=== PATIENT | male | born 1945 | race Caucasian/White ===

== ENCOUNTER → 2017-02-20 | Outpatient (CLI) | payer MEDICARE, OTHER | LOC: M SMT 09:51 | PROVIDERS: ATTEND Nurse Practitioner Women's Health | DX: Z12.5 Encounter for screening for malignant neoplasm of prostate (principal) | CPT/HCPCS: 36415; G0103; G0463 ==

== ENCOUNTER 2018-02-23 18:07 | Emergency (ER) | payer MEDICARE, OTHER ==
[2018-02-23] MEDS: ASPIRIN 81 MG CHEW TABLET PO (18:37)
[2018-02-23] MEDS: NS 1,000 ML IV (18:40)
[2018-02-23] MEDS: GI COCKTAIL 50ML BTL(HYOSCYAMINE/MAALOX/LIDOCAINE VISCOUS)(1:3:1) PO (18:40)
[2018-02-23 18:44] LABS: BASO # 0.1 10^3/uL (0.0-0.2); BASO % 0.5 % (0.0-1.0); EOS % 0.3 % (0.0-3.0); HEMATOCRIT 41.6 % (42.0-52.0); HEMOGLOBIN 14.1 g/dl (13.5-17.5); IMMATURE GRANULOCYTE % 0.3 % (0-3.0); LYMPH # 0.7 10^3/uL (1.5-4.5); LYMPH % 7.4 % (24.0-44.0); MEAN CORPUSCULAR HEMOGLOBIN 30.5 pg (27.0-33.0); MEAN CORPUSCULAR HGB CONC 33.9 g/dl (32.0-36.5); MEAN CORPUSCULAR VOLUME 89.8 fl (80.0-96.0); MONO # 1.1 10^3/uL (0.0-0.8); MONO % 11.4 % (0.0-5.0); NEUTROPHILS # 7.4 10^3/uL (1.8-7.7); NEUTROPHILS % 80.1 % (36.0-66.0); PLATELET COUNT, AUTOMATED 249 10^3/uL (150-450); RED BLOOD COUNT 4.63 10^6/uL (4.30-6.10); RED CELL DISTRIBUTION WIDTH 12.1 % (11.5-14.5); WHITE BLOOD COUNT 9.2 10^3/uL (4.0-10.0)
[2018-02-23 18:53] LABS: INR 0.97
[2018-02-23 19:08] LABS: ALT/SGPT 15 U/L (12-78); ANION GAP 9 MEQ/L (8-16); AST/SGOT 15 U/L (7-37); BLOOD UREA NITROGEN 19 MG/DL (7-18); CALCIUM LEVEL 8.2 MG/DL (8.8-10.2); CARBON DIOXIDE LEVEL 28 MEQ/L (21-32); CHLORIDE LEVEL 103 MEQ/L (98-107); CPK CREATINE PHOSPHOKINASE 43 U/L (39-308); CREATININE FOR GFR 0.87 MG/DL (0.70-1.30); GLOMERULAR FILTRATION RATE > 60.0 (>42); GLUCOSE, FASTING 98 MG/DL (70-100); SODIUM LEVEL 140 MEQ/L (136-145)
[2018-02-23 19:09] LABS: ALBUMIN 3.4 GM/DL (3.2-5.2); ALBUMIN/GLOBULIN RATIO 1.03 (1.00-1.93); ALKALINE PHOSPHATASE 66 U/L (45-117); BILIRUBIN,DIRECT 0.1 MG/DL (0.0-0.2); LIPASE 166 U/L (73-393); TOTAL PROTEIN 6.7 GM/DL (6.4-8.2); TROPONIN I < 0.02 NG/ML (< 0.10)
[2018-02-23 19:10] LABS: BILIRUBIN,TOTAL 0.5 MG/DL (0.2-1.0); CK-MB VALUE MASS < 1.0 NG/ML (<3.6); MB/CK RELATIVE INDEX 2.32 (< OR =4)
== END 2018-02-23 21:37 | disposition home or self-care (01) ==
LOC: M ED 18:07
DX: K21.0 Gastro-esophageal reflux disease with esophagitis (principal); I10 Essential (primary) hypertension; G20 Parkinson's disease; Z98.890 Other specified postprocedural states; Z82.49 Family history of ischemic heart disease and other diseases of the circulatory system; Z79.82 Long term (current) use of aspirin; Z79.899 Other long term (current) drug therapy
CPT/HCPCS: 71045

== ENCOUNTER → 2018-03-06 | Outpatient (CLI) | payer MEDICARE, OTHER ==
[2018-03-06 13:27] LABS: PSA SCREENING 2.92 NG/ML (< 4.0)
== END ==
LOC: M SMT 08:59
DX: Z12.5 Encounter for screening for malignant neoplasm of prostate (principal)
CPT/HCPCS: G0103

== ENCOUNTER → 2018-03-13 | Outpatient (REF) | payer MEDICARE, OTHER | LOC: M SFHCLERA 14:39 | DX: D22.5 Melanocytic nevi of trunk (principal) | CPT/HCPCS: 88305 ==

== ENCOUNTER → 2019-03-11 | Outpatient (REF) | payer MEDICARE, OTHER ==
[~2019-03-11] MED LIST: ADV250INH INH; AMLO10TA5 PO; ASPI81TA85 PO; CAND16TA7 PO; CARB25TA9 PO; CHLO125TA PO; FLOM0.4C39 PO; PROT1TAB2 PO; SIME180C PO
== END ==
LOC: M SFHCPLAZ 18:28
PROVIDERS: ATTEND Dermatology
DX: D22.71 Melanocytic nevi of right lower limb, including hip (principal); L57.0 Actinic keratosis; D22.5 Melanocytic nevi of trunk

== ENCOUNTER 2020-08-05 17:13 | Inpatient (IN) | payer MEDICARE, OTHER ==
[~2020-08-05] VITALS: Ht 177.8 cm; Wt 60.6 kg
[~2020-08-05 17:13] MED LIST changes: -AMLO10TA5 PO; +AMLO1TAB25 PO; -ASPI81TA85 PO; +ASPI81TA86 PO
--- NOTE | 2020-08-05 17:49 | REPVR ---
PROCEDURE INFORMATION: Exam: CT Head Without Contrast Exam date and time: 08/05/2020 5:35 PM Age: 75 years old Clinical indication: Altered mental status/memory loss; Confusion or disorientation TECHNIQUE: Imaging protocol: Computed tomography of the head without contrast. Radiation optimization: All CT scans at this facility use at least one of these dose optimization techniques: automated exposure control; mA and/or kV adjustment per patient size (includes targeted exams where dose is matched to clinical indication); or iterative reconstruction. COMPARISON: No relevant prior studies available. FINDINGS: Brain: The crowell-white differentiation is maintained. No hemorrhage. No edema. There are mild periventricular and subcortical lucencies consistent with chronic microvascular ischemic changes. Cerebral ventricles: No ventriculomegaly. Bones/joints: Unremarkable. No acute fracture. Paranasal sinuses: Visualized sinuses are unremarkable. No fluid levels. Mastoid air cells: Visualized mastoid air cells are well aerated. Orbital cavity: Bilateral cataract surgery. Soft tissues: Unremarkable. IMPRESSION: No acute intracranial abnormality. Chronic microvascular ischemic changes. Electronically signed by: Shashi Mittal On 08/05/2020 17:49:22 PM
--- NOTE | 2020-08-05 17:51 | REP ---
INDICATION: Altered Mental Status. COMPARISON: February 23, 2018.. TECHNIQUE: Sitting AP portable chest x-ray. FINDINGS: The lungs are quite hyperinflated as before consistent with COPD. Heart is not enlarged. The aorta is somewhat tortuous. No infiltrate is seen. Pleural angles are sharp. Pulmonary vasculature is not increased. IMPRESSION: Hyperinflation consistent with COPD. No acute disease. <Electronically signed by Italo Sheehan > 08/05/20 [id number]
[2020-08-05 18:06] LABS: BASO # 0.1 10^3/uL (0.0-0.2); BASO % 0.9 % (0.0-1.0); EOS % 0.6 % (0.0-3.0); HEMATOCRIT 42.7 % (42.0-52.0); HEMOGLOBIN 13.5 g/dl (13.5-17.5); LYMPH % 14.5 % (24.0-44.0); MEAN CORPUSCULAR HEMOGLOBIN 29.9 pg (27.0-33.0); MEAN CORPUSCULAR HGB CONC 31.6 g/dl (32.0-36.5); MEAN CORPUSCULAR VOLUME 94.5 fl (80.0-96.0); MONO # 0.7 10^3/uL (0.0-0.8); MONO % 11.2 % (0.0-5.0); NEUTROPHILS # 4.8 10^3/uL (1.5-8.5); NEUTROPHILS % 72.6 % (36.0-66.0); PLATELET COUNT, AUTOMATED 209 10^3/uL (150-450); RED BLOOD COUNT 4.52 10^6/uL (4.30-6.10); WHITE BLOOD COUNT 6.5 10^3/uL (4.0-10.0)
[2020-08-05 18:39] LABS: ALBUMIN 3.6 GM/DL (3.2-5.2); ALT/SGPT 6 U/L (12-78); BILIRUBIN,DIRECT 0.2 MG/DL (0.0-0.2); BILIRUBIN,TOTAL 0.6 MG/DL (0.2-1.0); BLOOD UREA NITROGEN 18 MG/DL (7-18); CALCIUM LEVEL 8.4 MG/DL (8.8-10.2); CARBON DIOXIDE LEVEL 31 MEQ/L (21-32); CHLORIDE LEVEL 105 MEQ/L (98-107); CK-MB VALUE MASS 1.5 NG/ML (<3.6); CPK CREATINE PHOSPHOKINASE 72 U/L (39-308); CREATININE FOR GFR 0.95 MG/DL (0.70-1.30); GLOMERULAR FILTRATION RATE > 60.0 (>42); GLUCOSE, FASTING 115 MG/DL (70-100); MB/CK RELATIVE INDEX 2.08 (< OR =4); SODIUM LEVEL 141 MEQ/L (136-145); THYROID STIMULATING HORMONE 0.611 uIU/ML (0.358-3.740); TOTAL PROTEIN 6.6 GM/DL (6.4-8.2); TROPONIN I < 0.02 NG/ML (< 0.10)
[2020-08-05] MEDS ORDERED: LATA0.0015 OU (19:22)
[2020-08-05] MEDS ORDERED: FLUT1INH2 INH (19:31)
[2020-08-05] MEDS ORDERED: CLON1TAB17 PO (19:31)
[2020-08-05] MEDS ORDERED: COLA100C5 PO (19:31)
[2020-08-05] MEDS ORDERED: ALLO100T PO (19:31)
--- NOTE | 2020-08-05 19:55 | REPVR ---
PROCEDURE INFORMATION: Exam: CT Cervical Spine Without Contrast Exam date and time: 08/05/2020 7:30 PM Age: 75 years old Clinical indication: Injury or trauma; Fall; Blunt trauma TECHNIQUE: Imaging protocol: Computed tomography images of the cervical spine without contrast. Radiation optimization: All CT scans at this facility use at least one of these dose optimization techniques: automated exposure control; mA and/or kV adjustment per patient size (includes targeted exams where dose is matched to clinical indication); or iterative reconstruction. COMPARISON: No relevant prior studies available. FINDINGS: Bones/joints: Grade 1 anterolisthesis of C4 over C5. No acute fracture. Discs/Spinal canal/Neural foramina: There is multilevel uncovertebral and facet hypertrophy with neural foramina narrowing. Multilevel degenerative disc disease. Soft tissues: Unremarkable. Lungs: Lung apices are normal. IMPRESSION: No acute abnormality. Electronically signed by: Shashi Mittal On 08/05/2020 19:55:56 PM
--- NOTE | 2020-08-05 20:06 | REPVR ---
PROCEDURE INFORMATION: Exam: CT Maxillofacial Without Contrast Exam date and time: 08/05/2020 7:30 PM Age: 75 years old Clinical indication: Injury or trauma; Fall; Blunt trauma (contusions or hematomas); Orbit/periorbital; Left TECHNIQUE: Imaging protocol: Computed tomography images of the face without contrast. Radiation optimization: All CT scans at this facility use at least one of these dose optimization techniques: automated exposure control; mA and/or kV adjustment per patient size (includes targeted exams where dose is matched to clinical indication); or iterative reconstruction. COMPARISON: No relevant prior studies available. FINDINGS: Orbital cavity: Orbits are normal. Globes are unremarkable. Bones/joints: No acute fracture. Paranasal sinuses: Mucous retention cyst/polyp of the left maxillary sinus. Soft tissues: Unremarkable. IMPRESSION: No acute abnormality. Electronically signed by: Shashi Mittal On 08/05/2020 20:06:26 PM
[2020-08-05] MEDS ORDERED: PANT-23 PO (21:22)
[2020-08-05] MEDS ORDERED: POTA10TA16 PO (21:22)
[2020-08-05] MEDS ORDERED: ENSULIQ9 PO (21:22)
[2020-08-05] MEDS ORDERED: ASPI81TA26 PO (21:22)
[2020-08-05] MEDS ORDERED: AMLO1TAB24 PO (21:22)
[2020-08-05] MEDS ORDERED: ADV250INH INH (21:22)
[2020-08-05] MEDS ORDERED: SENN1TAB94 PO (21:22)
[2020-08-05] MEDS ORDERED: NITR0.4S14 SL (21:24)
[2020-08-05] MEDS ORDERED: med rec comment (21:26)
--- NOTE | 2020-08-06 00:13 | HPEPDOC ---
[facility] Medical History & Physical Date of Admission Aug 05, 2020 Date of Service: Aug 05, 2020 Attending Physician: AFSHAN ENAMORADO MD History and Physical CHIEF COMPLAINT: Fall HISTORY OF PRESENT ILLNESS: Sunny Tolentino is a very pleasant 75 YO M with history of Parkinsons disease who presents 3 days after an unwitnessed fall. The patient reports he was walking outside fast when he suddenly found himself on the ground bleeding profusely from his head. He has no memory of what happened exactly--he is unsure whether he was feeling lightheaded or dizzy or if he simply tripped. He does state that he was walking very quickly (for exercise) and he was going on a downhill slope at the time. The patient also denies any recent falls or gait instability. Shortly after he fell he was discovered by a passerby who activated EMS. He was then taken to [facility] where his left eyebrow laceration was stitched and he was sent home after being worked up. He is brought back to the ED today by a friend who is volunteer EMS who was concerned about intermittent confusion. She stated that the patient will tend to go in and out of confusion, often forgetting where he is. He lives alone at his home in [place], [place].At this time the patient denies any headaches, vision changes, nausea, vomiting or diarrhea. 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 Asthma. Hypertension. History of ID. High cholesterol. Arthritis. Degenerative disc disease, bulging disc. Insomnia. Cataracts. Macular degeneration. Parkinsons disease. PAST SURGICAL HISTORY: Deviated nasal sputum 2005 MM excised 2004 Bilateral knee surgery to remove torn cartilage [id number] & 01/2013 growth removed from back 03/15 SOCIAL HISTORY: Lives alone in [facility]. Has one brother nearby, Channing Tolentino and 2 nieces Never smoker, denies EtOH or other drugs FAMILY HISTORY: Father: , Alzheimer Mother: , Stroke Siblings: Brother with multiple medical problems, Sister of stroke Denies family history of MM, No known family history of any urologically related diseases/cancers. ALLERGIES: Please see below. REVIEW OF SYSTEMS: Constitutional: No Weight Change, No Fever, No Chills, No Night Sweats, No Fatigue, No Malaise ENT/Mouth: No Hearing Changes, No Ear Pain, No Nasal Congestion, No Sinus Pain, No Hoarseness, No sore throat, No Rhinorrhea, No Swallowing Difficulty Eyes: No Eye Pain, No Swelling, No Redness, No Foreign Body, No Discharge, No Vision Changes Cardiovascular: Reports some chest discomfort in center of his chest Respiratory: No Cough, No Wheezing, No Smoke Exposure, No Dyspnea Gastrointestinal: No Nausea, No Vomiting, No Diarrhea, No Constipation, No Pain, No Heartburn, No Anorexia, No Dysphagia, No Hematochezia Musculoskeletal: No Arthralgias, No Myalgias, No Joint Swelling, No Joint Stiffness, No Back Pain, No Neck Pain, No Injury History Skin: No Skin Lesions, No Pruritis, No Hair Changes, No Breast/Skin Changes, No Nipple Discharge Neuro: Reports ongoing tremor at rest, No Weakness, No Numbness, No Paresthesias, No Loss of Consciousness, No Syncope, No Dizziness, No Headache, No Coordination Changes, No Recent Falls Psych: No Anxiety/Panic, No Depression, No Insomnia, No Personality Changes, No Delusions Heme/Lymph: No Bruising, No Bleeding, No Transfusions History, No Lymphadenopathy Endocrine: No Polyuria, No Polydipsia, No Temperature Intolerance HOME MEDICATIONS: Please see below. PHYSICAL EXAMINATION: VITAL SIGNS: see below GENERAL: alert and oriented, in no apparent distress, pleasant and conversant in full sentences. HEENT: PERRL, EOMI, Oral mucous membranes are moist without lesions. Left eyeball globe injected, bloody. Surrounding erythema and bruising around the l eft eye. FACE: There is a repaired laceration at the left eyebrow, clean/dry/intact NECK: The patient has no noted JVD. No adenopathy is appreciated. No thyromegaly CHEST/LUNGS: Lungs are clear bilaterally without rhonchi, rales, or wheezes. There is no subcutaneous air appreciated. There is no tenderness to the chest wall. HEART: Regular rate and rhythm. No murmurs, rubs, or gallops are appreciated. Distal pulses are 2+. No carotid bruits appreciated. ABDOMEN: Soft, nontender, and nondistended. Bowel sounds are positive. No organomegaly is appreciated. No masses are appreciated. There are no peritoneal signs. There is no [place] sign. EXTREMITIES: No peripheral edema. There is no focal long bone tenderness or deformity. SKIN: The patients skin is warm and dry, without rashes or lesions. PSYCHIATRIC: AAO x 3, normal mood/affect NEUROLOGIC: The patient has 5/5 strength to the upper and lower extremities bilaterally. Threre is a resting tremor. Sensation is intact throughout. There are no deficits to the cranial nerves. I did not evaluate the patient's gait LABORATORY DATA: See below. IMAGING: HEAD CT: FINDINGS: Brain: The crowell-white differentiation is maintained. No hemorrhage. No edema. There are mild periventricular and subcortical lucencies consistent with chronic microvascular ischemic changes. Cerebral ventricles: No ventriculomegaly. Bones/joints: Unremarkable. No acute fracture. Paranasal sinuses: Visualized sinuses are unremarkable. No fluid levels. Mastoid air cells: Visualized mastoid air cells are well aerated. Orbital cavity: Bilateral cataract surgery. Soft tissues: Unremarkable. IMPRESSION: No acute intracranial abnormality. Chronic microvascular ischemic changes. CXR: FINDINGS: The lungs are quite hyperinflated as before consistent with COPD. Heart is not enlarged. The aorta is somewhat tortuous. No infiltrate is seen. Pleural angl es are sharp. Pulmonary vasculature is not increased. IMPRESSION: Hyperinflation consistent with COPD. No acute disease. MAXILLOFACIAL CT: FINDINGS: Orbital cavity: Orbits are normal. Globes are unremarkable. Bones/joints: No acute fracture. Paranasal sinuses: Mucous retention cyst/polyp of the left maxillary sinus. Soft tissues: Unremarkable. IMPRESSION: No acute abnormality. CERVICAL SPINE CT: FINDINGS: Bones/joints: Grade 1 anterolisthesis of C4 over C5. No acute fracture. Discs/Spinal canal/Neural foramina: There is multilevel uncovertebral and facet hypertrophy with neural foramina narrowing. Multilevel degenerative disc disease. Soft tissues: Unremarkable. Lungs: Lung apices are normal. IMPRESSION: No acute abnormality. MICROBIOLOGY: Please see below. ASSESSMENT: This is a 75-year-old male with history of Parkinson's disease who presents after a unwitnessed fall found to have intermittent confusion concerning for concussive syndrome versus metabolic encephalopathy versus worsening dementia. PLAN: 1. Recent Fall: May be due to gait instability 2/2 Parkinson's vs syncope -Vitals currently stable in ED -Imaging without any concerning findings as demonstrated above -Echocardiogram ordered to rule out structural heart disease -Will put patient on continuous telemetry to rule out arrhythmia -MRI pending -PT/OT consult to evaluate gait 2. Facial trauma, s/p fall: -Maxillofacial CT not concerning for bony pathology. -Patient does have bloody appearing globe. Vision is intact 3. History of Parkinson's disease: Patient tells me he sees Dr. Noriega -Continue Carbidopa/Levodopa -Will need Neurology follow up outpatient -Orthostatic hypotension may be cause of fall. -PT/OT consult to evaluate for shuffling or unsteady gait 2/2 Parkinsons 4. HTN: -Continue home meds: Amlodipine, Candesartan, Chlorthalidone 5. Cognitive decline? Patient has speech/memory problems. 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 BPH: -Continue Flomax DVT ppx: TEDs/SCDs Vital Signs Vital Signs Date Time Temp Pulse Resp B/P (MAP) Pulse Ox O2 Delivery O2 Flow Rate FiO2 08/05/20 18:01 08/05/20 18:01 Room Air 08/05/20 17:14 98.5 72 20 98 Laboratory Data Labs 24H Laboratory Tests 2 08/05/20 17:54: Immature Granulocyte % (Auto) 0.2, Neutrophils (%) (Auto) 72.6H, Lymphocytes (%) (Auto) 14.5L, Monocytes (%) (Auto) 11.2H, Eosinophils (%) (Auto) 0.6, Basophils (%) (Auto) 0.9, Neutrophils # (Auto) 4.8, Lymphocytes # (Auto) 1.0L, Monocytes # (Auto) 0.7, Eosinophils # (Auto) 0.0, Basophils # (Auto) 0.1, Nucleated Red Blood Cells % (auto) 0.0, Anion Gap 5L, Glomerular Filtration Rate > 60.0, Lactic Acid Level 1.2, Calcium Level 8.4L, Total Bilirubin 0.6, Direct Bilirubin 0.2, Aspartate Amino Transf (AST/SGOT) 14, Alanine Aminotransferase (ALT/SGPT) 6L, Alkaline Phosphatase 85, Ammonia 11, Total Creatine Kinase 72, Creatine Kinase MB 1.5, Creatine Kinase MB Relative Index 2.08, Troponin I < 0.02, Total Protein 6.6, Albumin 3.6, Albumin/Globulin Ratio 1.2, Thyroid Stimulating Hormone (TSH) 0.611 08/05/20 17:59: Bedside Glucose (Misc Panel) 117H 08/05/20 19:28: Urine Color YELLOW, Urine Appearance CLEAR, Urine pH 6.0, Urine Specific [place] 1.018, Urine Protein NEGATIVE, Urine Glucose (UA) NEGATIVE, Urine Ketones TRACEH, Urine Blood NEGATIVE, Urine Nitrite NEGATIVE, Urine Bilirubin NEGATIVE, Urine Urobilinogen 0.2, Urine Leukocyte Esterase NEGATIVE, Urine WBC (Auto) 0, Urine RBC (Auto) 2, Urine Hyaline Casts (Auto) 0, Urine Bacteria (Auto) NEGATIVE, Urine Squamous Epithelial Cells 0, Urine Mucus (Auto) SMALL, Urine Sperm (Auto) CBC/BMP Laboratory Tests 08/05/20 17:54 Home Medications Scheduled Allopurinol (Allopurinol) 100 Mg Tablet, 100 MG PO QAM Amlodipine Besylate (Amlodipine Besylate) 5 Mg Tablet, 5 MG PO DAILY Aspirin (Aspirin EC) 81 Mg Tablet.dr, 81 MG PO Q4D Candesartan Cilexetil (Candesartan Cilexetil) 16 Mg Tab, 16 MG PO BID Carbidopa/Levodopa (Carbidopa-Levodopa 25-100 Tab) 1 Tab Tab, 2 TABS PO QID Chlorthalidone (Chlorthalidone) 12.5 Mg Halftab, 12.5 MG PO QAM Clonazepam (Clonazepam) 1 Mg Tab.rapdis, 1 MG PO QHS Finasteride (Finasteride) 5 Mg Tablet, 5 MG PO QHS Lactose-Reduced Food (Ensure Plus) 237 Ml Liquid, 237 ML PO BID Latanoprost/Pf (Latanoprost 0.005% Eye Drop) 7.5 Ml Drops, 1 DROP OU QHS Nitroglycerin (Nitroglycerin) 0.4 Mg Tab.subl, 0.4 MG SL ASDIRECTED for chest pain 1st sign of attack; may repeat every 5 mins; if pain persists after 3 in 15 min, medical attention is recommended Pantoprazole Sodium (Pantoprazole Sodium) 40 Mg Tablet.dr, 40 MG PO DAILY Potassium Chloride (Potassium Chloride) 10 Meq Tab.er.prt, 20 MEQ PO BID Salmeterol/Fluticasone (Advair 250-50 Diskus) 1 Each Blst.w.dev, 1 PUFF INH BID Scheduled PRN Sennosides/Docusate Sodium (Senna Plus 8.6-50 mg Tablet) 1 Each Tablet, 2 TABS PO DAILY PRN for CONSTIPATION Miscellaneous Medications [med rec comment] USED EXTERNAL HISTORY AND MED LIST FROM [facility] ([facility]) Allergies Coded Allergies: No Known Drug Allergies (Verified Allergy, Unknown, 08/05/20) A-FIB/CHADSVASC A-FIB History Current/History of A-Fib/PAF?: No Current PO Anticoag Therapy: No GME ATTESTATION GME ATTESTATION My faculty preceptor for this patient encounter was physically present during the encounter and was fully available. All aspects of the patient interview, examination, medical decision making process, and medical care plan development were reviewed and approved by the faculty preceptor. The faculty preceptor is aware and concurs with the plan as stated in the body of this note and will attest to such by his/her cosignature. ATTENDING NOTE I, Afshan Enamorado, have independently examined this patient and performed my own physical exam, as well as reviewed the documentation and edited where necessary. I have discussed in detail with the resident / student the findings and plan of treatment as documented by the resident / student and edited their note. I agree with their findings and treatment plan and have edited their documentation. I will continue to follow the patient during this hospital stay. STEPHANIE GONGORA MD Aug 05, 2020 21:21 AFSHAN ENAMORADO MD Aug 10, 2020 12:39
--- NOTE | 2020-08-06 03:50 | REPVR ---
PROCEDURE INFORMATION: Exam: MR Head Without Contrast Exam date and time: 08/06/2020 3:07 AM Age: 75 years old Clinical indication: Injury or trauma; Fall; Blunt trauma (contusions or hematomas) and laceration; Consciousness not specified; Without residual foreign body; Eye; Left; Injury date: 08/05/20; Additional info: S/P fall TECHNIQUE: Imaging protocol: MR of the head without contrast. COMPARISON: CT Head without contrast 08/05/2020 5:31 PM FINDINGS: Brain: There is mild cerebral atrophy. Changes of chronic white matter microvascular disease are present. No signs of a recent infarction or hemorrhage. Cerebral ventricles: Normal. No ventriculomegaly. Bones/joints: Unremarkable. Paranasal sinuses: Normal as visualized. No acute sinusitis. Mastoid air cells: Normal as visualized. No mastoid effusion. Orbits: Unremarkable. Soft tissues: Unremarkable. IMPRESSION: Atrophy and chronic white matter changes. No acute intracranial abnormality. Electronically signed by: Sg Avilez On 08/06/2020 03:50:34 AM
[2020-08-06 04:00] VITALS: BP 172/92
[2020-08-06] MEDS: CANDESARTAN 16 MG TABLET PO SCH ×2 (04:29→21:24)
[2020-08-06 05:59] LABS: HEMATOCRIT 43.2 % (42.0-52.0); HEMOGLOBIN 13.8 g/dl (13.5-17.5); MEAN CORPUSCULAR HEMOGLOBIN 29.6 pg (27.0-33.0); MEAN CORPUSCULAR HGB CONC 31.9 g/dl (32.0-36.5); MEAN CORPUSCULAR VOLUME 92.7 fl (80.0-96.0); PLATELET COUNT, AUTOMATED 215 10^3/uL (150-450); RED BLOOD COUNT 4.66 10^6/uL (4.30-6.10); WHITE BLOOD COUNT 7.3 10^3/uL (4.0-10.0)
[2020-08-06 06:20] LABS: BLOOD UREA NITROGEN 16 MG/DL (7-18); CALCIUM LEVEL 8.5 MG/DL (8.8-10.2); CARBON DIOXIDE LEVEL 32 MEQ/L (21-32); CHLORIDE LEVEL 105 MEQ/L (98-107); CREATININE FOR GFR 0.84 MG/DL (0.70-1.30); GLOMERULAR FILTRATION RATE > 60.0 (>42); GLUCOSE, FASTING 90 MG/DL (70-100); MAGNESIUM LEVEL 2.2 MG/DL (1.8-2.4); POTASSIUM SERUM 3.6 MEQ/L (3.5-5.1); SODIUM LEVEL 139 MEQ/L (136-145)
[2020-08-06] MEDS: ADVAIR HFA 115/21MCG INHALER INH SCH ×2 (07:06→19:33)
[2020-08-06 08:00] VITALS: BP 164/88
[2020-08-06] MEDS ORDERED: CANDESARTAN 16 MG TABLET PO SCH (09:00)
--- NOTE | 2020-08-06 09:02 | IPNPDOC ---
Text Note Date of Service The patient was seen on 08/06/20. NOTE SUBJECTIVE: Patient does not have any complaints this morning. He remembers a bout his fall [facility] but does not have any recollection of 08/04/ or 08/05 and his coming to our ED. He does not remember his friend who is an EMS and was checking up on him visiting and then calling the ambulance. He denied having any memory issues before. But his friend who called EMS said that he is forgetful. PHYSICAL EXAM: VITAL SIGNS: see below GENERAL: alert and oriented, in no apparent distress, pleasant and conversant in full sentences. HEENT: PERRL, EOMI, Oral mucous membranes are moist without lesions. Left eyeball globe injected, bloody. Surrounding erythema and bruising around the left eye. FACE: There is a repaired laceration at the left eyebrow, clean/dry/intact NECK: The patient has no noted JVD. No adenopathy is appreciated. No thyromegaly CHEST/LUNGS: Lungs are clear bilaterally without rhonchi, rales, or wheezes. There is no subcutaneous air appreciated. There is no tenderness to the chest wall. HEART: Regular rate and rhythm. No murmurs, rubs, or gallops are appreciated. Distal pulses are 2+. No carotid bruits appreciated. ABDOMEN: Soft, nontender, and nondistended. Bowel sounds are positive. No organomegaly is appreciated. No masses are appreciated. There are no peritoneal signs. There is no [place] sign. EXTREMITIES: No peripheral edema. There is no focal long bone tenderness or deformity. SKIN: The patients skin is warm and dry, without rashes or lesions. PSYCHIATRIC: AAO x 3, normal mood/affect NEUROLOGIC: The patient has 5/5 strength to the upper and lower extremities bilaterally. There is a resting tremor. Sensation is intact throughout. There are no deficits to the cranial nerves. LABORATORY DATA and IMAGING : Reviewed. ASSESSMENT and PLAN: This is a 75-year-old male with history of Parkinson's disease, HTN, gait instability, speech and memory issues at baseline who presents after a unwitnessed fall found to have intermittent confusion concerning for concussive syndrome versus metabolic encephalopathy versus worsening dementia. Recent Fall on 08/03/20 May be due to gait instability 2/2 Parkinson's vs syncope Syncope may be due to orthostatic hypotension. MRI brain shows just atrophy, other imaging reviewed no acute abnormality. Echocardiogram ordered to rule out structural heart disease continuous telemetry to rule out arrhythmia PT/OT consult to evaluate gait Cognitive Impairment Patient has speech/memory problems. 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 OT Cognitive eval in place Facial trauma, s/p fall: Maxillofacial CT not concerning for bony pathology. Patient does have bloody appearing globe. Vision is intact History of Parkinson's disease: Patient tells me he sees Dr. Noriega Continue Carbidopa/Levodopa Neurology follow up outpatient Orthostatic hypotension may be cause of fall. PT/OT consult to evaluate for shuffling or unsteady gait 2/2 Parkinsons HTN: Continue home meds: Amlodipine, Candesartan, Chlorthalidone BPH: Continue Flomax DVT ppx: TEDs/SCDs VS,Fishbone, I+O VS, Fishbone, I+O Laboratory Tests 08/05/20 17:54 08/06/20 05:45 Vital Signs Date Time Temp Pulse Resp B/P (MAP) Pulse Ox O2 Delivery O2 Flow Rate FiO2 08/06/20 04:00 97.9 66 18 172/92 (118) 96 Room Air I&O- Last 24 Hours up to 6 AM 08/06/20 07:00 Intake Total 0 ml Output Total 0 ml Balance 0 ml MEENA MARION MD Aug 06, 2020 07:49
[2020-08-06] MEDS: allopurinoL 100 MG TAB PO SCH (09:07)
[2020-08-06] MEDS: PANTOPRAZOLE 40MG TAB (PROTONIX) PO SCH (09:07)
[2020-08-06] MEDS: TAMSULOSIN 0.4 MG CAP PO SCH (09:07)
[2020-08-06] MEDS: CHLORTHALIDONE 12.5MG PER 1/2 TABLET PO SCH (09:07)
[2020-08-06] MEDS: SINEMET 25-100 MG TAB PO SCH ×4 (09:08→21:24)
[2020-08-06] MEDS: amLODIPine 5 MG TAB PO SCH (09:09)
--- NOTE | 2020-08-06 10:23 | ECGEPIP ---
[facility] - ED Test Date: 2020-08-05 Pat Name: MIGUEL CLARK Department: Room: - Gender: Male Director Selection And Administration: ESTELA : 1945 Requested By: Clare Acevedo Order Number: [id number] Reading MD: Jah Garcia Measurements Intervals [place] Rate: 74 P: 75 SC: 151 QRS: -16 QRSD: 89 T: 60 QT: 382 QTc: 426 Interpretive Statements SINUS RHYTHM LOW QRS VOLTAGE LIMB LEADS NONSPECIFIC ST T WAVE CHANGES DELAYED R WAVE PROGRESSION CW 02/23/[address] T WAVE CHANGES Electronically Signed on 08-06-2020 10:22:59 EST by Jah Garcia
[2020-08-06 10:40] VITALS: BP 172/95
[2020-08-06 14:00] VITALS: BP 109/63
[2020-08-06 22:00] VITALS: BP 156/87
[2020-08-07] MEDS: ACETAMINOPHEN TAB 650MG DOSE (2X325MG) PO PRN ×2 (02:19→20:18)
[2020-08-07 06:00] VITALS: BP 157/87
[2020-08-07 07:51] LABS: HEMOGLOBIN 14.5 g/dl (13.5-17.5); MEAN CORPUSCULAR HEMOGLOBIN 30.3 pg (27.0-33.0); MEAN CORPUSCULAR VOLUME 92.1 fl (80.0-96.0); PLATELET COUNT, AUTOMATED 230 10^3/uL (150-450); RED BLOOD COUNT 4.78 10^6/uL (4.30-6.10); WHITE BLOOD COUNT 8.3 10^3/uL (4.0-10.0)
[2020-08-07] MEDS: ADVAIR HFA 115/21MCG INHALER INH SCH ×2 (07:54→20:26)
[2020-08-07] MEDS: allopurinoL 100 MG TAB PO SCH (08:47)
[2020-08-07] MEDS: PANTOPRAZOLE 40MG TAB (PROTONIX) PO SCH (08:48)
[2020-08-07] MEDS: TAMSULOSIN 0.4 MG CAP PO SCH (08:48)
[2020-08-07] MEDS: CHLORTHALIDONE 12.5MG PER 1/2 TABLET PO SCH (08:48)
[2020-08-07] MEDS: SINEMET 25-100 MG TAB PO SCH ×4 (08:48→20:16)
[2020-08-07] MEDS: CANDESARTAN 16 MG TABLET PO SCH ×2 (08:48→20:15)
[2020-08-07] MEDS: amLODIPine 5 MG TAB PO SCH (08:51)
[2020-08-07 09:31] LABS: BLOOD UREA NITROGEN 17 MG/DL (7-18); CALCIUM LEVEL 8.8 MG/DL (8.8-10.2); CARBON DIOXIDE LEVEL 29 MEQ/L (21-32); CHLORIDE LEVEL 102 MEQ/L (98-107); GLOMERULAR FILTRATION RATE > 60.0 (>42); GLUCOSE, FASTING 82 MG/DL (70-100); POTASSIUM SERUM 3.7 MEQ/L (3.5-5.1); SODIUM LEVEL 138 MEQ/L (136-145)
--- NOTE | 2020-08-07 12:59 | IPNPDOC ---
Text Note Date of Service The patient was seen on 08/07/20. NOTE SUBJECTIVE: He continues to have intermittent confusion. He recall of the days after his fall in foggy and vague. At present he is alert, [facility] could not tell me the name said it was in [place]. He knows it is August 07 and who is going to be the next president. He however could not tell me his home address. He could tell me however the grocery store is from his house and that he walks to the store. He does not remember how he goes for his doctor's appointments. 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 PT and nurses tell me that he has been having direction finding difficulty. Could not find the attached bathroom. His memory seems to be waxing and waning with periods where he is very lucid then he cannot remember basic things. Overnight has been agitated and trying to get out of bed. PHYSICAL EXAM: VITAL SIGNS: see below GENERAL: alert and oriented, in no apparent distress, pleasant and conversant in full sentences. HEENT: PERRL, EOMI, Oral mucous membranes are moist without lesions. Left eyeball globe injected, bloody. Surrounding erythema and bruising around the left eye. FACE: There is a repaired laceration at the left eyebrow, clean/dry/intact NECK: The patient has no noted JVD. No adenopathy is appreciated. No thyromegaly CHEST/LUNGS: Lungs are clear bilaterally without rhonchi, rales, or wheezes. There is no subcutaneous air appreciated. There is no tenderness to the chest wall. HEART: Regular rate and rhythm. No murmurs, rubs, or gallops are appreciated. Distal pulses are 2+. No carotid bruits appreciated. ABDOMEN: Soft, nontender, and nondistended. Bowel sounds are positive. No organomegaly is appreciated. No masses are appreciated. There are no peritoneal signs. There is no [place] sign. EXTREMITIES: No peripheral edema. There is no focal long bone tenderness or deformity. SKIN: The patients skin is warm and dry, without rashes or lesions. PSYCHIATRIC: AAO x 3, normal mood/affect NEUROLOGIC: The patient has 5/5 strength to the upper and lower extremities bilaterally. There is a resting tremor. Sensation is intact throughout. There are no deficits to the cranial nerves. LABORATORY DATA and IMAGING : Reviewed. ASSESSMENT and PLAN: This is a 75-year-old male with history of Parkinson's disease, HTN, gait instability, speech and memory issues at baseline who presents after a unwitnessed fall found to have intermittent confusion concerning for concussive syndrome versus metabolic encephalopathy versus worsening dementia. Recent Fall on 08/03/20 May be due to gait instability 2/2 Parkinson's vs syncope Syncope may be due to orthostatic hypotension. MRI brain shows just atrophy, other imaging reviewed no acute abnormality. Echocardiogram ordered to rule out structural heart disease continuous telemetry to rule out arrhythmia PT/OT consult to evaluate gait Cognitive Impairment Patient has speech/memory problems. 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 OT Cognitive eval in place Facial trauma, s/p fall: Maxillofacial CT not concerning for bony pathology. Patient does have bloody appearing globe. Vision is intact History of Parkinson's disease: Patient tells me he sees Dr. Noriega Continue Carbidopa/Levodopa Neurology follow up outpatient Orthostatic hypotension may be cause of fall. PT/OT consult to evaluate for shuffling or unsteady gait 2/2 Parkinsons HTN: Continue home meds: Amlodipine, Candesartan, Chlorthalidone BPH: Continue Flomax DVT ppx: TEDs/SCDs VS,Fishbone, I+O VS, Fishbone, I+O Vital Signs Date Time Temp Pulse Resp B/P (MAP) Pulse Ox O2 Delivery O2 Flow Rate FiO2 08/07/20 06:00 100.1 79 18 157/87 (110) 96 Room Air I&O- Last 24 Hours up to 6 AM 08/07/20 07:00 Intake Total 690 ml Output Total 1045 ml Balance -355 ml MEENA MARION MD Aug 07, 2020 07:00
[2020-08-07 14:00] VITALS: BP 121/62
[2020-08-07] MEDS: LATANOPROST 0.005% OPHTH SOLN 2.5 ML OU SCH (20:16)
[2020-08-07 22:00] VITALS: BP 144/73
[2020-08-08 05:56] LABS: HEMOGLOBIN 13.7 g/dl (13.5-17.5); MEAN CORPUSCULAR HEMOGLOBIN 29.6 pg (27.0-33.0); MEAN CORPUSCULAR HGB CONC 31.9 g/dl (32.0-36.5); MEAN CORPUSCULAR VOLUME 92.9 fl (80.0-96.0); PLATELET COUNT, AUTOMATED 227 10^3/uL (150-450); RED BLOOD COUNT 4.63 10^6/uL (4.30-6.10); WHITE BLOOD COUNT 10.6 10^3/uL (4.0-10.0)
[2020-08-08 06:00] VITALS: BP 143/73
[2020-08-08 06:24] LABS: BLOOD UREA NITROGEN 21 MG/DL (7-18); CALCIUM LEVEL 8.1 MG/DL (8.8-10.2); CARBON DIOXIDE LEVEL 29 MEQ/L (21-32); CHLORIDE LEVEL 105 MEQ/L (98-107); CREATININE FOR GFR 0.92 MG/DL (0.70-1.30); GLOMERULAR FILTRATION RATE > 60.0 (>42); GLUCOSE, FASTING 102 MG/DL (70-100); POTASSIUM SERUM 3.6 MEQ/L (3.5-5.1); SODIUM LEVEL 141 MEQ/L (136-145)
[2020-08-08] MEDS: TAMSULOSIN 0.4 MG CAP PO SCH (09:35)
[2020-08-08] MEDS: CHLORTHALIDONE 12.5MG PER 1/2 TABLET PO SCH (09:35)
[2020-08-08] MEDS: SINEMET 25-100 MG TAB PO SCH ×4 (09:35→20:45)
[2020-08-08] MEDS: amLODIPine 5 MG TAB PO SCH (09:35)
[2020-08-08] MEDS: PANTOPRAZOLE 40MG TAB (PROTONIX) PO SCH (09:36)
[2020-08-08] MEDS: CANDESARTAN 16 MG TABLET PO SCH ×2 (09:36→20:45)
[2020-08-08] MEDS: allopurinoL 100 MG TAB PO SCH (09:36)
[2020-08-08] MEDS: ADVAIR HFA 115/21MCG INHALER INH SCH ×2 (10:04→19:34)
[2020-08-08 14:00] VITALS: BP 123/61
--- NOTE | 2020-08-08 15:24 | IPNPDOC ---
Text Note Date of Service The patient was seen on 08/08/20. NOTE SUBJECTIVE: Still very confused. No family to take care of him, lives alone, has not been taking his meds for several months. Spoke with Brother who is older than patient who wont be able to come daily and check on him but will be able to call him daily and talk to him over the phone. PHYSICAL EXAM: VITAL SIGNS: see below GENERAL: alert and oriented, in no apparent distress, pleasant and conversant in full sentences. HEENT: PERRL, EOMI, Oral mucous membranes are moist without lesions. Left eyeball globe injected, bloody. Surrounding erythema and bruising around the lef t eye. FACE: There is a repaired laceration at the left eyebrow, clean/dry/intact NECK: The patient has no noted JVD. No adenopathy is appreciated. No thyromegaly CHEST/LUNGS: Lungs are clear bilaterally without rhonchi, rales, or wheezes. There is no subcutaneous air appreciated. There is no tenderness to the chest wall. HEART: Regular rate and rhythm. No murmurs, rubs, or gallops are appreciated. Distal pulses are 2+. No carotid bruits appreciated. ABDOMEN: Soft, nontender, and nondistended. Bowel sounds are positive. No organomegaly is appreciated. No masses are appreciated. There are no peritoneal signs. There is no [place] sign. EXTREMITIES: No peripheral edema. There is no focal long bone tenderness or deformity. SKIN: The patients skin is warm and dry, without rashes or lesions. PSYCHIATRIC: AAO x2 normal mood/affect NEUROLOGIC: The patient has 5/5 strength to the upper and lower extremities bilaterally. There is a resting tremor. Sensation is intact throughout. There are no deficits to the cranial nerves. LABORATORY DATA and IMAGING : Reviewed. ASSESSMENT and PLAN: This is a 75-year-old male with history of Parkinson's disease, HTN, gait instability, speech and memory issues at baseline who presents after a unwitnessed fall found to have intermittent confusion conc erning for concussive syndrome versus metabolic encephalopathy versus worsening dementia. Recent Fall on 08/03/20 May be due to gait instability 2/2 Parkinson's vs syncope Syncope may be due to orthostatic hypotension. MRI brain shows just atrophy, other imaging reviewed no acute abnormality. Echocardiogram ordered to rule out structural heart disease continuous telemetry to rule out arrhythmia PT/OT consult to evaluate gait Cognitive Impairment Patient has speech/memory problems. 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 OT Cognitive eval in place Facial trauma, s/p fall/ left subconjunctival hemorrhage. Maxillofacial CT not concerning for bony pathology. Patient does have bloody appearing globe. Vision is intact needs follow up with [facility] History of Parkinson's disease: Patient tells me he sees Dr. Noriega Continue Carbidopa/Levodopa Neurology follow up outpatient Orthostatic hypotension may be cause of fall. PT/OT consult to evaluate for shuffling or unsteady gait 2/2 Parkinsons HTN: Continue home meds: Amlodipine, Candesartan, Chlorthalidone BPH: Continue Flomax DVT ppx: TEDs/SCDs VS,Fishbone, I+O VS, Fishbone, I+O Laboratory Tests 08/08/20 05:41 Vital Signs Date Time Temp Pulse Resp B/P (MAP) Pulse Ox O2 Delivery O2 Flow Rate FiO2 08/08/20 14:00 97.7 77 16 123/61 (81) 96 Room Air I&O- Last 24 Hours up to 6 AM 08/08/20 07:00 Intake Total 1350 ml Output Total 850 ml Balance 500 ml MEENA MARION MD Aug 08, 2020 15:24
[2020-08-08] MEDS: LATANOPROST 0.005% OPHTH SOLN 2.5 ML OU SCH (20:45)
[2020-08-08 22:00] VITALS: BP 121/62
[2020-08-08] MEDS: ACETAMINOPHEN TAB 650MG DOSE (2X325MG) PO PRN (22:21)
[2020-08-09 06:00] VITALS: BP 122/65
[2020-08-09] MEDS: ADVAIR HFA 115/21MCG INHALER INH SCH ×2 (07:19→19:31)
[2020-08-09] MEDS: TAMSULOSIN 0.4 MG CAP PO SCH (09:01)
[2020-08-09] MEDS: SINEMET 25-100 MG TAB PO SCH ×4 (09:01→20:11)
[2020-08-09] MEDS: ASPIRIN 81 MG ENTERIC TAB PO SCH (09:01)
[2020-08-09] MEDS: PANTOPRAZOLE 40MG TAB (PROTONIX) PO SCH (09:01)
[2020-08-09] MEDS: allopurinoL 100 MG TAB PO SCH (09:01)
[2020-08-09] MEDS: amLODIPine 5 MG TAB PO SCH (09:02)
[2020-08-09] MEDS: CHLORTHALIDONE 12.5MG PER 1/2 TABLET PO SCH (09:05)
[2020-08-09] MEDS: CANDESARTAN 16 MG TABLET PO SCH ×2 (09:05→20:12)
--- NOTE | 2020-08-09 11:55 | IPNPDOC ---
Date Seen The patient was seen on 08/09/20. Progress Note SUBJECTIVE: c/o left eye pain and decreased vision, hard to watch tv and read the newspaper, sees Dr. Mejía for glaucoma. cooperative. does not want placement, but lives alone. PHYSICAL EXAM: VITAL SIGNS: see below GENERAL: no distress HEENT: left eye injected. stitches on left upper eyelid no thyromegaly no jvd. LUNGS: Lungs are clear bilaterally HEART: S1S2 RRR no carotid bruit no murmurs. ABDOMEN: Soft, nontender bs x4 quadrants EXTREMITIES: No peripheral edema. There is no focal long bone tenderness or deformity. NEURO: resting parkinsonian tremor AAOx2 person and place. motor 4/4/ strength. no sensory changes. gait not tested. LABORATORY DATA and IMAGING : Reviewed. ASSESSMENT and PLAN: This is a 75-year-old male with history of Parkinson's disease, HTN, gait instability, speech and memory issues at baseline who presents after a unwitnessed fall found to have intermittent confusion concerni ng for concussive syndrome versus metabolic encephalopathy versus worsening dementia. Recent Fall on 08/03/20 Gait Imbalance/Debility Cognitive Impairment Parkinson's disease Left conjunctival Hemorrhage h/o glaucoma Left Upper eyelid laceration Orthostatic hypotension autonomic dysfunction HTN BPH: PLAN: due to fall and orthostasis, dc flomax. try proscar. optho consult for decreased vision and pain w h/o glaucoma and recent fall. PT/OT for HSE. PFS for dc plans. VS, I&O, 24H, Fishbone Vital Signs/I&O Vital Signs Date Time Temp Pulse Resp B/P (MAP) Pulse Ox O2 Delivery O2 Flow Rate FiO2 08/09/20 09:02 84 126/70 08/09/20 06:00 97.6 18 96 08/08/20 14:00 Room Air I&O- Last 24 Hours up to 6 AM 08/09/20 06:00 Intake Total 1110 ml Output Total 0 ml Balance 1110 ml SHANAE BAINS MD Aug 09, 2020 11:55
[2020-08-09 14:00] VITALS: BP 128/62
[2020-08-09] MEDS: FINASTERIDE 5 MG TAB PO SCH (20:12)
[2020-08-09] MEDS: LATANOPROST 0.005% OPHTH SOLN 2.5 ML OU SCH (20:12)
[2020-08-09] MEDS: ACETAMINOPHEN TAB 650MG DOSE (2X325MG) PO PRN (20:12)
[2020-08-09 22:00] VITALS: BP 117/59
[2020-08-10] MEDS ORDERED: FINA5TAB2 PO (05:39)
[2020-08-10 06:00] VITALS: BP 130/68
[2020-08-10] MEDS: ADVAIR HFA 115/21MCG INHALER INH SCH ×2 (07:47→19:13)
[2020-08-10] MEDS: CHLORTHALIDONE 12.5MG PER 1/2 TABLET PO SCH (08:07)
[2020-08-10] MEDS: allopurinoL 100 MG TAB PO SCH (08:07)
[2020-08-10] MEDS: CANDESARTAN 16 MG TABLET PO SCH ×2 (08:07→21:04)
[2020-08-10] MEDS: SINEMET 25-100 MG TAB PO SCH ×4 (08:07→21:04)
[2020-08-10] MEDS: amLODIPine 5 MG TAB PO SCH (08:08)
[2020-08-10] MEDS: PANTOPRAZOLE 40MG TAB (PROTONIX) PO SCH (08:08)
--- NOTE | 2020-08-10 08:43 | ECHO ---
DATE OF PROCEDURE: 08/08/2020 Age: 75 Gender: Male Height: 178 cm Weight: 62 kg REFERRING PHYSICIAN: Ilana Parker MD INDICATION: Syncope. MEASUREMENTS: 2D Measurements: Intraventricular septum 0.85 cm Posterior wall 0.98 cm Left ventricle diastole 4.7 cm Aortic root 3.3 cm Left atrium 2.8 cm Inferior vena cava 0.9 cm with near transient respiratory collapse suggestive of central venous pressure 0-5 mmHg Doppler Measurements: No aortic regurgitation No aortic stenosis No mitral regurgitation No mitral stenosis No tricuspid regurgitation No tricuspid stenosis Aortic valve velocity 150 cm/s LVOT velocity 62.0 cm/s Mitral E velocity 66.8 cm/s Mitral A velocity 57.8 cm/s Mitral deceleration time 127 msec Pulmonary acceleration time 151 msec MITRAL ANNULAR TISSUE DOPPLER E prime septal 10.9 cm/s, E prime lateral 11.3 cm/s DESCRIPTION: Rhythm was sinus. This was moderately technically difficult echocardiogram. No pericardial effusion. This was a 2D, M-mode, color flow Doppler, and pulsed wave Doppler examination including mitral annular tissue Doppler. No pericardial effusion. CONCLUSIONS: 1. Normal left ventricle internal dimensions and wall thickness. Normal regional left ventricular (LV) wall motion and wall thickening. Normal left ventricular (LV) systolic function. Left ventricular ejection fraction (LVEF) 65% by visual estimate. Normal left ventricular (LV) diastolic function. 2. Mild aortic valve sclerosis of a 3-cuspid aortic valve. No aortic regurgitation. 3. Suggestive of low central venous pressure (0-5 mmHg) suggestive of dehydration. 4. Otherwise normal appearing echocardiogram Doppler findings. [facility]
--- NOTE | 2020-08-10 12:49 | IPNPDOC ---
Date Seen The patient was seen on 08/10/20. Progress Note SUBJECTIVE: . The left eye is improved. Patient's vision remains. Per Dr. Jensen, patient has history of macular degeneration and glaucoma And may follow-up as outpatient at hospital discharge. He complains of dizziness today as he walked from the bedside chair to his bed , No chest pain, pressure, tightness, lightheadedness, fever, chills, cough or shortness of breath PHYSICAL EXAM: VITAL SIGNS: see below GENERAL: no distress HEENT: left eye injected. stitches on left upper eyelid no thyromegaly no jvd. LUNGS: Lungs are clear bilaterally HEART: S1S2 RRR ABDOMEN: Soft, nontender bs x4 quadrants EXTREMITIES: No peripheral edema. There is no focal long bone tenderness or deformity. NEURO: resting parkinsonian tremor AAOx2 person and place. motor 4/4/ strength. no sensory changes. gait not tested. LABORATORY DATA and IMAGING : Reviewed. ASSESSMENT and PLAN: This is a 75-year-old male with history of Parkinson's disease, HTN, gait instability, speech and memory issues at baseline who presents after a unwitnessed fall found to have intermittent confusion concerning for concussive syndrome versus metabolic encephalopathy versus worsening dementia. Recent Fall on 08/03/20 Gait Imbalance/Debility Cognitive Impairment Parkinson's disease Left conjunctival Hemorrhage h/o glaucoma Left Upper eyelid laceration Orthostatic hypotension autonomic dysfunction HTN BPH: PLAN: Patient is unsafe for discharge home. He has no other acute medical issues and will be changed to health. He is status patient family services has been consulted. At hospital discharge. Patient is to follow-up with Dr. Jensen color paste mixer regarding his macular degeneration and glaucoma. Assisted ambulation, fall precautions VS, I&O, 24H, Fishbone Vital Signs/I&O Vital Signs Date Time Temp Pulse Resp B/P (MAP) Pulse Ox O2 Delivery O2 Flow Rate FiO2 08/10/20 08:08 76 120/59 08/10/20 06:00 97.6 20 98 08/09/20 14:00 Room Air I&O- Last 24 Hours up to 6 AM 08/10/20 06:00 Intake Total 700 ml Output Total 100 ml Balance 600 ml SHANAE BAINS MD Aug 10, 2020 12:49
[2020-08-10 14:00] VITALS: BP 120/60
[2020-08-10] MEDS: FINASTERIDE 5 MG TAB PO SCH (21:04)
[2020-08-10] MEDS: LATANOPROST 0.005% OPHTH SOLN 2.5 ML OU SCH (21:05)
[2020-08-10 22:00] VITALS: BP 121/76
[2020-08-11 06:00] VITALS: BP 129/80
[2020-08-11] MEDS: ADVAIR HFA 115/21MCG INHALER INH SCH ×2 (08:10→19:57)
[2020-08-11] MEDS: PANTOPRAZOLE 40MG TAB (PROTONIX) PO SCH (08:24)
[2020-08-11] MEDS: allopurinoL 100 MG TAB PO SCH (08:25)
[2020-08-11] MEDS: SINEMET 25-100 MG TAB PO SCH ×4 (08:25→21:28)
[2020-08-11] MEDS: CHLORTHALIDONE 12.5MG PER 1/2 TABLET PO SCH (08:29)
[2020-08-11] MEDS: CANDESARTAN 16 MG TABLET PO SCH ×2 (08:29→21:28)
[2020-08-11] MEDS: amLODIPine 5 MG TAB PO SCH (08:29)
[2020-08-11] MEDS: ALPRAZolam 0.5 MG TAB PO PRN (12:03)
[2020-08-11 12:57] LABS: HEMATOCRIT 40.9 % (42.0-52.0); MEAN CORPUSCULAR HEMOGLOBIN 29.7 pg (27.0-33.0); MEAN CORPUSCULAR HGB CONC 31.8 g/dl (32.0-36.5); MEAN CORPUSCULAR VOLUME 93.6 fl (80.0-96.0); PLATELET COUNT, AUTOMATED 248 10^3/uL (150-450); RED BLOOD COUNT 4.37 10^6/uL (4.30-6.10); WHITE BLOOD COUNT 8.3 10^3/uL (4.0-10.0)
[2020-08-11] MEDS: FINASTERIDE 5 MG TAB PO SCH (21:27)
[2020-08-11] MEDS: LATANOPROST 0.005% OPHTH SOLN 2.5 ML OU SCH (21:29)
[2020-08-12 06:00] VITALS: BP_SYST 108; BP_SYST 145; BP_DIAS 67; BP_DIAS 71
[2020-08-12] MEDS: ADVAIR HFA 115/21MCG INHALER INH SCH ×2 (08:15→18:01)
[2020-08-12] MEDS: allopurinoL 100 MG TAB PO SCH (09:05)
[2020-08-12] MEDS: PANTOPRAZOLE 40MG TAB (PROTONIX) PO SCH (09:06)
[2020-08-12] MEDS: amLODIPine 5 MG TAB PO SCH (09:06)
[2020-08-12] MEDS: CHLORTHALIDONE 12.5MG PER 1/2 TABLET PO SCH (09:06)
[2020-08-12] MEDS: CANDESARTAN 16 MG TABLET PO SCH ×2 (09:06→20:07)
[2020-08-12] MEDS: SINEMET 25-100 MG TAB PO SCH ×4 (09:06→20:07)
[2020-08-12] MEDS ORDERED: NITROGLYCERIN 0.4 MG SUBL TABLET SL STA (09:07)
[2020-08-12] MEDS: ACETAMINOPHEN TAB 650MG DOSE (2X325MG) PO PRN (09:07)
[2020-08-12] MEDS ORDERED: GI COCKTAIL 50ML BTL(HYOSCYAMINE/MAALOX/LIDOCAINE VISCOUS)(1:3:1) PO ONE (10:00)
[2020-08-12 10:14] LABS: CK-MB VALUE MASS 1.2 NG/ML (<3.6); CPK CREATINE PHOSPHOKINASE 137 U/L (39-308); MB/CK RELATIVE INDEX 0.88 (< OR =4); TROPONIN I < 0.02 NG/ML (< 0.10)
[2020-08-12] MEDS: FINASTERIDE 5 MG TAB PO SCH (20:07)
[2020-08-12] MEDS: ALPRAZolam 0.5 MG TAB PO PRN (20:07)
[2020-08-12] MEDS: LATANOPROST 0.005% OPHTH SOLN 2.5 ML OU SCH (20:08)
[2020-08-13] MEDS: ADVAIR HFA 115/21MCG INHALER INH SCH ×2 (05:55→18:50)
[2020-08-13 06:00] VITALS: BP 125/65
[2020-08-13] MEDS: ASPIRIN 81 MG ENTERIC TAB PO SCH (09:15)
[2020-08-13] MEDS: SINEMET 25-100 MG TAB PO SCH ×4 (09:16→21:53)
[2020-08-13] MEDS: allopurinoL 100 MG TAB PO SCH (09:16)
[2020-08-13] MEDS: CHLORTHALIDONE 12.5MG PER 1/2 TABLET PO SCH (09:16)
[2020-08-13] MEDS: CANDESARTAN 16 MG TABLET PO SCH ×2 (09:16→21:53)
[2020-08-13] MEDS: PANTOPRAZOLE 40MG TAB (PROTONIX) PO SCH (09:16)
[2020-08-13] MEDS: amLODIPine 5 MG TAB PO SCH (09:16)
--- NOTE | 2020-08-13 15:38 | ECGEPIP ---
[facility] Test Date: 2020-08-12 Pat Name: MIGUEL CLARK Department: Room: [place] [address] Gender: Male Online Editor: LYNNE : 1945 Requested By: SHANAE [place] Order Number: [id number] Reading MD: Ever Szymanski Measurements Intervals Arnold Rate: 70 P: 71 DC: 139 QRS: 15 QRSD: 85 T: 72 QT: 385 QTc: 416 Interpretive Statements SINUS RHYTHM Low precordial voltages, nonspecific ST-T abnormalities. No significant change compared with 08/05/2020. Electronically Signed on 08-13-2020 15:37:59 EST by Ever Szymanski
[2020-08-13] MEDS: FINASTERIDE 5 MG TAB PO SCH (21:53)
[2020-08-13] MEDS: LATANOPROST 0.005% OPHTH SOLN 2.5 ML OU SCH (22:20)
[2020-08-14 06:00] VITALS: BP 143/72
[2020-08-14] MEDS: ADVAIR HFA 115/21MCG INHALER INH SCH ×2 (07:24→17:58)
[2020-08-14] MEDS: PANTOPRAZOLE 40MG TAB (PROTONIX) PO SCH (09:01)
[2020-08-14] MEDS: CANDESARTAN 16 MG TABLET PO SCH ×2 (09:02→20:30)
[2020-08-14] MEDS: allopurinoL 100 MG TAB PO SCH (09:02)
[2020-08-14] MEDS: CHLORTHALIDONE 12.5MG PER 1/2 TABLET PO SCH (09:02)
[2020-08-14] MEDS: SINEMET 25-100 MG TAB PO SCH ×4 (09:03→20:30)
[2020-08-14] MEDS: amLODIPine 5 MG TAB PO SCH (09:03)
[2020-08-14] MEDS ORDERED: ALPR0.5T3 PO (20:04)
[2020-08-14] MEDS: FINASTERIDE 5 MG TAB PO SCH (20:30)
[2020-08-14] MEDS: LATANOPROST 0.005% OPHTH SOLN 2.5 ML OU SCH (20:32)
[2020-08-14] MEDS: ALPRAZolam 0.5 MG TAB PO PRN (20:36)
[2020-08-14] MEDS: ACETAMINOPHEN TAB 650MG DOSE (2X325MG) PO PRN (20:36)
[2020-08-15 06:00] VITALS: BP 131/68
[2020-08-15] MEDS ORDERED: ALPRAZolam 0.5 MG TAB PO ONE (06:00)
[2020-08-15] MEDS: ADVAIR HFA 115/21MCG INHALER INH SCH (07:34)
[2020-08-15] MEDS: CHLORTHALIDONE 12.5MG PER 1/2 TABLET PO SCH (10:12)
[2020-08-15] MEDS: SINEMET 25-100 MG TAB PO SCH (10:12)
[2020-08-15 10:13] VITALS: BP 131/68
[2020-08-15] MEDS: CANDESARTAN 16 MG TABLET PO SCH (10:13)
[2020-08-15] MEDS: amLODIPine 5 MG TAB PO SCH (10:13)
[2020-08-15] MEDS: PANTOPRAZOLE 40MG TAB (PROTONIX) PO SCH (10:13)
[2020-08-15] MEDS: allopurinoL 100 MG TAB PO SCH (10:13)
--- NOTE | 2020-08-15 12:41 | DS.PDOC ---
Discharge Summary General Date of Admission Aug 05, 2020 at 22:59 Date of Discharge 08/15/20 discharged to snf. Discharge Summary DISCHARGE DIAGNOSIS: Recent Fall on 08/03/20 Gait Imbalance/Debility Cognitive Impairment Parkinson's disease Left conjunctival Hemorrhage h/o glaucoma Left Upper eyelid laceration Orthostatic hypotension autonomic dysfunction HTN BPH DISCHARGE MEDICATIONS: SEE BELOW DISCHARGE INSTRUCTIONS: PCP appointment within 5 days of discharge. Ophthalmology appointment within 7 days of discharge to evaluate dramatic injur y to the left eye removal of sutures of left upper eyelid and further evaluation of his macular degeneration and glaucoma. Fall precautions assisted ambulation and use a walker with ambulation if needed. Neurology for Parkinson's disease management within 7 days of discharge. HOSPITAL COURSE: This is a 75-year-old male with history of Parkinson's disease, HTN, gait instability, speech and memory issues at baseline who presents after a unwitnessed fall found to have intermittent confusion concerning for concussive syndrome versus metabolic encephalopathy versus worsening dementia. Patient underwent full evaluation status post fall, including maxillofacial CT cervical spine CT, CT head, chest x-ray, all of which had no acute abnormality. Patient did receive some stitches to the left upper eyelid laceration. He was found to be orthostatic and his Flomax was discontinued. He was challenged with IV fluids with significant improvement patient's orthostasis may also be due to autonomic dysfunction due to were consistent worsening Parkinson's disease. His administrator health care facility Dr. Jensen was consulted by telephone regarding his traumatic injury to the left eye. Review of the maxillofacial CT showed no globe rupture. Patient's vision was thought to be secondary to ongoing macular degeneration degeneration and glaucoma as well as possible concussion. Therefore Dr. Jensen recommended outpatient follow-up within 7 days of hospital discharge and no acute inpatient need for evaluation. Patient became agitated and developed acute delirium during the hospital stay. Further evaluated with MRI of the brain which was negative for acute CVA. Patient became belligerent and combative with staff and was a danger to himself and others and did not respond to reorientation. He was therefore started on Xanax as needed for anxiety and agitation. He is discharged in stable condition to detention placement due to inability to care for himself at home from worsening dementia, gait imbalance from progressive Parkinson's disease. He was asked to follow with his neurologist as outpatient to adjust his medications if needed. DISCHARGE PHYSICAL EXAM: VITAL SIGNS: see below GENERAL: no distress HEENT: left eye injected. stitches on left upper eyelid no thyromegaly no jvd. LUNGS: Lungs are clear bilaterally HEART: S1S2 RRR ABDOMEN: Soft, nontender bs x4 quadrants EXTREMITIES: No peripheral edema. There is no focal long bone tenderness or deformity. NEURO: resting parkinsonian tremor AAOx2 person and place. motor 4/4/ strength. no sensory changes. gait not tested. LABORATORY DATA and IMAGING : Reviewed. Exam: CT Head Without Contrast Exam date and time: 08/05/2020 5:35 PM Age: 75 years old Clinical indication: Altered mental status/memory loss; Confusion or disorientation TECHNIQUE: Imaging protocol: Computed tomography of the head without contrast. Radiation optimization: All CT scans at this facility use at least one of these dose optimization techniques: automated exposure control; mA and/or kV adjustment per patient size (includes targeted exams where dose is matched to clinical indication); or iterative reconstruction. COMPARISON: No relevant prior studies available. FINDINGS: Brain: The crowell-white differentiation is maintained. No hemorrhage. No edema. There are mild periventricular and subcortical lucencies consistent with chronic microvascular ischemic changes. Cerebral ventricles: No ventriculomegaly. Bones/joints: Unremarkable. No acute fracture. Paranasal sinuses: Visualized sinuses are unremarkable. No fluid levels. Mastoid air cells: Visualized mastoid air cells are well aerated. Orbital cavity: Bilateral cataract surgery. Soft tissues: Unremarkable. IMPRESSION: No acute intracranial abnormality. Chronic microvascular ischemic changes. Electronically signed by: Shashi Mittal On 08/05/2020 17:49:22 PM INDICATION: Altered Mental Status. COMPARISON: February 23, 2018.. TECHNIQUE: Sitting AP portable chest x-ray. FINDINGS: The lungs are quite hyperinflated as before consistent with COPD. Heart is not enlarged. The aorta is somewhat tortuous. No infiltrate is seen. Pleural angles are sharp. Pulmonary vasculature is not increased. IMPRESSION: Hyperinflation consistent with COPD. No acute disease. <Electronically signed by Italo Sheehan > 08/05/20 1747 PROCEDURE INFORMATION: Exam: CT Maxillofacial Without Contrast Exam date and time: 08/05/2020 7:30 PM Age: 75 years old Clinical indication: Injury or trauma; Fall; Blunt trauma (contusions or hematomas); Orbit/periorbital; Left TECHNIQUE: Imaging protocol: Computed tomography images of the face without contrast. Radiation optimization: All CT scans at this facility use at least one of these dose optimization techniques: automated exposure control; mA and/or kV adjustment per patient size (includes targeted exams where dose is matched to clinical indication); or iterative reconstruction. COMPARISON: No relevant prior studies available. FINDINGS: Orbital cavity: Orbits are normal. Globes are unremarkable. Bones/joints: No acute fracture. Paranasal sinuses: Mucous retention cyst/polyp of the left maxillary sinus. Soft tissues: Unremarkable. IMPRESSION: No acute abnormality. Electronically signed by: Shashi Mittal On 08/05/2020 20:06:26 PM DD: SHASHI Puri RAI, DO 08/05/201929 DT: OTONIEL 08/05/202005 PROCEDURE INFORMATION: Exam: CT Cervical Spine Without Contrast Exam date and time: 08/05/2020 7:30 PM Age: 75 years old Clinical indication: Injury or trauma; Fall; Blunt trauma TECHNIQUE: Imaging protocol: Computed tomography images of the cervical spine without contrast. Radiation optimization: All CT scans at this facility use at least one of these dose optimization techniques: automated exposure control; mA and/or kV adjustment per patient size (includes targeted exams where dose is matched to clinical indication); or iterative reconstruction. COMPARISON: No relevant prior studies available. FINDINGS: Bones/joints: Grade 1 anterolisthesis of C4 over C5. No acute fracture. Discs/Spinal canal/Neural foramina: There is multilevel uncovertebral and facet hypertrophy with neural foramina narrowing. Multilevel degenerative disc disease. Soft tissues: Unremarkable. Lungs: Lung apices are normal. IMPRESSION: No acute abnormality. Electronically signed by: Shashi Mittal On 08/05/2020 19:55:56 PM Exam: MR Head Without Contrast Exam date and time: 08/06/2020 3:07 AM Age: 75 years old Clinical indication: Injury or trauma; Fall; Blunt trauma (contusions or hematomas) and laceration; Consciousness not specified; Without residual foreign body; Eye; Left; Injury date: 08/05/20; Additional info: S/P fall TECHNIQUE: Imaging protocol: MR of the head without contrast. COMPARISON: CT Head without contrast 08/05/2020 5:31 PM FINDINGS: Brain: There is mild cerebral atrophy. Changes of chronic white matter microvascular disease are present. No signs of a recent infarction or hemorrhage. Cerebral ventricles: Normal. No ventriculomegaly. Bones/joints: Unremarkable. Paranasal sinuses: Normal as visualized. No acute sinusitis. Mastoid air cells: Normal as visualized. No mastoid effusion. Orbits: Unremarkable. Soft tissues: Unremarkable. IMPRESSION: Atrophy and chronic white matter changes. No acute intracranial abnormality. Electronically signed by: Sg Avilez On 08/06/2020 03:50:34 AM Time spent on discharge 30 minutes Vital Signs/I&Os Vital Signs Date Time Temp Pulse Resp B/P (MAP) Pulse Ox O2 Delivery O2 Flow Rate FiO2 08/15/20 10:13 71 131/68 08/15/20 06:00 98.5 18 99 Room Air I&O- Last 24 Hours up to 6 AM 08/15/20 06:00 Intake Total 1080 ml Output Total 0 ml Balance 1080 ml Laboratory Data Labs 24H Laboratory Tests 2 08/15/20 07:23: Coronavirus (COVID-19)(PCR) NEGATIVE Discharge Medications Scheduled Allopurinol (Allopurinol) 100 Mg Tablet, 100 MG PO QAM, (Reported) Amlodipine Besylate (Amlodipine Besylate) 5 Mg Tablet, 5 MG PO DAILY, (Reported) Aspirin (Aspirin EC) 81 Mg Tablet.dr, 81 MG PO Q4D, (Reported) Candesartan Cilexetil (Candesartan Cilexetil) 16 Mg Tab, 16 MG PO BID, (Reported) Carbidopa/Levodopa (Carbidopa-Levodopa 25-100 Tab) 1 Tab Tab, 2 TABS PO QID, (Reported) Chlorthalidone (Chlorthalidone) 12.5 Mg Halftab, 12.5 MG PO QAM, (Reported) Clonazepam (Clonazepam) 1 Mg Tab.rapdis, 1 MG PO QHS, (Reported) Finasteride (Finasteride) 5 Mg Tablet, 5 MG PO QHS Lactose-Reduced Food (Ensure Plus) 237 Ml Liquid, 237 ML PO BID, (Reported) Latanoprost/Pf (Latanoprost 0.005% Eye Drop) 7.5 Ml Drops, 1 DROP OU QHS, (Reported) Nitroglycerin (Nitroglycerin) 0.4 Mg Tab.subl, 0.4 MG SL ASDIRECTED for chest pain, (Reported) 1st sign of attack; may repeat every 5 mins; if pain persists after 3 in 15 min, medical attention is recommended Pantoprazole Sodium (Pantoprazole Sodium) 40 Mg Tablet.dr, 40 MG PO DAILY, (Reported) Potassium Chloride (Potassium Chloride) 10 Meq Tab.er.prt, 20 MEQ PO BID, (Re ported) Salmeterol/Fluticasone (Advair 250-50 Diskus) 1 Each Blst.w.dev, 1 PUFF INH BID, (Reported) Scheduled PRN Alprazolam (Alprazolam) 0.5 Mg Tablet, 0.5 MG PO BIDP PRN for ANXIETY Sennosides/Docusate Sodium (Senna Plus 8.6-50 mg Tablet) 1 Each Tablet, 2 TABS PO DAILY PRN for CONSTIPATION, (Reported) Miscellaneous Medications [med rec comment] , (Reported) USED EXTERNAL HISTORY AND MED LIST FROM HOME ([place]) Allergies Coded Allergies: No Known Drug Allergies (Verified Allergy, Unknown, 08/05/20) SHANAE BAINS MD Aug 15, 2020 12:35
== END 2020-08-15 11:15 | disposition home or self-care (01) | DRG 884 ==
LOC: M ED 17:13 → M ED INP 22:59 → ENRESERV 08-06 00:10 → M PCU 08-06 03:40 → M MSPAV 08-06 10:38
PROVIDERS: ADMIT Internal Medicine; ATTEND General Practice
DX: R41.81 Age-related cognitive decline (principal); G20 Parkinson's disease; N40.0 Benign prostatic hyperplasia without lower urinary tract symptoms; I10 Essential (primary) hypertension; I95.1 Orthostatic hypotension; F02.80 Dementia in other diseases classified elsewhere, unspecified severity, without behavioral disturbance, psychotic disturbance, mood disturbance, and anxiety; Z79.82 Long term (current) use of aspirin; Z79.899 Other long term (current) drug therapy; J45.909 Unspecified asthma, uncomplicated; I25.2 Old myocardial infarction; M19.90 Unspecified osteoarthritis, unspecified site; E78.00 Pure hypercholesterolemia, unspecified; G47.00 Insomnia, unspecified; H35.30 Unspecified macular degeneration

== ENCOUNTER → 2021-02-14 | Outpatient (REF) | payer MEDICARE, OTHER ==
[~2021-02-14] MED LIST changes: +ALLO100T PO; +ALPR0.5T3 PO; +AMLO1TAB24 PO; +ASPI81TA26 PO; +CLON1TAB17 PO; +COLA100C5 PO; +ENSULIQ9 PO; +FINA5TAB2 PO; +FLUT1INH2 INH; +LATA0.0015 OU; +NITR0.4S14 SL; +PANT-23 PO; +POTA10TA16 PO; +SENN1TAB94 PO; -SIME180C PO; +SIME180C25 PO; +med rec comment
[2021-02-14 11:17] LABS: HEMATOCRIT 41.8 % (42.0-52.0); HEMOGLOBIN 13.7 g/dl (13.5-17.5); MEAN CORPUSCULAR HEMOGLOBIN 31.3 pg (27.0-33.0); MEAN CORPUSCULAR HGB CONC 32.8 g/dl (32.0-36.5); MEAN CORPUSCULAR VOLUME 95.4 fl (80.0-96.0); PLATELET COUNT, AUTOMATED 248 10^3/uL (150-450); RED BLOOD COUNT 4.38 10^6/uL (4.30-6.10); WHITE BLOOD COUNT 7.6 10^3/uL (4.0-10.0)
[2021-02-14 11:27] LABS: BLOOD UREA NITROGEN 15 MG/DL (7-18); CALCIUM LEVEL 8.7 MG/DL (8.8-10.2); CARBON DIOXIDE LEVEL 30 MEQ/L (21-32); CHLORIDE LEVEL 102 MEQ/L (98-107); CREATININE FOR GFR 0.77 MG/DL (0.70-1.30); GLOMERULAR FILTRATION RATE > 60.0 (>42); GLUCOSE, FASTING 100 MG/DL (70-100); POTASSIUM SERUM 3.9 MEQ/L (3.5-5.1); SODIUM LEVEL 139 MEQ/L (136-145)
== END ==
PROVIDERS: ATTEND Internal Medicine
DX: I10 Essential (primary) hypertension (principal)

== ENCOUNTER → 2021-02-22 | Outpatient (REF) | payer MEDICARE, OTHER ==
[2021-02-22 11:21] LABS: HEMATOCRIT 46.8 % (42.0-52.0); MEAN CORPUSCULAR HEMOGLOBIN 30.8 pg (27.0-33.0); MEAN CORPUSCULAR HGB CONC 32.1 g/dl (32.0-36.5); MEAN CORPUSCULAR VOLUME 96.1 fl (80.0-96.0); PLATELET COUNT, AUTOMATED 259 10^3/uL (150-450); RED BLOOD COUNT 4.87 10^6/uL (4.30-6.10); WHITE BLOOD COUNT 7.4 10^3/uL (4.0-10.0)
[2021-02-22 11:40] LABS: BLOOD UREA NITROGEN 14 MG/DL (7-18); CALCIUM LEVEL 9.1 MG/DL (8.8-10.2); CARBON DIOXIDE LEVEL 32 MEQ/L (21-32); CHLORIDE LEVEL 104 MEQ/L (98-107); CREATININE FOR GFR 0.68 MG/DL (0.70-1.30); GLOMERULAR FILTRATION RATE > 60.0 (>42); GLUCOSE, FASTING 68 MG/DL (70-100); POTASSIUM SERUM 3.8 MEQ/L (3.5-5.1); SODIUM LEVEL 142 MEQ/L (136-145)
== END ==
PROVIDERS: ATTEND Physician Assistant
DX: I10 Essential (primary) hypertension (principal)

== ENCOUNTER → 2021-03-16 | Outpatient (REF) | payer MEDICARE, OTHER ==
[2021-03-16 11:13] LABS: HEMATOCRIT 40.4 % (42.0-52.0); HEMOGLOBIN 13.1 g/dl (13.5-17.5); MEAN CORPUSCULAR HEMOGLOBIN 30.7 pg (27.0-33.0); MEAN CORPUSCULAR HGB CONC 32.4 g/dl (32.0-36.5); MEAN CORPUSCULAR VOLUME 94.6 fl (80.0-96.0); PLATELET COUNT, AUTOMATED 244 10^3/uL (150-450); RED BLOOD COUNT 4.27 10^6/uL (4.30-6.10); WHITE BLOOD COUNT 7.9 10^3/uL (4.0-10.0)
[2021-03-16 11:30] LABS: BLOOD UREA NITROGEN 17 MG/DL (7-18); CALCIUM LEVEL 8.8 MG/DL (8.8-10.2); CARBON DIOXIDE LEVEL 28 MEQ/L (21-32); CHLORIDE LEVEL 106 MEQ/L (98-107); CREATININE FOR GFR 0.84 MG/DL (0.70-1.30); GLOMERULAR FILTRATION RATE > 60.0 (>42); GLUCOSE, FASTING 106 MG/DL (70-100); POTASSIUM SERUM 3.9 MEQ/L (3.5-5.1); SODIUM LEVEL 143 MEQ/L (136-145)
== END ==
PROVIDERS: ATTEND Internal Medicine
DX: F22 Delusional disorders (principal)

== ENCOUNTER → 2021-03-31 | Outpatient (REF) | payer MEDICARE, OTHER ==
[2021-03-31 11:40] LABS: HEMATOCRIT 41.9 % (42.0-52.0); HEMOGLOBIN 13.5 g/dl (13.5-17.5); MEAN CORPUSCULAR HEMOGLOBIN 30.8 pg (27.0-33.0); MEAN CORPUSCULAR HGB CONC 32.2 g/dl (32.0-36.5); MEAN CORPUSCULAR VOLUME 95.4 fl (80.0-96.0); PLATELET COUNT, AUTOMATED 376 10^3/uL (150-450); RED BLOOD COUNT 4.39 10^6/uL (4.30-6.10); WHITE BLOOD COUNT 9.5 10^3/uL (4.0-10.0)
[2021-03-31 12:08] LABS: ALBUMIN 3.4 GM/DL (3.2-5.2); ALT/SGPT 15 U/L (12-78); BILIRUBIN,TOTAL 0.4 MG/DL (0.2-1.0); BLOOD UREA NITROGEN 19 MG/DL (7-18); CALCIUM LEVEL 8.7 MG/DL (8.8-10.2); CARBON DIOXIDE LEVEL 30 MEQ/L (21-32); CHLORIDE LEVEL 106 MEQ/L (98-107); CREATININE FOR GFR 0.74 MG/DL (0.70-1.30); GLOMERULAR FILTRATION RATE > 60.0 (>42); GLUCOSE, FASTING 71 MG/DL (70-100); SODIUM LEVEL 143 MEQ/L (136-145); THYROID STIMULATING HORMONE 0.823 uIU/ML (0.358-3.740); THYROXINE (T4) 8.8 UG/DL (4.5-12.0); TOTAL PROTEIN 6.8 GM/DL (6.4-8.2)
== END ==
PROVIDERS: ATTEND Internal Medicine
DX: G20 Parkinson's disease (principal); Z79.899 Other long term (current) drug therapy

== ENCOUNTER → 2021-04-18 | Outpatient (REF) | payer MEDICARE, OTHER | PROVIDERS: ATTEND Internal Medicine | DX: I10 Essential (primary) hypertension (principal); Z53.8 Procedure and treatment not carried out for other reasons ==

== ENCOUNTER → 2021-05-01 | Outpatient (CLI) | payer MEDICARE, OTHER ==
--- NOTE | 2021-05-01 14:30 | REP ---
INDICATION: LOW BACK PAIN. COMPARISON: None. TECHNIQUE: AP view of the pelvis and AP and frogleg views of each hip are provided. Six views. FINDINGS: Bony pelvic ring is intact. Vascular calcification is observed. No sacral lesion is seen. No fracture or bony destructive pelvic lesion is seen. There are degenerative disc changes in the lower lumbar spine at L4-5. AP and frogleg views of the hips demonstrate mild bilateral superior and inferior acetabular spurring. There is some osteophyte formation at the head neck junction of the left proximal femur as well. There is tendon insertion site spurring on the greater trochanter on the right. No erosive changes seen. No fracture is noted. IMPRESSION: Mild bilateral hip osteoarthritis. Tendon insertion site spurring greater trochanter on the right. Vascular calcification. No acute bony abnormality. <Electronically signed by Italo Sheehan > 05/01/21 1399
--- NOTE | 2021-05-01 14:34 | REP ---
INDICATION: LOW BACK PAIN. COMPARISON: None. TECHNIQUE: Five views of the lumbar spine are provided. FINDINGS: There is straightening of the normal lumbar lordosis. Lumbar vertebral body heights are preserved. Alignment is otherwise normal. There is degenerative disc disease to some degree at each of the the lumbar spine and visualized lower thoracic levels. In the lumbar spine, degenerative disc narrowing is most pronounced at L4-5 and there is a vacuum phenomena at this level. Discogenic spurring is in noted anteriorly at each lumbar level. There is no evidence of spondylolysis or spondylolisthesis. There is osteoarthritic facet hypertrophy and sclerosis bilaterally at L5-S1. AP view demonstrates a moderate levoconvex broad-based scoliotic curve. No bony destructive lesion is seen. Pedicles and posterior elements are intact. Sacrum and SI joints are unremarkable. Visualized bowel gas pattern is normal. IMPRESSION: Levoconvex scoliotic curvature. Diffuse degenerative disc disease most pronounced at L4-5. No acute bony abnormality. <Electronically signed by Italo Sheehan > 05/01/21 1883
== END ==
LOC: M RAD 13:34
PROVIDERS: ATTEND Internal Medicine
DX: M54.5 Low back pain (principal); M16.0 Bilateral primary osteoarthritis of hip; M51.36 Other intervertebral disc degeneration, lumbar region; M53.86 Other specified dorsopathies, lumbar region

== ENCOUNTER → 2021-06-05 | Outpatient (CLI) | payer MEDICARE, OTHER ==
--- NOTE | 2021-06-05 13:28 | REP ---
INDICATION: HERNIA PAIN COMPARISON: None. TECHNIQUE: Directed Realtime B-mode ultrasound examination using linear high-frequency transducer. FINDINGS: Ultrasound examination of the right groin demonstrates reducible hernia containing mesenteric fat and loop of bowel. IMPRESSION: Right inguinal hernia contains mesenteric fat and bowel. <Electronically signed by Guille Moe > 06/05/21 0622
== END ==
LOC: M RAD 12:30
PROVIDERS: ATTEND Physician Assistant
DX: K40.90 Unilateral inguinal hernia, without obstruction or gangrene, not specified as recurrent (principal)

== ENCOUNTER → 2021-06-19 | Outpatient (REF) | payer MEDICARE, OTHER | PROVIDERS: ATTEND Internal Medicine | DX: I95.9 Hypotension, unspecified (principal); Z53.8 Procedure and treatment not carried out for other reasons ==

== ENCOUNTER → 2021-06-19 | Outpatient (REF) | payer MEDICARE, OTHER ==
[2021-06-19 10:38] LABS: HEMATOCRIT 40.9 % (42.0-52.0); HEMOGLOBIN 13.2 g/dl (13.5-17.5); MEAN CORPUSCULAR HEMOGLOBIN 30.7 pg (27.0-33.0); MEAN CORPUSCULAR HGB CONC 32.3 g/dl (32.0-36.5); MEAN CORPUSCULAR VOLUME 95.1 fl (80.0-96.0); PLATELET COUNT, AUTOMATED 263 10^3/uL (150-450)
[2021-06-19 11:05] LABS: BLOOD UREA NITROGEN 29 MG/DL (7-18); CALCIUM LEVEL 8.4 MG/DL (8.8-10.2); CARBON DIOXIDE LEVEL 31 MEQ/L (21-32); CHLORIDE LEVEL 110 MEQ/L (98-107); CREATININE FOR GFR 0.88 MG/DL (0.70-1.30); GLOMERULAR FILTRATION RATE > 60.0 (>42); GLUCOSE, FASTING 114 MG/DL (70-100); POTASSIUM SERUM 4.4 MEQ/L (3.5-5.1); SODIUM LEVEL 145 MEQ/L (136-145)
== END ==
PROVIDERS: ATTEND Internal Medicine
DX: I10 Essential (primary) hypertension (principal)

== ENCOUNTER 2021-06-26 04:32 | Inpatient (IN) | payer MEDICARE, OTHER ==
[~2021-06-26] VITALS: Ht 177.8 cm; Wt 57.3 kg
--- OUTSIDE RECORDS SUMMARY | 2021-06-26 04:35 | CCD | Continuity of Care Document ---
Author Author Sunny ALVAREZ Organization Unknown Address [address] [place] [address] Phone [phone] Care Team Providers Care Consumer Science Teacher Name Role Phone [facility] [phone] Problems Active Problems Provider Date Parkinson's disease Papi Noriega M.D. 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 Onset: 1 10/12/2014 Cerebrovascular disease Papi Noriega M.D. Onset: 5 Acquired spondylolisthesis Papi Noriega M.D. Onset: 2015 Diffuse Lewy body disease Papi Noriega M.D. Onset: 021 Weight decreased Papi Noriega M.D. Onset: 07/29/2019 Disorders of initiating and maintaining sleep Melissa Bullock Onset: 07/29/2019 Social History Type Date Description Comments Sex Unknown ETOH Use Denies alcohol use Tobacco Use Start: Unknown Patient has never smoked Recreational Drug Use Never Used Drugs Allergies, Adverse Reactions, Alerts Description No Known Drug Allergies Medications Active Medications SIG Qnty Indications Ordering Provide r Date Carbidopa-Levodopa 25-100mg Tablet s 2 tablets four times a day at 8:00a.m., 12:00noon, 4:00p.m., and 8:00p.m. (maximum daily dose 8 tablets) 720tabs Papi Noriega M.D. 7 Immunizations Description No Information Available Vital Signs Date Vital Result Comment 08/11/2015 8:53am BP Systolic 130 mmHg BP Diastolic 80 mmHg Heart Rate 76 /min Respiratory Rate 16 /min Height 70 inches 5'10" Weight 165.00 lb BMI (Body Mass Index) 23.7 kg/m2 [place] Body Weight 166 lb Results Description No Information Available Procedures Date Code Description Status 04/14/2021 76755 MRI Brain W/O Contrast Completed 04/14/2021 92731 MRI Brain W/O Contrast Completed 04/04/2021 85349 Office/Outpatient Established [facility] 40-54 Min Completed Medical Devices Description No Information Available Encounters Type Date Location Provider Dx Diagnosis Office Visit 04/04/2021 11:00a [facility] Melissa Bullock G31.83 Dementia with Lewy bodies G20 Parkinson's disease I67.89 Other cerebrovascular diseas e G46.7 Other lacunar syndromes M43.02 Spondylolysis, cervical tyrell on F51.01 Primary insomnia Assessments Date Code Description Provider 04/14/2021 G31.83 Dementia with Lewy bodies Shannan Erickson M.D. 04/14/2021 G31.83 Dementia with Lewy bodies MRI 04/14/2021 G20 Parkinson's disease Shannan Erickson M.D. 04/14/2021 G20 Parkinson's disease MRI 04/14/2021 I67.89 Other cerebrovascular disease Ab jeffrey Erickson M.D. 04/14/2021 I67.89 Other cerebrovascular disease MR I 04/04/2021 G31.83 Dementia with Lewy bodies Papi Noriega M.D. 04/04/2021 G20 Parkinson's disease Papi Noriega M.D. 04/04/2021 I67.89 Other cerebrovascular disease Bradley Noriega M.D. 04/04/2021 G46.7 Other lacunar syndromes Papi menchaca M.D. 04/04/2021 M43.02 Spondylolysis, cervical region M george Noriega M.D. 04/04/2021 F51.01 Primary insomnia Keila Bullock Plan of Treatment Future Appointment(s):* 06/14/2021 11:00 am - Papi Noriega M.D. at [facility] Functional Status Description No Information Available Mental Status Description No Information Available Referrals Description No Information Available
--- OUTSIDE RECORDS SUMMARY | 2021-06-26 04:35 | CCD | Continuity of Care Document ---
Author Author Sunny SZYMANSKI MD Organization Unknown Address [address], [place] [address] Phone [phone] Care Team Providers Care Head Batcher Name Role Phone Aftab Rubalcava MD [facility] [phone] Fabiola Landry AUT[facility] [phone] Jomar Elliott MD [facility] [phone] Ever Szymanski MD AUT[facility] [phone] Roque May MD AUTM [phone] Walt Rao MD [facility] [phone] Ever Jensen MD [facility] [phone] Obi Hermosillo MD AUTM [phone] Papi Noriega MD AUTM [phone] Sánchez Marcus MD AUTM [phone] Problems Active Problems Provider Date Coronary arteriosclerosis Jennifer E Urielw, PA-C Onset: 2010 Old myocardial infarction Jennifer E Symenow, PA-C Onset: 2010 Benign essential hypertension Jennifer E Symenow, PA-C Onset: Pure hypercholesterolemia Jennifer E Symenow, PA-C Onset: 2010 Precordial pain Jennifer E Symenow, PA-C Onset: 07/31/2011 Preoperative cardiovascular examination Ever Szymanski MD Onset: 12/23/2012 Mixed hyperlipidemia Ever Szymanski MD Onset: 07/12/2014 Essential hypertension Ever Szymanski MD Onset: 5 Electrocardiogram abnormal Ever Szymanski MD Onset: 02/07 Dietary management surveillance Ever Szymanski MD Onset: 06/20/2017 Social History Type Date Description Comments Sex Unknown Tobacco Use Start: Unknown Never Smoked Cigarettes ETOH Use Does not consume alcohol Tobacco Use Start: Unknown Patient has never smoked Smoking Status Reviewed: 05/31/20 Patient has never smoked Exercise Type/Frequency Walks sporadically Exercise Type/Frequency Does housework twice a w [place] Exercise Type/Frequency Does yardwork sporadical ly and some snow removal Exercise Limitations Joint Pain bilateral k nees Exercise Limitations Other Parkinson's Disease Allergies, Adverse Reactions, Alerts Active Allergies Criticality Reaction | Severity Comments Date Avapro Unable to assess criticality Elevated BP 09/16/2006 Isosorbide Mononitrate Unable to assess criticality Headaches he adaches 06/20/2017 Atenolol Unable to assess criticality Exacerbation of ast hma exacerbation of asthma 06/20/2017 Medications Active Medications SIG Qnty Indications Ordering Provide r Date Amlodipine Besylate 2.5mg Tablets 1 by mouth every day 90tabs I10 Ever Szymanski MD 05/31/2020 Klor-Con 10 10Meq Tablets ER take 2 tablets by mouth bid Unknown 05/30/2020 Paroxetine HCL 10mg Tablets 1 tablet daily at bedtime Unknown 05/30/2020 Carbidopa-Levodopa 25-100mg Tablet s 2 by mouth four times a day Unknown 0 Chlorthalidone 25mg Tablets 1/2 by mouth every day 45tabs I10 Ever Szymanski MD 07/23/2018 Pantoprazole Sodium 40mg Tablets D R 1 by mouth every day 90tabs Ever Szymanski MD 03/23/2018 Candesartan Cilexetil 16mg Tablets 1 by mouth twice a day 180tabs I25.10 Ever Szymanski MD 7 I10 I25.2 Docusate Sodium & Senna Stimulant Laxati ve/Stool Softener 8.6-50mg Tablets 2 by mouth once a day Unknown 12/25/2016 Artificial Tears 0.1-0.3% Solution 1 drop each eye as directed daily Unknown 02/09 Aspirin Ec Low Dose 81mg Tablets D R 1 by mouth twice a week (Mondays, ) I25.10 Ever Szymanski MD 07/12/2014 Albuterol Sulfate (2 .5mg/3ML) 0.083% Nebulizer every 4 hours as needed Unknown 01/2014 Advair Diskus 250-50mcg/Dose Aeros ol 1 puff bid prn Jomar Elliott MD 07/18/2012 Nitrostat 0.4mg Tablets Sub 1 sl every 5min x3 as needed for chest pain 25tabs I25.10 Ever [place] MD 01/27/2010 Clonazepam 1mg Tablets 1 Tablet PO daily prn Fabiola Landry RPA-C 8 Immunizations Description No Information Available Vital Signs Date Vital Result Comment 05/31/2020 8:22am Weight 134.00 lb Height 70 inches 5'10" BMI (Body Mass Index) 19.2 kg/m2 Heart Rate 72 /min BP Systolic Sitting 139 mmHg CBP, adult cuff/Ra BP Diastolic Sitting 94 mmHg CBP, adult cuff/Ra 09/30/2019 9:28am Weight 139.00 lb Height 70 inches 5'10" BMI (Body Mass Index) 19.9 kg/m2 Heart Rate 59 /min BP Systolic Sitting 134 mmHg CBP adult cuff, Ra BP Diastolic Sitting 75 mmHg CBP adult cuff, Ra Results Description No Information Available Procedures Date Code Description Status 04/25/2021 44975 Chronic Care MGMT 20 Mins Clinical Staff Time Per Calendar Month Completed Medical Devices Description No Information Available Encounters Type Date Location Provider Dx Diagnosis Office Visit 04/25/2021 9:09a Main Office Ever Szymanski MD I10 Essential (primary) hypertension E78.2 Mixed hyperlipidemia Assessments Date Code Description Provider 04/25/2021 I10 Essential (primary) hypertension Ever Szymanski MD 04/25/2021 E78.2 Mixed hyperlipidemia Ever melvin MD Plan of Treatment Future Appointment(s):* 09/13/2021 12:30 pm - Ever Szymanski MD at Main Office 05/31/2020 - Ever Szymanski MD* I25.10 Atherosclerotic heart disease of [place] coronary artery with* Recommendations:* Continue candesartan, aspirin, Nitrostat at the current dosages. FYI: Patient refuses to be on statins. * I25.2 Old myocardial infarction * R94.31 Abnormal electrocardiogram [ECG] [EKG] * I10 Essential (primary) hypertension* New Medication:* Amlodipine Besylate 2.5 mg - 1 by mouth every day * Recommendations:* Amlodipine 2.5 mg daily was added. Continue candesartan, chlorthalidone, potassium chloride ER at the current dosages. * E78.2 Mixed hyperlipidemia* Recommendations:* PCRM power plate: Consume food from the following 4 food groups: Fruits, vegetables, intact whole grains, beans & legumes. Avoid animal products. Avoid processed foods. * All * Follow up:* Follow-up in [address] Szymanski. Functional Status Functional Condition Comment Date Status Independent with all ADL's Activ e Mental Status Description No Information Available Referrals Description No Information Available
--- OUTSIDE RECORDS SUMMARY | 2021-06-26 04:35 | CCD | Continuity of Care Document ---
Author Author Sunny SZYMANSKI MD Organization Unknown Address [address], [place] [address] Phone [phone] Care Team Providers Care Transport Conductor Name Role Phone Aftab Rubalcava MD [facility] [phone] Fabiola Landry [facility] [phone] Jomar Elliott MD AUTM [phone] Ever Szymanski MD AUTM [phone] Roque May MD AUTM [phone] Walt Rao MD AUTM [phone] Ever Jensen MD [facility] [phone] Obi Hermosillo MD AUTM [phone] Papi Noriega MD AUTM [phone] Sánchez Marcus MD AUTM [phone] Problems Active Problems Provider Date Coronary arteriosclerosis [...] Exercise Type/Frequency Does housework twice a w [place] Exercise Type/Frequency Does yardwork sporadical ly and [...] Available Procedures Date Code Description Status 04/25/2021 25533 Chronic Care MGMT 20 Mins Clinical Staff [...] Szymanski MD* I25.10 Atherosclerotic heart disease of [place] coronary artery with* Recommendations:* Continue candesartan, aspirin, [...]
--- OUTSIDE RECORDS SUMMARY | 2021-06-26 04:36 | CCD | Continuity of Care Document ---
Author Sunny Mcarthur M.D. Organization Unknown Address [address] [place] [address] Phone [phone] Care Team Providers Care Assembled Wood Products Repairer Name Role Phone [facility] [phone] Problems Active Problems Provider Date Parkinson's disease [...] lb BMI (Body Mass Index) 23.7 kg/m2 [place] Body Weight 166 lb Results Description No Information Available Procedures Date Code Description Status 04/04/2021 87369 Office/Outpatient Established [facility] 40-54 Min Completed Medical Devices Description No Information Available Encounters Type Date Location Provider Dx Diagnosis Office Visit 04/04/2021 11:00a Main office - [place] Melissa Bullock G31.83 Dementia with Lewy bodies G20 Parkinson's disease I67.89 Other cerebrovascular diseas e G46.7 Other lacunar syndromes M43.02 Spondylolysis, cervical tyrell on F51.01 Primary insomnia Assessments Date Code Description Provider 04/04/2021 G31.83 Dementia with Lewy bodies Papi Noriega M.D. 04/04/2021 G20 Parkinson's disease Papi Noriega M.D. 04/04/2021 I67.89 Other cerebrovascular disease Bradley Noriega M.D. 04/04/2021 G46.7 Other lacunar syndromes Papi menchaca M.D. 04/04/2021 M43.02 Spondylolysis, cervical region Jose Noriega M.D. 04/04/2021 F51.01 Primary insomnia Keila Bullock Plan of Treatment No Information Available Functional Status Description No Information Available Mental Status Description No Information Available Referrals Description No Information Available
--- OUTSIDE RECORDS SUMMARY | 2021-06-26 04:36 | CCD ---
Author Author [facility] Organization [facility] Address Unknown Phone Unavailable Care Team Providers Care Clinical Dermatologist Name Role Phone Papi Noriega MD Unavailable Unavailable Papi Noriega MD Unavailable Unavailable Papi Noriega MD Unavailable Unavailable Papi Noriega MD Unavailable Unavailable Papi Noriega MD Unavailable Unavailable Papi Noriega MD Unavailable Unavailable Papi Noriega MD Unavailable Unavailable Papi Noriega MD Unavailable Unavailable Papi Noriega MD Unavailable Unavailable Papi Noriega MD Unavailable Unavailable Papi Noriega MD Unavailable Unavailable Papi Noriega MD Unavailable Unavailable Papi Noriega MD Unavailable Unavailable Papi Noriega MD Unavailable Unavailable Papi Noriega MD Unavailable Unavailable Papi Noriega MD Unavailable Unavailable Papi Noriega MD Unavailable Unavailable Papi Noriega MD Unavailable Unavailable Papi Noriega MD Unavailable Unavailable Papi Noriega MD Unavailable Unavailable Papi Noriega MD Unavailable Unavailable Papi Noriega MD Unavailable Unavailable Papi Noriega MD Unavailable Unavailable Papi Noriega MD Unavailable Unavailable Papi Noriega MD Unavailable Unavailable Papi Noriega MD Unavailable Unavailable Papi Noriega MD Unavailable Unavailable Papi Noriega MD Unavailable Unavailable Papi Noriega MD Unavailable Unavailable Papi Noriega MD Unavailable Unavailable Papi Noriega MD Unavailable Unavailable Papi Noriega MD Unavailable Unavailable Papi Noriega MD Unavailable Unavailable Papi Noriega MD Unavailable Unavailable Papi Noriega MD Unavailable Unavailable Papi Noriega MD Unavailable Unavailable Papi Noriega MD Unavailable Unavailable Papi oNriega MD Unavailable Unavailable Papi Noriega MD Unavailable Unavailable Papi Noriega MD Unavailable Unavailable Papi Noriega MD Unavailable Unavailable Papi Noriega MD Unavailable Unavailable Papi Noriega MD Unavailable Unavailable Papi Noriega MD Unavailable Unavailable Papi Noriega MD Unavailable Unavailable Papi Noriega MD Unavailable Unavailable Papi Noriega MD Unavailable Unavailable Papi Noriega MD Unavailable Unavailable Papi Noriega MD Unavailable Unavailable Papi Noriega MD Unavailable Unavailable DAVIDSONHECTOR PENG MD Unavailable Unavailable HECTOR DAVIDSON MD Unavailable Unavailable HECTOR DAVIDSON MD Unavailable Unavailable HECTOR DAVIDSON MD Unavailable Unavailable HECTOR DAVIDSON MD Unavailable Unavailable HECTOR DAVIDSON MD Unavailable Unavailable DAVIDSONHECTOR PENG MD Unavailable Unavailable DAVIDSONHECTOR PENG MD Unavailable Unavailable DAVIDSONHECTOR PENG MD Unavailable Unavailable DAVIDSONHECTOR PENG MD Unavailable Unavailable COTTER LATONYA ANDERSON Unavailable Unavailable ANTECOL, Gonzales KENT MD Unavailable Unavailable ANTECOL, Gonzales KENT MD Unavailable Unavailable ANTECOL, Gonzales KENT MD Unavailable Unavailable ANTECOL, Gonzales KENT MD Unavailable Unavailable ANTECOL, Gonzales KENT MD Unavailable Unavailable ANTECOL, Gonzales KENT MD Unavailable Unavailable ANTECOL, Gonzales KENT MD Unavailable Unavailable ANTECOL, Gonzales KENT MD Unavailable Unavailable ANTECOL, Gonzales KENT MD Unavailable Unavailable ANTECOL, Gonzales KENT MD Unavailable Unavailable ANTECOL, Gonzales KENT MD Unavailable Unavailable ANTECOL, Gonzales KENT MD Unavailable Unavailable ANTECOL, Gonzales KENT MD Unavailable Unavailable ANTECOL, Gonzales KENT MD Unavailable Unavailable ANTECOL, Gonzales KENT MD Unavailable Unavailable ANTECOL, Gonzales KENT MD Unavailable Unavailable ANTECOL, Gonzales KENT MD Unavailable Unavailable ANTECOL, Gonzales KENT MD Unavailable Unavailable ANTECOL, Gonzales KENT MD Unavailable Unavailable ANTECOL, Gonzales KENT MD Unavailable Unavailable ANTECOL, Gonzales KENT MD Unavailable Unavailable ANTECOL, Gonzales KENT MD Unavailable Unavailable ANTECOL, Gonzales KENT MD Unavailable Unavailable ANTECOL, Gonzales KENT MD Unavailable Unavailable ANTECOL, Gonzales KENT MD Unavailable Unavailable ANTECOL, Gonzales KENT MD Unavailable Unavailable ANTECOL, Gonzales KENT MD Unavailable Unavailable ANTECOL, Gonzales KENT MD Unavailable Unavailable ANTECOL, Gonzales KENT MD Unavailable Unavailable ANTECOL, Gonzales KENT MD Unavailable Unavailable ANTECOL, Gonzales KENT MD Unavailable Unavailable ANTECOL, Gonzales KENT MD Unavailable Unavailable ANTECOL, Gonzales KENT MD Unavailable Unavailable ANTECOL, Gonzales KENT MD Unavailable Unavailable ANTECOL, Gonzales KENT MD Unavailable Unavailable ANTECOL, Gonzales KENT MD Unavailable Unavailable ANTECOL, Gonzales KENT MD Unavailable Unavailable ANTECOL, Gonzales KENT MD Unavailable Unavailable ANTECOL, Gonzales KENT MD Unavailable Unavailable ANTECOL, Gonzales KENT MD Unavailable Unavailable ANTECOL, Gonzalse KENT MD Unavailable Unavailable ANTECOL, Gonzales KENT MD Unavailable Unavailable ANTECOL, Gonzales KENT MD Unavailable Unavailable ANTECOL, Gonzales KENT MD Unavailable Unavailable ANTECOL, Gonzales KENT MD Unavailable Unavailable ANTECOL, Gonzales KENT MD Unavailable Unavailable ANTECOL, Gonzales KENT MD Unavailable Unavailable ANTECOL, Gonzales KENT MD Unavailable Unavailable ANTECOL, Gonzales KENT MD Unavailable Unavailable ANTECOL, Gonzales KENT MD Unavailable Unavailable ANTECOL, Gonzales KENT MD Unavailable Unavailable ANTECOL, Gonzales KENT MD Unavailable Unavailable ANTECOL, Gonzales KENT MD Unavailable Unavailable ANTECOL, Gonzales KENT MD Unavailable Unavailable HAMMOND SR, SIMÓN KENT MD Unavailable Unavailable HAMMOND SR, SIMÓN KENT MD Unavailable Unavailable HAMMOND SR, SIMÓN KENT MD Unavailable Unavailable HAMMOND SR, SIMÓN KENT MD Unavailable Unavailable HAMMOND SR, SIMÓN KENT MD Unavailable Unavailable HAMMOND SR, SIMÓN KENT MD Unavailable Unavailable HAMMOND SR, SIMÓN KENT MD Unavailable Unavailable HAMMOND SR, SIMÓN KENT MD Unavailable Unavailable HAMMOND SR, SIMÓN KENT MD Unavailable Unavailable HAMMOND SR, SIMÓN KENT MD Unavailable Unavailable HAMMOND SR, SIMÓN KENT MD Unavailable Unavailable HAMMOND SR, SIMÓN KENT MD Unavailable Unavailable HAMMOND SR, SIMÓN KENT MD Unavailable Unavailable HAMMOND SR, SIMÓN KENT MD Unavailable Unavailable HAMMOND SR, SIMÓN KENT MD Unavailable Unavailable HAMMOND SR, SMIÓN KENT MD Unavailable Unavailable HAMMOND SR, SIMÓN KENT MD Unavailable Unavailable HAMMOND SR, SIMÓN KENT MD Unavailable Unavailable HAMMOND SR, SIMÓN KENT MD Unavailable Unavailable HAMMOND SR, SIMÓN KENT MD Unavailable Unavailable HAMMOND SR, SIMÓN KENT MD Unavailable Unavailable HAMMOND SR, SIMÓN KENT MD Unavailable Unavailable HAMMOND SR, SIMÓN KENT MD Unavailable Unavailable HAMMOND SR, SIMÓN KENT MD Unavailable Unavailable HAMMOND SR, SIMÓN KENT MD Unavailable Unavailable HAMMOND SR, SIMÓN KENT MD Unavailable Unavailable HAMMOND SR, SIMÓN KENT MD Unavailable Unavailable HAMMOND SR, SIMÓN KENT MD Unavailable Unavailable HAMMOND SR, SIMÓN KENT MD Unavailable Unavailable HAMMOND SR, SIMÓN KENT MD Unavailable Unavailable HAMMOND SR, SIMÓN KENT MD Unavailable Unavailable HAMMOND SR, SIMÓN KENT MD Unavailable Unavailable HAMMOND SR, SIMÓN KENT MD Unavailable Unavailable HAMMOND SR, SIMÓN KENT MD Unavailable Unavailable HAMMOND SR, SIMÓN KENT MD Unavailable Unavailable HAMMOND SR, SIMÓN KENT MD Unavailable Unavailable HAMMOND SR, SIMÓN KENT MD Unavailable Unavailable HAMMOND SR, SIMÓN KENT MD Unavailable Unavailable HAMMOND SR, SIMÓN KENT MD Unavailable Unavailable HAMMOND SR, SIMÓN KENT MD Unavailable Unavailable HAMMOND SR, SIMÓN KENT MD Unavailable Unavailable HAMMOND SR, SIMÓN KENT MD Unavailable Unavailable HAMMOND SR, SIMÓN KENT MD Unavailable Unavailable HAMMOND SR, SIMÓN KENT MD Unavailable Unavailable HAMMOND SR, SIMÓN KENT MD Unavailable Unavailable HAMMOND SR, SIMÓN KENT MD Unavailable Unavailable HAMMOND SR, SIMÓN KENT MD Unavailable Unavailable HAMMOND SR, SIMÓN KENT MD Unavailable Unavailable HAMMOND SR, SIMÓN KENT MD Unavailable Unavailable HAMMOND SR, SIMÓN KENT MD Unavailable Unavailable HAMMOND SR, SIMÓN KENT MD Unavailable Unavailable HAMMOND SR, SIMÓN KENT MD Unavailable Unavailable HAMMOND SR, SIMÓN KENT MD Unavailable Unavailable HAMMOND SR, SIMÓN KENT MD Unavailable Unavailable HAMMOND SR, SIMÓN KENT MD Unavailable Unavailable HAMMOND SR, SIMÓN KENT MD Unavailable Unavailable Pacheco Goss, Surinder Kent MD, FACS Unavailable Unavailable Pacheco Goss, Surinder Kent MD, FACS Unavailable Unavailable Pacheco Goss, Surinder Kent MD, FACS Unavailable Unavailable Pacheco Goss, Surinder Kent MD, FACS Unavailable Unavailable Pacheco Goss, Surinder Kent MD, FACS Unavailable Unavailable Pacheco Goss, Surinder Kent MD, FACS Unavailable Unavailable Pacheco Goss, Surinder Kent MD, FACS Unavailable Unavailable Pacheco Goss, Surinder Kent MD, FACS Unavailable Unavailable Pacheco Goss, Surinder Kent MD, FACS Unavailable Unavailable Pacheco Goss, Surinder Kent MD, FACS Unavailable Unavailable Pacheco Goss, Surinder Kent MD, FACS Unavailable Unavailable Pacheco Goss, Surinder Kent MD, FACS Unavailable Unavailable Pacheco Goss, Surinder Kent MD, FACS Unavailable Unavailable Pacheco Goss, Surinder Kent MD, FACS Unavailable Unavailable Pacheco Goss, Surinder Kent MD, FACS Unavailable Unavailable Pahceco Goss, Surinder Kent MD, FACS Unavailable Unavailable Pacheco Goss, Surinder Kent MD, FACS Unavailable Unavailable Pacheco Goss, Surinder Kent MD, FACS Unavailable Unavailable Pacheco Goss, Surinder Kent MD, FACS Unavailable Unavailable Pacheco Goss, Surinder Kent MD, FACS Unavailable Unavailable Pacheco Goss, Surinder Kent MD, FACS Unavailable Unavailable Pacheco Goss, Surinder Kent MD, FACS Unavailable Unavailable Pacheco Goss, Surinder Kent MD, FACS Unavailable Unavailable Pahceco Goss, Surinder Kent MD, FACS Unavailable Unavailable Pacheco Goss, Surinder Kent MD, FACS Unavailable Unavailable Pacheco Goss, Surinder Kent MD, FACS Unavailable Unavailable Pacheco Goss, Surinder Kent MD, FACS Unavailable Unavailable Pacheco Goss, Surinder Kent MD, FACS Unavailable Unavailable Pacheco Goss, Surinder Kent MD, FACS Unavailable Unavailable Pacheco Goss, Surinder Kent MD, FACS Unavailable Unavailable Pacheco Goss, Surinder Kent MD, FACS Unavailable Unavailable Pacheco Goss, Surinder Kent MD, FACS Unavailable Unavailable Pacheco Goss, Surinder Kent MD, FACS Unavailable Unavailable Pacheco Goss, Surinder Kent MD, FACS Unavailable Unavailable Pacheco Goss, Surinder Kent MD, FACS Unavailable Unavailable Pacheco Goss, Surinder Kent MD, FACS Unavailable Unavailable Pacheco Goss, Surinder Kent MD, FACS Unavailable Unavailable Pacheco Goss, Surinder Kent MD, FACS Unavailable Unavailable Tara Goss, Surinder Kent MD, FACS Unavailable Unavailable PEGGY, L LINDEN PA Unavailable Unavailable PEGGY, L LINDEN PA Unavailable Unavailable PEGGY, L LINDEN PA Unavailable Unavailable PEGGY, L LINDEN PA Unavailable Unavailable PEGGY, L LINDEN PA Unavailable Unavailable PEGGY, L LINDEN PA Unavailable Unavailable PEGGY, L LINDEN PA Unavailable Unavailable PEGGY, L LINDEN PA Unavailable Unavailable PEGGY, L LINDEN PA Unavailable Unavailable PEGGY, L LINDEN PA Unavailable Unavailable PEGGY, L LINDEN PA Unavailable Unavailable PEGGY, L LINDEN PA Unavailable Unavailable PEGGY, L LINDEN PA Unavailable Unavailable PEGGY, L LINDEN PA Unavailable Unavailable PEGGY, L LINDEN PA Unavailable Unavailable PEGGY, L LINDEN PA Unavailable Unavailable PEGGY, L LINDEN PA Unavailable Unavailable PEGGY, L LINDEN PA Unavailable Unavailable PEGGY, L LINDEN PA Unavailable Unavailable PEGGY, L LINDEN PA Unavailable Unavailable PEGGY, L LINDEN PA Unavailable Unavailable PEGGY, L LINDEN PA Unavailable Unavailable Cotter DO, DO Latonya DO Unavailable Cotter DO, DO Latonya DO Unavailable Cotter DO, DO Latonya DO Unavailable Cotter DO, DO Latonya DO Unavailable Cotter DO, DO Latonya DO Unavailable Cotter DO, DO Latonya DO Unavailable Cotter DO, DO Latonya DO Unavailable Cotter DO, DO Latonya DO Unavailable Cotter DO, DO Latonya DO Unavailable Cotter DO, DO Latonya DO Unavailable Cotter DO, DO Latonya DO Unavailable Cotter DO, DO Latonya DO Unavailable Cotter DO, DO Latonya DO Unavailable Cotter DO, DO Latonya DO Unavailable Cotter DO, DO Latonya DO Unavailable Cotter DO, DO Latonya DO Unavailable Re-disclosure Warning The records that you are about to access may contain information from federally-assisted alcohol or drug abuse programs. If such information is present, then the following federally mandated warning applies: This information has been disclosed to you from records protected by federal confidentiality rules (42 CFR part 2). The federal rules prohibit you from making any further disclosure of this information unless further disclosure is expressly permitted by the written consent of the person to whom it pertains or as otherwise permitted by 42 CFR part 2. A general authorization for the release of medical or other information is NOT sufficient for this purpose. The Federal rules restrict any use of the information to criminally investigate or prosecute any alcohol or drug abuse patient.The records that you are about to access may contain highly sensitive health information, the redisclosure of which is protected by Article 27-F of the [facility] Public Health law. If you continue you may have access to information: Regarding HIV / AIDS; Provided by facilities licensed or operated by the [facility] Office of Mental Health; or Provided by the [facility] Office for People With Developmental Disabilities. If such information is present, then the following [facility] mandated warning applies: This information has been disclosed to you from confidential records which are protected by state law. State law prohibits you from making any further disclosure of this information without the specific written consent of the person to whom it pertains, or as otherwise permitted by law. Any unauthorized further disclosure in violation of state law may result in a fine or usp sentence or both. A general authorization for the release of medical or other information is NOT sufficient authorization for further disc losure. Allergies and Adverse Reactions Type Description Substance Reaction Status Data Source(s ) Allergy to substance No Known Allergies No known allergies (situation ) [place] (Donte Goss MD [facility]) Propensity to adverse reactions NO ALLERGIES ON FILE NO ALLERGIES ON FILE [facility] Family History Family Member Name Family Member Gender Family Member Status Date o f Status Description Data Source(s) Unknown Unknown Problem [facility] ([facility]) Unknown Male Problem [facility] ([facility] () Unknown Female Problem [facility] ([facility]) Unknown Female Problem [facility] ([facility]) Encounters Encounter Providers Location Date Indications Data Source(s ) Office Visit Attender: DONTE CALVO MD Main Office 04/25/2021 09: 09:00 AM EDT [facility] ([facility]) Outpatient Attender: Papi Noriega MD Main office - [place] 04/04/2021 11:00:00 AM EDT [facility], ) <td ID="encounterTypeDescriptionID0">11 Month Follow-Up</td><td>Donte Goss MD, FACS</td><td>Donte Jensen MD [facility]</td><td>03/30/2021</td><td>11:52AM</td><td>1:29PM</td><td><content ID="encounterDiagnosisID0-0">Glaucoma Open-angle Primary</content>, <content ID="encounterDiagnosisID0-1">Essential Hypertension</content>, <content ID="encounterDiagnosisID0-2">Dry Eye Syndrome</content>, <content ID="encounterDiagnosisID0-3">Posterior Capsule Opacification Eccentric Capsule Both Eyes</content>, <content ID="encounterDiagnosisID0-4">Macular Degeneration Nonexudative Bilateral Early Dry Stage</content></td>Outpatient Attender: Donte Goss MD, FACS Donte Jensen MD [facility] 03/30/2021 11:52:00 AM EDT - 03/30/2021 01:29:00 PM EDT Posterior Capsule Opacification Eccentri c Capsule Both EyesDry Eye SyndromeGlaucoma Open-angle PrimaryMacular Degeneration Nonexudative Bilateral Early Dry StageEssential Hypertension [place] (Donte Goss MD [facility]) Posterior Capsule Opacification Eccentri c Capsule Both Eyes Dry Eye Syndrome Glaucoma Open-angle Primary Macular Degeneration Nonexudative Bilate ral Early Dry Stage Essential Hypertension Outpatient Attender: LATONYA Nowakerrer: DO Latonya Cotter DO [id number] 01/16/2021 01:00:00 AM EDT - 01/16/2021 11:59:00 PM EDT [facility] Patient discharged. Outpatient Referrer: DO Latonya Cotter DO [facility] 01:00:00 AM EDT - 01/13/2021 11:59:00 PM EDT [facility] Patient discharged. Emergency Attender: LINDEN LOMBARDI 10/2019 03:37:00 PM EST - 08/03/2020 06:30:00 PM [facility] Patient discharged. Office Visit Attender: DONTE CALVO MD Main Office 07/22/2020 03: 16:00 PM EST [facility] ([facility]) Outpatient Attender: DONTE CALVO MD Main Office 05/31/2020 08:15:00 AM EDT [facility] ([facility]) Office Visit Attender: DONTE CALVO MD Main Office 05/23/2020 11: 35:00 AM EDT [facility] ([facility]) Inpatient Attender: LINDEN TAYLOR dmitter: HECTOR DAVIDSON MDReferrer: DONTE HAMMOND EMERGENCY ROOM-2N 12/11/2016 03:25:00 PM EDT - 12/12/2016 10:10:00 AM [facility] Immunizations Vaccine Date Status Description Data Source(s) COVID-19 VACCINE Pfizer 09/19/2020 12:00:00 AM EST completed [facility] Vaccine Series Complete: YESThis Data wa s Submitted to [facility] Via [employer]. COVID-19 VACCINE Pfizer 08/29/2020 12:00:00 AM EST completed [facility] Vaccine Series Complete: NOThis Data was Submitted to [facility] Via [employer]. Medications Medication Brand Name Start Date Product Form Dose Route Admi nistrative Instructions Pharmacy Instructions Status Indications Reaction Description Data Source(s) Erythromycin 0.005 MG/MG Ophthalmic Oint ment Erythromycin 5 MG/GM Ophthalmic Ointment Erythromycin 5 MG/GM Ophthalmic Ointment 03/30/2021 12:00:00 AM EDT active erythromycin 0.005 MG/MG Ophthalmic Ointment XAVIER (Donte Goss MD [facility]) Dexamethasone 0.001 MG/MG / Tobramycin 0 .003 MG/MG Ophthalmic Ointment [Tobradex] TobraDex 0.3-0.1% Ophthalmic Ointment TobraDex 0.3-0.1% Ophthalmic Ointment 03/30/2021 12:00:00 AM EDT active dexamethasone 0.001 MG/MG / tobramycin 0.003 MG/MG Ophthalmic Ointment [Tobradex] XAVIER (Donte Goss MD [facility]) Polyethylene Glycol 400 4 MG/ML / Propyl jt glycol 3 MG/ML Ophthalmic Solution [Systane] Systane Ultra 0.4-0.3% Ophthalmic Solution Systane Ultra 0.4-0.3% Ophthalmic Solution 03/30/2021 12:00:00 AM EDT active polyethylene glycol 400 4 MG/ML / propylene glycol 3 MG/ML Ophthalmic Solution [Systane] XAVIER (Donte Goss MD [facility]) latanoprost 0.05 MG/ML Ophthalmic Soluti on Latanoprost 0.005% Ophthalmic Solution Latanoprost 0.005% Ophthalmic Solution 03/30/2021 12:00:00 AM EDT 1 active latanoprost 0.05 MG/ ML Ophthalmic Solution XAVIER (Donte Goss MD [facility]) latanoprost 0.05 MG/ML Ophthalmic Soluti on Latanoprost 0.005% Ophthalmic Solution Latanoprost 0.005% Ophthalmic Solution 08/01/2020 12:00:00 AM EST 1 active latanoprost 0.05 MG/ ML Ophthalmic Solution XAVIER (Donte Goss MD [facility]) Amlodipine 2.5 MG Oral Tablet Amlodipine Besylate 05/31/2020 12:00: 00 AM EDT ORAL active [facility] ([facility]) Paroxetine HCL Paroxetine HCL 05/30/2020 12:00:00 AM EDT active [facility] ([facility]) Potassium Chloride 10 MEQ Extended Release Oral Tablet [Klor -Con] Klor-Con 10 05/30/2020 12:00:00 AM EDT ORAL active [facility] ([facility]) latanoprost 0.05 MG/ML Ophthalmic Soluti on Latanoprost 0.005% Ophthalmic Solution Latanoprost 0.005% Ophthalmic Solution 03/21/2020 12:00:00 AM EDT 1 aborted latanoprost 0.05 MG/ ML Ophthalmic Solution XAVIER (Donte Goss MD [facility]) Erythromycin 0.005 MG/MG Ophthalmic Oint ment Erythromycin 5MG/GM Ophthalmic Ointment Erythromycin 5MG/GM Ophthalmic Ointment 11/14/2018 12:00:00 AM EDT aborted erythromycin 0.005 M G/MG Ophthalmic Ointment XAVIER (Donte Goss MD [facility]) Insurance Providers Payer name Policy type / Coverage type Policy ID Covered democrat ID Covered democrat's relationship to [place] Policy [place] Plan Information [facility] [id number] Ghi/Emblem HLTH (pr) Medigap Part B [id number] Self Ghi Medigap Part B [id number] Self Ghi Medigap Part B [id number] Self [id number] MEDICARE Med [id number] Self [id number] MEDICARE [id number] Makenna [id number] [place] Primary [id number] Self [id number] Medicare (Part B) Medicare Primary [id number] Self [id number] Medicare (Part B) Medicare Primary [id number] Self [id number] Medicare (Part B) Medicare Primary [id number] Self [id number] Medicare (Part B) Medicare Primary [id number] Self [id number] [place] Medicare Primary [id number] Self [id number] Medicare - NGS Medicare Primary [id number] Self [id number] Medicare (Part B) Medicare Primary [id number] Self [id number] Medicare (Part B) Medicare Primary [id number] Self [id number] Medicare (Part B) Medicare Primary [id number] [place] Primary [id number] Self Medicare Medicare Primary [id number] Self [employer] - [place] Ppo Medigap Part B [id number] Self [id number] [employer] - [place] Ppo Medigap Part B [id number] Self [employer]/[place] Medigap Part B [id number] Self MEDICARE [id number] SP [id number] Ghi Medigap Part B [id number] Self [id number] Ghi Medigap Part B [id number] Self Ghi Medigap Part B [id number] Self [id number] Medicare Part B [facility] Other 0 [id number] Self 0 [employer] [id number] SP [id number] [facility] [id number] SP [id number] ANSI-Medicare Part B [id number] ANSI-Commercial [id number] MEDICARE [id number] SP [id number] A [facility] [id number] SP [id number] [facility] [id number] SP [id number] [employer] S [id number] S [id number] Ghi Emblem Medigap Part B [id number] Self [id number] [facility] [id number] S [id number] MEDICARE C [id number] S [id number] A MEDICARE C [id number] S [id number] [facility] [id number] S [id number] MEDICARE - [place] [id number] S [id number] [facility] [id number] S [id number] [facility] [id number] S [id number] [facility] [id number] S [id number] MEDICARE [place] [id number] S [id number] [facility] MEDICARE DIVISION [id number] S [id number] MEDICARE [place] [id number] S [id number] Medicare Part B [facility] Other 0 [id number] Self 0 Medicare Part B [facility] Other 0 [id number] Self 0 [facility] [id number] Makenna [id number] [facility]-Medicare Part B [id number] [employer] [id number] Problems, Conditions, and Diagnoses Code Display Name Description Problem Type Effective Dates Data Source(s) Y93.01 Activity, walking, marching and hiking A CTIVITY, WALKING, MARCHING AND HIKING Diagnosis 08/03/2020 03:37:[address] [facility] Y92.[address] and highw ay as the place of occurrence of the external cause [address] Diagnosis 020 03:37:00 PM [facility] W01.198A Fall on same level from slip ping, tripping and stumbling with subsequent striking against other object, initial encounter FALL SAME LEV FROM SLIP/TRIP W STRIKE AGNST OTH OB Diagnosis 08/03/2020 03:37:00 PM [facility] Z79.899 Other assisted (current) drug therapy O THER HALFWAY (CURRENT) DRUG THERAPY Diagnosis 08/03/2020 03:37:00 PM [facility] Z79.51 penitentiary (current) use of inhaled stero ids HALFWAY (CURRENT) USE OF INHALED STEROIDS Diagnosis 08/03/2020 03:37:00 PM [facility] Z95.5 Presence of coronary angioplasty implant and graft PRESENCE OF CORONARY ANGIOPLASTY IMPLANT AND GRAFT Diagnosis 08/03/2020 03:37:00 PM [facility] G20 Parkinson's disease PARKINSON'S DISEASE Diagnosis 1 10/04/2019 03:37:00 PM [facility] J45.909 Unspecified asthma, uncomplicated UNSPECIFIED THMA, UNCOMPLICATED Diagnosis 08/03/2020 03:37:00 PM [facility] I25.10 Atherosclerotic heart diseas e of [place] coronary artery without angina pectoris ATHSCL HEART DISEASE OF [place] CORONARY ARTERY W/O Diagnosis 08/03/2020 03:37:00 PM [facility] E78.00 PURE HYPERCHOLESTEROLEMIA, UNSPECIFIED P URE HYPERCHOLESTEROLEMIA, UNSPECIFIED Diagnosis 08/03/2020 03:37:00 PM [facility] H11.32 Conjunctival hemorrhage, left eye CONJUNCTIVAL H EMORRHAGE, LEFT EYE Diagnosis 08/03/2020 03:37:00 PM [facility] S80.211A Abrasion, right knee, initial encounter ABRASION, RIGHT KNEE, INITIAL ENCOUNTER Diagnosis 08/03/2020 03:37:00 PM [facility] l S01.112A Laceration without foreign b gil of left eyelid and periocular area, initial encounter LACERATION W/O FB OF LEFT EYELID AND PERIOCULAR AR Diagnosis 08/03/2020 03:37:00 PM [facility] S09.93XA Unspecified injury of face, initial enco unter UNSPECIFIED INJURY OF FACE, INITIAL ENCOUNTER Diagnosis 08/03/2020 03:37:[address] [facility] G31.83 Diffuse Lewy body disease Diffuse Lewy body disease Pr oblem 04/04/2021 12:00:00 AM EDT [facility] ([facility], ) Surgeries/Procedures Procedure Description Date Indications Data Source(s) Chronic Care MGMT 20 Mins Clinical Staff Time Per Calendar M cox monett 04/25/2021 12:00:00 AM EDT [facility] ([facility]) MRI BRAIN BRAIN STEM W/O CONTRAST MATERIAL 04/14/2021 12:00:00 AM EDT [facility] ([facility], ) MRI BRAIN BRAIN STEM W/O CONTRAST MATERIAL 04/14/2021 12:00:00 AM EDT [facility] ([facility], ) OFFICE OUTPATIENT VISIT 40 MINUTES 04/04/2021 12:00:00 AM EDT [facility] ([facility], ) ECG ROUTINE ECG W/LEAST 12 LDS W/I&R 05/31/2020 12:00: 00 AM EDT [facility] ([facility]) Arterial Pressure Waveform Analysis For Assessment Of Centra l Art 05/31/2020 12:00:00 AM EDT [facility] ([facility] of [facility]) Results ID Date Data Source [id number] 01/16/2021 01:15:00 PM EDT [facility] Name Value Range Interpretation Code Description Data Patricia rce(s) Supporting Document(s) AST 12 IU/L 15-37 Below low normal [facility] Sulfasalazine and sulfapyridine have the potential to falsely depressAspartate Aminotransferase results. Baseline values before medication administration are recommended. ALT <6 IU/L 16-61 Below low normal [facility] Sulfasalazine and sulfapyridine have the potential to falsely depressAlanine Aminotransferase results. Baseline values before medication administration are recommended. Alkaline Phosphatase 64 mIU/ml 50-136 Normal (applies to non-num ana results) [facility] Total Bilirubin 0.60 mg/dl 0.20-1.00 Normal (applies to non-numeric results) [facility] Blood Urea Nitrogen 18 mg/dl 7-18 Normal (applies to non-nume tati results) [facility] Creatinine 0.69 mg/dl 0.67-1.17 Normal (applies to non-numeric resul ts) [facility] N-Acetylcysteine (NAC) and Metamizole yip ve the potential to falselydepress Creatinine results. Baseline values before medication adminstration are recommended. Patients undergoing treatment with phenindione will have falselydepressed results. Patients on phenindione therapy should be tested with an alternativeCREA method.Toxic levels of acetaminophen may lead to falsely depressed results forpatient samples. Glomerular Filtration Rate >90.00 mL/min/1.73m2 [facility] GFR Reference Ranges:Normal Function or Mild Renal Disease,if clinically at risk:>or= 60Moderately decreased:30 - 59Severely decreased:15 - 29Renal Failure:<15 Please note that the MDRD equation requires an additional adjustment forAfrican-Americans (multiply the GFR result by 1.210).Glomarular Filtration Rate (GFR) is estimated based on the MDRDequation, which assumes a steady state for creatinine (Lizzie Int Med 139/2 137-149, 2002), as recommended by the NationalKidney Disease Education Program in conjunction with the National Institutes of Health and the National KidneyFoundation. The [place] method used in calculating this result is traceable to [place] standards. Glucose 72 mg/dl 70-110 Normal (applies to non-numeric resul ts) [facility] Sulfasalazine has the potential to false ly depress Glucose results. Sulfapyridine has the potential to falsely elevate Glucose results. Baseline values before medication administration are recommended. Calcium 8.7 mg/dl 8.5-10.1 Normal (applies to non-numeric resul ts) [facility] Total Protein 6.1 g/dl 6.4-8.2 Below low normal [facility] Albumin 3.6 g/dl 3.4-5.0 Normal (applies to non-numeric resul ts) [facility] Sodium 139 mEq/L 136-145 Normal (applies to non-numeric resul ts) [facility] Potassium 4.0 mEq/L 3.5-5.1 Normal (applies to non-numeric resul ts) [facility] Chloride 104.0 mEq/L 98.0-107.0 Normal (applies to non-numeric resu lts) [facility] Carbon Dioxide 28.9 mMol/L 21.0-32.0 Normal (applies to non-numeric results) [facility] Anion Gap 10.1 7.0-15.0 Normal (applies to non-numeric resul ts) [facility] The above 16 analytes were performed by [facility] [id number][facility] [address] ID Date Data Source [id number] 01/16/2021 01:15:00 PM EDT [facility] Name Value Range Interpretation Code Description Data Patricia rce(s) Supporting Document(s) TSH 0.62 uIU/ml 0.36-3.74 Normal (applies to non-numeric resu lts) [facility] Concentrations of Biotin above 100 ng/mL can potentially result ininterference.The above 1 analytes were performed by [facility] [id number] [place] [address], ,[place] [address] ID Date Data Source [id number] 01/16/2021 12:44:00 PM EDT [facility] Name Value Range Interpretation Code Description Data Patricia rce(s) Supporting Document(s) WBC 6.09 x1000/ul 4.80-10.00 Normal (applies to non-numeric re sults) [facility] RBC 4.37 x1Mil/ul 4.70-6.10 Below low normal [facility] Hemoglobin 13.5 g/dl 14.0-18.0 Below low normal [facility] Hematocrit 42.0 % 42.0-52.0 Normal (applies to non-numeric resul ts) [facility] MCV 96.1 fL 80.0-94.0 Above high normal [facility] MCH 30.9 pg 27.0-31.0 Normal (applies to non-numeric resul ts) [facility] MCHC 32.1 g/dl 32.2-37.0 Below low normal [facility] RDW 12.1 % 11.5-14.5 Normal (applies to non-numeric resul ts) [facility] Platelet Count 227 x1000/ul 130-400 Normal (applies to non-numeric results) [facility] MPV 10.5 fL 9.4-12.4 Normal (applies to non-numeric resul ts) [facility] Neutrophils 70.1 % 40.0-74.0 Normal (applies to non-numeric resu lts) [facility] Lymphocytes 15.1 % 19.0-48.0 Below low normal [facility] ey [facility] Monocytes 12.6 % 3.4-9.0 Above high [facility] Eosinophils 1.0 % 0.0-7.0 Normal (applies to non-numeric resu lts) [facility] Basophils 1.0 % 0.0-2.0 Normal (applies to non-numeric resul ts) [facility] Immature Granulocytes 0.2 % 0.0-0.5 Normal (applies to non-nu meric results) [facility] Nucleated RBCs 0.00 % 0.00-0.20 Normal (applies to non-numeric r esults) [facility] Abs. Neutrophils 4.27 x1000/ul 1.92-8.31 Normal (applies to non-numeric results) [facility] Abs. Lymphocyte 0.92 x1000/ul 1.20-3.70 Below low normal [facility] Abs. Monocytes 0.77 x1000/ul 0.14-0.97 Normal (applies to non-nu meric results) [facility] Abs. Eosinophils 0.06 x1000/ul 0.00-0.76 Normal (applie s to non-numeric results) [facility] Abs. Basophils 0.06 x1000/ul 0.00-0.22 Normal (applies to non-n umeric results) [facility] Abs. Immature Gran. 0.01 x1000/ul 0.00-0.02 Normal (appl ies to non-numeric results) [facility] Abs. Nucleated RBCs 0.00 x1000/ul 0.00-0.02 Normal (appl ies to non-numeric results) [facility] The above 24 analytes were performed by [facility] [id number] [place] [address],[facility] [id number],[place] [address] ID Date Data Source [id number] 01/13/2021 12:00:00 AM EDT [facility] Name Value Range Interpretation Code Description Data Patricia rce(s) Supporting Document(s) SARS coronavirus 2 Ag Negative [facility] This lab was ordered by Yumiko thomas reported by [facility] Miles. ID Date Data Source [id number] 01/06/2021 12:00:00 AM EDT [facility] Name Value Range Interpretation Code Description Data Patricia rce(s) Supporting Document(s) SARS-CoV-2 (COVID-19) RNA [Presence] in Respiratory specimen by HANH with probe detection Not Detected [facility] This lab was ordered by [facility] and reported by [employer] ID Date Data Source [id number] 12/21/2020 02:11:00 PM EDT [facility] Name Value Range Interpretation Code Description Data Patricia rce(s) Supporting Document(s) SARS-CoV-2 (COVID-19) RNA [Presence] in Respiratory specimen by HANH with probe detection Not Detected [facility] This lab was ordered by [facility] and reported by [employer] ID Date Data Source [id number] 11/28/2020 12:00:00 AM EDT [facility] Name Value Range Interpretation Code Description Data Patricia rce(s) Supporting Document(s) SARS-CoV-2 (COVID-19) RNA [Presence] in Respiratory specimen by HANH with probe detection Not Detected [facility] This lab was ordered by [facility] and reported by [employer] ID Date Data Source [id number] 11/22/2020 12:00:00 AM EDT [facility] Name Value Range Interpretation Code Description Data Patricia rce(s) Supporting Document(s) SARS-CoV-2 (COVID-19) RNA [Presence] in Respiratory specimen by HANH with probe detection Not Detected [facility] This lab was ordered by [facility] and reported by [employer] ID Date Data Source [id number] 11/15/2020 12:00:00 AM EDT [facility] Name Value Range Interpretation Code Description Data Patricia rce(s) Supporting Document(s) SARS coronavirus 2 Ag Negative [facility] This lab was ordered by Yumiko thomas reported by [employer]. ID Date Data Source [id number] 11/02/2020 12:00:00 AM EST [facility] Name Value Range Interpretation Code Description Data Patricia rce(s) Supporting Document(s) SARS coronavirus 2 Ag NEGATIVE [facility] This lab was ordered by Yumiko thomas reported by [employer] [facility]. ID Date Data Source [id number] 10/20/2020 11:20:00 PM EST [facility] Name Value Range Interpretation Code Description Data Patricia rce(s) Supporting Document(s) SARS coronavirus 2 Ag Negative [facility] This lab was ordered by Yumiko thomas reported by [facility] Miles. ID Date Data Source [id number] 10/12/2020 12:00:00 AM EST [facility] Name Value Range Interpretation Code Description Data Patricia rce(s) Supporting Document(s) SARS-CoV-2 (COVID-19) RNA [Presence] in Respiratory specimen by HANH with probe detection Not Detected [facility] This lab was ordered by [facility] and reported by [employer] ID Date Data Source [id number] 10/05/2020 12:00:00 AM EST [facility] Name Value Range Interpretation Code Description Data Patricia rce(s) Supporting Document(s) SARS coronavirus 2 Ag Negative [facility] This lab was ordered by Yumiko thomas reported by [facility] Miles. ID Date Data Source [id number] 08/23/2020 12:00:00 AM EST [facility] Name Value Range Interpretation Code Description Data Patricia rce(s) Supporting Document(s) SARS-CoV-2 (COVID-19) RNA [Presence] in Respiratory specimen by HANH with probe detection [facility] This lab was ordered by [facility] and reported by [employer] ID Date Data Source [id number] 08/15/2020 07:23:00 AM EST [facility] Name Value Range Interpretation Code Description Data Patricia rce(s) Supporting Document(s) SARS coronavirus 2 RNA [Presence] in Res piratory specimen by HANH with probe detection [facility] This lab was ordered by [facility] renner nd reported by [facility]. ID Date Data Source [id number] 08/12/2020 01:30:00 PM EST [facility] Name Value Range Interpretation Code Description Data Patricia rce(s) Supporting Document(s) SARS coronavirus 2 RNA [Presence] in Res piratory specimen by HANH with probe detection [facility] This lab was ordered by [facility] a nd reported by [facility]. ID Date Data Source [id number] 08/05/2020 09:25:00 PM EST [facility] Name Value Range Interpretation Code Description Data Patricia rce(s) Supporting Document(s) SARS coronavirus 2 RNA [Presence] in Res piratory specimen by HANH with probe detection [facility] This lab was ordered by [facility] a nd reported by [facility]. ID Date Data Source [id number] 08/03/2020 07:04:00 PM EST [facility] Patient: MIGUEL CLARK Report - Physicians/Mid Levels . [facility].VisitID: [id number] [place] [address] [phone], MRegistration Date/Time: 08/03/2020 15:08 Weight:60.3 kg (S). Height/Length:69 inches (S). BMI:19.6 PAST HISTORYProblems:Degenerative Joint Disease. (Disk)Gastroesophageal Reflux Disease.Coronary Artery Disease.Arthritis.Asthma.Chest Pain.Gout.Myocardial Infarction.Parkinson's Disease.Prostate Disease.Hypercholesterolemia.Hyperglyceridemia.Macular Degeneration.Hypertension [RuleOut]. Additional Surgeries:Back Surgery.Blepharoplasty.Cardiac Catheterization [02/12/2013].Deviated Septum.Knee Surgery. Medications:Advair Diskus Inhalation (Aerosol Powder Breath Activated 250-50 mcg/dose), 2x a day.Albuterol Sulfate Inhalation (Nebulization Solution (2.5 MG/3ML) 0.083%) 1 unit dose, q4h as needed.AmLODIPine Besylate Oral (Tablet 10 mg) 1 tablet, daily, last dose today.Carbidopa-Levodopa Oral (Tablet 25-100 mg) 2 tablets, 4x a day, last dose noon today.Chlorthalidone Oral (Tablet 25 mg) 1/2 tablet, every other day.Metoclopramide HCl Oral 5 mg, 3x a day, last dose today.Nitrostat Sublingual, as needed.Pramipexole Dihydrochloride ER Oral 1MG , 2x a day, last dose TODAY.Pramipexole Dihydrochloride Oral (Tablet 1 mg) 1/2 tablet, 2x a day, last dose today.Tamsulosin HCl Oral (Capsule 0.4 mg) 1 capsule, daily, last dose today. Allergies:No Known Drug Allergy. FAMILY HISTORYNegative. No significant family medical history. (Electronically signed by Virgen Macario 08/03/2020 18:44) Name Value Range Interpretation Code Description Data Patricia rce(s) Supporting Document(s) ID Date Data Source [id number] 08/03/2020 06:12:00 PM EST [facility] DATE OF EXAMINATION: 08/03/2020 17:30 EST FACIAL WITHOUT IV CONTRAST HISTORY: Trauma, pain TECHNIQUE: This CT exam was performed using the following dose reduction techniques:automated exposure control, adjustment of mA and/or kV according to the patientsize, and use of iterative reconstruction technique. High-resolution axial images were taken without contrast administration and withcoronal reformatting. FINDINGS: Facial bones are intact without any signs of fractures.The orbital rims, Pterygoid plates, lamina papyracea, zygomatic arches, andmandible are intact. There is left periorbital soft tissue swelling. There ismucoperiosteal thickening inferior aspects of both maxillary sinuses. IMPRESSION: No fracture. Electronically signed in [id number] by: Zack Ojeda M.D. 08/03/2020 18:07 EST Name Value Range Interpretation Code Description Data Patricia rce(s) Supporting Document(s) Procedure Social History Code Duration Value Status Description Data Source(s ) Smoking 03/30/2021 02:40:32 PM EDT Never smoked tobacco (findi ng) completed Never smoked tobacco (finding) [facility] (Donte Goss MD [facility]) Smoking 05/31/2020 12:00:00 AM EDT Patient has never smoked co mpleted Patient has never smoked [facility] ([facility]) Vital Signs ID Date Data Source UNK Name Value Range Interpretation Code Description Data Source(s) Body weight 134.00 [lb_av] 134.00 [lb_av] [facility] ([facility]) Body height 70 [in_i] 70 [in_i] [facility]) 5'10" Body mass index (BMI) [Ratio] 19.2 kg/m2 19.2 k g/m2 [facility] ([facility]) Heart rate 72 /min 72 /min [facility] ([facility]) Systolic blood pressure--sitting 139 mm[Hg] 139 mm[Hg] [facility] ([facility]) CBP, adult cuff/Ra Diastolic blood pressure--sitting 94 mm[Hg] 94 mm[Hg] [facility] ([facility]) CBP, adult cuff/Ra Patient Treatment Plan of Care Planned Activity Planned Date Details Description Data Source (s) Erythromycin 0.005 MG/MG Ophthalmic Ointment 03/30/2021 12:00:00 AM EDT [facility] (Donte Goss MD [facility]) Dexamethasone 0.001 MG/MG / Tobramycin 0 .003 MG/MG Ophthalmic Ointment [Tobradex] 03/30/2021 12:00:[address] (Donte Goss MD [facility]) latanoprost 0.05 MG/ML Ophthalmic Solution 03/30/2021 12:00:00 AM E DT [facility] (Donte Goss MD [facility]) Polyethylene Glycol 400 4 MG/ML / Propyl jt glycol 3 MG/ML Ophthalmic Solution [Systane] 03/30/2021 12:00:[address] (Donte Goss MD [facility]) latanoprost 0.05 MG/ML Ophthalmic Solution 08/01/2020 12:00:[address] [facility] (Donte Goss MD [facility]) latanoprost 0.05 MG/ML Ophthalmic Solution 03/21/2020 12:00:00 AM E DT [facility] (Donte Goss MD [facility]) Erythromycin 0.005 MG/MG Ophthalmic Ointment 11/14/2018 12:00:00 AM EDT [facility] (Donte Goss MD [facility])
--- OUTSIDE RECORDS SUMMARY | 2021-06-26 04:36 | CCD | Continuity of Care Document ---
Author Sunny Mcarthur M.D. 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 at [facility] Functional Status Description No Information Available Mental Status Description No Information Available Referrals Description No Information Available
--- OUTSIDE RECORDS SUMMARY | 2021-06-26 04:36 | CCD ---
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 Role Phone Camila GAMA, Ever KNOTT Unavailable [phone] Reason for Referral No Reason for Referral Recorded Problems Includes: Active, inactive, and resolved Problems All Visits Onset Date - Time Resolved Date - Time Provider Co ndition Status Posterior Capsule Opacification Eccentric Capsule Both Eyes 04/08/2020 - 12:00AM Ever Jensen MD, FACS Active Dry Eye Syndrome 2019 - 12:00AM Ever leal MD, FACS Active Pseudophakia 09/25/2018 - 12:00AM Jacques Vega DO Active Glaucoma Open-angle Primary 09/11/2018 - 12:00AM Ade Vega DO Active Macular Degeneration Nonexudative Bilateral Early Dry Stage 07/01/2017 - 12:00AM Ever Jensen MD, FACS Active Cataract Senile Cortical Bilateral 07/01/2017 - 12:00AM Unknown - Unknown Ever Jensen MD, FACS Resolved Essential Hypertension 07/01/2017 - 12:00AM Ever Kaur MD, FACS Active Conjunctivitis Acute Atopic 02/10/2016 - 12:00AM Ade Vega DO Inactive Conjunctivitis Acute Both Eyes 04/28/2015 - 12:00AM Tiffanie Vega DO Inactive Note: Unchanged Conjunctivitis Chronic Allergic 04/28/2015 - 12:00AM Ever Jensen MD, FACS Active Note: Unchanged Dermatochalasis Right Upper Eyelid 01/13/2015 - 12:00AM Unknown - Unknown Ever Jensen MD, FACS Resolved Note: Unchanged Ectropion Right Eyelid 01/13/2015 - 12:00AM Unknown - Unknown Terrence Goss MD, FACS Resolved Note: Unchanged Conjunctivitis Acute Both Eyes 07/12/2014 - 12:00AM Unknown - Un known Jacques Vega DO Resolved Note: Unchanged Dermatochalasis Both Eyelids 07/12/2014 - :00AM Ever Jensen MD, FACS Inactive Note: Unchanged Ectropion Both Eyelids 07/12/2014 - :00AM Ever Kaur MD, FACS Inactive Note: Unchanged Ectropion Cicatricial 07/12/2014 - :00AM Unknown - Unknown Harmeet Jensen MD, FACS Resolved Note: Unchanged - of the low er right eyelid Lid Lag Both Eyes 07/12/2014 - :00AM Unknown - Unknown Ever Jensen MD, FACS Resolved Note: Unchanged Cataract Senile Cortical 04/05/2014 - 12:00AM Ever Jensen MD, FACS Inactive Note: Unchanged - of both ey es Borderline Glaucoma Ocular Hypertension Both Eyes 10/13/2013 - 1 2:00AM Ever Jensen MD, FACS Inactive Note: Unchanged Refractive Error - Myopia 10/13/2013 - 12:00AM Ever Jensen MD, FACS Active Note: Unchanged Macular Degeneration Nonexudative Dry 03/26/2013 - 12:00AM Ever Jensen MD, FACS Inactive Note: Unchanged - of both ey es Retinopathy Hypertensive Both Eyes 03/26/2013 - 12:00AM Ever Jensen MD, FACS Active Note: Unchanged Pinguecula 03/26/2013 - :00AM Ever Jensen MD, FACS Active Note: Unchanged Cataract Senile Posterior Subcapsular Polar 03/26/2013 - : 00AM Unknown - Unknown Ever Jensen MD, FACS Resolved Note: Stable - of both eyes Cataract Senile Nuclear 03/26/2013 - 12:00AM Unknown - Unknown Ari Goss MD, FACS Resolved Note: Stable - of both eyes Dry Eye Syndrome Both Eyes 03/26/2013 - 12:00AM Ever Jensen MD, FACS Inactive Note: Worsening Vitreous Floaters Both Eyes 03/26/2013 - 12:00AM Ever Jensen MD, FACS Active Note: Unchanged Plan of Treatment Future Appointments Date Time Location Provider 2 Month Follow up 05/24/2021 1:00PM Ever Jensen MD, FACS Assessments Includes: Assessments for all patient encounters Findings Encounter Date Dry eye syndrome 11 Month Follow-Up with Ever leal MD, FACS 03/30/2021 Early dry stage nonexudative macular degeneration of b oth eyes 11 Month Follow- Up with Ever Jensen MD, FACS 03/30/2021 Essential hypertension 11 Month Follow-Up with Ever Gray MD, FACS 03/30/2021 Posterior capsule opacification of eccentric capsule i n both eyes 11 Month Follow-Up with Ever Jensen MD, FACS 03/30/2021 Primary open-angle glaucoma 11 Month Follow-Up with Terrence Jensen MD, FACS 03/30/2021 Dry eye syndrome 9 Month Follow-Up with Testjefferson foster with Ever Jensen MD, FACS 04/08/2020 Early dry stage nonexudative macular degeneration of b oth eyes 9 Month Follow-Up with Testing with Ever Jensen MD, FACS 04/08/2020 Essential hypertension 9 Month Follow-Up with Testjefferson foster with Ever Jensen MD, FACS 04/08/2020 Posterior capsule opacification of eccentric capsule i n both eyes 9 Month Follow-Up with Testing with Ever Jensen MD, FACS 04/08/2020 Primary open-angle glaucoma 9 Month Follow-Up with Camron harper with Ever Goss MD, FACS 04/08/2020 Dry eye syndrome 7 Month Follow-Up with Ever glaser MD, FACS 2019 Early dry stage nonexudative macular degeneration of b oth eyes 7 Month Follow-Up with Ever Jensen MD, FACS 2019 Essential hypertension 7 Month Follow-Up with Ever Pendleton MD, FACS 2019 Primary open-angle glaucoma 7 Month Follow-Up with Ever Jensen MD, FACS 2019 Dry eye syndrome of both eyes TRIAGE NON URGENT with Ari Jensen MD, FACS 04/03/2019 Dry eye syndrome of both eyes 6 Month Follow-Up with Ari Jensen MD, FACS 12/12/2018 Early dry stage nonexudative macular degeneration of b oth eyes 6 Month Follow-Up with Ever Jensen MD, FACS 12/12/2018 Essential hypertension 6 Month Follow-Up with Ever Pendleton MD, FACS 12/12/2018 Primary open-angle glaucoma 6 Month Follow-Up with Ever Jensen MD, FACS 12/12/2018 Primary open-angle glaucoma VISUAL FIELD 24-2 with [facility] 12/12/2018 Acute atopic conjunctivitis Insertion of Punctal Plug IN OFFICE-NEED AUTH with Jacques Silvia DO 11/14/2018 Dry eye syndrome of both eyes Insertion of Punctal Plu g IN OFFICE-NEED AUTH with Jacques Silvia DO 11/14/2018 Primary open-angle glaucoma Insertion of Punctal Plug IN OFFICE-NEED AUTH with Jacques Silvia DO 11/14/2018 Bilateral myopia 3 - 4 WK Post CAT SX with Jacques Joel ellison DO 10/31/2018 Pseudophakia 1 Week Post OP with Jacques Silvia DO 10/07/2018 Pseudophakia 1 Day Post OP with Jacques Silvia DO 09/30/2018 Nuclear senile cataract POST OP VISIT WITH PRE-OP with Matth bridgett Silvia DO 09/23/2018 Pseudophakia POST OP VISIT WITH PRE-OP [facility] 09/23/2018 Nuclear senile cataract 1 WK PREOP FOR SURGERY with Jacques Wrenstein DO 09/16/2018 Bilateral cortical senile cataract Cataract Evaluation with Jacques Silvia DO 09/08/2018 Dry eye syndrome of both eyes Cataract Evaluation with Matth bridgett WrenSilvia DO 09/08/2018 Early dry stage nonexudative macular degeneration of b oth eyes Cataract Evaluation with Jacques Silvia DO 09/08/2018 Essential hypertension Cataract Evaluation with Jacques Wein mcgowan DO 09/08/2018 Primary open-angle glaucoma Cataract Evaluation with Jacques Silvia DO 09/08/2018 Bilateral cortical senile cataract TRIAGE NON URGENT w augusta Jensen MD, FACS 08/14/2018 Nuclear senile cataract TRIAGE NON URGENT with Ever Gray MD, FACS 08/14/2018 Posterior subcapsular polar senile cataract TRIAGE NON URGENT with Ever Jensen MD, FACS 08/14/2018 Bilateral cortical senile cataract 5 Month Follow-Up a nd Testing with Ever Jensen MD, FACS 06/17/2018 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 5 Month Follow-Up and Testing with Ever Jensen MD, FACS 06/17/2018 Early dry stage nonexudative macular degeneration of b oth eyes 5 Month Follow-Up and Testing with Ever Jensen MD, FACS 06/17/2018 Essential hypertension 5 Month Follow-Up and Testin g with Ever Jensen MD, FACS 06/17/2018 Nuclear senile cataract 5 Month Follow-Up and Testin g with Ever Jensen MD, FACS 06/17/2018 Posterior subcapsular polar senile cataract 5 Month Fo llow-Up and Testing with Ever Jensen MD, FACS 06/17/2018 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 V ISUAL FIELD 24-2 with Ever Jensen MD, FACS 03/06/2018 Bilateral cortical senile cataract 7 Month Follow-Up w ith Ever Jensen MD, FACS 01/02/2018 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 7 Month Follow-Up with Ever Jensen MD, FACS 01/02/2018 Early dry stage nonexudative macular degeneration of b oth eyes 7 Month Follow-Up with Ever Jensen MD, FACS 01/02/2018 Essential hypertension 7 Month Follow-Up with Ever Pendleton MD, FACS 01/02/2018 Nuclear senile cataract 7 Month Follow-Up with Ever Gray MD, FACS 01/02/2018 Posterior subcapsular polar senile cataract 7 Month Fo llow-Up with Ever Jensen MD, FACS 01/02/2018 Bilateral cortical senile cataract 8 Month Follow-Up a nd Testing with Ever Jensen MD, FACS 07/01/2017 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 8 Month Follow-Up and Testing with Ever Jensen MD, FACS 07/01/2017 Early dry stage nonexudative macular degeneration of b oth eyes 8 Month Follow-Up and Testing with Ever Jensen MD, FACS 07/01/2017 Essential hypertension 8 Month Follow-Up and Testin g with Ever Jensen MD, FACS 07/01/2017 Nuclear senile cataract 8 Month Follow-Up and Testin g with Ever Jensen MD, FACS 07/01/2017 Posterior subcapsular polar senile cataract 8 Month Fo llow-Up and Testing with Ever Jensen MD, FACS 07/01/2017 Bilateral cortical senile cataract 9 Month Follow-Up w ith Ever Jensen MD, FACS 10/08/2016 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 9 Month Follow-Up with Ever Jensen MD, FACS 10/08/2016 Early dry stage nonexudative macular degeneration of b oth eyes 9 Month Follow-Up with Ever Jensen MD, FACS 10/08/2016 Essential hypertension 9 Month Follow-Up with Ever Pendleton MD, FACS 10/08/2016 Nuclear senile cataract 9 Month Follow-Up with Ever Gray MD, FACS 10/08/2016 Posterior subcapsular polar senile cataract 9 Month Fo llow-Up with Ever Jensen MD, FACS 10/08/2016 Acute atopic conjunctivitis 9 Month Follow-Up with Ever Jensen MD, FACS 01/25/2016 Bilateral cortical senile cataract 9 Month Follow-Up w ith Ever Jensen MD, FACS 01/25/2016 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 9 Month Follow-Up with Ever Jensen MD, FACS 01/25/2016 Dry nonexudative macular degeneration 9 Month Follow-U p with Ever Jensen MD, FACS 01/25/2016 Essential hypertension 9 Month Follow-Up with Ever Pendleton MD, FACS 01/25/2016 Nuclear senile cataract 9 Month Follow-Up with Ever Gray MD, FACS 01/25/2016 Posterior subcapsular polar senile cataract 9 Month Fo llow-Up with Ever Jensen MD, FACS 01/25/2016 Acute conjunctivitis of both eyes IOP CHECK with Ever Jefferson MD, FACS 04/28/2015 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 I OP CHECK with Ever Jensen MD, FACS 04/28/2015 Chronic allergic conjunctivitis of both eyes IOP CHEC K with Ever Jensen MD, FACS 04/28/2015 Dry eye syndrome of both eyes IOP CHECK with Ever Goss MD, FACS 04/28/2015 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 1 Wee k Post OP with Ever Jensen MD, FACS 01/13/2015 Dermatochalasis of the right upper eyelid 1 Week Post OP with Ever Goss MD, FACS 01/13/2015 Cicatricial ectropion both lower lids 1 WK PREOP FOR SURGERY with Ever Jensen MD, FACS 12/28/2014 Dermatochalasis of both eyes upper and lower lids 1 W K PREOP FOR SURGERY with Ever Jensen MD, FACS 12/28/2014 Ectropion of both eyes 1 WK PREOP FOR SURGERY with Ever Jensen MD, FACS 12/28/2014 Cicatricial ectropion both lower eyelids EXTERNAL JUANI TO with Ever Goss MD, FACS 12/07/2014 Acute conjunctivitis of both eyes IOP CHECK with Ever Jefferson MD, FACS 07/12/2014 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 I OP CHECK with Ever Jensen MD, FACS 07/12/2014 Cicatricial ectropion IOP CHECK with Ever Jensen MD, FACS 07/12/2014 Dermatochalasis of both eyes IOP CHECK with Ever leal MD, FACS 07/12/2014 Ectropion of both eyes IOP CHECK with Ever Jensen MD , FACS 07/12/2014 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 6 Month Follow-Up with Ever Jensen MD, FACS 04/05/2014 Cortical senile cataract both eyes 6 Month Follow-Up with Ever Jensen MD, FACS 04/05/2014 Dry eye syndrome of both eyes 6 Month Follow-Up with Ari Jensen MD, FACS 04/05/2014 Dry nonexudative macular degeneration both eyes 6 Mon th Follow-Up with Ever Jensen MD, FACS 04/05/2014 Hypertensive retinopathy of both eyes 6 Month Follow-U p with Ever Jesnen MD, FACS 04/05/2014 Nuclear senile cataract both eyes 6 Month Follow-Up w ith Ever Jensen MD, FACS 04/05/2014 Pinguecula both eyes 6 Month Follow-Up with Ever Goss MD, FACS 04/05/2014 Posterior subcapsular polar senile cataract both eyes 6 Month Follow-Up with Ever Jensen MD, FACS 04/05/2014 Vitreous floaters in both eyes 6 Month Follow-Up with Ever Jensen MD, FACS 04/05/2014 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 6 Month Follow-Up with Ever Jensen MD, FACS 10/13/2013 Dry eye syndrome of both eyes 6 Month Follow-Up with Air Jensen MD, FACS 10/13/2013 Dry nonexudative macular degeneration of both eyes 6 Month Follow-Up with Ever Jensen MD, FACS 10/13/2013 Hypertensive retinopathy of both eyes 6 Month Follow-U p with Ever Jensen MD, FACS 10/13/2013 Myopia 6 Month Follow-Up with Ever glaser MD, FACS 10/13/2013 Nuclear senile cataract of both eyes 6 Month Follow-U p with Ever Jensen MD, FACS 10/13/2013 Pinguecula of both eyes 6 Month Follow-Up with Ever Muñoz MD, FACS 10/13/2013 Posterior subcapsular polar senile cataract of both e yes 6 Month Follow-Up with Ever Jensen MD, FACS 10/13/2013 Vitreous floaters in both eyes 6 Month Follow-Up with Ever Jensen MD, FACS 10/13/2013 Dry eye syndrome of both eyes 4 Month Follow-Up with Ari Jensen MD, FACS 03/26/2013 Dry nonexudative macular degeneration of both eyes 4 Month Follow-Up with Ever Jensen MD, FACS 03/26/2013 Hypertensive retinopathy of both eyes 4 Month Follow-U p with Ever Jensen MD, FACS 03/26/2013 Nuclear senile cataract of both eyes 4 Month Follow-U p with Ever Jensen MD, FACS 03/26/2013 Pinguecula 4 Month Follow-Up with Ever glaser MD, FACS 03/26/2013 Posterior subcapsular polar senile cataract of both e yes 4 Month Follow-Up with Ever Jensen MD, FACS 03/26/2013 Vitreous floaters in both eyes 4 Month Follow-Up with Ever Jensen MD, FACS 03/26/2013 Instructions Instructions not supported for this document typeNo Instructions Recorded Medical Equipment - Implanted Devices Includes: Current and historical DevicesNo Medical Equipment Recorded Medications Includes: Current and historical Medications Current Medications (continue as prescribed) Systane Ultra 0.4-0.3% Ophthalmic Solution 03/30/2021 Provider: Ever Jensen MD, FACS Diagnosis: Dry eye syndrome of bilateral lacrimal glands One drop four times a day in both eyes Latanoprost 0.005% Ophthalmic Solution 03/30/2021 P rorodolfo: Ever Jensen MD, FACS Diagnosis: Primary open-angle g laucoma, bilateral, moderate stage One drop in each eye at night time. TobraDex 0.3-0.1% Ophthalmic Ointment 03/30/2021 Pr ovider: Ever Jensen MD FACS Diagnosis: apply thin bead to the left eye two times a day Erythromycin 5 MG/GM Ophthalmic Ointment 03/30/2021 Provider: Ever Jensen MD, FACS Diagnosis: apply thin bead to both eyes twice a day Latanoprost 0.005% Ophthalmic Solution 08/01/2020 P rovikarina: Ever Jensen MD, FACS Diagnosis: Primary open-angle g laucoma, bilateral, moderate stage One drop in each eye at night time. Candesartan Cilexetil 16 MG OR TABS 04/05/2014 Prov ider: Diagnosis: Tamsulosin HCl 0.4 MG OR CAPS 10/13/2013 Provider: Diagnosis: Crestor 10 MG OR TABS 10/13/2013 Provider: Diagnosis: Atacand 16 MG OR TABS 03/26/2013 Provider: Diagnosis: EQL [place] 3 Fish Oil 1200 MG OR CAPS 03/26/2013 Pro vider: Diagnosis: Probenecid 500 MG OR TABS 03/26/2013 Provider: Diagnosis: clonazePAM 1 MG OR TABS 03/26/2013 Provider: Diagnosis: Advair Diskus 250-50 MCG/DOSE IN AEPB 03/26/2013 Pr ovider: Diagnosis: Chlorthalidone 25 MG OR TABS 03/26/2013 Provider: Diagnosis: Omeprazole 20 MG OR CPDR 03/26/2013 Provider: Diagnosis: amLODIPine Besylate 10 MG OR TABS 03/26/2013 Provid er: Diagnosis: Systane Ultra 0.4-0.3% OP SOLN 03/26/2013 Provider: Diagnosis: Vision Essentials OR TABS 03/26/2013 Provider: Diagnosis: Past Medications on file Latanoprost 0.005% Ophthalmic Solution 03/21/2020 - 08/01/20 20 Provider: Ever Jensen MD, FACS Diagnosis: Primary open-angle g laucoma, bilateral, moderate stage One drop in each eye at night time. Latanoprost 0.005% Ophthalmic Solution 11/17/2019 - 04/08/20 20 Provider: Ever Jensen MD, FACS Diagnosis: Primary open-angle g laucoma, bilateral, moderate stage One drop in each eye at night time. Latanoprost 0.005% Ophthalmic Solution 2019 - 11/17/19 20 Provider: Ever Jensen MD, FACS Diagnosis: Primary open-angle g laucoma, bilateral, moderate stage One drop in each eye at night time. Erythromycin 5MG/GM Ophthalmic Ointment 11/14/2018 - 021 Provider: Jacques Vega DO Diagnosis: Acute atopic conjunc tivitis, bilateral apply thin bead to both lower eyelids at night before bed Latanoprost 0.005% Ophthalmic Solution 11/14/2018 - 07/16/20 19 Provider: Jacques Vega DO Diagnosis: Primary open-angle g laucoma, bilateral, moderate stage One drop in each eye at night time. Latanoprost 0.005% Ophthalmic Solution 11/14/2018 - 11/15/19 19 Provider: Jacques Vega DO Diagnosis: Primary open-angle g laucoma, bilateral, moderate stage One drop in each eye at night time. Lumigan 0.01% Ophthalmic Solution 10/31/2018 - 11/14/2018 Pr ovider: Jacques Vega DO Diagnosis: Primary open-angle g laucoma, bilateral, moderate stage One drop in each eye at night time. Pred Forte 1% Ophthalmic Suspension 09/30/2018 - 11/17/2019 Provider: Jacques Vega DO Diagnosis: Age-related nuclear cataract, right eye Day of surgery remove patch start one drop four times a day in the right eye BromSite 0.075% Ophthalmic Solution 09/30/2018 - 11/17/2019 Provider: Jacques Vega DO Diagnosis: Age-related nuclear cataract, left eye One drop twice a day in both eyes Besivance 0.6% Ophthalmic Suspension 09/30/2018 - 11/17/2019 Provider: Jacques Vega DO Diagnosis: Age-related nuclear cataract, right eye one drop three times a day in the right eye Pred Forte 1% Ophthalmic Suspension 09/16/2018 - 09/30/2018 Provider: Jacques Vega DO Diagnosis: Age-related nuclear cataract, left eye Day of surgery remove patch start one drop four times a day in the left eye BromSite 0.075% Ophthalmic Solution 09/16/2018 - 09/30/2018 Provider: Jacques Vega DO Diagnosis: Age-related nuclear cataract, left eye Three days prior to surgery start one dr op two times a day in the left eyePT HAS SAVINGS CARD, LOOK IN PHARM NOTES Besivance 0.6% Ophthalmic Suspension 09/16/2018 - 09/30/2018 Provider: Jacques Vega DO Diagnosis: Age-related nuclear cataract, left eye Three days prior to surgery start one drop three times a day in the left eye Lumigan 0.01% Ophthalmic Solution 09/08/2018 - 10/31/2018 Pr ovider: Jacques Vega DO Diagnosis: Primary open-angle g laucoma, bilateral, moderate stage One drop in each eye at night time. Alrex 0.2 % Suspension 04/28/2015 - 09/23/2018 Provider: Ever Jensen MD, FACS Diagnosis: Chr Allrg Conjunctiv NEC one drop once a day in both eyes Bepreve 1.5 % Solution 04/28/2015 - 09/23/2018 Provider: Ever Jensen MD, FACS Diagnosis: Chr Allrg Conjunctiv NEC One drop in each eye in the morning Pred Forte 1 % Suspension 12/29/2014 - 02/15/2015 Provider: Ever Jensen MD, FACS Diagnosis: Cicatricial Ectropio n one drop four times a day in the left eye Besivance 0.6 % Suspension 12/29/2014 - 02/15/2015 Provider: Ever Jensen MD, FACS Diagnosis: Cicatricial Ectropio n one drop three times a day in the left eye Ciloxan 0.3 % Ointment 12/28/2014 - 04/28/2015 Provider: Ever Jensen MD, FACS Diagnosis: Cicatricial Ectropio n Apply to incision of upper left eyelid & lower left eyelid 3 times a day Vigamox 0.5% OP SOLN 10/23/2013 - 12/28/2014 Provider: Ever Jensen MD, FACS Diagnosis: Medications Administered Includes: Administered Medications in patient's chartNo Administered Medications Recorded Vital Signs Includes: Vital Signs from 03/30/2020 through 03/30/2021No Vital Signs Recorded For Specified Dates Results Includes: Results from 03/30/2020 through 03/30/2021No Results Recorded For Specified Dates History of Present Illness History of Present Illness not supported for this document typeNo History of Present Illness Recorded Social History Description Last Updated Tobacco non-user 03/30/2021 No consumption of alcohol 03/30/2021 No tobacco use 03/30/2021 Not using drugs 03/30/2021 Smoking status : Never smoker 03/30/2021 Never smoked 2019 Previous smoking history not known 05/03/2015 Not using alcohol 02/15/2015 Procedures and Surgical History Includes: Procedures from 03/30/2020 through 03/30/2021 Procedures Code Diagnosis Performing Provider Service Location Service Date Comprehensive eye exam established patient (Signi/Sep Eval. & Man.) 84250 Nexdtve age-related mclr degn, bilateral, early dry stage, Essential (primary) hypertension, Primary open-angle glaucoma, bilateral, moderate stage, Other secondary cataract, bilateral Ever Jensen MD, FACS Ever Jensen MD [facility] 04/08/2020 Scodi, optic nerve with interpretation a nd report (WAIVER OF LIABILITY ON FILE (ABN)) 18212 Primary open-angle glaucoma, bilateral, moderate stage Ever Jensen MD, FACS Ever Jensen MD [facility] 04/08/2020 Surgical History Last Updated Surgical / procedural history : Bilatera l Knee Surgery, Removal of melanoma off back 2019 History of cataract surgery of left eye 09/22/[address] Vega 2019 History of cataract surgery of right eye 09/29/[address] Vega 2019 Medical History Includes: Medical History in patient's chart Description Last Updated Repair of ectropion - Pentagonal Wedge Excision or Lateral Tarsal Strip with a full thickness skin graft from left upper eyelid to left lower eyelid 2019 Reported medical history : Previous Hear t Attack, GERD, Heart Disease, Disc Disease, Stroke, Parkinson's Disease 2019 No recent change in medical history 03/11/2015 Upper lid blepharoplasty with excessive skin was perfo rmed both eyes 01/27/2015 History of coronary artery disease 10/13/2013 History of hyperlipidemia 10/13/2013 History of asthma 03/26/2013 Currently wearing eyeglasses 03/26/2013 History of hypertension 03/26/2013 Family History Includes: Family History in patient's chart Description Last Updated Fraternal history of diabetes mellitus 03/30/2021 Fraternal history of hypertension 03/30/2021 Maternal history of hypertension 03/30/2021 Maternal history of stroke/cerebrovascular accident Son's history of cataract 03/30/2021 Son's history of heart disease 03/30/2021 Son's history of hypertension 03/30/2021 Son's history of macular degeneration 03/30/2021 Sororal history of heart disease 03/30/2021 Sororal history of hypertension 03/30/2021 Family history of arthritis 09/24/2014 Family history of cataract 09/24/2014 Family history of heart disease 09/24/2014 Family history of hypertension 09/24/2014 Family history of stroke/cerebrovascular accident 09/03 Review of Systems Review of Systems not supported for this document typeNo Review of Systems Recorded Mental Status Mental Status not supported for this document type Description Oriented to time, place, and person Functional Status Functional Status not supported for this document typeNo Functional Status Recorded Physical Exam Physical Exam not supported for this document typeNo Physical Exam Recorded Immunizations Includes: Immunizations in patient's chartNo Immunizations Recorded Allergies Includes: Active, inactive, and resolved AllergiesNo Known Allergies Encounters Includes: Encounters from 03/30/2020 through 03/30/2021 Encounter Provider Location Date Check-In Time Check-Out Time D iagnosis 11 Month Follow-Up Ever Jensen MD, FACS Ever Jensen MD [facility] 03/30/2021 11:52AM 1:29PM Glaucoma Open-angle Primary, Essential Hypertension, Dry Eye Syndrome, Posterior Capsule Opacification Eccentric Capsule Both Eyes, Macular Degeneration Nonexudative Bilateral Early Dry Stage Rx Refills/Changes Ever Jensen MD, FACS 08/01/2020 04/08/2020 3:35PM 04/08/2020 11:59PM 9 Month Follow-Up with Testing Ever Jensen MD, FACS Ever Jensen MD [facility] 04/08/2020 1:32PM 2:55PM Glaucoma Open-an gle Primary, Macular Degeneration Nonexudative Bilateral Early Dry Stage, Essential Hypertension, Dry Eye Syndrome, Posterior Capsule Opacification Eccentric Capsule Both Eyes Insurance Includes: Active Insurance Policies Plan Name Member ID Group # Subscriber Relationship Effective Da camron 1 - Medicare Part B [facility] ([facility]) [id number] Sunny Friedmanly Self 2 - EMBLE / GHI ([employer], [employer] [facility] [id number] Sunny Cervantes Advance Directives Includes: Current Advance Directives Directive Pat Aware Third Green Party Effective Date Reviewed Status Living Will Yes 08/04/2013 Supported By Healthcare Will Health Concerns Includes: Active Health ConcernsNo Active Health Concerns Recorded Goals Includes: Active GoalsNo Active Goals Recorded Interventions Includes: Interventions for active GoalsNo Interventions Recorded Evaluations & Outcomes Includes: Evaluations & Outcomes for active GoalsNo Outcomes Recorded
--- OUTSIDE RECORDS SUMMARY | 2021-06-26 04:36 | CCD | Continuity of Care Document ---
Author Author Sunny ALVAREZ Organization Unknown Address [address] [place] [address] Phone [phone] Care Team Providers Care Guide Rail Cleaner Name Role Phone [facility] [phone] Problems Active Problems Provider Date Parkinson's disease [...] lb BMI (Body Mass Index) 23.7 kg/m2 [place] Body Weight 166 lb Results Description No Information Available Procedures Date Code Description Status 04/04/2021 53575 Office/Outpatient Established [facility] MDM 40-54 Min Completed Medical Devices Description No Information Available Encounters Type Date Location Provider Dx Diagnosis Office Visit 04/04/2021 11:00a [facility] Melissa Bullock G31.83 Dementia with Lewy bodies G20 Parkinson's disease I67.89 Other cerebrovascular diseas e G46.7 Other lacunar syndromes M43.02 Spondylolysis, cervical tyrell on F51.01 Primary insomnia Assessments Date Code Description Provider 04/04/2021 G31.83 Dementia with Lewy bodies Papi Noriega M.D. 04/04/2021 G20 Parkinson's disease Papi Noriega M.D. 04/04/2021 I67.89 Other cerebrovascular disease Mo kuldip Noriega M.D. 04/04/2021 G46.7 Other lacunar syndromes Papi menchaca M.D. 04/04/2021 M43.02 Spondylolysis, cervical region M george Noriega M.D. 04/04/2021 F51.01 Primary insomnia Keila Bullock Plan of Treatment Future Appointment(s):* 06/14/2021 11:00 am - Papi Noriega M.D. at [facility] Functional Status Description No Information Available Mental Status Description No Information Available Referrals Description No Information Available
[2021-06-26 05:31] LABS: BASO # 0.1 10^3/uL (0.0-0.2); BASO % 0.7 % (0.0-1.0); EOS # 0.1 10^3/uL (0.0-0.5); EOS % 0.8 % (0.0-3.0); HEMATOCRIT 36.7 % (42.0-52.0); HEMOGLOBIN 11.7 g/dl (13.5-17.5); LYMPH # 0.8 10^3/uL (1.5-5.0); LYMPH % 11.4 % (24.0-44.0); MEAN CORPUSCULAR HEMOGLOBIN 30.6 pg (27.0-33.0); MEAN CORPUSCULAR HGB CONC 31.9 g/dl (32.0-36.5); MEAN CORPUSCULAR VOLUME 96.1 fl (80.0-96.0); MONO # 0.8 10^3/uL (0.0-0.8); MONO % 10.6 % (2.0-8.0); NEUTROPHILS # 5.5 10^3/uL (1.5-8.5); NEUTROPHILS % 76.2 % (36.0-66.0); PLATELET COUNT, AUTOMATED 236 10^3/uL (150-450); RED BLOOD COUNT 3.82 10^6/uL (4.30-6.10); WHITE BLOOD COUNT 7.2 10^3/uL (4.0-10.0)
[2021-06-26 05:45] LABS: INR 1.05; PROTHROMBIN TIME 14.1 SECONDS (12.7-14.5)
[2021-06-26 05:53] LABS: ALBUMIN 2.7 GM/DL (3.2-5.2); ALT/SGPT 15 U/L (12-78); BILIRUBIN,DIRECT 0.1 MG/DL (0.0-0.2); BILIRUBIN,TOTAL 0.5 MG/DL (0.2-1.0); LIPASE 82 U/L (73-393)
--- OUTSIDE RECORDS SUMMARY | 2021-06-26 06:00 | CCD ---
Author Author [facility] Organization [facility] Address Unknown Phone Unavailable Care Team Providers Care Vehicle Trimmer Name Role Phone Papi Noriega MD Unavailable Unavailable Papi Noriega MD Unavailable Unavailable Papi Noriega MD Unavailable Unavailable Papi Noriega MD Unavailable Unavailable Papi Noriega MD Unavailable Unavailable Papi Noriega MD Unavailable Unavailable Papi Noriega MD Unavailable Unavailable Papi Noriega MD Unavailable Unavailable Paip Noriega MD Unavailable Unavailable Papi Noriega MD [...] ANTECOL, Gonzales KENT MD Unavailable Unavailable ANTECOL, Gonzaels KENT MD Unavailable Unavailable ANTECOL, Gonzales KENT [...] HAMMOND SR, SIMÓN KENT MD Unavailable Unavailable HAMOMND SR, SIMÓN KENT MD Unavailable Unavailable HAMMOND [...] KENT MD Unavailable Unavailable HAMMOND SR, SIMÓN EKNT MD Unavailable Unavailable HAMMOND SR, SIMÓN KENT [...] MD, FACS Unavailable Unavailable Pacheco Goss, Surinder eKnt MD, FACS Unavailable Unavailable Pacheco Goss, Surinder [...] is protected by Article 27-F of the [facility] Public Health law. If you continue you may have access to information: Regarding HIV / AIDS; Provided by facilities licensed or operated by the [facility] Office of Mental Health; or Provided by the [facility] Office for People With Developmental Disabilities. If such information is present, then the following [facility] mandated warning applies: This information has [...] law may result in a fine or halfway sentence or both. A general authorization for the release of medical or other information is NOT sufficient authorization for further disc losure. Allergies and Adverse Reactions Type Description Substance Reaction Status Data Source(s ) Allergy to substance No Known Allergies No known allergies (situation ) [place] (Donte Goss MD [facility]) Propensity to adverse reactions NO ALLERGIES ON FILE NO ALLERGIES ON FILE [facility] Family History Family Member Name Family Member Gender Family Member Status Date o f Status Description Data Source(s) Unknown Unknown Problem [facility] ([facility]) Unknown Male Problem [facility] ([facility] () Unknown Female Problem [facility] ([facility]) Unknown Female Problem [facility] ([facility]) Encounters Encounter Providers Location Date Indications Data Source(s ) Office Visit Attender: DONTE CALVO MD Main Office 04/25/2021 09: 09:00 AM EDT [facility] ([facility]) Outpatient Attender: Papi Noriega MD Main office - [place] 04/04/2021 11:00:00 AM EDT [facility] ([facility]ie, ) Outpatient<td ID="encounterTypeDescripti onID0">11 Month Follow-Up</td><td>Donte Jensen MD, FACS</td><td>Donte Jensen MD [facility]</td><td>03/30/2021</td><td>11:52AM</td><td>1:29PM</td><td><content ID="encounterDiagnosisID0-0">Glaucoma Open-angle Primary</content>, <content ID="encounterDiagnosisID0-1">Essential Hypertension</content>, <content ID="encounterDiagnosisID0-2">Dry Eye Syndrome</content>, <content ID="encounterDiagnosisID0-3">Posterior Capsule Opacification Eccentric Capsule Both Eyes</content>, <content ID="encounterDiagnosisID0-4">Macular Degeneration Nonexudative Bilateral Early Dry Stage</content></td> Attender: Donte Goss MD, FACS Donte Jensen MD [facility] 03/30/2021 11:52:00 AM EDT - 03/30/2021 01:29:00 PM EDT Posterior Capsule Opacification Eccentri c Capsule Both EyesDry Eye SyndromeGlaucoma Open-angle PrimaryMacular Degeneration Nonexudative Bilateral Early Dry StageEssential Hypertension [place] (Donte Goss MD [facility]) Posterior Capsule Opacification Eccentri c Capsule Both Eyes Dry Eye Syndrome Glaucoma Open-angle Primary Macular Degeneration Nonexudative Bilate ral Early Dry Stage Essential Hypertension Outpatient Attender: LATONYA Nowakerrer: DO Latonya Cotter DO 2E-HL 01/16/2021 01:00:00 AM EDT - 01/16/2021 11:59:00 PM EDT [facility] Patient discharged. Outpatient Referrer: DO Latonya Cotter DO 2E-HL 01:00:00 AM EDT - 01/13/2021 11:59:00 PM EDT [facility] Patient discharged. Emergency Attender: LINDEN LOMBARDI 10/2019 03:37:00 PM EST - 08/03/2020 06:30:00 PM [facility] Patient discharged. Office Visit Attender: DONTE CALVO MD Main Office 07/22/2020 03: 16:00 PM EST [facility] ([facility]) Outpatient Attender: DONTE CALVO MD Main Office 05/31/2020 08:15:00 AM EDT [facility] ([facility]) Office Visit Attender: DONTE CALVO MD Main Office 05/23/2020 11: 35:00 AM EDT [facility] ([facility]) Inpatient Attender: LINDEN TAYLOR dmitter: HECTOR DAVIDSON MDReferrer: DONTE HAMMOND EMERGENCY ROOM-2N 12/11/2016 03:25:00 PM EDT - 12/12/2016 10:10:00 AM [facility] Immunizations Vaccine Date Status Description Data Source(s) COVID-19 VACCINE Pfizer 09/19/2020 12:00:00 AM EST completed [facility] Vaccine Series Complete: YESThis Data wa s Submitted to [facility] Via Member Desk. COVID-19 VACCINE Pfizer 08/29/2020 12:00:00 AM EST completed [facility] Vaccine Series Complete: NOThis Data was Submitted to [facility] Via Member Desk. Medications Medication Brand Name Start Date Product Form Dose Route Admi nistrative Instructions Pharmacy Instructions Status Indications Reaction Description Data Source(s) Erythromycin 0.005 MG/MG Ophthalmic Oint ment Erythromycin 5 MG/GM Ophthalmic Ointment Erythromycin 5 MG/GM Ophthalmic Ointment 03/30/2021 12:00:00 AM EDT active erythromycin 0.005 MG/MG Ophthalmic Ointment XAVIER (Donte Goss MD [facility]) Dexamethasone 0.001 MG/MG / Tobramycin 0 .003 MG/MG Ophthalmic Ointment [Tobradex] TobraDex 0.3-0.1% Ophthalmic Ointment TobraDex 0.3-0.1% Ophthalmic Ointment 03/30/2021 12:00:00 AM EDT active dexamethasone 0.001 MG/MG / tobramycin 0.003 MG/MG Ophthalmic Ointment [Tobradex] XAVIER (Donte Goss MD [facility]) Polyethylene Glycol 400 4 MG/ML / Propyl jt glycol 3 MG/ML Ophthalmic Solution [Systane] Systane Ultra 0.4-0.3% Ophthalmic Solution Systane Ultra 0.4-0.3% Ophthalmic Solution 03/30/2021 12:00:00 AM EDT active polyethylene glycol 400 4 MG/ML / propylene glycol 3 MG/ML Ophthalmic Solution [Systane] XAVIER (Donte Goss MD [facility]) latanoprost 0.05 MG/ML Ophthalmic Soluti on Latanoprost 0.005% Ophthalmic Solution Latanoprost 0.005% Ophthalmic Solution 03/30/2021 12:00:00 AM EDT 1 active latanoprost 0.05 MG/ ML Ophthalmic Solution XAVIER (Donte Goss MD [facility]) latanoprost 0.05 MG/ML Ophthalmic Soluti on Latanoprost 0.005% Ophthalmic Solution Latanoprost 0.005% Ophthalmic Solution 08/01/2020 12:00:00 AM EST 1 active latanoprost 0.05 MG/ ML Ophthalmic Solution XAVIER (Donte Goss MD [facility]) Amlodipine 2.5 MG Oral Tablet Amlodipine Besylate 05/31/2020 12:00: 00 AM EDT ORAL active [facility] ([facility]) Paroxetine HCL Paroxetine HCL 05/30/2020 12:00:00 AM EDT active [facility] ([facility]) Potassium Chloride 10 MEQ Extended Release Oral Tablet [Klor -Con] Klor-Con 10 05/30/2020 12:00:00 AM EDT ORAL active [facility] ([facility]) latanoprost 0.05 MG/ML Ophthalmic Soluti on Latanoprost 0.005% Ophthalmic Solution Latanoprost 0.005% Ophthalmic Solution 03/21/2020 12:00:00 AM EDT 1 aborted latanoprost 0.05 MG/ ML Ophthalmic Solution XAVIER (Donte Goss MD [facility]) Erythromycin 0.005 MG/MG Ophthalmic Oint ment Erythromycin 5MG/GM Ophthalmic Ointment Erythromycin 5MG/GM Ophthalmic Ointment 11/14/2018 12:00:00 AM EDT aborted erythromycin 0.005 M G/MG Ophthalmic Ointment XAVIER (Donte Goss MD [facility]) Insurance Providers Payer name Policy type / Coverage type Policy ID Covered alliance party ID Covered alliance party's relationship to [place] Policy [place] Plan Information [facility] [id number] Ghi/Emblem HLTH (pr) Medigap Part B [id number] Self Ghi Medigap Part B [id number] Self Ghi Medigap Part B [id number] Self [id number] MEDICARE Med [id number] Self [id number] MEDICARE [id number] [facility] [id number] A [place] Medicare Primary [id number] Self [id number] Medicare (Part B) Medicare Primary [id number] Self [id number] Medicare (Part B) Medicare Primary [id number] Self [id number] Medicare (Part B) Medicare Primary [id number] Self [id number] Medicare (Part B) Medicare Primary [id number] Self [id number] Medicare [place] Medicare Primary [id number] Self [id number] Medicare - [place]GS Medicare Primary [id number] Self [id number] Medicare (Part B) Medicare Primary [id number] Self [id number] Medicare (Part B) Medicare Primary [id number] Self [id number] Medicare (Part B) Medicare Primary [id number] Self Medicare [place] Primary [id number] Self Medicare Medicare Primary [id number] Self [employer] - Ghi Ppo Medigap Part B [id number] Self [id number] [employer] - Ghi Ppo Medigap Part B [id number] Self Em[employer]/Ghi Medigap Part B [id number] Self MEDICARE [id number] SP [id number] Ghi Medigap Part B [id number] Self [id number] Ghi Medigap Part B [id number] Self Ghi Medigap Part B [id number] Self [id number] Medicare Part B [facility] Other 0 [id number] Self 0 [employer] [id number] SP [id number] [facility] [id number] SP [id number] ANSI-Medicare Part B [id number] ANSI-Commercial [id number] MEDICARE [id number] SP [id number] A [employer] [id number] SP [id number] [employer] [id number] SP [id number] [employer] S [id number] S [id number] Ghi Emblem Medigap Part B [id number] Self [id number] [facility]/GHI [facility] O [id number] S [id number] MEDICARE C [id number] S [id number] A MEDICARE C [id number] S [id number] [id number] [employer] [id number] S [id number] [place]IC[place] [id number] S [id number] [facility] [id number] S [id number] [facility] [id number] S [id number] [employer] [id number] S [id number] [place]ICARE [place] [id number] S [id number] [facility] MEDICARE DIVISION [id number] S [id number] [place]ICARE [place] [id number] S [id number] Medicare Part B [facility] Other 0 [id number] Self 0 Medicare Part B [facility] Other 0 [id number] Self 0 [facility] [id number] [facility] [id number] [facility]-Medicare Part B [id number] ANSI-Commercial [id number] Problems, Conditions, and Diagnoses Code Display Name Description Problem Type Effective Dates Data Source(s) Y93.01 Activity, walking, marching and hiking A CTIVITY, WALKING, MARCHING AND HIKING Diagnosis 08/03/2020 03:37:00 PM [facility] Y92.[address] and highw ay as the place of occurrence of the external cause [address] Diagnosis 020 03:37:00 PM [facility] W01.198A Fall on same level from slip ping, tripping and stumbling with subsequent striking against other object, initial encounter FALL SAME LEV FROM SLIP/TRIP W STRIKE AGNST OTH OB Diagnosis 08/03/2020 03:37:00 PM [facility] Z79.899 Other mcc (current) drug therapy O THER PRISON (CURRENT) DRUG THERAPY Diagnosis 08/03/2020 03:37:00 PM [facility] Z79.51 longterm (current) use of inhaled stero ids PRISON (CURRENT) USE OF INHALED STEROIDS Diagnosis 08/03/2020 03:37:00 PM [facility] Z95.5 Presence of coronary angioplasty implant and graft PRESENCE OF CORONARY ANGIOPLASTY IMPLANT AND GRAFT Diagnosis 08/03/2020 03:37:00 PM [facility] G20 Parkinson's disease PARKINSON'S DISEASE Diagnosis 1 10/04/2019 03:37:00 PM [facility] J45.909 Unspecified asthma, uncomplicated UNSPECIFIED THMA, UNCOMPLICATED Diagnosis 08/03/2020 03:37:00 PM [facility] I25.10 Atherosclerotic heart diseas e of [place] coronary artery without angina pectoris ATHSCL HEART DISEASE OF [place] CORONARY ARTERY W/O Diagnosis 08/03/2020 03:37:00 PM [facility] E78.00 PURE HYPERCHOLESTEROLEMIA, UNSPECIFIED P URE HYPERCHOLESTEROLEMIA, UNSPECIFIED Diagnosis 08/03/2020 03:37:00 PM [facility] H11.32 Conjunctival hemorrhage, left eye CONJUNCTIVAL H EMORRHAGE, LEFT EYE Diagnosis 08/03/2020 03:37:00 PM [facility] S80.211A Abrasion, right knee, initial encounter ABRASION, RIGHT KNEE, INITIAL ENCOUNTER Diagnosis 08/03/2020 03:37:00 PM [facility] S01.112A Laceration without foreign b gil of left eyelid and periocular area, initial encounter LACERATION W/O FB OF LEFT EYELID AND PERIOCULAR AR Diagnosis 08/03/2020 03:37:00 PM [facility] S09.93XA Unspecified injury of face, initial enco unter UNSPECIFIED INJURY OF FACE, INITIAL ENCOUNTER Diagnosis 08/03/2020 03:37:00 PM [facility] G31.83 Diffuse Lewy body disease Diffuse Lewy body disease Pr oblem 04/04/2021 12:00:00 AM EDT [facility] ([facility] ) Surgeries/Procedures Procedure Description Date Indications Data Source(s) Chronic Care MGMT 20 Mins Clinical Staff Time Per Calendar M [facility] 04/25/2021 12:00:00 AM EDT [facility] ([facility] MRI BRAIN BRAIN STEM W/O CONTRAST MATERIAL 04/14/2021 12:00:00 AM EDT [facility] ([facility] ) MRI BRAIN BRAIN STEM W/O CONTRAST MATERIAL 04/14/2021 12:00:00 AM EDT [facility] ([facility] ) OFFICE OUTPATIENT VISIT 40 MINUTES 04/04/2021 12:00:00 AM EDT [facility] ([facility] ) ECG ROUTINE ECG W/LEAST 12 LDS W/I&R 05/31/2020 12:00: 00 AM EDT [facility] ([facility]) Arterial Pressure Waveform Analysis For Assessment Of Centra l Art 05/31/2020 12:00:00 AM EDT [facility] ([facility]) Results ID Date Data Source [id number] 01/16/2021 01:15:00 PM EDT [facility] Name Value Range Interpretation Code Description Data Patricia rce(s) Supporting Document(s) AST 12 IU/L 15-37 Below low normal [facility] Sulfasalazine and sulfapyridine have the potential to falsely depressAspartate Aminotransferase results. Baseline values before medication administration are recommended. ALT <6 IU/L 16-61 Below low normal [facility] Sulfasalazine and sulfapyridine have the potential to falsely depressAlanine Aminotransferase results. Baseline values before medication administration are recommended. Alkaline Phosphatase 64 mIU/ml 50-136 Normal (applies to non-num ana results) [facility] Total Bilirubin 0.60 mg/dl 0.20-1.00 Normal (applies to non-numeric results) [facility] Blood Urea Nitrogen 18 mg/dl 7-18 Normal (applies to non-nume tati results) [facility] Creatinine 0.69 mg/dl 0.67-1.17 Normal (applies to non-numeric resul ts) [facility] N-Acetylcysteine (NAC) and Metamizole yip ve the potential to falselydepress Creatinine results. Baseline values before medication adminstration are recommended. Patients undergoing treatment with phenindione will have falselydepressed results. Patients on phenindione therapy should be tested with an alternativeCREA method.Toxic levels of acetaminophen may lead to falsely depressed results forpatient samples. Glomerular Filtration Rate >90.00 mL/min/1.73m2 [facility] GFR Reference Ranges:Normal Function or Mild Renal Disease,if clinically at risk:>or= 60Moderately decreased:30 - 59Severely decreased:15 - 29Renal Failure:<15 Please note that the MDRD equation requires an additional adjustment forAfrican-Americans (multiply the GFR result by 1.210).Glomarular Filtration Rate (GFR) is estimated based on the MDRDequation, which assumes a steady state for creatinine (Lizzie Int Med 139/2 137-149, 2002), as recommended by the Nationaldney Disease Education Program in conjunction with the National Institutes of Health and the National KidneyFoundation. The Redmon method used in calculating this result is traceable to IDMS standards. Glucose 72 mg/dl 70-110 Normal (applies to non-numeric resul ts) [facility] Sulfasalazine has the potential to false ly depress Glucose results. Sulfapyridine has the potential to falsely elevate Glucose results. Baseline values before medication administration are recommended. Calcium 8.7 mg/dl 8.5-10.1 Normal (applies to non-numeric resul ts) [facility] Total Protein 6.1 g/dl 6.4-8.2 Below low normal [facility] Albumin 3.6 g/dl 3.4-5.0 Normal (applies to non-numeric resul ts) [facility] Sodium 139 mEq/L 136-145 Normal (applies to non-numeric resul ts) [facility] Potassium 4.0 mEq/L 3.5-5.1 Normal (applies to non-numeric resul ts) [facility] Chloride 104.0 mEq/L 98.0-107.0 Normal (applies to non-numeric resu lts) [facility] Carbon Dioxide 28.9 mMol/L 21.0-32.0 Normal (applies to non-numeric results) [facility] Anion Gap 10.1 7.0-15.0 Normal (applies to non-numeric resul ts) [facility] The above 16 analytes were performed by [facility] [address], ,[place] [address] ID Date Data Source [id number] 01/16/2021 01:15:00 PM EDT [facility] Name Value Range Interpretation Code Description Data Patricia rce(s) Supporting Document(s) TSH 0.62 uIU/ml 0.36-3.74 Normal (applies to non-numeric resu lts) [facility] Concentrations of Biotin above 100 ng/mL can potentially result ininterference.The above 1 analytes were performed by [facility] [id number] [place] [address], ,[place] [address] ID Date Data Source [id number] 01/16/2021 12:44:00 PM EDT [facility] Name Value Range Interpretation Code Description Data Patricia rce(s) Supporting Document(s) WBC 6.09 x1000/ul 4.80-10.00 Normal (applies to non-numeric re sults) [facility] RBC 4.37 x1Mil/ul 4.70-6.10 Below low normal [facility] Hemoglobin 13.5 g/dl 14.0-18.0 Below low normal [facility] Hematocrit 42.0 % 42.0-52.0 Normal (applies to non-numeric resul ts) [facility] MCV 96.1 fL 80.0-94.0 Above high normal [facility] MCH 30.9 pg 27.0-31.0 Normal (applies to non-numeric resul ts) [facility] MCHC 32.1 g/dl 32.2-37.0 Below low normal [facility] RDW 12.1 % 11.5-14.5 Normal (applies to non-numeric resul ts) [facility] Platelet Count 227 x1000/ul 130-400 Normal (applies to non-numeric results) [facility] MPV 10.5 fL 9.4-12.4 Normal (applies to non-numeric resul ts) [facility] Neutrophils 70.1 % 40.0-74.0 Normal (applies to non-numeric resu lts) [facility] Lymphocytes 15.1 % 19.0-48.0 Below low normal [facility] ey [facility] Monocytes 12.6 % 3.4-9.0 [facility] Eosinophils 1.0 % 0.0-7.0 Normal (applies to non-numeric resu lts) [facility] Basophils 1.0 % 0.0-2.0 Normal (applies to non-numeric resul ts) [facility] Immature Granulocytes 0.2 % 0.0-0.5 Normal (applies to non-nu meric results) [facility] Nucleated RBCs 0.00 % 0.00-0.20 Normal (applies to non-numeric r esults) [facility] Abs. Neutrophils 4.27 x1000/ul 1.92-8.31 Normal (applies to non-numeric results) [facility] Abs. Lymphocyte 0.92 x1000/ul 1.20-3.70 Below low normal [facility] Abs. Monocytes 0.77 x1000/ul 0.14-0.97 Normal (applies to non-nu meric results) [facility] Abs. Eosinophils 0.06 x1000/ul 0.00-0.76 Normal (applie s to non-numeric results) [facility] Abs. Basophils 0.06 x1000/ul 0.00-0.22 Normal (applies to non-n umeric results) [facility] Abs. Immature Gran. 0.01 x1000/ul 0.00-0.02 Normal (appl ies to non-numeric results) [facility] Abs. Nucleated RBCs 0.00 x1000/ul 0.00-0.02 Normal (appl ies to non-numeric results) [facility] The above 24 analytes were performed by [facility] [id number] [place] [address],[id number],[place] [id number] ID Date Data Source [id number] 01/13/2021 12:00:00 AM EDT [facility] Name Value Range Interpretation Code Description Data Patricia rce(s) Supporting Document(s) SARS coronavirus 2 Ag Negative [facility] This lab was ordered by Yumiko thomas reported by [place]. ID Date Data Source [id number] 01/06/2021 12:00:00 AM EDT [facility] Name Value Range Interpretation Code Description Data Patricia rce(s) Supporting Document(s) SARS-CoV-2 (COVID-19) RNA [Presence] in Respiratory specimen by HANH with probe detection Not Detected [facility] This lab was ordered by [facility] and reported by [employer] ID Date Data Source [id number] 12/21/2020 02:11:00 PM EDT [facility] Name Value Range Interpretation Code Description Data Patricia rce(s) Supporting Document(s) SARS-CoV-2 (COVID-19) RNA [Presence] in Respiratory specimen by HANH with probe detection Not Detected [facility] This lab was ordered by [facility] and reported by [employer] ID Date Data Source [id number] 11/28/2020 12:00:00 AM EDT [facility] Name Value Range Interpretation Code Description Data Patricia rce(s) Supporting Document(s) SARS-CoV-2 (COVID-19) RNA [Presence] in Respiratory specimen by HANH with probe detection Not Detected [facility] This lab was ordered by [facility] and reported by [employer] ID Date Data Source [id number] 11/22/2020 12:00:00 AM EDT [facility] Name Value Range Interpretation Code Description Data Patricia rce(s) Supporting Document(s) SARS-CoV-2 (COVID-19) RNA [Presence] in Respiratory specimen by HANH with probe detection Not Detected [facility] This lab was ordered by [facility] and reported by [employer] ID Date Data Source [id number] 11/15/2020 12:00:00 AM EDT [facility] Name Value Range Interpretation Code Description Data Patricia rce(s) Supporting Document(s) SARS coronavirus 2 Ag Negative [facility] This lab was ordered by Yumiko thomas reported by [employer]. ID Date Data Source [id number] 11/02/2020 12:00:00 AM EST [facility] Name Value [...] by Yumiko Miles. ID Date Data Source [id number] 10/12/2020 12:00:00 AM EST [facility] Name Value Range Interpretation Code Description Data Patricia rce(s) Supporting Document(s) SARS-CoV-2 (COVID-19) RNA [Presence] in Respiratory specimen by HANH with probe detection Not Detected [facility] This lab was ordered by [facility] and reported by [employer] ID Date Data Source [id number] 10/05/2020 12:00:00 AM EST [facility] Name Value Range Interpretation Code Description Data Patricia rce(s) Supporting Document(s) SARS coronavirus 2 Ag Negative [facility] This lab was ordered by Yumiko thomas reported by Yumiko Miles. ID Date Data Source [id number] 08/23/2020 12:00:00 AM EST [facility] Name Value Range Interpretation Code Description Data Patricia rce(s) Supporting Document(s) SARS-CoV-2 (COVID-19) RNA [Presence] in Respiratory specimen by HANH with probe detection [facility] This lab was ordered by [facility] and reported by [employer] ID Date Data Source [id number] 08/15/2020 07:23:00 AM EST [facility] Name Value Range Interpretation Code Description Data Patricia rce(s) Supporting Document(s) SARS coronavirus 2 RNA [Presence] in Res piratory specimen by HANH with probe detection [facility] This lab was ordered by [facility] nd reported by [facility]. ID Date Data Source [id number] 08/12/2020 01:30:00 PM EST [facility] Name Value Range Interpretation Code Description Data Patricia rce(s) Supporting Document(s) SARS coronavirus 2 RNA [Presence] in Res piratory specimen by HANH with probe detection [facility] This lab was ordered by [facility] a nd reported by [facility]. ID Date Data Source [id number] 08/05/2020 09:25:00 PM EST [facility] Name Value Range Interpretation Code Description Data Patricia rce(s) Supporting Document(s) SARS coronavirus 2 RNA [Presence] in Res piratory specimen by HANH with probe detection [facility] This lab was ordered by [facility] a nd reported by [facility]. ID Date Data Source [id number] 08/03/2020 07:04:00 PM EST [facility] Patient: MIGUEL CLARKo bianca Report - Physicians/Mid Levels [facility].VisitID: [id number] [place] [address] [phone], MRegistration Date/Time: 08/03/2020 15:08 Weight:60.3 kg (S). [...] rce(s) Supporting Document(s) ID Date Data Source [id number] 08/03/2020 06:12:00 PM EST [facility] [...] smoked tobacco (finding) [facility] (Donte Goss [facility]) Smoking 05/31/2020 12:00:00 AM EDT Patient has never smoked co mpleted Patient has never smoked [facility] ([facility]) Vital Signs ID Date Data Source UNK Name Value Range Interpretation Code Description Data Source(s) Body weight 134.00 [lb_av] 134.00 [lb_av] MEDEN T ([facility]) Body height 70 [in_i] 70 [in_i] [facility] 5'10" Body mass index (BMI) [Ratio] 19.2 kg/m2 19.2 k g/m2 [facility] ([facility]) Heart rate 72 /min 72 /min [facility] ([facility]) Systolic blood pressure--sitting 139 mm[Hg] 139 mm[Hg] [facility] ([facility]) CBP, adult cuff/Ra Diastolic blood pressure--sitting 94 mm[Hg] 94 mm[Hg] [facility] ([facility]) CBP, adult cuff/Ra Patient Treatment Plan of Care Planned Activity Planned Date Details Description Data Source (s) Erythromycin 0.005 MG/MG Ophthalmic Ointment 03/30/2021 12:00:00 AM EDT [facility] ([facility]te [facility]) Dexamethasone 0.001 MG/MG / Tobramycin 0 .003 MG/MG Ophthalmic Ointment [Tobradex] 03/30/2021 12:00:[address] (Donte Goss [facility]) latanoprost 0.05 MG/ML Ophthalmic Solution 03/30/2021 12:00:00 AM E DT [facility] (Donte Goss MD [facility]) Polyethylene Glycol 400 4 MG/ML / Propyl jt glycol 3 MG/ML Ophthalmic Solution [Systane] 03/30/2021 12:00:[address] (Donte Goss MD [facility]) latanoprost 0.05 MG/ML Ophthalmic Solution 08/01/2020 12:00:[address] [facility] ([facility]te Goss [facility]) latanoprost 0.05 MG/ML Ophthalmic Solution 03/21/2020 12:00:00 AM E DT [facility] ([facility]te Goss [facility]) Erythromycin 0.005 MG/MG Ophthalmic Ointment 11/14/2018 12:00:00 AM EDT [facility] ([facility]te Goss [facility])
[2021-06-26 06:18] LABS: BLOOD UREA NITROGEN 39 MG/DL (7-18); CALCIUM LEVEL 8.2 MG/DL (8.8-10.2); CARBON DIOXIDE LEVEL 25 MEQ/L (21-32); CHLORIDE LEVEL 107 MEQ/L (98-107); CREATININE FOR GFR 0.79 MG/DL (0.70-1.30); GLOMERULAR FILTRATION RATE > 60.0 (>42); GLUCOSE, FASTING 87 MG/DL (70-100); POTASSIUM SERUM 3.7 MEQ/L (3.5-5.1); SODIUM LEVEL 143 MEQ/L (136-145)
[2021-06-26] MEDS ORDERED: NS 500 ML IV ONE (07:00)
[2021-06-26 07:22] LABS: CK-MB VALUE MASS 4.8 NG/ML (<3.6); CPK CREATINE PHOSPHOKINASE 107 U/L (39-308); MB/CK RELATIVE INDEX 4.49 (< OR =4); TROPONIN I < 0.02 NG/ML (< 0.10)
[2021-06-26] MEDS ORDERED: ISOVUE-370 76% 100ML VIAL As Ordered ONE (07:26)
[2021-06-26] MEDS ORDERED: ACETAMINOPHEN TAB 650MG DOSE (2X325MG) PO PRN (08:15)
--- NOTE | 2021-06-26 08:24 | HPEPDOC ---
General Date of Admission 06/26/21 Date of Service: Jun 26, 2021 Primary Care Physician: A Chief Complaint The patient is a 75-year-old male admitted with a reason for visit of Rectal Bleeding. Source: Patient Exam Limitations: Clinical conditions, Dementia History of Present Illness Patient 75 years old male with past medical history of Parkinson dementia, asthma, hypertension, history of ND status post cardiac stent placement presented to hospital with red blood per rectum. According to [facility] report patient developed stool with red blood for past few days, also patient reported epigastric abdominal pain for the past 1 week. Patient denied fever, chills, chest pain, palpitation. Patient denied nausea or vomiting. In ER patient was found to have stool grossly positive for blood, elevated systolic blood pressure of 187/91, no leukocytosis, hemoglobin 11.7, creatinine 0.7. EKG was done and no acute ischemic changes. Dr. Wick was contacted by ER and he will see patient later today Home Medications Scheduled Allopurinol (Allopurinol) 100 Mg Tablet, 100 MG PO QAM, (Reported) Amlodipine Besylate (Amlodipine Besylate) 5 Mg Tablet, 5 MG PO DAILY, (Reported) Aspirin (Aspirin EC) 81 Mg Tablet.dr, 81 MG PO Q4D, (Reported) Candesartan Cilexetil (Candesartan Cilexetil) 16 Mg Tab, 16 MG PO BID, (Reported) Carbidopa/Levodopa (Carbidopa-Levodopa 25-100 Tab) 1 Tab Tab, 2 TABS PO QID, (Reported) Chlorthalidone (Chlorthalidone) 12.5 Mg Halftab, 12.5 MG PO QAM, (Reported) Clonazepam (Clonazepam) 1 Mg Tab.rapdis, 1 MG PO QHS, (Reported) Finasteride (Finasteride) 5 Mg Tablet, 5 MG PO QHS Lactose-Reduced Food (Ensure Plus) 237 Ml Liquid, 237 ML PO BID, (Reported) Latanoprost/Pf (Latanoprost 0.005% Eye Drop) 7.5 Ml Drops, 1 DROP OU QHS, (Reported) Nitroglycerin (Nitroglycerin) 0.4 Mg Tab.subl, 0.4 MG SL ASDIRECTED for chest pain, (Reported) 1st sign of attack; may repeat every 5 mins; if pain persists after 3 in 15 min, medical attention is recommended Pantoprazole Sodium (Pantoprazole Sodium) 40 Mg Tablet.dr, 40 MG PO DAILY, (Reported) Potassium Chloride (Potassium Chloride) 10 Meq Tab.er.prt, 20 MEQ PO BID, (Reported) Salmeterol/Fluticasone (Advair 250-50 Diskus) 1 Each Blst.w.dev, 1 PUFF INH BID, (Reported) Scheduled PRN Alprazolam (Alprazolam) 0.5 Mg Tablet, 0.5 MG PO BIDP PRN for ANXIETY Sennosides/Docusate Sodium (Senna Plus 8.6-50 mg Tablet) 1 Each Tablet, 2 TABS PO DAILY PRN for CONSTIPATION, (Reported) Miscellaneous Medications [med rec comment] , (Reported) USED EXTERNAL HISTORY AND MED LIST FROM [facility] ([facility]) Allergies Coded Allergies: No Known Drug Allergies (Verified Allergy, Unknown, 08/05/20) Past Medical History Medical History 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 Asthma. Hypertension. History of ND. High cholesterol. Arthritis. Degenerative disc disease, bulging disc. Insomnia. Cataracts. Macular degeneration. Parkinsons disease. Surgical History Deviated nasal sputum 2005 MM excised 2004 Bilateral knee surgery to remove torn cartilage [id number] & 01/2013 growth removed from back 03/15 Family History Father: , Alzheimer Mother: , Stroke Siblings: Brother with multiple medical problems, Sister of stroke Denies family history of MM, No known family history of any urologically related diseases/cancers. Social History * Smoker: Denies Alcohol: Denies Drugs: denies A-FIB/CHADSVASC A-FIB History Current/History of A-Fib/PAF?: No Current PO Anticoag Therapy: No Review of Systems Constitutional: Denies: Chills Eyes: Denies: Pain ENT: Denies: Head Aches Skin: Denies: Rash Pulmonary: Denies: Dyspnea Cardiovascular: Denies: Chest Pain Gastrointestinal: Reports: Abdominal Pain; Denies: Nausea Genitourinary: Denies: Dysuria Hematologic: Denies: Bruising Endocrine: Denies: Polydipsia Musculoskeletal: Denies: Neck Pain Neurological: Denies: Weakness Psych: Reports: Mood Normal Physical Examination General Exam: Positive: Alert Eye Exam: Positive: PERRLA ENT Exam: Positive: Atraumatic Neck Exam: Positive: Supple; Negative: JVD Chest Exam: Positive: Clear to auscultation Heart Exam: Positive: Rate Normal Telemetry: Positive: No significant arrhythmia Abdomen Exam: Positive: BS Hyperactive, Tenderness (Epigastric area) Extremity Exam: Negative: Clubbing Skin Exam: Positive: Nl turgor and temperature Neuro Exam: Positive: Cranial Nerves 3-12 NL Psych Exam: Negative: Memory Intact Vital Signs Vital Signs Date Time Temp Pulse Resp B/P (MAP) Pulse Ox O2 Delivery O2 Flow Rate FiO2 06/26/21 07:55 98.5 177/77 (110) 06/26/21 07:32 72 16 99 Room Air Laboratory Data Labs 24H Laboratory Tests 2 06/26/21 05:20: Immature Granulocyte % (Auto) 0.3, Neutrophils (%) (Auto) 76.2H, Lymphocytes (%) (Auto) 11.4L, Monocytes (%) (Auto) 10.6H, Eosinophils (%) (Auto) 0.8, Basophils (%) (Auto) 0.7, Neutrophils # (Auto) 5.5, Lymphocytes # (Auto) 0.8L, Monocytes # (Auto) 0.8, Eosinophils # (Auto) 0.1, Basophils # (Auto) 0.1, Nucleated Red Blood Cells % (auto) 0.0, Prothrombin Time 14.1H, Prothromb Time International Ratio 1.05, Anion Gap 11, Glomerular Filtration Rate > 60.0, Calcium Level 8.2L, Total Bilirubin 0.5, Direct Bilirubin 0.1, Aspartate Amino Transf (AST/SGOT) 15, Alanine Aminotransferase (ALT/SGPT) 15, Alkaline Phosphatase 66, Total Creatine Kinase 107, Creatine Kinase MB 4.8H, Creatine Kinase MB Relative Index 4.49H, Troponin I < 0.02, Total Protein 6.0L, Albumin 2.7L, Albumin/Globulin Ratio 0.8, Lipase 82 CBC/BMP Laboratory Tests 06/26/21 05:20 Assessment/Plan Patient 75 years old male with past medical history of Parkinson dementia, asthma, hypertension, history of ND status post cardiac stent placement presented to hospital with red blood per rectum. According to [facility] report patient developed stool with red blood for past few days, also patient reported epigastric abdominal pain for the past 1 week. Patient denied fever, chills, chest pain, palpitation. Patient denied nausea or vomiting. In ER patient was found to have stool grossly positive for blood, elevated systolic blood pressure of 187/91, no leukocytosis, hemoglobin 11.7, creatinine 0.7. EKG was done and no acute ischemic changes. Dr. Wick was contacted by ER and he will see patient later today Problems (1) GI bleed Status: Acute Problem Text: CT abdomen/pelvis ordered Appreciate/agree with surgical consult PPI IV twice daily We will transfuse if hemoglobin drops less than 7 Clear liquid diet for now H&H every 6 hours (2) GERD (gastroesophageal reflux disease) Status: Chronic Problem Text: Continue PPI (3) Parkinson's disease dementia Status: Chronic Problem Text: Continue home meds (4) CAD (coronary artery disease) Status: Chronic Problem Text: Patient denies any chest pain, troponin negative Continue aspirin 81 mg (5) HLD (hyperlipidemia) Status: Chronic Problem Text: Continue statin (6) HTN (hypertension) Status: Chronic Problem Text: Patient developed hypertensive urgency Lisinopril 20 mg once Continue home meds Continue to monitor blood pressure every 6 hours Plan / VTE VTE Prophylaxis Ordered?: No VTE Exclusion Pharmacological: Active Bleeding LYYL [place] DO Jun 26, 2021 08:23
--- OUTSIDE RECORDS SUMMARY | 2021-06-26 08:27 | CCD ---
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 Phone Papi Noriega MD Unavailable [...] Unavailable Unavailable Papi Noriega MD Unavailable Unavailable AliPapi MD Unavailable Unavailable AliPapi MD Unavailable Unavailable Ali, Papi GAMA Unavailable Unavailable Ali, Papi GAMA Unavailable Unavailable Ali, Papi GAMA Unavailable Unavailable Ali, Papi GAMA Unavailable Unavailable Ali, Papi GAMA Unavailable Unavailable Ali, Paip GAMA Unavailable Unavailable Ali, Papi GAMA Unavailable Unavailable Ali, Papi GAMA Unavailable Unavailable Ali, Papi GAMA Unavailable Unavailable Ali, Papi GAMA Unavailable Unavailable Ali, Papi GAMA Unavailable Unavailable Papi Noriega MD Unavailable Unavailable DAVIDSONHECTOR PENG MD Unavailable Unavailable DAVIDSONHECTOR PENG MD Unavailable Unavailable DAVIDSONHECTOR PENG MD Unavailable Unavailable DAVIDSONHECTOR PENG MD Unavailable Unavailable DAVIDSONHECTOR PENG MD Unavailable Unavailable DAVIDSONHECTOR PENG MD Unavailable Unavailable DAVIDSONHECTOR PENG MD Unavailable Unavailable DAVIDSONHECTOR PENG MD Unavailable Unavailable DAVIDSONHECTOR PENG MD Unavailable Unavailable DAVIDSONHECTOR PENG MD Unavailable Unavailable HAMMOND SR, SIMÓN KENT [...] SIMÓN KENT MD Unavailable Unavailable HAMMOND SR, SIMNÓ KENT MD Unavailable Unavailable HAMMOND SR, SIMÓN [...] HAMMOND SR, SIMÓN KENT MD Unavailable Unavailable COTTER DOLATONYA Unavailable Unavailable ANTECOL, Gonzales KENT MD Unavailable [...] ANTECOL, Gonzales KENT MD Unavailable Unavailable ANTECOL, oGnzales KENT MD Unavailable Unavailable ANTECOL, Gonzales KENT MD Unavailable Unavailable ANTECOL, Gonzales KENT MD Unavailable Unavailable ANTECOL, Gonzales KENT MD Unavailable Unavailable ANTECOL, Gonzales KENT MD Unavailable Unavailable ANTECOL, Gonzales KENT MD Unavailable Unavailable Pacheco Goss, Surinder [...] is protected by Article 27-F of the [facility] Public Health law. If you continue you may have access to information: Regarding HIV / AIDS; Provided by facilities licensed or operated by the [facility] Office of Mental Health; or Provided by the [facility] Office for People With Developmental Disabilities. If such information is present, then the following [facility] mandated warning applies: This information has [...] law may result in a fine or prison sentence or both. A general authorization for the release of medical or other information is NOT sufficient authorization for further disc losure. Allergies and Adverse Reactions Type Description Substance Reaction Status Data Source(s ) Allergy to substance No Known Allergies No known allergies (situation ) [place] (Donte Goss MD [facility]) Propensity to adverse reactions NO ALLERGIES ON FILE NO ALLERGIES ON FILE [facility] Family History Family Member Name Family Member Gender Family Member Status Date o f Status Description Data Source(s) Unknown Unknown Problem [facility] ([facility]) Unknown Male Problem [facility] ([facility] () Unknown Female Problem [facility] ([facility]) Unknown Female Problem [facility] ([facility]) Encounters Encounter Providers Location Date Indications Data Source(s ) Office Visit Attender: DONTE CALVO MD Main Office 04/25/2021 09: 09:00 AM EDT [facility] ([facility]) Outpatient Attender: Papi Noriega MD Main office - [place] 04/04/2021 11:00:00 AM EDT [facility] ([facility]iey, ) <td ID="encounterTypeDescriptionID0">11 Month Follow-Up</td><td>Donte Goss MD, FACS</td><td>Donte Jensen MD [facility]</td><td>03/30/2021</td><td>11:52AM</td><td>1:29PM</td><td><content ID="encounterDiagnosisID0-0">Glaucoma Open-angle Primary</content>, <content ID="encounterDiagnosisID0-1">Essential Hypertension</content>, <content ID="encounterDiagnosisID0-2">Dry Eye Syndrome</content>, <content ID="encounterDiagnosisID0-3">Posterior Capsule Opacification Eccentric Capsule Both Eyes</content>, <content ID="encounterDiagnosisID0-4">Macular Degeneration Nonexudative Bilateral Early Dry Stage</content></td>Outpatient Attender: Donte Goss MD, FACS Donte Jensen MD [facility] 03/30/2021 11:52:00 AM EDT - 03/30/2021 01:29:00 PM EDT Posterior Capsule Opacification Eccentri c Capsule Both EyesDry Eye SyndromeGlaucoma Open-angle PrimaryMacular Degeneration Nonexudative Bilateral Early Dry StageEssential Hypertension [place] (Donte Goss MD [facility]) Posterior Capsule Opacification Eccentri c Capsule Both Eyes Dry Eye Syndrome Glaucoma Open-angle Primary Macular Degeneration Nonexudative Bilate ral Early Dry Stage Essential Hypertension Outpatient Attender: LATONYA Nowakerrer: DO Latonya Cotter DO 2E-HL 01/16/2021 01:00:00 AM EDT - 01/16/2021 11:59:[address] [facility] Patient discharged. Outpatient Referrer: DO Latonya Cotter DO 2E-HL 01:00:00 AM EDT - 01/13/2021 11:59:[address] [facility] Patient discharged. Emergency Attender: LINDEN LOMBARDI 10/2019 03:37:00 PM EST - 08/03/2020 06:30:00 PM [facility] Patient discharged. Office Visit Attender: DONTE CALVO MD Main Office 07/22/2020 03: 16:00 PM EST [facility] ([facility]) Outpatient Attender: DONTE CALVO MD Main Office 05/31/2020 08:15:00 AM EDT [facility] ([facility]) Office Visit Attender: DONTE CALVO MD Main Office 05/23/2020 11: 35:00 AM EDT [facility] ([facility]) Inpatient Attender: LINDEN TAYLOR dmitter: HECTOR DAVIDSON MDReferrer: DONTE HAMMOND EMERGENCY ROOM-2N 12/11/2016 03:25:00 PM EDT - 12/12/2016 10:10:00 AM [facility] Immunizations Vaccine Date Status Description Data Source(s) COVID-19 VACCINE Pfizer 09/19/2020 12:00:00 AM EST completed [facility] Vaccine Series Complete: YESThis Data wa s Submitted to [facility] Via [employer] (Mobile Payments). COVID-19 VACCINE Pfizer 08/29/2020 12:00:00 AM EST completed [facility] Vaccine Series Complete: NOThis Data was Submitted to [facility] Via [employer] (Mobile Pay[employer]). Medications Medication Brand Name Start Date Product Form Dose Route Admi nistrative Instructions Pharmacy Instructions Status Indications Reaction Description Data Source(s) Erythromycin 0.005 MG/MG Ophthalmic Oint ment Erythromycin 5 MG/GM Ophthalmic Ointment Erythromycin 5 MG/GM Ophthalmic Ointment 03/30/2021 12:00:00 AM EDT active erythromycin 0.005 MG/MG Ophthalmic Ointment XAVIER (Donte Goss MD [facility]) Dexamethasone 0.001 MG/MG / Tobramycin 0 .003 MG/MG Ophthalmic Ointment [Tobradex] TobraDex 0.3-0.1% Ophthalmic Ointment TobraDex 0.3-0.1% Ophthalmic Ointment 03/30/2021 12:00:00 AM EDT active dexamethasone 0.001 MG/MG / tobramycin 0.003 MG/MG Ophthalmic Ointment [Tobradex] XAVIER (Donte Goss MD [facility]) Polyethylene Glycol 400 4 MG/ML / Propyl jt glycol 3 MG/ML Ophthalmic Solution [Systane] Systane Ultra 0.4-0.3% Ophthalmic Solution Systane Ultra 0.4-0.3% Ophthalmic Solution 03/30/2021 12:00:00 AM EDT active polyethylene glycol 400 4 MG/ML / propylene glycol 3 MG/ML Ophthalmic Solution [Systane] XAVIER (Donte Goss MD [facility]) latanoprost 0.05 MG/ML Ophthalmic Soluti on Latanoprost 0.005% Ophthalmic Solution Latanoprost 0.005% Ophthalmic Solution 03/30/2021 12:00:00 AM EDT 1 active latanoprost 0.05 MG/ ML Ophthalmic Solution XAVIER (Donte Goss MD [facility]) latanoprost 0.05 MG/ML Ophthalmic Soluti on Latanoprost 0.005% Ophthalmic Solution Latanoprost 0.005% Ophthalmic Solution 08/01/2020 12:00:00 AM EST 1 active latanoprost 0.05 MG/ ML Ophthalmic Solution XAVIER (Donte Goss MD [facility]) Amlodipine 2.5 MG Oral Tablet Amlodipine Besylate 05/31/2020 12:00: 00 AM EDT ORAL active [facility] ([facility]) Paroxetine HCL Paroxetine HCL 05/30/2020 12:00:00 AM EDT active [facility] ([facility]) Potassium Chloride 10 MEQ Extended Release Oral Tablet [Klor -Con] Klor-Con 10 05/30/2020 12:00:00 AM EDT ORAL active [facility] ([facility]) latanoprost 0.05 MG/ML Ophthalmic Soluti on Latanoprost 0.005% Ophthalmic Solution Latanoprost 0.005% Ophthalmic Solution 03/21/2020 12:00:00 AM EDT 1 aborted latanoprost 0.05 MG/ ML Ophthalmic Solution XAVIER (Donte Goss MD [facility]) Erythromycin 0.005 MG/MG Ophthalmic Oint ment Erythromycin 5MG/GM Ophthalmic Ointment Erythromycin 5MG/GM Ophthalmic Ointment 11/14/2018 12:00:00 AM EDT aborted erythromycin 0.005 M G/MG Ophthalmic Ointment XAVIER (Donte Goss MD [facility]) Insurance Providers Payer name Policy type / Coverage type Policy ID Covered alliance party ID Covered alliance party's relationship to [place] Policy [place] Plan Information [id number] [facility] [id number] Ghi/Emblem HLTH (pr) Medigap Part B [id number] Self Ghi Medigap Part B [id number] Self Ghi Medigap Part B [id number] Self [id number] Medicare - NGS Medicare Primary [id number] Self [id number] Medicare (Part B) Medicare Primary [id number] Self [id number] Medicare (Part B) Medicare Primary [id number] Self [id number] Medicare (Part B) Medicare Primary [id number] Self Medicare (Part B) Medicare Primary [id number] Self [id number] [place] Primary [id number] Self Medicare (Part B) Medicare Primary [id number] Self [id number] MEDICARE Med [id number] Self [id number] Medicare (Part B) Medicare Primary [id number] Self [id number] Medicare (Part B) Medicare Primary [id number] Self [id number] Medicare [place]/[facility] Medicare Primary [id number] Self [id number] MEDICARE [id number] Makenna [id number] A Medicare Medicare Primary [id number] Self Medicare [place]/[facility] Medicare Primary [id number] Self [id number] [facility] Health - Ghi Ppo Medigap Part B [id number] Self [facility] Health - [place] Ppo Medigap Part B [id number] Self [id number] [facility] Health/Ghi Medigap Part B [id number] Self ANSI-Commercial [id number] MEDICARE [id number] SP [id number] A MEDICARE [id number] SP [id number] Ghi Emble Medigap Part B [id number] Self [id number] Ghi Medigap Part B [id number] [facility] [id number] SP [id number] [facility] [id number] S [id number] MEDICARE C [id number] S [id number] A [employer]UR[employer] S [id number] S [id number] [facility] [id number] SP [id number] [facility] [id number] SP [id number] [employer] [facility] [employer] [id number] SP [id number] Medicare Part B [facility] Other 0 [id number] Self 0 MEDICARE C [id number] S [id number] [facility] [id number] S [id number] [place] [id number] S [id number] [facility] [id number] S [id number] [facility] [id number] S [id number] [facility] [id number] S [id number] [place]IC[place] [id number] S [id number] [facility] [id number] S [id number] [place]IC[place] [id number] S [id number] Medicare Part B [facility] Other 0 [id number] Self 0 [facility] [id number] Makenna [id number] Medicare Part B [facility] Other 0 [id number] Self 0 [facility] [id number] ANSI-Commercial [id number] [facility] B [id number] Self [id number] [facility] Part B [id number] Self [id number] ANSI-Medicare Part [id number] Problems, Conditions, and Diagnoses Code Display Name Description Problem Type Effective Dates Data Source(s) Y93.01 Activity, walking, marching and hiking A CTIVITY, WALKING, MARCHING AND HIKING Diagnosis 08/03/2020 03:37:00 PM [facility] Y92.[address] and highw ay as the place of occurrence of the external cause [address] Diagnosis 020 03:37:00 PM [facility] W01.198A Fall on same level from slip ping, tripping and stumbling with subsequent striking against other object, initial encounter FALL SAME LEV FROM SLIP/TRIP W STRIKE AGNST OTH OB Diagnosis 08/03/2020 03:37:00 PM [facility] Z79.899 Other longterm (current) drug therapy O THER RETIREMENT (CURRENT) DRUG THERAPY Diagnosis 08/03/2020 03:37:00 PM [facility] Z79.51 penitentiary (current) use of inhaled stero ids RETIREMENT (CURRENT) USE OF INHALED STEROIDS Diagnosis 08/03/2020 03:37:00 PM [facility] Z95.5 Presence of coronary angioplasty implant and graft PRESENCE OF CORONARY ANGIOPLASTY IMPLANT AND GRAFT Diagnosis 08/03/2020 03:37:00 PM [facility] G20 Parkinson's disease PARKINSON'S DISEASE Diagnosis 1 10/04/2019 03:37:00 PM [facility] J45.909 Unspecified asthma, uncomplicated UNSPECIFIED THMA, UNCOMPLICATED Diagnosis 08/03/2020 03:37:00 PM [facility] 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 HEART DISEASE OF [place] CORONARY ARTERY W/O Diagnosis 08/03/2020 03:37:00 PM [facility] E78.00 PURE HYPERCHOLESTEROLEMIA, UNSPECIFIED P URE HYPERCHOLESTEROLEMIA, UNSPECIFIED Diagnosis 08/03/2020 03:37:00 PM [facility] H11.32 Conjunctival hemorrhage, left eye CONJUNCTIVAL H EMORRHAGE, LEFT EYE Diagnosis 08/03/2020 03:37:00 PM [facility] S80.211A Abrasion, right knee, initial encounter ABRASION, RIGHT KNEE, INITIAL ENCOUNTER Diagnosis 08/03/2020 03:37:00 PM [facility] l S01.112A Laceration without foreign b gil of left eyelid and periocular area, initial encounter LACERATION W/O FB OF LEFT EYELID AND PERIOCULAR AR Diagnosis 08/03/2020 03:37:00 PM [facility] S09.93XA Unspecified injury of face, initial enco unter UNSPECIFIED INJURY OF FACE, INITIAL ENCOUNTER Diagnosis 08/03/2020 03:37:00 PM [facility] G31.83 Diffuse Lewy body disease Diffuse Lewy body disease Pr oblem 04/04/2021 12:00:00 AM EDT [facility] ([facility] ) Surgeries/Procedures Procedure Description Date Indications Data Source(s) Chronic Care MGMT 20 Mins Clinical Staff Time Per Calendar M [facility] 04/25/2021 12:00:00 AM EDT [facility] ([facility]) MRI BRAIN BRAIN STEM W/O CONTRAST MATERIAL 04/14/2021 12:00:00 AM EDT [facility] ([facility] ) MRI BRAIN BRAIN STEM W/O CONTRAST MATERIAL 04/14/2021 12:00:00 AM EDT [facility] ([facility] ) OFFICE OUTPATIENT VISIT 40 MINUTES 04/04/2021 12:00:00 AM EDT [facility] ([facility] ) ECG ROUTINE ECG W/LEAST 12 LDS W/I&R 05/31/2020 12:00: 00 AM EDT [facility] ([facility]) Arterial Pressure Waveform Analysis For Assessment Of Centra l Art 05/31/2020 12:00:00 AM EDT [facility] ([facility]) Results ID Date Data Source [id number] 01/16/2021 01:15:[address] [facility] Name Value Range Interpretation Code Description Data Patricia rce(s) Supporting Document(s) AST 12 IU/L 15-[address] [facility] Sulfasalazine and sulfapyridine have the potential to falsely depressAspartate Aminotransferase results. Baseline values before medication administration are recommended. ALT <6 IU/L 16-[address] [facility] Sulfasalazine and sulfapyridine have the potential to falsely depressAlanine Aminotransferase results. Baseline values before medication administration are recommended. Alkaline Phosphatase 64 mIU/ml 50-136 Normal (applies to non-num ana results) [facility] Total Bilirubin 0.60 mg/dl 0.20-1.00 Normal (applies to non-numeric results) [facility] Blood Urea Nitrogen 18 mg/dl 7-18 Normal (applies to non-nume tati results) [facility] Creatinine 0.69 mg/dl 0.67-1.17 Normal (applies to non-numeric resul ts) [facility] N-Acetylcysteine (NAC) and Metamizole yip ve the potential to falselydepress Creatinine results. Baseline values before medication adminstration are recommended. Patients undergoing treatment with phenindione will have falselydepressed results. Patients on phenindione therapy should be tested with an alternativeCREA method.Toxic levels of acetaminophen may lead to falsely depressed results forpatient samples. Glomerular Filtration Rate >90.00 mL/min/1.73m2 [facility] GFR Reference Ranges:Normal Function or Mild [...] of Health and the National KidneyFoundation. The [place] method used in calculating this result is traceable to IDVA standards. Glucose 72 mg/dl 70-110 Normal (applies to non-numeric resul ts) [facility] Sulfasalazine has the potential to false ly depress Glucose results. Sulfapyridine has the potential to falsely elevate Glucose results. Baseline values before medication administration are recommended. Calcium 8.7 mg/dl 8.5-10.1 Normal (applies to non-numeric resul ts) [facility] Total Protein 6.1 g/dl 6.4-8.2 Below low normal [facility] Albumin 3.6 g/dl 3.4-5.0 Normal (applies to non-numeric resul ts) [facility] Sodium 139 mEq/L 136-145 Normal (applies to non-numeric resul ts) [facility] Potassium 4.0 mEq/L 3.5-5.1 Normal (applies to non-numeric resul ts) [facility] Chloride 104.0 mEq/L 98.0-107.0 Normal (applies to non-numeric resu lts) [facility] Carbon Dioxide 28.9 mMol/L 21.0-32.0 Normal (applies to non-numeric results) [facility] Anion Gap 10.1 7.0-15.0 Normal (applies to non-numeric resul ts) [facility] The above 16 analytes were performed by [facility] [address],[id number] [address] ID Date Data Source [id number] 01/16/2021 01:15:[address] [facility] Name Value Range Interpretation Code Description Data Patricia rce(s) Supporting Document(s) TSH 0.62 uIU/ml 0.36-3.74 Normal (applies to non-numeric resu lts) [facility] Concentrations of Biotin above 100 ng/mL can potentially result ininterference.The above 1 analytes were performed by [facility] [id number] [place] [address], ,[place] [address] ID Date Data Source [id number] 01/16/2021 12:44:[address] [facility] Name Value Range Interpretation Code Description Data Patricia rce(s) Supporting Document(s) WBC 6.09 x1000/ul 4.80-10.00 Normal (applies to non-numeric re sults) [facility] RBC 4.37 x1Mil/ul 4.70-6.10 Below low normal [facility] Hemoglobin 13.5 g/dl 14.0-18.0 Below low normal [facility] Hematocrit 42.0 % 42.0-52.0 Normal (applies to non-numeric resul ts) [facility] MCV 96.1 fL 80.0-94.0 Above high normal [facility] MCH 30.9 pg 27.0-31.0 Normal (applies to non-numeric resul ts) [facility] MCHC 32.1 g/dl 32.2-37.[address] [facility] RDW 12.1 % 11.5-14.5 Normal (applies to non-numeric resul ts) [facility] Platelet Count 227 x1000/ul 130-400 Normal (applies to non-numeric results) [facility] MPV 10.5 fL 9.4-12.4 Normal (applies to non-numeric resul ts) [facility] Neutrophils 70.1 % 40.0-74.0 Normal (applies to non-numeric resu lts) [facility] Lymphocytes 15.1 % 19.0-48.0 Below low normal [facility] Monocytes 12.6 % 3.4-9.0 Above high normal [facility] Eosinophils 1.0 % 0.0-7.0 Normal (applies to non-numeric resu lts) [facility] Basophils 1.0 % 0.0-2.0 Normal (applies to non-numeric resul ts) [facility] Immature Granulocytes 0.2 % 0.0-0.5 Normal (applies to non-nu meric results) [facility] Nucleated RBCs 0.00 % 0.00-0.20 Normal (applies to non-numeric r esults) [facility] Abs. Neutrophils 4.27 x1000/ul 1.92-8.31 Normal (applies to non-numeric results) [facility] Abs. Lymphocyte 0.92 x1000/ul 1.20-3.[address] [facility] Abs. Monocytes 0.77 x1000/ul 0.14-0.97 Normal (applies to non-nu meric results) [facility] Abs. Eosinophils 0.06 x1000/ul 0.00-0.76 Normal (applie s to non-numeric results) [facility] Abs. Basophils 0.06 x1000/ul 0.00-0.22 Normal (applies to non-n umeric results) [facility] Abs. Immature Gran. 0.01 x1000/ul 0.00-0.02 Normal (appl ies to non-numeric results) [facility] Abs. Nucleated RBCs 0.00 x1000/ul 0.00-0.02 Normal (appl ies to non-numeric results) [facility] The above 24 analytes were performed by [facility] [id number] [place] [address],[id number] [address] ID Date Data Source [id number] 01/13/2021 12:00:00 AM EDT [facility] Name Value Range Interpretation Code Description Data Patricia rce(s) Supporting Document(s) SARS coronavirus 2 Ag Negative [facility] This lab was ordered by Yumiko thomas reported by Yumiko Miles. ID Date Data Source [id number] 01/06/2021 12:00:00 AM EDT [facility] Name Value Range Interpretation Code Description Data Patricia rce(s) Supporting Document(s) SARS-CoV-2 (COVID-19) RNA [Presence] in Respiratory specimen by HANH with probe detection Not Detected [facility] This lab was ordered by [facility] and reported by [employer] ID Date Data Source [id number] 12/21/2020 02:11:00 PM EDT [facility] Name Value Range Interpretation Code Description Data Patricia rce(s) Supporting Document(s) SARS-CoV-2 (COVID-19) RNA [Presence] in Respiratory specimen by HANH with probe detection Not Detected [facility] This lab was ordered by [facility] and reported by [employer] ID Date Data Source [id number] 11/28/2020 12:00:00 AM EDT [facility] Name Value Range Interpretation Code Description Data Patricia rce(s) Supporting Document(s) SARS-CoV-2 (COVID-19) RNA [Presence] in Respiratory specimen by HANH with probe detection Not Detected [facility] This lab was ordered by [facility] and reported by [employer] ID Date Data Source [id number] 11/22/2020 12:00:00 AM EDT [facility] Name Value Range Interpretation Code Description Data Patricia rce(s) Supporting Document(s) SARS-CoV-2 (COVID-19) RNA [Presence] in Respiratory specimen by HANH with probe detection Not Detected [facility] This lab was ordered by [facility] [facility] and reported by [employer] ID Date Data Source [id number] 11/15/2020 12:00:00 AM EDT [facility] Name Value Range Interpretation Code Description Data Patricia rce(s) Supporting Document(s) SARS coronavirus 2 Ag Negative [facility] This lab was ordered by Yumiko thomas reported by Yumiko Miles. ID Date Data Source [id number] 11/02/2020 12:00:00 AM EST [facility] Name Value [...] by Yumiko Miles. ID Date Data Source [id number] 10/12/2020 12:00:00 AM EST [facility] Name Value Range Interpretation Code Description Data Patricia rce(s) Supporting Document(s) SARS-CoV-2 (COVID-19) RNA [Presence] in Respiratory specimen by HANH with probe detection Not Detected [facility] This lab was ordered by [facility] and reported by [employer] ID Date Data Source [id number] 10/05/2020 12:00:00 AM EST [facility] Name Value Range Interpretation Code Description Data Patricia rce(s) Supporting Document(s) SARS coronavirus 2 Ag Negative [facility] This lab was ordered by Yumiko thomas reported by [facility] Miles. ID Date Data Source [id number] 08/23/2020 12:00:00 AM EST [facility] Name Value Range Interpretation Code Description Data Patricia rce(s) Supporting Document(s) SARS-CoV-2 (COVID-19) RNA [Presence] in Respiratory specimen by HANH with probe detection [facility] This lab was ordered by [facility] and reported by [employer] ID Date Data Source [id number] 08/15/2020 07:23:00 AM EST [facility] Name Value Range Interpretation Code Description Data Patricia rce(s) Supporting Document(s) SARS coronavirus 2 RNA [Presence] in Res piratory specimen by HANH with probe detection [facility] This lab was ordered by [facility] [place] nd reported by [facility]. ID Date Data Source [id number] 08/12/2020 01:30:00 PM EST [facility] Name Value Range Interpretation Code Description Data Patricia rce(s) Supporting Document(s) SARS coronavirus 2 RNA [Presence] in Res piratory specimen by HANH with probe detection [facility] This lab was ordered by [facility] a nd reported by [facility]. ID Date Data Source [id number] 08/05/2020 09:25:00 PM EST [facility] Name Value Range Interpretation Code Description Data Patricia rce(s) Supporting Document(s) SARS coronavirus 2 RNA [Presence] in Res piratory specimen by HANH with probe detection [facility] This lab was ordered by [facility] a nd reported by [facility]. ID Date Data Source [id number] 08/03/2020 07:04:00 PM EST [facility] Patient: MIGUEL CLARK Report - [facility]VisitID: [id number] [place] [address] [phone], MRegistration Date/Time: 08/03/2020 15:08 Weight:60.3 kg (S). [...] rce(s) Supporting Document(s) ID Date Data Source [id number] 08/03/2020 06:12:00 PM EST [facility] [...] smoked tobacco (finding) [facility] (Donte Goss MD [facility]) Smoking 05/31/2020 12:00:00 AM EDT Patient has never smoked co mpleted Patient has never smoked [facility] ([facility]) Vital Signs ID Date Data Source UNK Name Value Range Interpretation Code Description Data Source(s) Body weight 134.00 [lb_av] 134.00 [lb_av] [facility]EN T ([facility]) Body height 70 [in_i] 70 [in_i] [facility] ([facility]) 5'10" Body mass index (BMI) [Ratio] 19.2 kg/m2 19.2 k g/m2 [facility] ([facility]) Heart rate 72 /min 72 /min [facility] ([facility]) Systolic blood pressure--sitting 139 mm[Hg] 139 mm[Hg] [facility] ([facility]) CBP, adult cuff/Ra Diastolic blood pressure--sitting 94 mm[Hg] 94 mm[Hg] [facility] CBP, adult cuff/Ra Patient Treatment Plan of Care Planned Activity Planned Date Details Description Data Source (s) Erythromycin 0.005 MG/MG Ophthalmic Ointment 03/30/2021 12:00:00 AM EDT [facility] (Donte Goss MD [facility]) Dexamethasone 0.001 MG/MG / Tobramycin 0 .003 MG/MG Ophthalmic Ointment [Tobradex] 03/30/2021 12:00:[address] (Donte Goss MD [facility]) latanoprost 0.05 MG/ML Ophthalmic Solution 03/30/2021 12:00:00 AM E DT [facility] (Donte Goss MD [facility]) Polyethylene Glycol 400 4 MG/ML / Propyl jt glycol 3 MG/ML Ophthalmic Solution [Systane] 03/30/2021 12:00:[address] (Donte Goss MD [facility]) latanoprost 0.05 MG/ML Ophthalmic Solution 08/01/2020 12:00:[address] [facility] (Donte Goss MD [facility]) latanoprost 0.05 MG/ML Ophthalmic Solution 03/21/2020 12:00:00 AM E DT [facility] (Donte Goss MD [facility]) Erythromycin 0.005 MG/MG Ophthalmic Ointment 11/14/2018 12:00:00 AM EDT [facility] (Donte Goss MD [facility])
--- NOTE | 2021-06-26 08:44 | REPVR ---
PROCEDURE INFORMATION: Exam: CT Abdomen And Pelvis With Contrast Exam date and time: 06/26/2021 7:15 AM Age: 75 years old Clinical indication: Other: Gi bleed TECHNIQUE: Imaging protocol: Computed tomography of the abdomen and pelvis with contrast. Radiation optimization: All CT scans at this facility use at least one of these dose optimization techniques: automated exposure control; mA and/or kV adjustment per patient size (includes targeted exams where dose is matched to clinical indication); or iterative reconstruction. Contrast material: ISOVUE 370; Contrast volume: 100 ml; Contrast route: INTRAVENOUS (IV); COMPARISON: CT ABD PELVIS WITH CONTRAST 03/23/2016 5:29 PM FINDINGS: Lungs: Mild dependent edema in lung bases. Liver: Multiple stable liver lessions likely cysts. Gallbladder and bile ducts: Normal. No calcified stones. No ductal dilation. Pancreas: Normal. No ductal dilation. Spleen: Normal. No splenomegaly. Adrenal glands: Right adrenal nodule stable. Hyperplasia of the left adrenal gland. Kidneys and ureters: 30 x 35 mm large cyst in the upper pole of left kidney. 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 Multiple tiny bilateral renal cysts. Stomach and bowel: Mild thickening of the mid and distil descending and proximal sigmoid colon without any inflammatory changes. Diverticulosis without any evidence of diverticulitis. Moderate fecal loading in the rectum. Appendix: No evidence of appendicitis. Intraperitoneal space: Unremarkable. No free air. No significant fluid collection. Vasculature: Mild atherosclerosis. Lymph nodes: Unremarkable. No enlarged lymph nodes. Urinary bladder: Unremarkable as visualized. Reproductive: 39 x 54 mm enlarge prostate. Bones/joints: Severe dextroscoliosis of the thoracolumbar spine with DJD. Mild loss of height of superior end plate of L2 without retropulsion. Soft tissues: Right inguinal hernia containing nondilated small bowel loop. IMPRESSION: Mild thickening of the mid and distil descending and proximal sigmoid colon without any inflammatory changes. Diverticulosis without any evidence of diverticulitis. Moderate fecal loading in the rectum. COMMENTS: Consistent with the [employer]'s Incidental Findings Committee white paper (J Am Binta Radiol 2018): Any incidental renal lesion less than 1 cm or classified as too small to characterize, or any incidental cystic renal lesion characterized as simple-appearing, is likely benign. No follow-up imaging is recommended for these lesions per consensus recommendations based on imaging criteria. Electronically signed by: Elsy De La Paz On 06/26/2021 08:44:10 AM
[2021-06-26] MEDS ORDERED: LEXA1TAB PO (09:40)
[2021-06-26] MEDS ORDERED: QUET1TAB17 PO (09:40)
[2021-06-26] MEDS ORDERED: NUPL34CA PO (09:40)
[2021-06-26] MEDS ORDERED: CAND8TAB PO (09:40)
[2021-06-26] MEDS ORDERED: CLON0.5T17 PO (09:40)
[2021-06-26] MEDS ORDERED: DIVA1TAB48 PO (09:40)
[2021-06-26] MEDS ORDERED: FINA5TAB2 PO (09:40)
[2021-06-26] MEDS ORDERED: DOK1CAP4 PO (09:40)
[2021-06-26] MEDS ORDERED: BREO1INH INH (09:40)
[2021-06-26] MEDS ORDERED: ENSU1LIQ36 PO (09:44)
[2021-06-26] MEDS ORDERED: ERYTOIN8 OD (09:44)
[2021-06-26] MEDS ORDERED: ACET325T43 PO (09:53)
[2021-06-26] MEDS ORDERED: MILKSUS3 PO (09:53)
[2021-06-26] MEDS ORDERED: SYST0.4D2 OU (09:53)
[2021-06-26] MEDS ORDERED: HOME MED LIST COMPLETE! XX SCH (09:55)
[2021-06-26] MEDS: PANTOPRAZOLE 40MG VIAL (C9113 PER 1) IV SCH ×2 (10:16→20:29)
--- NOTE | 2021-06-26 11:51 | CR.PDOC ---
General Surgery Consultation Date of Consultation 06/26/21 History and Physical CONSULT REPORT FOR: Dr. Menchaca (hospitalist service) REASON FOR CONSULTATION: GI bleeding (bright red blood per rectum) HISTORY OF PRESENT ILLNESS: Patient is a 75-year-old male, resident of [facility] home with advanced stage Parkinson's disease brought in with reports of passage of fresh blood per rectum with bowel movement. Unclear when it started. His brother was at the bedside and he was told it started yesterday. No apparent episodes of similar symptoms. Last colonoscopy was done in 2012 showing diverticulosis. Patient also reporting epigastric discomfort for the past week according to his H&P. He does report mild epigastric discomfort. Review of the medical records that are available shows that he was brought in roughly about 4:30 in the morning. Since he has been here he was noted to have small smear of maroon to fresh blood on his diaper but no gross bloody bowel movements reported by his nurses. He has remained hemodynamically stable. He did have a small drop of his hemoglobin and hematocrit to 11.7 and 36.7 from a baseline of about 13 and 40 on 06/14/2021. He is only on 81 mg of aspirin daily. Looks like he has also been getting some milk of magnesia for constipation. Unknown when the last bowel movement prior to last night. 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 Asthma. Hypertension. History of FL. High cholesterol. Arthritis. Degenerative disc disease, bulging disc. Insomnia. Cataracts. Macular degeneration. Parkinsons disease. PAST SURGICAL HISTORY Deviated nasal sputum 2005 MM excised 2004 Bilateral knee surgery to remove torn cartilage [id number] & 01/2013 growth removed from back 03/15 Colonoscopy in 2005 and 2012 Family History Father: , Alzheimer Mother: , Stroke Siblings: Brother with multiple medical problems, Sister of stroke Denies family history of MM, No known family history of any urologically related diseases/cancers. ALLERGIES: Please see below. HOME MEDICATIONS: Please see below. REVIEW OF SYSTEMS: Patient does not look to be fully oriented so full systemwide review of symptoms not done Looks to be baseline requiring assist with activities of daily living according to his brother. PHYSICAL EXAMINATION: VITALS SIGNS: Please see below. GENERAL APPEARANCE: Patient seen reclined on his stretcher. He is awake, alert, does not seem to be oriented. He does answer with short words yes or no questions overall thin body habitus; SKIN: Warm and dry. HEENT: Mild pale palpebral conjunctiva. Lips and mucosa are dry. NECK: Supple, no thyromegaly. No obvious jugular venous distention. LUNGS: Clear to auscultation bilaterally. No wheezing appreciated. HEART: No chest wall abnormalities. Regular rate and rhythm with no murmurs appreciated. ABDOMEN: Abdomen is flat, soft, nondistended. Nontender EAGLE: Evidence for some leftover maroon-colored stool staining the skin around the anal verge. EAGLE. No masses; empty rectal vault, maroon-colored staining on the finger. Mild tenderness at the posterior midline. Hard to see if there is any acute or chronic fissures. Lack sphincter tone. EXTREMITIES: No significant edema. ANCILLARIES:. LABORATORY DATA: Please see below. He had a CBC done 06/19/2021. Unclear what the rationale for the laboratories done during that time but he had a hemoglobin 13.2 hematocrit of 41. The labs this morning shows hemoglobin of 11.7, hematocrit of 36.7. That was before a 500 mL fluid bolus. IMAGING STUDIES:. CT abdomen and pelvis was performed with IV contrast. I reviewed the imaging studies myself. This primarily shows a constipation-like pattern with good amount of stool at the rectum and sigmoid colon. No inflammatory changes that I could see. He does have evidence for diverticulosis. Radiologist read mild thickening of the mid and distal descending and proximal sigmoid colon without any inflammatory changes. IMPRESSION AND PLAN: Lower GI bleeding possibly secondary to diverticular bleeding. Given the large amount of stool in the rectum, also possibly stercoral ulcer with fecal impaction though I do not feel any or much stools in the rectal vault with my finger. He does have some mild tenderness at the posterior midline but the character of the stool looks to be up higher rather than at the anal verge or outlet. He remains hemodynamically stable. He is hemoglobin and hematocrit only dropped a little bit. And he has not had any significant bloody bowel movement since he has been here. Suggest continue to monitor for continued bleeding. Transfuse as needed. His last colonoscopy was in 2012. At his state I am not sure if we can prep him adequately. But if the bleeding stops otherwise, I would presume this is more diverticular in nature and given his baseline state probably do not need any surveillance colonoscopies done unless this keeps on recurring. I will follow along while the patient is here admitted in the hospital. Vital Signs Vital Signs Date Time Temp Pulse Resp B/P (MAP) Pulse Ox O2 Delivery O2 Flow Rate FiO2 06/26/21 10:44 98.7 62 18 161/77 (105) 100 Room Air Laboratory Data Labs 24H Laboratory Tests 2 06/26/21 05:20: Immature Granulocyte % (Auto) 0.3, Neutrophils (%) (Auto) 76.2H, Lymphocytes (%) (Auto) 11.4L, Monocytes (%) (Auto) 10.6H, Eosinophils (%) (Auto) 0.8, Basophils (%) (Auto) 0.7, Neutrophils # (Auto) 5.5, Lymphocytes # (Auto) 0.8L, Monocytes # (Auto) 0.8, Eosinophils # (Auto) 0.1, Basophils # (Auto) 0.1, Nucleated Red Blood Cells % (auto) 0.0, Prothrombin Time 14.1H, Prothromb Time International Ratio 1.05, Anion Gap 11, Glomerular Filtration Rate > 60.0, Calcium Level 8.2L, Total Bilirubin 0.5, Direct Bilirubin 0.1, Aspartate Amino Transf (AST/SGOT) 15, Alanine Aminotransferase (ALT/SGPT) 15, Alkaline Phosphatase 66, Total Creatine Kinase 107, Creatine Kinase MB 4.8H, Creatine Kinase MB Relative Index 4.49H, Troponin I < 0.02, Total Protein 6.0L, Albumin 2.7L, Albumin/Globulin Ratio 0.8, Lipase 82 06/26/21 08:25: Coronavirus (COVID-19)(PCR) NEGATIVE CBC/BMP Laboratory Tests 06/26/21 05:20 Home Medications Scheduled Amlodipine Besylate (Amlodipine Besylate) 5 Mg Tablet, 5 MG PO DAILY, (Reported) Aspirin (Aspirin EC) 81 Mg Tablet.dr, 81 MG PO DAILY, (Reported) Candesartan Cilexetil (Candesartan Cilexetil) 8 Mg Tablet, 8 MG PO BID, (Reported) 0800,1600 Carbidopa/Levodopa (Carbidopa-Levodopa 25-100 Tab) 1 Tab Tab, 1 TAB PO QID, (Reported) 0800,1200,1600,2000 Clonazepam (Clonazepam) 0.5 Mg Tab.rapdis, 0.5 MG PO QHS, (Reported) Divalproex Sodium (Divalproex Sodium) 125 Mg Tablet.dr, 250 MG PO BID, (Reported) 0800,1999 Docusate Sodium (Dok) 100 Mg Capsule, 100 MG PO DAILY, (Reported) Erythromycin Base (Erythromycin) 3.5 Gm Oint...g., 1 APLCT OD BID, (Reported) apply 1 cm ribbon into the lower conjunctival sac Escitalopram Oxalate (Lexapro) 10 Mg Tablet, 10 MG PO DAILY, (Reported) Finasteride (Finasteride) 5 Mg Tablet, 5 MG PO DAILY, (Reported) Fluticasone/Vilanterol (Breo Ellipta 100-25 Mcg INH) 1 Each Blst.w.dev, 1 PUFF INH DAILY, (Reported) Lactose-Reduced Food (Ensure Enlive) 237 Ml Liquid, 237 ML PO TID, (Reported) 0800,1400,1999 Latanoprost/Pf (Latanoprost 0.005% Eye Drop) 7.5 Ml Drops, 1 DROP OU QHS, (Reported) Magnesium Hydroxide (Milk of Magnesia) 400 Mg/5 Ml Oral.susp, 30 ML PO DAILY for constipation, (Reported) Pimavanserin Tartrate (Nuplazid) 34 Mg Capsule, 34 MG PO DAILY, (Reported) Propylene Glycol/Peg 400 (Systane Gel Eye Drops) 10 Ml Drops.gel, 1 DROP OU QID, (Reported) 0800,1200,1600,1999 Quetiapine Fumarate (Quetiapine Fumarate) 25 Mg Tablet, 25 MG PO QHS, (Reported) Scheduled PRN Acetaminophen (Mapap) 325 Mg Tablet, 650 MG PO Q4H PRN for PAIN LEVEL 1-4, (Reported) Sennosides/Docusate Sodium (Senna Plus 8.6-50 mg Tablet) 1 Each Tablet, 1 TAB PO DAILY PRN for CONSTIPATION, (Reported) Allergies Coded Allergies: No Known Drug Allergies (Verified Allergy, Unknown, 08/05/20) ASAF HAJI MD Jun 26, 2021 11:51
[2021-06-26 11:57] LABS: HEMATOCRIT 37.8 % (42.0-52.0)
[2021-06-26 12:00] VITALS: BP 144/68
[2021-06-26] MEDS ORDERED: SENOKOT S TAB PO PRN (18:15)
--- NOTE | 2021-06-26 18:23 | ECGEPIP ---
[facility] - ED Test Date: 2021-06-26 Pat Name: MIGUEL CLARK Department: Room: - Gender: Male Rn Relief Charge: JAYME : 1945 Requested By: TONYA Brito PA-C Order Number: [id number] Reading MD: Clare Acevedo Measurements Intervals [place] Rate: 74 P: 76 MI: 126 QRS: 19 QRSD: 74 T: 70 QT: 402 QTc: 446 Interpretive Statements Normal sinus rhythm Nonspecific ST abnormality similar 08/12/20 Electronically Signed on 06-26-2021 18:22:39 EDT by Clare Acevedo
[2021-06-26] MEDS: CANDESARTAN 4MG TABLET PO SCH (18:40)
[2021-06-26 20:14] VITALS: BP 121/60
[2021-06-26] MEDS: SINEMET 25-100 MG TAB PO SCH (20:28)
[2021-06-26] MEDS: DIVALPROEX 125 MG TAB PO SCH (20:29)
[2021-06-26] MEDS ORDERED: QUEtiapine FUMARATE 25 MG TAB PO SCH (21:00)
[2021-06-27] MEDS ORDERED: traZODone 25MG PER 1/2 TABLET PO ONE (02:05)
[2021-06-27] MEDS ORDERED: traZODone 25MG PER 1/2 TABLET PO PRN (03:15)
[2021-06-27 05:05] VITALS: BP 129/75
[2021-06-27] MEDS ORDERED: clonazePAM 0.5 MG TAB PO SCH ×2 (05:15→09:00)
[2021-06-27] MEDS: CANDESARTAN 4MG TABLET PO SCH (08:00)
[2021-06-27] MEDS: DIVALPROEX 125 MG TAB PO SCH (08:48)
[2021-06-27] MEDS: SINEMET 25-100 MG TAB PO SCH ×2 (08:48→12:24)
[2021-06-27] MEDS: PANTOPRAZOLE 40MG VIAL (C9113 PER 1) IV SCH (08:48)
[2021-06-27 09:00] VITALS: BP 104/52
[2021-06-27] MEDS ORDERED: ESCITALOPRAM OXALATE 10 MG TAB (LEXAPRO) PO SCH (09:00)
[2021-06-27] MEDS ORDERED: MOM 30ML SUSPENSION UDC PO SCH (09:00)
[2021-06-27] MEDS ORDERED: DOCUSATE SODIUM 100MG CAPSULE PO SCH (09:00)
[2021-06-27] MEDS ORDERED: FINASTERIDE 5 MG TAB PO SCH (09:00)
[2021-06-27] MEDS ORDERED: amLODIPine 5 MG TAB PO SCH (09:00)
[2021-06-27] MEDS ORDERED: ASPIRIN 81MG ENTERIC TABLET PO SCH (09:00)
[2021-06-27 09:38] LABS: HEMATOCRIT 35.4 % (42.0-52.0); HEMOGLOBIN 11.3 g/dl (13.5-17.5); MEAN CORPUSCULAR HEMOGLOBIN 30.2 pg (27.0-33.0); MEAN CORPUSCULAR HGB CONC 31.9 g/dl (32.0-36.5); MEAN CORPUSCULAR VOLUME 94.7 fl (80.0-96.0); PLATELET COUNT, AUTOMATED 232 10^3/uL (150-450); RED BLOOD COUNT 3.74 10^6/uL (4.30-6.10); WHITE BLOOD COUNT 6.1 10^3/uL (4.0-10.0)
[2021-06-27 10:00] LABS: ALBUMIN 2.8 GM/DL (3.2-5.2); ALT/SGPT 18 U/L (12-78); BILIRUBIN,TOTAL 0.3 MG/DL (0.2-1.0); BLOOD UREA NITROGEN 16 MG/DL (7-18); CALCIUM LEVEL 8.6 MG/DL (8.8-10.2); CARBON DIOXIDE LEVEL 30 MEQ/L (21-32); CHLORIDE LEVEL 107 MEQ/L (98-107); CREATININE FOR GFR 0.78 MG/DL (0.70-1.30); GLOMERULAR FILTRATION RATE > 60.0 (>42); GLUCOSE, FASTING 106 MG/DL (70-100); MAGNESIUM LEVEL 2.1 MG/DL (1.8-2.4); POTASSIUM SERUM 3.6 MEQ/L (3.5-5.1); SODIUM LEVEL 143 MEQ/L (136-145); TOTAL PROTEIN 5.3 GM/DL (6.4-8.2)
[2021-06-27] MEDS ORDERED: PROT1TAB2 PO (10:04)
[2021-06-27 11:56] LABS: HEMATOCRIT 34.4 % (42.0-52.0)
[2021-06-27] MEDS ORDERED: SUCRALFATE 1 GM TAB PO SCH (12:00)
--- NOTE | 2021-06-27 19:39 | DS.PDOC ---
Discharge Summary General Date of Admission Jun 26, 2021 at 08:15 Date of Discharge 06/27/21 Discharge Summary DICTATED DISCHARGE SUMMARY JOB # [id number] Vital Signs/I&Os Vital Signs Date Time Temp Pulse Resp B/P (MAP) Pulse Ox O2 Delivery O2 Flow Rate FiO2 06/27/21 09:00 68 104/52 06/27/21 05:05 98.9 18 97 Room Air I&O- Last 24 Hours up to 6 AM 06/27/21 06:00 Intake Total 1250 ml Output Total 0 ml Balance 1250 ml Laboratory Data Labs 24H Laboratory Tests 2 06/27/21 09:10: Nucleated Red Blood Cells % (auto) 0.0, Anion Gap 6L, Glomerular Filtration Rate > 60.0, Calcium Level 8.6L, Magnesium Level 2.1, Total Bilirubin 0.3, Aspartate Amino Transf (AST/SGOT) 16, Alanine Aminotransferase (ALT/SGPT) 18, Alkaline Phosphatase 65, Total Protein 5.3L, Albumin 2.8L, Albumin/Globulin Ratio 1.1 06/27/21 10:49: Coronavirus (COVID-19)(PCR) NEGATIVE CBC/BMP Laboratory Tests 06/27/21 09:10 06/27/21 11:42 Discharge Medications Scheduled Amlodipine Besylate (Amlodipine Besylate) 5 Mg Tablet, 5 MG PO DAILY, (Reported) Aspirin (Aspirin EC) 81 Mg Tablet.dr, 81 MG PO DAILY, (Reported) Candesartan Cilexetil (Candesartan Cilexetil) 8 Mg Tablet, 8 MG PO BID, (Reported) 0800,1600 Carbidopa/Levodopa (Carbidopa-Levodopa 25-100 Tab) 1 Tab Tab, 1 TAB PO QID, (Reported) 0800,1200,1600,2000 Clonazepam (Clonazepam) 0.5 Mg Tab.rapdis, 0.5 MG PO QHS, (Reported) Divalproex Sodium (Divalproex Sodium) 125 Mg Tablet.dr, 250 MG PO BID, (Reported) 0800,1999 Docusate Sodium (Dok) 100 Mg Capsule, 100 MG PO DAILY, (Reported) Erythromycin Base (Erythromycin) 3.5 Gm Oint...g., 1 APLCT OD BID, (Reported) apply 1 cm ribbon into the lower conjunctival sac Escitalopram Oxalate (Lexapro) 10 Mg Tablet, 10 MG PO DAILY, (Reported) Finasteride (Finasteride) 5 Mg Tablet, 5 MG PO DAILY, (Reported) Fluticasone/Vilanterol (Breo Ellipta 100-25 Mcg INH) 1 Each Blst.w.dev, 1 PUFF INH DAILY, (Reported) Lactose-Reduced Food (Ensure Enlive) 237 Ml Liquid, 237 ML PO TID, (Reported) 0800,1400,2000 Latanoprost/Pf (Latanoprost 0.005% Eye Drop) 7.5 Ml Drops, 1 DROP OU QHS, (Reported) Magnesium Hydroxide (Milk of Magnesia) 400 Mg/5 Ml Oral.susp, 30 ML PO DAILY for constipation, (Reported) Pantoprazole Sodium (Protonix) 40 Mg Tablet.dr, 40 MG PO DAILY Pimavanserin Tartrate (Nuplazid) 34 Mg Capsule, 34 MG PO DAILY, (Reported) Propylene Glycol/Peg 400 (Systane Gel Eye Drops) 10 Ml Drops.gel, 1 DROP OU QID, (Reported) 0800,1200,1600,1999 Quetiapine Fumarate (Quetiapine Fumarate) 25 Mg Tablet, 25 MG PO QHS, (Reported) Scheduled PRN Acetaminophen (Mapap) 325 Mg Tablet, 650 MG PO Q4H PRN for PAIN LEVEL 1-4, (Reported) Sennosides/Docusate Sodium (Senna Plus 8.6-50 mg Tablet) 1 Each Tablet, 1 TAB PO DAILY PRN for CONSTIPATION, (Reported) Allergies Coded Allergies: No Known Drug Allergies (Verified Allergy, Unknown, 08/05/20) SHANAE BAINS MD Jun 27, 2021 19:38
[2021-06-27] MEDS ORDERED: PANTOPRAZOLE 40MG TAB (PROTONIX) PO SCH (21:00)
== END 2021-06-27 13:30 | DRG 379 ==
LOC: M ED 04:32 → M ED INP 08:15 → ENRESERV 09:45 → M MS5PR 10:55
PROVIDERS: ADMIT Internal Medicine; ATTEND General Practice
DX: K57.91 Diverticulosis of intestine, part unspecified, without perforation or abscess with bleeding (principal); I10 Essential (primary) hypertension; I16.0 Hypertensive urgency; K21.9 Gastro-esophageal reflux disease without esophagitis; Z79.82 Long term (current) use of aspirin; Z79.899 Other long term (current) drug therapy; G20 Parkinson's disease; F02.80 Dementia in other diseases classified elsewhere, unspecified severity, without behavioral disturbance, psychotic disturbance, mood disturbance, and anxiety; J45.909 Unspecified asthma, uncomplicated; I25.2 Old myocardial infarction; Z95.2 Presence of prosthetic heart valve; M19.90 Unspecified osteoarthritis, unspecified site; G47.00 Insomnia, unspecified; H35.30 Unspecified macular degeneration; E78.00 Pure hypercholesterolemia, unspecified

== ENCOUNTER → 2021-06-29 | Outpatient (REF) | payer MEDICARE ==
[~2021-06-29] MED LIST changes: +ACET325T43 PO; +BREO1INH INH; +CAND8TAB PO; +CLON0.5T17 PO; +DIVA1TAB48 PO; +DOK1CAP4 PO; +ENSU1LIQ36 PO; +ERYTOIN8 OD; +LEXA1TAB PO; +MILKSUS3 PO; +NUPL34CA PO; +QUET1TAB17 PO; +SYST0.4D2 OU
[2021-06-29 15:41] LABS: HEMATOCRIT 34.7 % (42.0-52.0); MEAN CORPUSCULAR HEMOGLOBIN 30.9 pg (27.0-33.0); MEAN CORPUSCULAR HGB CONC 31.7 g/dl (32.0-36.5); MEAN CORPUSCULAR VOLUME 97.5 fl (80.0-96.0); PLATELET COUNT, AUTOMATED 258 10^3/uL (150-450); RED BLOOD COUNT 3.56 10^6/uL (4.30-6.10); WHITE BLOOD COUNT 7.7 10^3/uL (4.0-10.0)
[2021-06-29 16:10] LABS: ALBUMIN 2.9 GM/DL (3.2-5.2); ALT/SGPT 11 U/L (12-78); BILIRUBIN,DIRECT 0.1 MG/DL (0.0-0.2); BILIRUBIN,TOTAL 0.3 MG/DL (0.2-1.0); BLOOD UREA NITROGEN 20 MG/DL (7-18); CALCIUM LEVEL 8.6 MG/DL (8.8-10.2); CARBON DIOXIDE LEVEL 35 MEQ/L (21-32); CHLORIDE LEVEL 106 MEQ/L (98-107); CREATININE FOR GFR 0.87 MG/DL (0.70-1.30); GLOMERULAR FILTRATION RATE > 60.0 (>42); GLUCOSE, FASTING 109 MG/DL (70-100); POTASSIUM SERUM 3.8 MEQ/L (3.5-5.1); SODIUM LEVEL 142 MEQ/L (136-145); THYROID STIMULATING HORMONE 0.742 uIU/ML (0.358-3.740); TOTAL PROTEIN 5.6 GM/DL (6.4-8.2)
== END ==
PROVIDERS: ATTEND Physician Assistant
DX: R53.83 Other fatigue (principal)

== ENCOUNTER 2021-07-10 11:40 | Inpatient (IN) | payer MEDICARE ==
[~2021-07-10] VITALS: Ht 172.7 cm; Wt 53.7 kg
--- OUTSIDE RECORDS SUMMARY | 2021-07-10 11:46 | CCD | Continuity of Care Document ---
Author Author Sunny SZYMANSKI MD Organization Unknown Address [address], [place] [address] Phone [phone] Care Team Providers Care Cafe Operator Name Role Phone Aftab Rubalcava MD AUTM [phone] Fabiola Landry AUTM [phone] Jomar Elliott MD AUTM [phone] Ever Szymanski MD [facility] [phone] Roque May MD AUTM [phone] Walt Rao MD AUTM [phone] Ever Jensen MD AUTM [phone] Obi Hermosillo MD AUTM [phone] Papi Noriega MD AUTM [phone] Sánchez Marcus MD AUTM [phone] Problems Active Problems Provider Date Coronary arteriosclerosis [...] Exercise Type/Frequency Does housework twice a w ewiiaapaayp Exercise Type/Frequency Does yardwork sporadical ly and some snow removal Exercise Limitations Joint Pain bilateral k nees Exercise Limitations Other Parkinson's Disease Allergies and adverse reactions Active Allergies Criticality Reaction | Severity Comments [...] Nebulizer every 4 hours as needed Unknown 04/0 01/2014 Advair Diskus 250-50mcg/Dose Aeros ol 1 [...] Information Available Procedures Date Code Description Status 06/14/2021 21240 Chronic Care MGMT 20 Mins Clinical Staff Time Per Calendar Month Completed 06/14/2021 36531 Chronic Care Management Services Ea Addl 20 Min Completed 05/10/2021 29997 Chronic Care MGMT 20 Mins Clinical Staff Time Per Calendar Month Completed 04/25/2021 96774 Chronic Care MGMT 20 Mins Clinical Staff Time Per Calendar Month Completed Medical Devices Description No Information Available Encounters Type Date Location Provider Dx Diagnosis Office Visit 05/10/2021 2:02p Main Office Ever Szymanski MD I10 Essential (primary) hypertension E78.2 Mixed hyperlipidemia Office Visit 04/25/2021 9:09a Main Office Ever Szymanski MD I10 Essential (primary) hypertension E78.2 Mixed hyperlipidemia Assessments Date Code Description Provider 06/14/2021 I10 Essential (primary) hypertension Ever Szymanski MD 06/14/2021 E78.2 Mixed hyperlipidemia Ever melvin MD 05/10/2021 I10 Essential (primary) hypertension Ever Szymanski MD 05/10/2021 E78.2 Mixed hyperlipidemia Ever melvin MD 04/25/2021 I10 Essential (primary) hypertension Ever Szymanski MD 04/25/2021 E78.2 Mixed hyperlipidemia Ever melvin MD Plan of Treatment Future Appointment(s):* 09/13/2021 12:30 pm - Ever Szymanski MD at Main Office 05/31/2020 - Ever Szymanski MD* I25.10 Atherosclerotic heart disease of [place] coronary artery with* Recommendations:* Continue candesartan, aspirin, [...]
--- OUTSIDE RECORDS SUMMARY | 2021-07-10 11:46 | CCD ---
Author Author [facility] Organization [facility] Address Unknown Phone Unavailable Care Team Providers Care Laborer [place] Name Role Phone Papi Noriega MD Unavailable Unavailable Papi Noriega MD Unavailable Unavailable Papi Noriega MD Unavailable Unavailable Papi Noriega MD Unavailable Unavailable Papi Noriega MD Unavailable Unavailable Papi Noriega MD Unavailable Unavailable Papi Noriega MD Unavailable Unavailable Papi Noriega MD Unavailable Unavailable Papi Noreiga MD Unavailable Unavailable Papi Noriega MD Unavailable [...] Ali, Papi GAMA Unavailable Unavailable Ali, Papi AGMA Unavailable Unavailable Ali, Papi GAMA Unavailable Unavailable Ali, Papi GAMA Unavailable Unavailable Leann, Papi GAMA Unavailable Unavailable DAVIDSONHECTOR MD Unavailable Unavailable DAVIDSONHECTOR PENG MD Unavailable [...] SIMÓN KENT MD Unavailable Unavailable HAMMOND SR, ISMÓN KENT MD Unavailable Unavailable HAMMOND SR, SIMÓN [...] SR, SIMÓN KENT MD Unavailable Unavailable COTTER DO, LATONYA Unavailable Unavailable ANTECOL, Gonzales KENT MD Unavailable [...] is protected by Article 27-F of the [facility] Public Health law. If you continue you may have access to information: Regarding HIV / AIDS; Provided by facilities licensed or operated by the [facility] Office of Mental Health; or Provided by the [facility] Office for People With Developmental Disabilities. If such information is present, then the following [facility] mandated warning applies: This information has [...] law may result in a fine or custodial sentence or both. A general authorization for the release of medical or other information is NOT sufficient authorization for further disc losure. Allergies and Adverse Reactions Type Description Substance Reaction Status Data Source(s ) Allergy to substance No Known Allergies No known allergies (situation ) [place] (Donte Goss MD [facility]) Propensity to adverse reactions NO ALLERGIES ON FILE NO ALLERGIES ON FILE [facility] Family History Family Member Name Family Member Gender Family Member Status Date o f Status Description Data Source(s) Unknown Unknown Problem [facility] ([facility]) Unknown Male Problem [facility] ([facility] () Unknown Female Problem [facility] ([facility]) Unknown Female Problem [facility] ([facility]) Encounters Encounter Providers Location Date Indications Data Source(s ) Office Visit Attender: DONTE CALVO MD Main Office 05/10/2021 02: 02:00 PM EDT [facility] ([facility]) Office Visit Attender: DONTE CALVO MD Main Office 04/25/2021 09: 09:00 AM EDT [facility] ([facility]) Outpatient Attender: Papi Noriega MD Main office - [place] 04/04/2021 11:00:00 AM EDT [facility] ([facility], ) Outpatient<td ID="encounterTypeDescripti onID0">11 Month Follow-Up</td><td>Donte Jensen MD, FACS</td><td>Donte Jensen MD [facility]</td><td>03/30/2021</td><td>11:52AM</td><td>1:29PM</td><td><content ID="encounterDiagnosisID0-0">Glaucoma Open-angle Primary</content>, <content ID="encounterDiagnosisID0-1">Essential Hypertension</content>, <content ID="encounterDiagnosisID0-2">Dry Eye Syndrome</content>, <content ID="encounterDiagnosisID0-3">Posterior Capsule Opacification Eccentric Capsule Both Eyes</content>, <content ID="encounterDiagnosisID0-4">Macular Degeneration Nonexudative Bilateral Early Dry Stage</content></td> Attender: Donte Goss MD, FACS Donte Jensen MD [facility] 03/30/2021 11:52:00 AM EDT - 03/30/2021 01:29:00 PM EDT Posterior Capsule Opacification Eccentri c Capsule Both EyesDry Eye SyndromeGlaucoma Open-angle PrimaryMacular Degeneration Nonexudative Bilateral Early Dry StageEssential Hypertension [place] (Donte Goss MD [facility]) Posterior Capsule Opacification Eccentri c Capsule Both Eyes Dry Eye Syndrome Glaucoma Open-angle Primary Macular Degeneration Nonexudative Bilate ral Early Dry Stage Essential Hypertension Outpatient Attender: LATONYA Amezcua: DO Latonya PAINTER- 01/16/2021 01:00:00 AM EDT - 01/16/2021 11:59:00 PM EDT [facility] Patient discharged. Outpatient Referrer: DO Latonya PAINTER- 01:00:00 AM EDT - 01/13/2021 11:59:00 PM EDT [facility] Patient discharged. Emergency Attender: LINDEN LOMBARDI 10/2019 03:37:00 PM EST - 08/03/2020 06:30:00 PM [facility] Patient discharged. Office Visit Attender: DONTE CALVO MD Main Office 07/22/2020 03: 16:00 PM EST [facility] ([facility]) Outpatient Attender: DONTE CALVO MD Main Office 05/31/2020 08:15:00 AM EDT [facility] ([facility]) Office Visit Attender: DONTE CALVO MD Main Office 05/23/2020 11: 35:00 AM EDT [facility] ([facility]) Inpatient Attender: LINDEN TAYLOR dmitter: HECTOR DAVIDSON MDReferrer: DONTE HAMMOND EMERGENCY ROOM-2N 12/11/2016 03:25:00 PM EDT - 12/12/2016 10:10:00 AM [facility] Immunizations Vaccine Date Status Description Data Source(s) COVID-19 VACCINE Pfizer 09/19/2020 12:00:00 AM EST completed [facility] Vaccine Series Complete: YESThis Data wa s Submitted to [facility] Via [employer]. COVID-19 VACCINE Pfizer 08/29/2020 12:00:00 AM EST completed [facility] Vaccine Series Complete: NOThis Data was Submitted to [facility] Via [employer]. Medications Medication Brand Name Start Date Product Form Dose Route Admi nistrative Instructions Pharmacy Instructions Status Indications Reaction Description Data Source(s) Erythromycin 0.005 MG/MG Ophthalmic Oint ment Erythromycin 5 MG/GM Ophthalmic Ointment Erythromycin 5 MG/GM Ophthalmic Ointment 03/30/2021 12:00:00 AM EDT active erythromycin 0.005 MG/MG Ophthalmic Ointment [facility] (Donte Goss MD [facility]) Dexamethasone 0.001 MG/MG / Tobramycin 0 .003 MG/MG Ophthalmic Ointment [Tobradex] TobraDex 0.3-0.1% Ophthalmic Ointment TobraDex 0.3-0.1% Ophthalmic Ointment 03/30/2021 12:00:00 AM EDT active dexamethasone 0.001 MG/MG / tobramycin 0.003 MG/MG Ophthalmic Ointment [Tobradex] [facility] (Donte Goss MD [facility]) Polyethylene Glycol 400 4 MG/ML / Propyl jt glycol 3 MG/ML Ophthalmic Solution [Systane] Systane Ultra 0.4-0.3% Ophthalmic Solution Systane Ultra 0.4-0.3% Ophthalmic Solution 03/30/2021 12:00:00 AM EDT active polyethylene glycol 400 4 MG/ML / propylene glycol 3 MG/ML Ophthalmic Solution [Systane] [facility] (Donte Goss MD [facility]) latanoprost 0.05 MG/ML Ophthalmic Soluti on Latanoprost 0.005% Ophthalmic Solution Latanoprost 0.005% Ophthalmic Solution 03/30/2021 12:00:00 AM EDT 1 active latanoprost 0.05 MG/ ML Ophthalmic Solution [facility] (Donte Goss MD [facility]) latanoprost 0.05 MG/ML Ophthalmic Soluti on Latanoprost 0.005% Ophthalmic Solution Latanoprost 0.005% Ophthalmic Solution 08/01/2020 12:00:00 AM EST 1 active latanoprost 0.05 MG/ ML Ophthalmic Solution [facility] (Donte Goss MD [facility]) Amlodipine 2.5 MG Oral Tablet Amlodipine Besylate 05/31/2020 12:00: 00 AM EDT ORAL active [facility] ([facility]) Paroxetine HCL Paroxetine HCL 05/30/2020 12:00:00 AM EDT active [facility] ([facility]) Potassium Chloride 10 MEQ Extended Release Oral Tablet [Klor -Con] Klor-Con 10 05/30/2020 12:00:00 AM EDT ORAL active [facility] ([facility]) latanoprost 0.05 MG/ML Ophthalmic Soluti on Latanoprost 0.005% Ophthalmic Solution Latanoprost 0.005% Ophthalmic Solution 03/21/2020 12:00:00 AM EDT 1 aborted latanoprost 0.05 MG/ ML Ophthalmic Solution [facility] (Donte Goss MD [facility]) Erythromycin 0.005 MG/MG Ophthalmic Oint ment Erythromycin 5MG/GM Ophthalmic Ointment Erythromycin 5MG/GM Ophthalmic Ointment 11/14/2018 12:00:00 AM EDT aborted erythromycin 0.005 M G/MG Ophthalmic Ointment [facility] (Donte Goss MD [facility]) Insurance Providers Payer name Policy type / Coverage type Policy ID Covered alliance party ID Covered alliance party's relationship to [place] Policy [place] Plan Information [id number] GHI [facility] [id number] Ghi/Emblem HLTH (pr) Medigap Part B [id number] Self Ghi Medigap Part B [id number] Self Ghi Medigap Part B [id number] Self [id number] Medicare - NGS Medicare Primary [id number] Self [id number] Medicare (Part B) Medicare Primary [id number] Self [id number] Medicare (Part B) Medicare Primary [id number] Self [id number] Medicare (Part B) Medicare Primary [id number] Self Medicare (Part B) Medicare Primary [id number] Self [id number] [place] Primary [id number] Self Medicare (Part B) Medicare Primary [id number] Self [id number] MEDICARE Med [id number] Self [id number] Medicare (Part B) Medicare Primary [id number] Self [id number] Medicare (Part B) Medicare Primary [id number] Self [id number] [place]/[facility] Medicare Primary [id number] Self [id number] MEDICARE [id number] Makenna [id number] Medicare Medicare Primary [id number] Self Medicare [facility] Medicare Primary [id number] Self [id number] [facility] Health - [place]hi Ppo Medigap Part B [id number] Self [place] [facility] - [place] Ppo Medigap Part B [id number] Self [id number] [facility] Health/Ghi Medigap Part B [id number] Self ANSI-Commercial [id number] MEDICARE [id number] SP [id number] A MEDICARE [id number] SP [id number] [id number] i Emble Medigap Part B [id number] Self [id number] Ghi Medigap Part B [id number] Self [facility] [id number] SP [id number] [facility] [id number] S [id number] MEDICARE C [id number] S [id number] A GROUP HEALTH INSURANCE S [id number] S [id number] [facility] [id number] SP [id number] [facility] [id number] SP [id number] GROUP HEALTH INSURANCE [id number] SP [id number] Medicare Part B [facility] Other 0 [id number] Self 0 MEDICARE C [id number] S [id number] [place] MEDIC[facility] [id number] S [id number] MEDICARE [place] [id number] S [id number] [facility] [id number] S [id number] [facility] [id number] S [id number] [facility] [id number] S [id number] MEDICARE [place] [id number] S [id number] [place] MED[employer] [id number] S [id number] [place]ICARE [place] [id number] S [id number] Medicare Part B [facility] the [facility] Other 0 [id number] Self 0 [facility] [id number] [facility] [id number] Medicare Part B [facility] Other 0 [id number] Self 0 [facility] [id number] ANSI-Commercial [id number] [facility] Part B [id number] Self [id number] [facility] Part B [id number] Self [id number] ANSI-Medicare Part B [id number] Problems, Conditions, and Diagnoses Code Display Name Description Problem Type Effective Dates Data Source(s) Y93.01 Activity, walking, marching and hiking A CTIVITY, WALKING, MARCHING AND HIKING Diagnosis 08/03/2020 03:37:00 PM [facility] Y92.[address] and highw ay as the place of occurrence of the external cause [address] Diagnosis 020 03:37:00 PM [facility] W01.198A Fall on same level from slip ping, tripping and stumbling with subsequent striking against other object, initial encounter FALL SAME LEV FROM SLIP/TRIP W STRIKE AGNST OTH OB Diagnosis 08/03/2020 03:37:00 PM [facility] Z79.899 Other [facility]p (current) drug therapy O [facility] (CURRENT) DRUG THERAPY Diagnosis 08/03/2020 03:37:00 PM [facility] 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 HEART DISEASE OF [place] CORONARY ARTERY W/O Diagnosis 08/03/2020 03:37:00 PM [facility] E78.00 PURE HYPERCHOLESTEROLEMIA, UNSPECIFIED P URE HYPERCHOLESTEROLEMIA, UNSPECIFIED Diagnosis 08/03/2020 03:37:00 PM [facility] H11.32 Conjunctival hemorrhage, left eye CONJUNCTIVAL H EMORRHAGE, LEFT EYE Diagnosis 08/03/2020 03:37:00 PM [facility] S80.211A Abrasion, right knee, initial encounter ABRASION, RIGHT KNEE, INITIAL ENCOUNTER Diagnosis 08/03/2020 03:37:00 PM [facility] l S01.112A Laceration without foreign b gil of left eyelid and periocular area, initial encounter LACERATION W/O FB OF LEFT EYELID AND PERIOCULAR AR Diagnosis 08/03/2020 03:37:00 PM [facility] S09.93XA Unspecified injury of face, initial enco unter UNSPECIFIED INJURY OF FACE, INITIAL ENCOUNTER Diagnosis 08/03/2020 03:37:00 PM [facility] G31.83 Diffuse Lewy body disease Diffuse Lewy body disease Pr oblem 04/04/2021 12:00:00 AM EDT [facility] ([facility] ) Surgeries/Procedures Procedure Description Date Indications Data Source(s) Chronic Care Management Services Ea Addl 20 Min 2020 12:00:00 AM EDT [facility] ([facility]) Chronic Care MGMT 20 Mins Clinical Staff Time Per Calendar [facility] 06/14/2021 12:00:00 AM EDT [facility] ([facility]) Chronic Care MGMT 20 Mins Clinical Staff Time Per Calendar [facility] 05/10/2021 12:00:00 AM EDT [facility] ([facility]) Chronic Care MGMT 20 Mins Clinical Staff Time Per Calendar [facility] 04/25/2021 12:00:00 AM EDT [facility] ([facility]) MRI BRAIN BRAIN STEM W/O CONTRAST MATERIAL 04/14/2021 12:00:00 AM EDT [facility] ([facility] ) MRI BRAIN BRAIN STEM W/O CONTRAST MATERIAL 04/14/2021 12:00:00 AM EDT [facility] ([facility] ) OFFICE OUTPATIENT VISIT 40 MINUTES 04/04/2021 12:00:00 AM EDT [facility] ([facility] ) ECG ROUTINE ECG W/LEAST 12 LDS W/I&R 05/31/2020 12:00: 00 AM EDT [facility] ([facility]) Arterial Pressure Waveform Analysis For Assessment Of Centra l Art 05/31/2020 12:00:00 AM EDT [facility] ([facility]) Results ID Date Data Source [id number] 06/27/2021 10:49:00 AM EDT [facility] Name Value Range Interpretation Code Description Data Patricia rce(s) Supporting Document(s) SARS coronavirus 2 RNA [Presence] in Res piratory specimen by HANH with probe detection NEGATIVE [facility] This lab was ordered by [facility] a nd reported by [facility]. ID Date Data Source [id number] 06/26/2021 08:25:00 AM EDT [facility] Name Value Range Interpretation Code Description Data Patricia rce(s) Supporting Document(s) SARS coronavirus 2 RNA [Presence] in Res piratory specimen by HANH with probe detection NEGATIVE [facility] This lab was ordered by [facility] a nd reported by [facility]. ID Date Data Source [id number] 01/16/2021 01:15:00 PM EDT [facility] Name Value Range Interpretation Code Description Data Patricia rce(s) Supporting Document(s) AST 12 IU/L 15-37 Below low normal [facility] Sulfasalazine and sulfapyridine have the potential to falsely depressAspartate Aminotransferase results. Baseline values before medication administration are recommended. ALT <6 IU/L 16-61 Below low normal [facility] Sulfasalazine and sulfapyridine have the potential to falsely depressAlanine Aminotransferase results. Baseline values before medication administration are recommended. Alkaline Phosphatase 64 mIU/ml 50-136 Normal (applies to non-num ana results) [facility] Total Bilirubin 0.60 mg/dl 0.20-1.00 Normal (applies to non-numeric results) [facility] Blood Urea Nitrogen 18 mg/dl 7-18 Normal (applies to non-nume tati results) [facility] Creatinine 0.69 mg/dl 0.67-1.17 Normal (applies to non-numeric resul ts) [facility] N-Acetylcysteine (NAC) and Metamizole yip ve the potential to falselydepress Creatinine results. Baseline values before medication adminstration are recommended. Patients undergoing treatment with phenindione will have falselydepressed results. Patients on phenindione therapy should be tested with an alternativeCREA method.Toxic levels of acetaminophen may lead to falsely depressed results forpatient samples. Glomerular Filtration Rate >90.00 mL/min/1.73m2 [facility] GFR Reference Ranges:Normal Function or Mild Renal Disease,if clinically at risk:>or= 60Moderately decreased:30 - 59Severely decreased:15 - 29Renal Failure:<15 Please note that the MDRD equation requires an additional adjustment forAfrican-Americans (multiply the GFR result by 1.210).Glomarular Filtration Rate (GFR) is estimated based on the MDRDequation, which assumes a steady state for creatinine (Lizzie Int Med 139/2 137-149, 2003), as recommended by the Nationaldney Disease Education Program in conjunction with the National Institutes of Health and the National KidneyFoundation. The [place] method used in calculating this result is traceable to IDDC standards. Glucose 72 mg/dl 70-110 Normal (applies to non-numeric resul ts) [facility] Sulfasalazine has the potential to false ly depress Glucose results. Sulfapyridine has the potential to falsely elevate Glucose results. Baseline values before medication administration are recommended. Calcium 8.7 mg/dl 8.5-10.1 Normal (applies to non-numeric resul ts) [facility] Total Protein 6.1 g/dl 6.4-8.2 Below low normal [facility] Albumin 3.6 g/dl 3.4-5.0 Normal (applies to non-numeric resul ts) [facility] Sodium 139 mEq/L 136-145 Normal (applies to non-numeric resul ts) [facility] Potassium 4.0 mEq/L 3.5-5.1 Normal (applies to non-numeric resul ts) [facility] Chloride 104.0 mEq/L 98.0-107.0 Normal (applies to non-numeric resu lts) [facility] Carbon Dioxide 28.9 mMol/L 21.0-32.0 Normal (applies to non-numeric results) [facility] Anion Gap 10.1 7.0-15.0 Normal (applies to non-numeric resul ts) [facility] The above 16 analytes were performed by [facility] [address],[id number],[place] [address] ID Date Data Source [id number] 01/16/2021 01:15:00 PM EDT [facility] Name Value Range Interpretation Code Description Data Patricia rce(s) Supporting Document(s) TSH 0.62 uIU/ml 0.36-3.74 Normal (applies to non-numeric resu lts) [facility] Concentrations of Biotin above 100 ng/mL can potentially result ininterference.The above 1 analytes were performed by [facility] [address] [place] [address],[facility]#: [id number],[place] [address] ID Date Data Source [id number] 01/16/2021 12:44:00 PM EDT [facility] Name Value Range Interpretation Code Description Data Patricia rce(s) Supporting Document(s) WBC 6.09 x1000/ul 4.80-10.00 Normal (applies to non-numeric re sults) [facility] RBC 4.37 x1Mil/ul 4.70-6.10 Below low normal [facility] Hemoglobin 13.5 g/dl 14.0-18.0 Below low normal [facility] Hematocrit 42.0 % 42.0-52.0 Normal (applies to non-numeric resul ts) [facility] MCV 96.1 fL 80.0-94.0 Above high normal [facility] MCH 30.9 pg 27.0-31.0 Normal (applies to non-numeric resul ts) [facility] MCHC 32.1 g/dl 32.2-37.0 Below low normal [facility] RDW 12.1 % 11.5-14.5 Normal (applies to non-numeric resul ts) [facility] Platelet Count 227 x1000/ul 130-400 Normal (applies to non-numeric results) [facility] MPV 10.5 fL 9.4-12.4 Normal (applies to non-numeric resul ts) [facility] Neutrophils 70.1 % 40.0-74.0 Normal (applies to non-numeric resu lts) [facility] Lymphocytes 15.1 % 19.0-48.0 Below low normal [facility] Monocytes 12.6 % 3.4-9.0 Above high normal [facility] Eosinophils 1.0 % 0.0-7.0 Normal (applies to non-numeric resu lts) [facility] Basophils 1.0 % 0.0-2.0 Normal (applies to non-numeric resul ts) [facility] Immature Granulocytes 0.2 % 0.0-0.5 Normal (applies to non-nu meric results) [facility] Nucleated RBCs 0.00 % 0.00-0.20 Normal (applies to non-numeric r esults) [facility] Abs. Neutrophils 4.27 x1000/ul 1.92-8.31 Normal (applies to non-numeric results) [facility] Abs. Lymphocyte 0.92 x1000/ul 1.20-3.70 Below low normal [facility] Abs. Monocytes 0.77 x1000/ul 0.14-0.97 Normal (applies to non-nu meric results) [facility] Abs. Eosinophils 0.06 x1000/ul 0.00-0.76 Normal (applie s to non-numeric results) [facility] Abs. Basophils 0.06 x1000/ul 0.00-0.22 Normal (applies to non-n umeric results) [facility] Abs. Immature Gran. 0.01 x1000/ul 0.00-0.02 Normal (appl ies to non-numeric results) [facility] Abs. Nucleated RBCs 0.00 x1000/ul 0.00-0.02 Normal (appl ies to non-numeric results) [facility] The above 24 analytes were performed by [facility] [address],[facility]#: [id number],[place] [address] ID Date Data Source [id number] 01/13/2021 12:00:00 AM EDT [facility] Name Value Range Interpretation Code Description Data Patricia rce(s) Supporting Document(s) SARS coronavirus 2 Ag Negative [facility] This lab was ordered by [facility] an d reported by [facility]. ID Date Data Source [id number] 01/06/2021 12:00:00 AM EDT [facility] Name Value Range Interpretation Code Description Data Patricia rce(s) Supporting Document(s) SARS-CoV-2 (COVID-19) RNA [Presence] in Respiratory specimen by HANH with probe detection Not Detected [facility] This lab was ordered by [facility] and reported by [employer] ID Date Data Source [id number] 12/21/2020 02:11:00 PM EDT [facility] Name Value Range Interpretation Code Description Data Patricia rce(s) Supporting Document(s) SARS-CoV-2 (COVID-19) RNA [Presence] in Respiratory specimen by HANH with probe detection Not Detected [facility] This lab was ordered by [facility] and reported by [employer] ID Date Data Source [id number] 11/28/2020 12:00:00 AM EDT [facility] Name Value Range Interpretation Code Description Data Patrciia rce(s) Supporting Document(s) SARS-CoV-2 (COVID-19) RNA [Presence] in Respiratory specimen by HANH with probe detection Not Detected [facility] This lab was ordered by [facility] and reported by [employer] ID Date Data Source [id number] 11/22/2020 12:00:00 AM EDT [facility] Name Value Range Interpretation Code Description Data Patricia rce(s) Supporting Document(s) SARS-CoV-2 (COVID-19) RNA [Presence] in Respiratory specimen by HANH with probe detection Not Detected [facility] This lab was ordered by [facility] and reported by [employer] ID Date Data Source [id number] 11/15/2020 12:00:00 AM EDT [facility] Name Value Range Interpretation Code Description Data Patricia rce(s) Supporting Document(s) SARS coronavirus 2 Ag Negative [facility] This lab was ordered by Yumiko thomas reported by Yumiko Miles. ID Date Data Source [id number] 11/02/2020 12:00:00 AM EST [facility] Name Value [...] by Yumiko Miles. ID Date Data Source [id number] 10/12/2020 12:00:00 AM EST [facility] Name Value Range Interpretation Code Description Data Patricia rce(s) Supporting Document(s) SARS-CoV-2 (COVID-19) RNA [Presence] in Respiratory specimen by HANH with probe detection Not Detected [facility] This lab was ordered by [facility] and reported by [employer] ID Date Data Source [id number] 10/05/2020 12:00:00 AM EST [facility] Name Value Range Interpretation Code Description Data Patricia rce(s) Supporting Document(s) SARS coronavirus 2 Ag Negative [facility] This lab was ordered by [facility] an d reported by [facility]. ID Date Data Source [id number] 08/23/2020 12:00:00 AM EST [facility] Name Value Range Interpretation Code Description Data Patricia rce(s) Supporting Document(s) SARS-CoV-2 (COVID-19) RNA [Presence] in Respiratory specimen by HANH with probe detection [facility] This lab was ordered by [facility] and reported by [employer] ID Date Data Source [id number] 08/15/2020 07:23:00 AM EST [facility] Name Value Range Interpretation Code Description Data Patricia rce(s) Supporting Document(s) SARS coronavirus 2 RNA [Presence] in Res piratory specimen by HANH with probe detection [facility] This lab was ordered by [facility] a nd reported by [facility]. ID Date Data Source [id number] 08/12/2020 01:30:00 PM EST [facility] Name Value Range Interpretation Code Description Data Patricia rce(s) Supporting Document(s) SARS coronavirus 2 RNA [Presence] in Res piratory specimen by HANH with probe detection [facility] This lab was ordered by [facility] a nd reported by [facility]. ID Date Data Source [id number] 08/05/2020 09:25:00 PM EST [facility] Name Value Range Interpretation Code Description Data Patricia rce(s) Supporting Document(s) SARS coronavirus 2 RNA [Presence] in Res piratory specimen by HANH with probe detection [facility] This lab was ordered by [facility] a nd reported by [facility]. ID Date Data Source [id number] 08/03/2020 07:04:00 PM EST [facility] Patient: MIGUEL CLARKo n Report - Physicians/Mid Levels [facility].VisitID: [id number] [place] [address] [phone][facility]Time: 08/03/2020 15:08 Weight:60.3 kg (S). Height/Length:69 [...] rce(s) Supporting Document(s) ID Date Data Source [id number] 08/03/2020 06:12:00 PM EST [facility] [...] smoked tobacco (finding) [facility] (Donte Goss MD [facility]) Smoking 05/31/2020 12:00:00 AM EDT Patient has never smoked co mpleted Patient has never smoked [facility] ([facility]) Vital Signs ID Date Data Source UNK Name Value Range Interpretation Code Description Data Source(s) Body weight 134.00 [lb_av] 134.00 [lb_av] MEDEN T ([facility]) Body height 70 [in_i] 70 [in_i] [facility] ([facility]) 5'10" Body mass index (BMI) [Ratio] 19.2 kg/m2 19.2 k g/m2 [facility] ([facility]) Heart rate 72 /min 72 /min [facility] ([facility]) Systolic blood pressure--sitting 139 mm[Hg] 139 mm[Hg] [facility] ([facility]) CBP, adult cuff/Ra Diastolic blood pressure--sitting 94 mm[Hg] 94 mm[Hg] [facility] ([facility]) CBP, adult cuff/Ra Patient Treatment Plan of Care Planned Activity Planned Date Details Description Data Source (s) Erythromycin 0.005 MG/MG Ophthalmic Ointment 03/30/2021 12:00:00 AM EDT [facility] (Donte Goss MD [facility]) Dexamethasone 0.001 MG/MG / Tobramycin 0 .003 MG/MG Ophthalmic Ointment [Tobradex] 03/30/2021 12:00:00 AM EDT KERI MULLEN (Donte Goss MD [facility]) latanoprost 0.05 MG/ML Ophthalmic Solution 03/30/2021 12:00:00 AM E DT [facility] (Donte Goss MD [facility]) Polyethylene Glycol 400 4 MG/ML / Propyl jt glycol 3 MG/ML Ophthalmic Solution [Systane] 03/30/2021 12:00:[address] (Donte Goss MD [facility]) latanoprost 0.05 MG/ML Ophthalmic Solution 08/01/2020 12:00:[address] [facility] (Donte Goss MD [facility]) latanoprost 0.05 MG/ML Ophthalmic Solution 03/21/2020 12:00:00 AM E DT [facility] (Donte Goss MD [facility]) Erythromycin 0.005 MG/MG Ophthalmic Ointment 11/14/2018 12:00:00 AM EDT [facility] (Donte Goss MD [facility])
--- OUTSIDE RECORDS SUMMARY | 2021-07-10 11:46 | CCD | Continuity of Care Document ---
Author Author Sunny SZYMANSKI MD Organization Unknown Address [address], [place] [address] Phone [phone] Care Team Providers Care Milling Machine Operator Name Role Phone Aftab Rubalcava MD AUTM [phone] Fabiola Landry AUTM [phone] Jomar Elliott MD AUTM [phone] Ever Szymanski MD AUTM [phone] Roque May MD AUTM [phone] Walt Rao MD AUTM [phone] Ever Jensen MD AUTM [phone] Obi Hermosillo MD AUTM [phone] Papi Noriega MD AUTM [phone] Sánchez Marcus MD AUTM [phone] Problems Active Problems Provider Date Coronary arteriosclerosis [...] Exercise Type/Frequency Does housework twice a w ramona Exercise Type/Frequency Does yardwork sporadical ly and [...] Available Procedures Date Code Description Status 06/14/2021 46962 Chronic Care MGMT 20 Mins Clinical Staff Time Per Calendar Month Completed 06/14/2021 21274 Chronic Care Management Services Ea Addl 20 Min Completed 05/10/2021 34280 Chronic Care MGMT 20 Mins Clinical Staff Time Per Calendar Month Completed 04/25/2021 04042 Chronic Care MGMT 20 Mins Clinical Staff [...] Szymanski MD* I25.10 Atherosclerotic heart disease of [place] coronary artery with* Recommendations:* Continue candesartan, aspirin, [...]
--- OUTSIDE RECORDS SUMMARY | 2021-07-10 13:13 | CCD ---
Author Author [facility] Organization [facility] Address Unknown Phone Unavailable Care Team Providers Care Volleyball Referee Name Role Phone Papi Noriega MD Unavailable [...] KENT MD Unavailable Unavailable HAMMOND SR, SIMÓN KETN MD Unavailable Unavailable HAMMOND SR, SIMÓN EKNT [...] Goss, Surinder Kent MD, FACS Unavailable Unavailable Pacehco Goss, Surinder Kent MD, FACS Unavailable Unavailable [...] L LINDEN PA Unavailable Unavailable PEGGY, L LIDNEN PA Unavailable Unavailable PEGGY, L LINDEN PA [...] is protected by Article 27-F of the [facility] Public Health law. If you continue you may have access to information: Regarding HIV / AIDS; Provided by facilities licensed or operated by the [facility] Office of Mental Health; or Provided by the [facility] Office for People With Developmental Disabilities. If such information is present, then the following [facility] mandated warning applies: This information has been [...] law may result in a fine or residential sentence or both. A general authorization for the release of medical or other information is NOT sufficient authorization for further disc losure. Allergies and Adverse Reactions Type Description Substance Reaction Status Data Source(s ) Allergy to substance No Known Allergies No known allergies (situation ) SUTTER (Donte Goss MD [facility]) Propensity to adverse reactions NO ALLERGIES ON FILE NO ALLERGIES ON FILE [facility] Family History Family Member Name Family Member Gender Family Member Status Date o f Status Description Data Source(s) Unknown Unknown Problem [facility]ENT ([facility]) Unknown Male Problem [facility] ([facility] () Unknown Female Problem [facility] ([facility]) Unknown Female Problem MEDENT ([facility]) Encounters Encounter Providers Location Date Indications Data Source(s ) Office Visit Attender: DONTE CALVO MD Main Office 05/10/2021 02: 02:00 PM EDT [facility] ([facility]) Office Visit Attender: DONTE CALVO MD Main Office 04/25/2021 09: 09:00 AM EDT [facility] ([facility]) Outpatient Attender: Papi Noriega MD Main office - [place] 04/04/2021 11:00:00 AM EDT [facility] ([facility], ) <td ID="encounterTypeDescriptionID0">11 Month Follow-Up</td><td>Donte Goss MD, FACS</td><td>Donte Jensen MD [facility]</td><td>03/30/2021</td><td>11:52AM</td><td>1:29PM</td><td><content ID="encounterDiagnosisID0-0">Glaucoma Open-angle Primary</content>, <content ID="encounterDiagnosisID0-1">Essential Hypertension</content>, <content ID="encounterDiagnosisID0-2">Dry Eye Syndrome</content>, <content ID="encounterDiagnosisID0-3">Posterior Capsule Opacification Eccentric Capsule Both Eyes</content>, <content ID="encounterDiagnosisID0-4">Macular Degeneration Nonexudative Bilateral Early Dry Stage</content></td>Outpatient Attender: Donte Goss MD, FACS Donte Jensen MD [facility] 03/30/2021 11:52:00 AM EDT - 03/30/2021 01:29:00 PM EDT Posterior Capsule Opacification Eccentri c Capsule Both EyesDry Eye SyndromeGlaucoma Open-angle PrimaryMacular Degeneration Nonexudative Bilateral Early Dry StageEssential Hypertension SUTTER (Donte Goss MD [facility]) Posterior Capsule Opacification Eccentri c Capsule Both Eyes Dry Eye Syndrome Glaucoma Open-angle Primary Macular Degeneration Nonexudative Bilate ral Early Dry Stage Essential Hypertension Outpatient Attender: LATONYA Amezcua: DO Latonya Cotter DO - 01/16/2021 01:00:00 AM EDT - 01/16/2021 11:59:00 PM EDT [facility] Patient discharged. Outpatient Referrer: DO Latonya PAINTER- 01:00:00 AM EDT - 01/13/2021 11:59:00 PM EDT [facility] Patient discharged. Emergency Attender: LINDEN LOMBARDI 10/2019 03:37:00 PM EST - 08/03/2020 06:30:00 PM [facility] Patient discharged. Office Visit Attender: DONTE CALVO MD Main Office 07/22/2020 03: 16:00 PM EST MEDENT ([facility]) Outpatient Attender: DONTE CALVO MD Main Office 05/31/2020 08:15:00 AM EDT MEDENT ([facility]) Office Visit Attender: DONTE CALVO MD Main Office 05/23/2020 11: 35:00 AM EDT MEDENT ([facility]) Inpatient Attender: LINDEN TAYLOR dmitter: HECTOR DAVIDSON MDReferrer: DONTE HAMMOND EMERGENCY ROOM-2N 12/11/2016 03:25:00 PM EDT - 12/12/2016 10:10:00 AM [facility] Immunizations Vaccine Date Status Description Data Source(s) COVID-19 VACCINE Pfizer 09/19/2020 12:00:00 AM EST completed [facility] Vaccine Series Complete: YESThis Data wa s Submitted to [facility] Via [employer]. COVID-19 VACCINE Pfizer 08/29/2020 12:00:00 AM EST completed [facility] Vaccine Series Complete: NOThis Data was Submitted to [facility] Via [employer]. Medications Medication Brand Name Start Date Product Form Dose Route Admi nistrative Instructions Pharmacy Instructions Status Indications Reaction Description Data Source(s) Erythromycin 0.005 MG/MG Ophthalmic Oint ment Erythromycin 5 MG/GM Ophthalmic Ointment Erythromycin 5 MG/GM Ophthalmic Ointment 03/30/2021 12:00:00 AM EDT active erythromycin 0.005 MG/MG Ophthalmic Ointment XAVIER (Donte Goss MD [facility]) Dexamethasone 0.001 MG/MG / Tobramycin 0 .003 MG/MG Ophthalmic Ointment [Tobradex] TobraDex 0.3-0.1% Ophthalmic Ointment TobraDex 0.3-0.1% Ophthalmic Ointment 03/30/2021 12:00:00 AM EDT active dexamethasone 0.001 MG/MG / tobramycin 0.003 MG/MG Ophthalmic Ointment [Tobradex] XAVIER (Donte Goss MD [facility]) Polyethylene Glycol 400 4 MG/ML / Propyl jt glycol 3 MG/ML Ophthalmic Solution [Systane] Systane Ultra 0.4-0.3% Ophthalmic Solution Systane Ultra 0.4-0.3% Ophthalmic Solution 03/30/2021 12:00:00 AM EDT active polyethylene glycol 400 4 MG/ML / propylene glycol 3 MG/ML Ophthalmic Solution [Systane] XAVIER (Donte Goss MD [facility]) latanoprost 0.05 MG/ML Ophthalmic Soluti on Latanoprost 0.005% Ophthalmic Solution Latanoprost 0.005% Ophthalmic Solution 03/30/2021 12:00:00 AM EDT 1 active latanoprost 0.05 MG/ ML Ophthalmic Solution XAVIER (Donte Goss MD [facility]) latanoprost 0.05 MG/ML Ophthalmic Soluti on Latanoprost 0.005% Ophthalmic Solution Latanoprost 0.005% Ophthalmic Solution 08/01/2020 12:00:00 AM EST 1 active latanoprost 0.05 MG/ ML Ophthalmic Solution XAVIER (Donte Goss MD [facility]) Amlodipine 2.5 MG Oral Tablet Amlodipine Besylate 05/31/2020 12:00: 00 AM EDT ORAL active MEDENT ([facility]) Paroxetine HCL Paroxetine HCL 05/30/2020 12:00:00 AM EDT active MEDENT ([facility]) Potassium Chloride 10 MEQ Extended Release Oral Tablet [Klor -Con] Klor-Con 10 05/30/2020 12:00:00 AM EDT ORAL active MEDENT ([facility]) latanoprost 0.05 MG/ML Ophthalmic Soluti on Latanoprost 0.005% Ophthalmic Solution Latanoprost 0.005% Ophthalmic Solution 03/21/2020 12:00:00 AM EDT 1 aborted latanoprost 0.05 MG/ ML Ophthalmic Solution XAVIER (Donte Goss MD [facility]) Erythromycin 0.005 MG/MG Ophthalmic Oint ment Erythromycin 5MG/GM Ophthalmic Ointment Erythromycin 5MG/GM Ophthalmic Ointment 11/14/2018 12:00:00 AM EDT aborted erythromycin 0.005 M G/MG Ophthalmic Ointment XAVIER (Donte Goss MD [facility]) Insurance Providers Payer name Policy type / Coverage type Policy ID Covered libertarian ID Covered libertarian's relationship to [place] Policy [place] Plan Information [id number] GHI [facility] [id number] Ghi/Emblem HLTH (pr) Medigap Part B [id number] Self Ghi Medigap Part B [id number] Self Ghi Medigap Part B [id number] Self [id number] Medicare - NGS Medicare Primary [id number] Self [id number] Medicare (Part B) Medicare Primary [id number] Self [id number] Medicare (Part B) Medicare Primary [id number] Self [id number] Medicare (Part B) Medicare Primary [id number] Self Medicare (Part B) Medicare Primary [id number] Self [id number] [place] Primary [id number] Self Medicare (Part B) Medicare Primary [id number] Self [id number] MEDICARE Med [id number] Self [id number] Medicare (Part B) Medicare Primary [id number] Self [id number] Medicare (Part B) Medicare Primary [id number] Self 10 [id number] [place] Medicare Primary [id number] Self [id number] MEDICARE [id number] Makenna [id number] A Medicare Medicare Primary [id number] Self Medicare [facility] Medicare Primary [id number] Self [id number] [facility] Ppo Medigap Part B [id number] Self [place] [facility] - [place]hi Ppo Medigap Part B [id number] Self [id number] [facility]/Ghi Medigap Part B [id number] Self ANSI-Commercial [id number] MEDICARE [id number] SP [id number] A MEDICARE [id number] SP [id number] i Emble Medigap Part B [id number] Self [id number] Ghi Medigap Part B [id number] Self [facility] [id number] SP [id number] [facility]I [facility] [id number] S [id number] MEDICARE C [id number] S [id number] A GROUP [facility] INSURANCE S [id number] S [id number] [facility] [id number] SP [id number] [facility] [id number] SP [id number] [employer] [facility] INSURANCE [id number] SP [id number] Medicare Part B [facility] Other 0 [id number] Self 0 MEDICARE C [id number] S [id number] [facility] MEDICARE DIVISION [id number] S [id number] [place]ICARE [place] [id number] S [id number] [facility] [id number] S [id number] [facility] [id number] S [id number] [facility] [id number] S [id number] MEDICARE - [place] [id number] S [id number] [place] MED[employer] DIVISION [id number] S [id number] [place]ICARE [place] [id number] S [id number] Medicare Part B [facility] Other 0 [id number] Self 0 [facility] [id number] Makenna [id number] Medicare Part B [facility] Other 0 [id number] Self 0 [facility]-Medicare Part B [id number] ANSI-Commercial [id number] [facility] Part B [id number] Self [id number] [facility] Part B [id number] Self [id number] [facility] [id number] Problems, Conditions, and Diagnoses Code Display Name Description Problem Type Effective Dates Data Source(s) Y93.01 Activity, walking, marching and hiking A CTIVITY, WALKING, MARCHING AND HIKING Diagnosis 08/03/2020 03:37:00 PM [facility] l Y92.[address] and highw ay as the place of occurrence of the external cause [address] Diagnosis 020 03:37:00 PM [facility] W01.198A Fall on same level from slip ping, tripping and stumbling with subsequent striking against other object, initial encounter FALL SAME LEV FROM SLIP/TRIP W STRIKE AGNST OTH OB Diagnosis 08/03/2020 03:37:00 PM [facility] Z79.899 Other longterm (current) drug therapy O THER SNF (CURRENT) DRUG THERAPY Diagnosis 08/03/2020 03:37:00 PM [facility] Z79.51 halfway (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) 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 STEROIDS Diagnosis 08/03/2020 03:37:00 PM [facility] Z95.5 Presence of coronary angioplasty implant and graft PRESENCE OF CORONARY ANGIOPLASTY IMPLANT AND GRAFT Diagnosis 08/03/2020 03:37:00 PM [facility] G20 Parkinson's disease PARKINSON'S DISEASE Diagnosis 1 10/04/2019 03:37:00 PM [facility] J45.909 Unspecified asthma, uncomplicated UNSPECIFIED THMA, UNCOMPLICATED Diagnosis 08/03/2020 03:37:00 PM [facility] 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 l S01.112A Laceration without foreign b gil of left eyelid and periocular area, initial encounter LACERATION W/O FB OF LEFT EYELID AND PERIOCULAR AR Diagnosis 08/03/2020 03:37:00 PM [facility] S09.93XA Unspecified injury of face, initial enco unter UNSPECIFIED INJURY OF FACE, INITIAL ENCOUNTER Diagnosis 08/03/2020 03:37:00 PM [facility] G31.83 Diffuse Lewy body disease Diffuse Lewy body disease Pr oblem 04/04/2021 12:00:00 AM EDT [facility]AR[facility] ([facility] ) Surgeries/Procedures Procedure Description Date Indications Data Source(s) Chronic Care Management Services Ea Addl 20 Min 2020 12:00:00 AM EDT MEDENT ([facility]) Chronic Care MGMT 20 Mins Clinical Staff Time Per Calendar [facility] 06/14/2021 12:00:00 AM EDT MEDENT ([facility]) Chronic Care MGMT 20 Mins Clinical Staff Time Per Calendar [facility] 05/10/2021 12:00:00 AM EDT [facility] ([facility]) Chronic Care MGMT 20 Mins Clinical Staff Time Per Calendar [facility] 04/25/2021 12:00:00 AM EDT [facility] ([facility]) MRI BRAIN BRAIN STEM W/O CONTRAST MATERIAL 04/14/2021 12:00:00 AM EDT MEDENT ([facility], ) MRI BRAIN BRAIN STEM W/O CONTRAST MATERIAL 04/14/2021 12:00:00 AM EDT MEDENT ([facility], ) OFFICE OUTPATIENT VISIT 40 MINUTES 04/04/2021 12:00:00 AM EDT MED[facility] ([facility] ) ECG ROUTINE ECG W/LEAST 12 LDS W/I&R 05/31/2020 12:00: 00 AM EDT [facility] ([facility]) Arterial Pressure Waveform Analysis For Assessment Of Centra l Art 05/31/2020 12:00:00 AM EDT [facility] ([facility]) Results ID Date Data Source [id number] 06/27/2021 10:49:00 AM EDT [facility] Name Value Range Interpretation Code Description Data Patricia rce(s) Supporting Document(s) SARS coronavirus 2 RNA [Presence] in Res piratory specimen by HANH with probe detection NEGATIVE [facility] This lab was ordered by [facility] a nd reported by [facility]. ID Date Data Source [id number] 06/26/2021 08:25:00 AM EDT [facility] Name Value Range Interpretation Code Description Data Patricia rce(s) Supporting Document(s) SARS coronavirus 2 RNA [Presence] in Res piratory specimen by HANH with probe detection NEGATIVE [facility] This lab was ordered by [facility] a nd reported by [facility]. ID Date Data Source [id number] 01/16/2021 01:15:00 PM EDT [facility] Name Value Range Interpretation Code Description Data Patricia rce(s) Supporting Document(s) AST 12 IU/L 15-37 Below low normal [facility] Sulfasalazine and sulfapyridine have the potential to falsely depressAspartate Aminotransferase results. Baseline values before medication administration are recommended. ALT <6 IU/L 16-61 Below low normal [facility] Sulfasalazine and sulfapyridine have the potential to falsely depressAlanine Aminotransferase results. Baseline values before medication administration are recommended. Alkaline Phosphatase 64 mIU/ml 50-136 Normal (applies to non-num ana results) [facility] Total Bilirubin 0.60 mg/dl 0.20-1.00 Normal (applies to non-numeric results) [facility] Blood Urea Nitrogen 18 mg/dl 7-18 Normal (applies to non-nume tati results) [facility] Creatinine 0.69 mg/dl 0.67-1.17 Normal (applies to non-numeric resul ts) [facility] N-Acetylcysteine (NAC) and Metamizole yip ve the potential to falselydepress Creatinine results. Baseline values before medication adminstration are recommended. Patients undergoing treatment with phenindione will have falselydepressed results. Patients on phenindione therapy should be tested with an alternativeCREA method.Toxic levels of acetaminophen may lead to falsely depressed results forpatient samples. Glomerular Filtration Rate >90.00 mL/min/1.73m2 [facility] GFR Reference Ranges:Normal Function or Mild Renal [...] of Health and the National KidneyFoundation. The [place] method used in calculating this result is traceable to IDMT standards. Glucose 72 mg/dl 70-110 Normal (applies to non-numeric resul ts) [facility] Sulfasalazine has the potential to false ly depress Glucose results. Sulfapyridine has the potential to falsely elevate Glucose results. Baseline values before medication administration are recommended. Calcium 8.7 mg/dl 8.5-10.1 Normal (applies to non-numeric resul ts) [facility] Total Protein 6.1 g/dl 6.4-8.2 Below low normal [facility] Albumin 3.6 g/dl 3.4-5.0 Normal (applies to non-numeric resul ts) [facility] Sodium 139 mEq/L 136-145 Normal (applies to non-numeric resul ts) [facility] Potassium 4.0 mEq/L 3.5-5.1 Normal (applies to non-numeric resul ts) [facility] Chloride 104.0 mEq/L 98.0-107.0 Normal (applies to non-numeric resu lts) [facility] Carbon Dioxide 28.9 mMol/L 21.0-32.0 Normal (applies to non-numeric results) [facility] Anion Gap 10.1 7.0-15.0 Normal (applies to non-numeric resul ts) [facility] The above 16 analytes were performed by [facility] [address], ,[place] [address] ID Date Data Source [id number] 01/16/2021 01:15:00 PM EDT [facility] Name Value Range Interpretation Code Description Data Patricia rce(s) Supporting Document(s) TSH 0.62 uIU/ml 0.36-3.74 Normal (applies to non-numeric resu lts) [facility] Concentrations of Biotin above 100 ng/mL can potentially result ininterference.The above 1 analytes were performed by [facility] [id number] [place] [address], ,[place] [address] ID Date Data Source [id number] 01/16/2021 12:44:00 PM EDT [facility] Name Value Range Interpretation Code Description Data Patricia rce(s) Supporting Document(s) WBC 6.09 x1000/ul 4.80-10.00 Normal (applies to non-numeric re sults) [facility] RBC 4.37 x1Mil/ul 4.70-6.10 Below low normal [facility] Hemoglobin 13.5 g/dl 14.0-18.0 Below low normal [facility] Hematocrit 42.0 % 42.0-52.0 Normal (applies to non-numeric resul ts) [facility] MCV 96.1 fL 80.0-94.0 Above high normal [facility] MCH 30.9 pg 27.0-31.0 Normal (applies to non-numeric resul ts) [facility] MCHC 32.1 g/dl 32.2-37.0 Below low normal [facility] RDW 12.1 % 11.5-14.5 Normal (applies to non-numeric resul ts) [facility] Platelet Count 227 x1000/ul 130-400 Normal (applies to non-numeric results) [facility] MPV 10.5 fL 9.4-12.4 Normal (applies to non-numeric resul ts) [facility] Neutrophils 70.1 % 40.0-74.0 Normal (applies to non-numeric resu lts) [facility] Lymphocytes 15.1 % 19.0-48.0 Below low normal [facility] Monocytes 12.6 % 3.4-9.0 Above high normal [facility] Eosinophils 1.0 % 0.0-7.0 Normal (applies to non-numeric resu lts) [facility] Basophils 1.0 % 0.0-2.0 Normal (applies to non-numeric resul ts) [facility] Immature Granulocytes 0.2 % 0.0-0.5 Normal (applies to non-nu meric results) [facility] Nucleated RBCs 0.00 % 0.00-0.20 Normal (applies to non-numeric r esults) [facility] Abs. Neutrophils 4.27 x1000/ul 1.92-8.31 Normal (applies to non-numeric results) [facility] Abs. Lymphocyte 0.92 x1000/ul 1.20-3.70 Below low normal [facility] Abs. Monocytes 0.77 x1000/ul 0.14-0.97 Normal (applies to non-nu meric results) [facility] Abs. Eosinophils 0.06 x1000/ul 0.00-0.76 Normal (applie s to non-numeric results) [facility] Abs. Basophils 0.06 x1000/ul 0.00-0.22 Normal (applies to non-n umeric results) [facility] Abs. Immature Gran. 0.01 x1000/ul 0.00-0.02 Normal (appl ies to non-numeric results) [facility] Abs. Nucleated RBCs 0.00 x1000/ul 0.00-0.02 Normal (appl ies to non-numeric results) [facility] The above 24 analytes were performed by [facility] [id number] [place] [address],[id number],[place] [address] ID Date Data Source [id number] 01/13/2021 12:00:00 AM EDT [facility] Name Value Range Interpretation Code Description Data Patricia rce(s) Supporting Document(s) SARS coronavirus 2 Ag Negative [facility] This lab was ordered by [facility] an d reported by [facility]. ID Date Data Source [id number] 01/06/2021 12:00:00 AM EDT [facility] Name Value Range Interpretation Code Description Data Patricia rce(s) Supporting Document(s) SARS-CoV-2 (COVID-19) RNA [Presence] in Respiratory specimen by HANH with probe detection Not Detected [facility] This lab was ordered by [facility] and reported by [employer] ID Date Data Source [id number] 12/21/2020 02:11:00 PM EDT [facility] Name Value Range Interpretation Code Description Data Patricia rce(s) Supporting Document(s) SARS-CoV-2 (COVID-19) RNA [Presence] in Respiratory specimen by HANH with probe detection Not Detected [facility] This lab was ordered by [facility] and reported by [employer] ID Date Data Source [id number] 11/28/2020 12:00:00 AM EDT [facility] Name Value Range Interpretation Code Description Data Patricia rce(s) Supporting Document(s) SARS-CoV-2 (COVID-19) RNA [Presence] in Respiratory specimen by HANH with probe detection Not Detected [facility] This lab was ordered by [facility] and reported by [employer] ID Date Data Source [id number] 11/22/2020 12:00:00 AM EDT [facility] Name Value Range Interpretation Code Description Data Patricia rce(s) Supporting Document(s) SARS-CoV-2 (COVID-19) RNA [Presence] in Respiratory specimen by HANH with probe detection Not Detected [facility] This lab was ordered by [facility] and reported by [employer] ID Date Data Source [id number] 11/15/2020 12:00:00 AM EDT [facility] Name Value Range Interpretation Code Description Data Patricia rce(s) Supporting Document(s) SARS coronavirus 2 Ag Negative [facility] This lab was ordered by Yumiko thomas reported by Yumiko Miles. ID Date Data Source [id number] 11/02/2020 12:00:00 AM EST [facility] Name Value [...] by Yumiko Miles. ID Date Data Source [id number] 10/12/2020 12:00:00 AM EST [facility] Name Value Range Interpretation Code Description Data Patricia rce(s) Supporting Document(s) SARS-CoV-2 (COVID-19) RNA [Presence] in Respiratory specimen by HANH with probe detection Not Detected [facility] This lab was ordered by [facility] and reported by [employer] ID Date Data Source [id number] 10/05/2020 12:00:00 AM EST [facility] Name Value Range Interpretation Code Description Data Patricia rce(s) Supporting Document(s) SARS coronavirus 2 Ag Negative [facility] This lab was ordered by [facility] an d reported by [facility]. ID Date Data Source [id number] 08/23/2020 12:00:00 AM EST [facility] Name Value Range Interpretation Code Description Data Patricia rce(s) Supporting Document(s) SARS-CoV-2 (COVID-19) RNA [Presence] in Respiratory specimen by HANH with probe detection [facility] This lab was ordered by [facility] and reported by [employer] ID Date Data Source [id number] 08/15/2020 07:23:00 AM EST [facility] Name Value Range Interpretation Code Description Data Patricia rce(s) Supporting Document(s) SARS coronavirus 2 RNA [Presence] in Res piratory specimen by HANH with probe detection [facility] This lab was ordered by [facility] a nd reported by [facility]. ID Date Data Source [id number] 08/12/2020 01:30:00 PM EST [facility] Name Value Range Interpretation Code Description Data Patricia rce(s) Supporting Document(s) SARS coronavirus 2 RNA [Presence] in Res piratory specimen by HANH with probe detection [facility] This lab was ordered by [facility] a nd reported by [facility]. ID Date Data Source [id number] 08/05/2020 09:25:00 PM EST [facility] Name Value Range Interpretation Code Description Data Patricia rce(s) Supporting Document(s) SARS coronavirus 2 RNA [Presence] in Res piratory specimen by HANH with probe detection [facility] This lab was ordered by [facility] a nd reported by [facility]. ID Date Data Source [id number] 08/03/2020 07:04:00 PM EST [facility] Patient: MIGUEL CLARKo n Report - Physicians/Mid Levels [facility].VisitID: [id number] [place] [address] [phone], [facility] Date/Time: 08/03/2020 15:08 Weight:60.3 kg (S). Height/Length:69 [...] rce(s) Supporting Document(s) ID Date Data Source [id number] 08/03/2020 06:12:00 PM EST [facility] [...] smoked tobacco (finding) [facility] (Donte Goss MD [facility]) Smoking 05/31/2020 12:00:00 AM EDT Patient has never smoked co mpleted Patient has never smoked [facility] ([facility]) Vital Signs ID Date Data Source UNK Name Value Range Interpretation Code Description Data Source(s) Body weight 134.00 [lb_av] 134.00 [lb_av] MEDEN T ([facility]) Body height 70 [in_i] 70 [in_i] [facility] 5'10" Body mass index (BMI) [Ratio] 19.2 kg/m2 19.2 k g/m2 [facility] ([facility]) Heart rate 72 /min 72 /min [facility] ([facility]) Systolic blood pressure--sitting 139 mm[Hg] 139 mm[Hg] [facility] ([facility]) CBP, adult cuff/Ra Diastolic blood pressure--sitting 94 mm[Hg] 94 mm[Hg] [facility] ([facility]) CBP, adult cuff/Ra Patient Treatment Plan of Care Planned Activity Planned Date Details Description Data Source (s) Erythromycin 0.005 MG/MG Ophthalmic Ointment 03/30/2021 12:00:00 AM EDT [facility] (Donte Goss MD [facility]) Dexamethasone 0.001 MG/MG / Tobramycin 0 .003 MG/MG Ophthalmic Ointment [Tobradex] 03/30/2021 12:00:00 AM EDT KERI MULLEN (Donte Goss MD [facility]) latanoprost 0.05 MG/ML Ophthalmic Solution 03/30/2021 12:00:00 AM E DT [facility] ([facility] Polyethylene Glycol 400 4 MG/ML / Propyl jt glycol 3 MG/ML Ophthalmic Solution [Systane] 03/30/2021 12:00:[address] ([facility]) latanoprost 0.05 MG/ML Ophthalmic Solution 08/01/2020 12:00:[address] [facility] ([facility]) latanoprost 0.05 MG/ML Ophthalmic Solution 03/21/2020 12:00:00 AM E DT [facility] ([facility]) Erythromycin 0.005 MG/MG Ophthalmic Ointment 11/14/2018 12:00:00 AM EDT [facility] ([facility])
[2021-07-10] MEDS ORDERED: ENSU1LIQ36 PO (13:56)
[2021-07-10] MEDS ORDERED: QUET1TAB17 PO (13:56)
[2021-07-10] MEDS ORDERED: DONE10TA90 PO (13:56)
[2021-07-10] MEDS ORDERED: MYLA1SUS PO (13:59)
[2021-07-10] MEDS ORDERED: HOME MED LIST COMPLETE! XX SCH (14:05)
--- NOTE | 2021-07-10 14:20 | REP ---
INDICATION: trauma;fall. COMPARISON: None. TECHNIQUE: AP and lateral views FINDINGS: No acute fracture or destructive osseous lesion. IMPRESSION: No acute osseous abnormality. <Electronically signed by Clint Oconnell > 07/10/21 0401
--- NOTE | 2021-07-10 14:22 | REP ---
INDICATION: trauma;fall. COMPARISON: 05/01/2021 TECHNIQUE: AP pelvis FINDINGS: Since the last examination a left femoral neck fracture has developed. There are no other significant changes from the prior exam. IMPRESSION: Acute left femoral neck fracture. The patient is tilted rotated to the left. <Electronically signed by Clint Oconnell > 07/10/21 [id number]
--- NOTE | 2021-07-10 14:28 | REP ---
INDICATION: trauma;fall. COMPARISON: None. TECHNIQUE: Four views, optimal positioning could not be obtained. FINDINGS: Distal humeral shaft intact the medial and lateral epicondyles grossly intact. Overlap of the radial head and lateral humeral epicondyle on some images and cannot exclude subluxation a could not exclude a radial head injury. There is some soft tissue swelling and edema. Because of the positioning, I cannot exclude a joint effusion. IMPRESSION: 1. Exam not entirely diagnostic quality due to difficulties in positioning. Possible radial head injury subluxation dislocation cannot be excluded. Joint effusion cannot be excluded. Recommend CT elbow with reconstructions. <Electronically signed by Bossman Allen > 07/10/21 [id number]
[2021-07-10] MEDS ORDERED: MORPHINE 2 MG/ML 1ML VIAL (J2270) IV ONE ×2 (14:45→18:00)
--- NOTE | 2021-07-10 15:17 | REP ---
INDICATION: further evaluate left elbow swelling/injury. COMPARISON: None. TECHNIQUE: 2 x 2 mm increments using helical technique and reconstructed in both sagittal and coronal planes. FINDINGS: The joint space is symmetric and well maintained. There is no evidence of an acute fracture, dislocation, or subluxation. There is no destructive osseous lesion. There is no evidence of a gross joint effusion. IMPRESSION: No acute osseous abnormality. <Electronically signed by Clint Oconnell > 07/10/21 [id number]
--- NOTE | 2021-07-10 15:22 | REP ---
INDICATION: further evaluate femur fracture; fall. COMPARISON: None. TECHNIQUE: AP and frog-lateral views FINDINGS: There is a femoral neck fracture. No additional fractures are identified. IMPRESSION: Femoral neck fracture <Electronically signed by Clint Oconnell > 07/10/21 [id number]
--- NOTE | 2021-07-10 15:23 | REP ---
INDICATION: femur fracture; admit. COMPARISON: 08/05/2020 the latest prior TECHNIQUE: AP view FINDINGS: The technique utilized in obtaining the radiograph has magnified the cardiac silhouette and accentuated the interstitial markings. The cardiomediastinal silhouette is unchanged. Lung lei are unchanged. Once again, there is lung field hyperexpansion. No acute patchy parenchymal opacities or pleural effusions have developed. There is no significant change in appearance of the osseous structures. IMPRESSION: No evidence of acute cardiopulmonary disease <Electronically signed by Clint Oconnell > 07/10/21 [id number]
[2021-07-10 16:39] LABS: BASO # 0.1 10^3/uL (0.0-0.2); BASO % 0.4 % (0.0-1.0); HEMATOCRIT 41.3 % (42.0-52.0); HEMOGLOBIN 13.6 g/dl (13.5-17.5); LYMPH # 0.5 10^3/uL (1.5-5.0); LYMPH % 3.1 % (24.0-44.0); MEAN CORPUSCULAR HEMOGLOBIN 30.9 pg (27.0-33.0); MEAN CORPUSCULAR HGB CONC 32.9 g/dl (32.0-36.5); MEAN CORPUSCULAR VOLUME 93.9 fl (80.0-96.0); MONO % 11.8 % (2.0-8.0); NEUTROPHILS # 14.3 10^3/uL (1.5-8.5); NEUTROPHILS % 84.1 % (36.0-66.0); PLATELET COUNT, AUTOMATED 295 10^3/uL (150-450); WHITE BLOOD COUNT 17.1 10^3/uL (4.0-10.0)
[2021-07-10 17:04] LABS: BLOOD UREA NITROGEN 17 MG/DL (7-18); CALCIUM LEVEL 8.8 MG/DL (8.8-10.2); CARBON DIOXIDE LEVEL 30 MEQ/L (21-32); CHLORIDE LEVEL 103 MEQ/L (98-107); CK-MB VALUE MASS 2.3 NG/ML (<3.6); CPK CREATINE PHOSPHOKINASE 103 U/L (39-308); CREATININE FOR GFR 0.73 MG/DL (0.70-1.30); GLOMERULAR FILTRATION RATE > 60.0 (>42); GLUCOSE, FASTING 97 MG/DL (70-100); MB/CK RELATIVE INDEX 2.23 (< OR =4); POTASSIUM SERUM 4.5 MEQ/L (3.5-5.1); SODIUM LEVEL 141 MEQ/L (136-145); TROPONIN I 0.04 NG/ML (< 0.10)
[2021-07-10 17:06] LABS: INR 1.02; PARTIAL THROMBOPLASTIN TIME 29.2 SECONDS (25.9-37.0); PROTHROMBIN TIME 13.8 SECONDS (12.7-14.5)
[2021-07-10 17:45] LABS: RSV AMPLIFICATION NEGATIVE (NEGATIVE)
[2021-07-10] MEDS ORDERED: SENOKOT S TAB PO PRN (18:20)
--- OUTSIDE RECORDS SUMMARY | 2021-07-10 18:32 | CCD ---
Author Author [facility] Organization [facility] Address Unknown Phone Unavailable Care Team Providers Care Him Clerk Name Role Phone Papi Noriega MD Unavailable [...] Gonzales KENT MD Unavailable Unavailable ANTECOL, Gonzales KNET MD Unavailable Unavailable ANTECOL, Gonzales KENT MD [...] is protected by Article 27-F of the [facility] Public Health law. If you continue you may have access to information: Regarding HIV / AIDS; Provided by facilities licensed or operated by the [facility] Office of Mental Health; or Provided by the [facility] Office for People With Developmental Disabilities. If such information is present, then the following [facility] mandated warning applies: This information has [...] law may result in a fine or fdc sentence or both. A general authorization for the release of medical or other information is NOT sufficient authorization for further disc losure. Allergies and Adverse Reactions Type Description Substance Reaction Status Data Source(s ) Allergy to substance No Known Allergies No known allergies (situation ) [facility] (Donte Goss MD [facility]) Propensity to adverse reactions NO ALLERGIES ON FILE NO ALLERGIES ON FILE [facility] Family History Family Member Name Family Member Gender Family Member Status Date o f Status Description Data Source(s) Unknown Unknown Problem [facility] ([facility]) Unknown Male Problem [facility] ([facility] () Unknown Female Problem [facility] ([facility]) Unknown Female Problem [facility]ENT ([facility]) Encounters Encounter Providers Location Date Indications Data Source(s ) Office Visit Attender: DONTE CALVO MD Main Office 05/10/2021 02: 02:00 PM EDT [facility] ([facility]) Office Visit Attender: DONTE CALVO MD Main Office 04/25/2021 09: 09:00 AM EDT [facility] ([facility]) Outpatient Attender: Papi Noriega MD Main office - [place] 04/04/2021 11:00:00 AM EDT [facility] ([facility], ) Outpatient<td ID="encounterTypeDescripti onID0">11 Month Follow-Up</td><td>Donte Jensen MD, FACS</td><td>Donte Jensen MD [facility]</td><td>03/30/2021</td><td>11:52AM</td><td>1:29PM</td><td><content ID="encounterDiagnosisID0-0">Glaucoma Open-angle Primary</content>, <content ID="encounterDiagnosisID0-1">Essential Hypertension</content>, <content ID="encounterDiagnosisID0-2">Dry Eye Syndrome</content>, <content ID="encounterDiagnosisID0-3">Posterior Capsule Opacification Eccentric Capsule Both Eyes</content>, <content ID="encounterDiagnosisID0-4">Macular Degeneration Nonexudative Bilateral Early Dry Stage</content></td> Attender: Donte Goss MD, FACS Donte Jensen MD [facility] 03/30/2021 11:52:00 AM EDT - 03/30/2021 01:29:00 PM EDT Posterior Capsule Opacification Eccentri c Capsule Both EyesDry Eye SyndromeGlaucoma Open-angle PrimaryMacular Degeneration Nonexudative Bilateral Early Dry StageEssential Hypertension [facility] (Donte Goss MD [facility]) Posterior Capsule Opacification Eccentri c Capsule Both Eyes Dry Eye Syndrome Glaucoma Open-angle Primary Macular Degeneration Nonexudative Bilate ral Early Dry Stage Essential Hypertension Outpatient Attender: LATONYA Amezcua: DO Latonya Cotter DO - 01/16/2021 01:00:00 AM EDT - 01/16/2021 11:59:00 PM EDT [facility] Patient discharged. Outpatient Referrer: DO Latonya PAINTER- 01:00:00 AM EDT - 01/13/2021 11:59:00 PM EDT [facility] Patient discharged. Emergency Attender: LINDEN LOMBARDI 10/2019 03:37:00 PM EST - 08/03/2020 06:30:00 PM [facility] Patient discharged. Office Visit Attender: DONTE CALVO MD Main Office 07/22/2020 03: 16:00 PM EST [facility] ([facility]) Outpatient Attender: DONTE CALVO MD Main Office 05/31/2020 08:15:00 AM EDT [facility] ([facility]) Office Visit Attender: DONTE CALVO MD Main Office 05/23/2020 11: 35:00 AM EDT [facility] ([facility]) Inpatient Attender: LINDEN TAYLOR dmitter: HECTOR DAVIDSON MDReferrer: DONTE HAMMOND EMERGENCY ROOM-2N 12/11/2016 03:25:00 PM EDT - 12/12/2016 10:10:00 AM [facility] Immunizations Vaccine Date Status Description Data Source(s) COVID-19 VACCINE Pfizer 09/19/2020 12:00:00 AM EST completed [facility] Vaccine Series Complete: YESThis Data wa s Submitted to [facility] Via [employer]. COVID-19 VACCINE Pfizer 08/29/2020 12:00:00 AM EST completed [facility] Vaccine Series Complete: NOThis Data was Submitted to [facility] [employer]. Medications Medication Brand Name Start Date Product Form Dose Route Admi nistrative Instructions Pharmacy Instructions Status Indications Reaction Description Data Source(s) Erythromycin 0.005 MG/MG Ophthalmic Oint ment Erythromycin 5 MG/GM Ophthalmic Ointment Erythromycin 5 MG/GM Ophthalmic Ointment 03/30/2021 12:00:00 AM EDT active erythromycin 0.005 MG/MG Ophthalmic Ointment XAVIER (Donte Goss MD [facility]) Dexamethasone 0.001 MG/MG / Tobramycin 0 .003 MG/MG Ophthalmic Ointment [Tobradex] TobraDex 0.3-0.1% Ophthalmic Ointment TobraDex 0.3-0.1% Ophthalmic Ointment 03/30/2021 12:00:00 AM EDT active dexamethasone 0.001 MG/MG / tobramycin 0.003 MG/MG Ophthalmic Ointment [Tobradex] XAVIER (Donte Goss MD [facility]) Polyethylene Glycol 400 4 MG/ML / Propyl jt glycol 3 MG/ML Ophthalmic Solution [Systane] Systane Ultra 0.4-0.3% Ophthalmic Solution Systane Ultra 0.4-0.3% Ophthalmic Solution 03/30/2021 12:00:00 AM EDT active polyethylene glycol 400 4 MG/ML / propylene glycol 3 MG/ML Ophthalmic Solution [Systane] XAVIER (Donte Goss MD [facility]) latanoprost 0.05 MG/ML Ophthalmic Soluti on Latanoprost 0.005% Ophthalmic Solution Latanoprost 0.005% Ophthalmic Solution 03/30/2021 12:00:00 AM EDT 1 active latanoprost 0.05 MG/ ML Ophthalmic Solution XAVIER (Donte Goss MD [facility]) latanoprost 0.05 MG/ML Ophthalmic Soluti on Latanoprost 0.005% Ophthalmic Solution Latanoprost 0.005% Ophthalmic Solution 08/01/2020 12:00:00 AM EST 1 active latanoprost 0.05 MG/ ML Ophthalmic Solution XAVIER (Donte Goss MD [facility]) Amlodipine 2.5 MG Oral Tablet Amlodipine Besylate 05/31/2020 12:00: 00 AM EDT ORAL active [facility] ([facility]) Paroxetine HCL Paroxetine HCL 05/30/2020 12:00:00 AM EDT active [facility] ([facility]) Potassium Chloride 10 MEQ Extended Release Oral Tablet [Klor -Con] Klor-Con 10 05/30/2020 12:00:00 AM EDT ORAL active MED[facility] ([facility]) latanoprost 0.05 MG/ML Ophthalmic Soluti on Latanoprost 0.005% Ophthalmic Solution Latanoprost 0.005% Ophthalmic Solution 03/21/2020 12:00:00 AM EDT 1 aborted latanoprost 0.05 MG/ ML Ophthalmic Solution XAVIER (Donte Goss MD [facility]) Erythromycin 0.005 MG/MG Ophthalmic Oint ment Erythromycin 5MG/GM Ophthalmic Ointment Erythromycin 5MG/GM Ophthalmic Ointment 11/14/2018 12:00:00 AM EDT aborted erythromycin 0.005 M G/MG Ophthalmic Ointment XAVIER (Donte Goss MD [facility]) Insurance Providers Payer name Policy type / Coverage type Policy ID Covered green party ID Covered green party's relationship to [place] Policy [place] Plan Information [id number] GHI [facility] [id number] Ghi/Emblem HLTH (pr) Medigap Part B [id number] Self Ghi Medigap Part B [id number] Self Ghi Medigap Part B [id number] Self [id number] Medicare - NGS Medicare Primary [id number] Self [id number] Medicare (Part B) Medicare Primary [id number] Self [id number] Medicare (Part B) Medicare Primary [id number] Self [id number] Medicare (Part B) Medicare Primary [id number] Self Medicare (Part B) Medicare Primary [id number] Self [id number] [place] [id number] Self Medicare (Part B) Medicare Primary [id number] Self [id number] MEDICARE Med [id number] Self [id number] Medicare (Part B) Medicare Primary [id number] Self [id number] Medicare (Part B) Medicare Primary [id number] Self 10 [id number] [place] Medicare Primary [id number] Self [id number] MEDICARE [id number] Makenna [id number] A Medicare Medicare Primary [id number] Self Medicare [facility] Medicare Primary [id number] Self [id number] [facility] [place] Ppo Medigap Part B [id number] Self [facility] - [place]hi Ppo Medigap Part B [id number] Self [id number] [facility]/[place] Medigap Part B [id number] Self ANSI-Commercial [id number] MEDICARE [id number] SP [id number] A MEDICARE [id number] SP [id number] i Emble Medigap Part B [id number] Self [id number] Ghi Medigap Part B [id number] Self [facility] [id number] SP [id number] [facility]/GHI [facility] [id number] S [id number] MEDICARE C [id number] S [id number] A [employer]URANCE S [id number] S [id number] [facility] [id number] SP [id number] [facility] [id number] SP [id number] [employer] [facility] [id number] SP [id number] Medicare Part B [facility] Other 0 [id number] Self 0 MEDICARE C [id number] S [id number] [facility] MEDICARE DIVISION [id number] S [id number] MEDICARE - [place] [id number] S [id number] [facility] [id number] S [id number] [facility] [id number] S [id number] [facility] [id number] S [id number] MEDICARE - [place] [id number] S [id number] [place] MED[facility] DIVISION [id number] S [id number] [place]ICARE [place] [id number] S [id number] Medicare Part B [facility] Other 0 [id number] Self 0 [facility] [id number] Makenna [id number] Medicare Part B [facility] Other 0 [id number] Self 0 [facility]-Medicare Part B [id number] ANSI-Commercial [id number] [facility] Part B [id number] Self [id number] [facility] Part B [id number] Self [id number] [id number] Problems, Conditions, and Diagnoses Code Display Name Description Problem Type Effective Dates Data Source(s) Y93.01 Activity, walking, marching and hiking A CTIVITY, WALKING, MARCHING AND HIKING Diagnosis 08/03/2020 03:37:00 PM [facility] l Y92.[address] and highw ay as the place of occurrence of the external cause [address] Diagnosis 020 03:37:00 PM [facility] W01.198A Fall on same level from slip ping, tripping and stumbling with subsequent striking against other object, initial encounter FALL SAME LEV FROM SLIP/TRIP W STRIKE AGNST OTH OB Diagnosis 08/03/2020 03:37:00 PM [facility] Z79.899 Other halfway (current) drug therapy O THER [facility] HOME (CURRENT) DRUG THERAPY Diagnosis 08/03/2020 03:37:00 PM [facility] 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 HOME (CURRENT) USE OF INHALED STEROIDS Diagnosis 08/03/2020 03:37:00 PM [facility] Z95.5 Presence of coronary angioplasty implant and graft PRESENCE OF CORONARY ANGIOPLASTY IMPLANT AND GRAFT Diagnosis 08/03/2020 03:37:00 PM [facility] G20 Parkinson's disease PARKINSON'S DISEASE Diagnosis 1 10/04/2019 03:37:00 PM [facility] J45.909 Unspecified asthma, uncomplicated UNSPECIFIED THMA, UNCOMPLICATED Diagnosis 08/03/2020 03:37:00 PM [facility] I25.10 Atherosclerotic heart diseas e of [place] coronary artery without angina pectoris ATHSCL HEART DISEASE OF [place] CORONARY ARTERY W/O Diagnosis 08/03/2020 03:37:00 PM [facility] E78.00 PURE HYPERCHOLESTEROLEMIA, UNSPECIFIED P URE HYPERCHOLESTEROLEMIA, UNSPECIFIED Diagnosis 08/03/2020 03:37:00 PM [facility] H11.32 Conjunctival hemorrhage, left eye CONJUNCTIVAL H EMORRHAGE, LEFT EYE Diagnosis 08/03/2020 03:37:00 PM [facility] S80.211A Abrasion, right knee, initial encounter ABRASION, RIGHT KNEE, INITIAL ENCOUNTER Diagnosis 08/03/2020 03:37:00 PM [facility] l S01.112A Laceration without foreign b gil of left eyelid and periocular area, initial encounter LACERATION W/O FB OF LEFT EYELID AND PERIOCULAR AR Diagnosis 08/03/2020 03:37:00 PM [facility] S09.93XA Unspecified injury of face, initial enco unter UNSPECIFIED INJURY OF FACE, INITIAL ENCOUNTER Diagnosis 08/03/2020 03:37:00 PM [facility] G31.83 Diffuse Lewy body disease Diffuse Lewy body disease Pr oblem 04/04/2021 12:00:00 AM EDT [facility] ([facility], ) Surgeries/Procedures Procedure Description Date Indications Data Source(s) Chronic Care Management Services Ea Addl 20 Min 2020 12:00:00 AM EDT [facility] ([facility]) Chronic Care MGMT 20 Mins Clinical Staff [facility] 06/14/2021 12:00:00 AM EDT [facility] ([employer] [facility]) Chronic Care MGMT 20 Mins Clinical Staff Time [facility] Calendar [facility] 05/10/2021 12:00:00 AM EDT [facility] ([facility] [facility]) Chronic Care MGMT 20 Mins Clinical Staff Time Per Calendar [facility] 04/25/2021 12:00:00 AM EDT [facility] ([facility] [facility]) MRI BRAIN BRAIN STEM W/O CONTRAST MATERIAL 04/14/2021 12:00:00 AM EDT [facility] ([facility], ) MRI BRAIN BRAIN STEM W/O CONTRAST MATERIAL 04/14/2021 12:00:00 AM EDT [facility] ([facility], ) OFFICE OUTPATIENT VISIT 40 MINUTES 04/04/2021 12:00:00 AM EDT [facility] ([facility], ) ECG ROUTINE ECG W/LEAST 12 LDS W/I&R 05/31/2020 12:00: 00 AM EDT [facility] ([facility]) Arterial Pressure Waveform Analysis For Assessment Of Centra l Art 05/31/2020 12:00:00 AM EDT [facility] ([employer] [facility]) Results ID Date Data Source [id number] 06/27/2021 10:49:00 AM EDT [facility] Name Value Range Interpretation Code Description Data Patricia rce(s) Supporting Document(s) SARS coronavirus 2 RNA [Presence] in Res piratory specimen by HANH with probe detection NEGATIVE [facility] This lab was ordered by [facility] a nd reported by [facility]. ID Date Data Source [id number] 06/26/2021 08:25:00 AM EDT [facility] Name Value Range Interpretation Code Description Data Patricia rce(s) Supporting Document(s) SARS coronavirus 2 RNA [Presence] in Res piratory specimen by HANH with probe detection NEGATIVE [facility] This lab was ordered by [facility] a nd reported by [facility]. ID Date Data Source [id number] 01/16/2021 01:15:00 PM EDT [facility] Name Value Range Interpretation Code Description Data Patricia rce(s) Supporting Document(s) AST 12 IU/L 15-37 Below low normal [facility] Sulfasalazine and sulfapyridine have the potential to falsely depressAspartate Aminotransferase results. Baseline values before medication administration are recommended. ALT <6 IU/L 16-61 Below low normal [facility] Sulfasalazine and sulfapyridine have the potential to falsely depressAlanine Aminotransferase results. Baseline values before medication administration are recommended. Alkaline Phosphatase 64 mIU/ml 50-136 Normal (applies to non-num ana results) [facility] Total Bilirubin 0.60 mg/dl 0.20-1.00 Normal (applies to non-numeric results) [facility] Blood Urea Nitrogen 18 mg/dl 7-18 Normal (applies to non-nume tati results) [facility] Creatinine 0.69 mg/dl 0.67-1.17 Normal (applies to non-numeric resul ts) [facility] N-Acetylcysteine (NAC) and Metamizole yip ve the potential to falselydepress Creatinine results. Baseline values before medication adminstration are recommended. Patients undergoing treatment with phenindione will have falselydepressed results. Patients on phenindione therapy should be tested with an alternativeCREA method.Toxic levels of acetaminophen may lead to falsely depressed results forpatient samples. Glomerular Filtration Rate >90.00 mL/min/1.73m2 [facility] GFR Reference Ranges:Normal Function or Mild Renal [...] of Health and the National KidneyFoundation. The [place] method used in calculating this result is traceable to IDMO standards. Glucose 72 mg/dl 70-110 Normal (applies to non-numeric resul ts) [facility] Sulfasalazine has the potential to false ly depress Glucose results. Sulfapyridine has the potential to falsely elevate Glucose results. Baseline values before medication administration are recommended. Calcium 8.7 mg/dl 8.5-10.1 Normal (applies to non-numeric resul ts) [facility] Total Protein 6.1 g/dl 6.4-8.2 Below low normal [facility] Albumin 3.6 g/dl 3.4-5.0 Normal (applies to non-numeric resul ts) [facility] Sodium 139 mEq/L 136-145 Normal (applies to non-numeric resul ts) [facility] Potassium 4.0 mEq/L 3.5-5.1 Normal (applies to non-numeric resul ts) [facility] Chloride 104.0 mEq/L 98.0-107.0 Normal (applies to non-numeric resu lts) [facility] Carbon Dioxide 28.9 mMol/L 21.0-32.0 Normal (applies to non-numeric results) [facility] Anion Gap 10.1 7.0-15.0 Normal (applies to non-numeric resul ts) [facility] The above 16 analytes were performed by [facility] [id number] [address] ID Date Data Source [id number] 01/16/2021 01:15:00 PM EDT [facility] Name Value Range Interpretation Code Description Data Patricia rce(s) Supporting Document(s) TSH 0.62 uIU/ml 0.36-3.74 Normal (applies to non-numeric resu lts) [facility] Concentrations of Biotin above 100 ng/mL can potentially result ininterference.The above 1 analytes were performed by [facility] [id number] [place] [address], ,[place] [address] ID Date Data Source [id number] 01/16/2021 12:44:00 PM EDT [facility] Name Value Range Interpretation Code Description Data Patricia rce(s) Supporting Document(s) WBC 6.09 x1000/ul 4.80-10.00 Normal (applies to non-numeric re sults) [facility] RBC 4.37 x1Mil/ul 4.70-6.10 Below low normal [facility] Hemoglobin 13.5 g/dl 14.0-18.0 Below low normal [facility] Hematocrit 42.0 % 42.0-52.0 Normal (applies to non-numeric resul ts) [facility] MCV 96.1 fL 80.0-94.0 Above high normal [facility] MCH 30.9 pg 27.0-31.0 Normal (applies to non-numeric resul ts) [facility] MCHC 32.1 g/dl 32.2-37.0 Below low normal [facility] RDW 12.1 % 11.5-14.5 Normal (applies to non-numeric resul ts) [facility] Platelet Count 227 x1000/ul 130-400 Normal (applies to non-numeric results) [facility] MPV 10.5 fL 9.4-12.4 Normal (applies to non-numeric resul ts) [facility] Neutrophils 70.1 % 40.0-74.0 Normal (applies to non-numeric resu lts) [facility] Lymphocytes 15.1 % 19.0-48.0 Below low normal [facility] Monocytes 12.6 % 3.4-9.0 Above high normal [facility] Eosinophils 1.0 % 0.0-7.0 Normal (applies to non-numeric resu lts) [facility] Basophils 1.0 % 0.0-2.0 Normal (applies to non-numeric resul ts) [facility] Immature Granulocytes 0.2 % 0.0-0.5 Normal (applies to non-nu meric results) [facility] Nucleated RBCs 0.00 % 0.00-0.20 Normal (applies to non-numeric r esults) [facility] Abs. Neutrophils 4.27 x1000/ul 1.92-8.31 Normal (applies to non-numeric results) [facility] Abs. Lymphocyte 0.92 x1000/ul 1.20-3.70 Below low normal [facility] Abs. Monocytes 0.77 x1000/ul 0.14-0.97 Normal (applies to non-nu meric results) [facility] Abs. Eosinophils 0.06 x1000/ul 0.00-0.76 Normal (applie s to non-numeric results) [facility] Abs. Basophils 0.06 x1000/ul 0.00-0.22 Normal (applies to non-n umeric results) [facility] Abs. Immature Gran. 0.01 x1000/ul 0.00-0.02 Normal (appl ies to non-numeric results) [facility] Abs. Nucleated RBCs 0.00 x1000/ul 0.00-0.02 Normal (appl ies to non-numeric results) [facility] The above 24 analytes were performed by [facility] [id number] [place] [address],[facility] [id number],[place] [address] ID Date Data Source [id number] 01/13/2021 12:00:00 AM EDT [facility] Name Value Range Interpretation Code Description Data Patricia rce(s) Supporting Document(s) SARS coronavirus 2 Ag Negative [facility] This lab was ordered by [facility] an d reported by [facility]. ID Date Data Source [id number] 01/06/2021 12:00:00 AM EDT [facility] Name Value Range Interpretation Code Description Data Patricia rce(s) Supporting Document(s) SARS-CoV-2 (COVID-19) RNA [Presence] in Respiratory specimen by HANH with probe detection Not Detected [facility] This lab was ordered by [facility] and reported by [employer] ID Date Data Source [id number] 12/21/2020 02:11:00 PM EDT [facility] Name Value Range Interpretation Code Description Data Patricia rce(s) Supporting Document(s) SARS-CoV-2 (COVID-19) RNA [Presence] in Respiratory specimen by HANH with probe detection Not Detected [facility] This lab was ordered by [facility] and reported by [employer] ID Date Data Source [id number] 11/28/2020 12:00:00 AM EDT [facility] Name Value Range Interpretation Code Description Data Patricia rce(s) Supporting Document(s) SARS-CoV-2 (COVID-19) RNA [Presence] in Respiratory specimen by HANH with probe detection Not Detected [facility] This lab was ordered by [facility] and reported by [employer] ID Date Data Source [id number] 11/22/2020 12:00:00 AM EDT [facility] Name Value Range Interpretation Code Description Data Patricia rce(s) Supporting Document(s) SARS-CoV-2 (COVID-19) RNA [Presence] in Respiratory specimen by HANH with probe detection Not Detected [facility] This lab was ordered by [facility] and reported by [employer] ID Date Data Source [id number] 11/15/2020 12:00:00 AM EDT [facility] Name Value Range Interpretation Code Description Data Patricia rce(s) Supporting Document(s) SARS coronavirus 2 Ag Negative [facility] This lab was ordered by Yumiko thomas reported by Yumiko Miles. ID Date Data Source [id number] 11/02/2020 12:00:00 AM EST [facility] Name Value [...] by Yumiko Miles. ID Date Data Source [id number] 10/12/2020 12:00:00 AM EST [facility] Name Value Range Interpretation Code Description Data Patricia rce(s) Supporting Document(s) SARS-CoV-2 (COVID-19) RNA [Presence] in Respiratory specimen by HANH with probe detection Not Detected [facility] This lab was ordered by [facility] and reported by [employer] ID Date Data Source [id number] 10/05/2020 12:00:00 AM EST [facility] Name Value Range Interpretation Code Description Data Patricia rce(s) Supporting Document(s) SARS coronavirus 2 Ag Negative [facility] This lab was ordered by [facility] an d reported by [employer]. ID Date Data Source [id number] 08/23/2020 12:00:00 AM EST [facility] Name Value Range Interpretation Code Description Data Patricia rce(s) Supporting Document(s) SARS-CoV-2 (COVID-19) RNA [Presence] in Respiratory specimen by HANH with probe detection [facility] This lab was ordered by [facility] and reported by [employer] ID Date Data Source [id number] 08/15/2020 07:23:00 AM EST [facility] Name Value Range Interpretation Code Description Data Patricia rce(s) Supporting Document(s) SARS coronavirus 2 RNA [Presence] in Res piratory specimen by HANH with probe detection [facility] This lab was ordered by [facility] a nd reported by [facility]. ID Date Data Source [id number] 08/12/2020 01:30:00 PM EST [facility] Name Value Range Interpretation Code Description Data Patricia rce(s) Supporting Document(s) SARS coronavirus 2 RNA [Presence] in Res piratory specimen by HANH with probe detection [facility] This lab was ordered by [facility] a nd reported by [facility]. ID Date Data Source [id number] 08/05/2020 09:25:00 PM EST [facility] Name Value Range Interpretation Code Description Data Patricia rce(s) Supporting Document(s) SARS coronavirus 2 RNA [Presence] in Res piratory specimen by HANH with probe detection [facility] This lab was ordered by [facility] a nd reported by [facility]. ID Date Data Source [id number] 08/03/2020 07:04:00 PM EST [facility] Patient: MIGUEL CLARKo n Report - Physicians/Mid Levels [facility].VisitID: [id number] [place] [address] [phone], [facility] Date[facility]Time: 08/03/2020 15:08 Weight:60.3 kg (S). Height/Length:69 [...] Value Range Interpretation Code Description Data Patricia e(s) Supporting Document(s) ID Date Data Source [id number] 08/03/2020 06:12:00 PM EST [facility] [...] smoked tobacco (finding) XAVIER (Donte Goss MD [facility]) Smoking 05/31/2020 12:00:00 AM EDT Patient has never smoked co mpleted Patient has never smoked [facility] ([facility]) Vital Signs ID Date Data Source UNK Name Value Range Interpretation Code Description Data Source(s) Body weight 134.00 [lb_av] 134.00 [lb_av] MEDEN T ([facility]) Body height 70 [in_i] 70 [in_i] [facility] ([facility]) 5'10" Body mass index (BMI) [Ratio] 19.2 kg/m2 19.2 k g/m2 [facility] ([facility]) Heart rate 72 /min 72 /min [facility] ([facility]) Systolic blood pressure--sitting 139 mm[Hg] 139 mm[Hg] [facility] ([facility]) CBP, adult cuff/Ra Diastolic blood pressure--sitting 94 mm[Hg] 94 mm[Hg] [facility] ([facility]) CBP, adult cuff/Ra Patient Treatment Plan of Care Planned Activity Planned Date Details Description Data Source (s) Erythromycin 0.005 MG/MG Ophthalmic Ointment 03/30/2021 12:00:00 AM EDT X[facility]IER (Donte Goss MD [facility]) Dexamethasone 0.001 MG/MG / Tobramycin 0 .003 MG/MG Ophthalmic Ointment [Tobradex] 03/30/2021 12:00:00 AM EDT KERI MULLEN (Donte Goss MD [facility]) latanoprost 0.05 MG/ML Ophthalmic Solution 03/30/2021 12:00:00 AM E DT [facility] (Donte Goss MD [facility]) Polyethylene Glycol 400 4 MG/ML / Propyl jt glycol 3 MG/ML Ophthalmic Solution [Systane] 03/30/2021 12:00:[address] (Donte Goss MD [facility]) latanoprost 0.05 MG/ML Ophthalmic Solution 08/01/2020 12:00:[address] [facility] (Donte Goss MD [facility]) latanoprost 0.05 MG/ML Ophthalmic Solution 03/21/2020 12:00:00 AM E DT [facility]AVIER (Donte Goss MD [facility]) Erythromycin 0.005 MG/MG Ophthalmic Ointment 11/14/2018 12:00:00 AM EDT [facility]IER (Donte Goss MD [facility])
--- NOTE | 2021-07-10 18:34 | HPEPDOC ---
General Date of Admission 07/10/21 Date of Service: Jul 10, 2021 Chief Complaint The patient is a 75-year-old male admitted with a reason for visit of Fall/Leg Pain. Source: Family, group home records Exam Limitations: Dementia History of Present Illness Patient 75 years old male with past medical history of Parkinson dementia, asthma, hypertension, history of WI status post cardiac stent placement presented to hospital with left hip pain. Patient lives in [facility] and according to the records he developed left hip pain for past few days. They did not know if he developed mechanical fall before. In ER patient was found to have leukocytosis of 17.1, x-ray showed left hip fracture. Dr. Yoder was contacted by ER physician and he will see him later today. EKG negative for acute ischemic changes, shows sinus rhythm Home Medications Scheduled Aspirin (Aspirin EC) 81 Mg Tablet.dr, 81 MG PO DAILY, (Reported) Candesartan Cilexetil (Candesartan Cilexetil) 8 Mg Tablet, 8 MG PO BID, (Reported) 0800,1600 Carbidopa/Levodopa (Carbidopa-Levodopa 25-100 Tab) 1 Tab Tab, 1 TAB PO QID, (Reported) 0800,1200,1600,1999 Clonazepam (Clonazepam) 0.5 Mg Tab.rapdis, 0.5 MG PO QHS, (Reported) Divalproex Sodium (Divalproex Sodium) 125 Mg Tablet.dr, 250 MG PO BID, (Reported) 0800,1999 Docusate Sodium (Dok) 100 Mg Capsule, 100 MG PO DAILY, (Reported) Donepezil HCl (Donepezil HCl) 10 Mg Tablet, 10 MG PO DAILY, (Reported) Erythromycin Base (Erythromycin) 3.5 Gm Oint...g., 1 APLCT OD BID, (Reported) apply 1 cm ribbon into the lower conjunctival sac Escitalopram Oxalate (Lexapro) 10 Mg Tablet, 10 MG PO DAILY, (Reported) Finasteride (Finasteride) 5 Mg Tablet, 5 MG PO DAILY, (Reported) Fluticasone/Vilanterol (Breo Ellipta 100-25 Mcg INH) 1 Each Blst.w.dev, 1 PUFF INH DAILY, (Reported) Lactose-Reduced Food (Ensure Enlive) 237 Ml Liquid, 237 ML PO TID, (Reported) 0800,1400,1999 Lactose-Reduced Food (Ensure Enlive) 237 Ml Liquid, 240 ML PO TID, (Reported) 0800,1400,1999 Latanoprost/Pf (Latanoprost 0.005% Eye Drop) 7.5 Ml Drops, 1 DROP OU QHS, (Reported) Mag Hydrox/Aluminum Hyd/Simeth (Mylanta Maximum Strength Liq) 355 Ml Oral.susp, 20 ML PO BID, (Reported) Magnesium Hydroxide (Milk of Magnesia) 400 Mg/5 Ml Oral.susp, 30 ML PO DAILY for constipation, (Reported) Pantoprazole Sodium (Protonix) 40 Mg Tablet.dr, 40 MG PO DAILY Pimavanserin Tartrate (Nuplazid) 34 Mg Capsule, 34 MG PO DAILY, (Reported) Propylene Glycol/Peg 400 (Systane Gel Eye Drops) 10 Ml Drops.gel, 1 DROP OU QID, (Reported) 0800,1200,1600,1999 Quetiapine Fumarate (Quetiapine Fumarate) 25 Mg Tablet, 25 MG PO BID, (Reported) Scheduled PRN Acetaminophen (Mapap) 325 Mg Tablet, 650 MG PO Q4H PRN for PAIN LEVEL 1-4, (Reported) Sennosides/Docusate Sodium (Senna Plus 8.6-50 mg Tablet) 1 Each Tablet, 2 TAB PO QHS PRN for CONSTIPATION, (Reported) Allergies Coded Allergies: No Known Drug Allergies (Verified Allergy, Unknown, 08/05/20) Past Medical History Medical History 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 Asthma. Hypertension. History of WI. High cholesterol. Arthritis. Degenerative disc disease, bulging disc. Insomnia. Cataracts. Macular degeneration. Parkinsons disease. Surgical History Deviated nasal sputum 2005 MM excised 2004 Bilateral knee surgery to remove torn cartilage [id number] & 01/2013 growth removed from back 03/15 Family History Father: , Alzheimer Mother: , Stroke Siblings: Brother with multiple medical problems, Sister of stroke Denies family history of MM, No known family history of any urologically related diseases/cancers. Social History * Smoker: Denies Alcohol: Denies Drugs: denies A-FIB/CHADSVASC A-FIB History Current/History of A-Fib/PAF?: No Current PO Anticoag Therapy: No Review of Systems Constitutional: Reports: Other; Denies: Chills Eyes: Denies: Pain ENT: Denies: Head Aches Skin: Denies: Rash, Lesions Pulmonary: Denies: Dyspnea Cardiovascular: Denies: Chest Pain Gastrointestinal: Denies: Nausea Genitourinary: Denies: Dysuria Hematologic: Denies: Bruising Endocrine: Denies: Polydipsia Musculoskeletal: Denies: Leg Pain Neurological: Denies: Weakness Psych: Reports: Mood Normal Physical Examination General Exam: Positive: Alert, Cooperative Eye Exam: Positive: PERRLA Neck Exam: Positive: Supple; Negative: JVD Chest Exam: Positive: Diminished Heart Exam: Positive: Rate Normal Telemetry: Positive: No significant arrhythmia Abdomen Exam: Positive: Normal bowel sounds Extremity Exam: Positive: Tenderness (Home left hip); Negative: Clubbing, Cyanosis Skin Exam: Positive: Nl turgor and temperature Neuro Exam: Positive: Sensation Intact Psych Exam: Negative: Oriented x 3 Vital Signs Vital Signs Date Time Temp Pulse Resp B/P (MAP) Pulse Ox O2 Delivery O2 Flow Rate FiO2 07/10/21 16:56 18 97 07/10/21 16:55 78 165/89 (114) Room Air 07/10/21 12:26 97.9 Laboratory Data Labs 24H Laboratory Tests 2 07/10/21 15:48: Immature Granulocyte % (Auto) 0.6, Neutrophils (%) (Auto) 84.1H, Lymphocytes (%) (Auto) 3.1L, Monocytes (%) (Auto) 11.8H, Eosinophils (%) (Auto) 0.0, Basophils (%) (Auto) 0.4, Neutrophils # (Auto) 14.3H, Lymphocytes # (Auto) 0.5L, Monocytes # (Auto) 2.0H, Eosinophils # (Auto) 0.0, Basophils # (Auto) 0.1, Nucleated Red Blood Cells % (auto) 0.0, Prothrombin Time 13.8, Prothromb Time International Ratio 1.02, Activated Partial Thromboplast Time 29.2, Anion Gap 8, Glomerular Filtration Rate > 60.0, Calcium Level 8.8, Total Creatine Kinase 103, Creatine Kinase MB 2.3, Creatine Kinase MB Relative Index 2.23, Troponin I 0.04, Co ronavirus (COVID-19)(PCR) NEGATIVE, Influenza Type A (RT-PCR) NEGATIVE, Influenza Type B (RT-PCR) NEGATIVE, Respiratory Syncytial Virus (PCR) NEGATIVE CBC/BMP Laboratory Tests 07/10/21 15:48 Assessment/Plan Patient 75 years old male with past medical history of Parkinson dementia, asthma, hypertension, history of WI status post cardiac stent placement presented to hospital with left hip pain. Patient lives in [facility] and according to the records he developed left hip pain for past few days. They did not know if he developed mechanical fall before. In ER patient was found to have leukocytosis of 17.1, x-ray showed left hip fracture. Dr. Yoder was co ntacted by ER physician and he will see him later today. Problems (1) Fracture of femoral neck, left Status: Acute Problem Text: Pain management N.p.o. Appreciate/agree with orthopedic surgeon consult Patient cleared for repair hip fracture (2) Metabolic encephalopathy Status: Acute Problem Text: Most likely secondary to acute pain due to hip fracture superimposed with underlying dementia (3) HTN (hypertension) Status: Chronic Problem Text: Lisinopril 20 mg daily (4) GERD (gastroesophageal reflux disease) Status: Chronic Problem Text: Continue PPI (5) Parkinson's disease dementia Status: Chronic Problem Text: Continue home meds Plan / VTE VTE Prophylaxis Ordered?: Yes LYLY MONTANA DO Jul 10, 2021 18:34
--- NOTE | 2021-07-10 19:47 | CR.PDOC ---
General Date of Consultation: Jul 11, 2021 Consultation REASON FOR CONSULTATION/CHIEF COMPLAINT: Left hip fracture Patient has history of dementia. Information obtained from admission H&P History of Present Illness Called by ED re: patient with hip fracture on xray. Abrasion to fraga and hematoma with abrasion to elbow, with no associated fractures on xray. Patient lives in [facility]. Hip pain complaints have been for a few days related to falls. Patient does have dementia. His brother Nic is reportedly has health power of line patroller. Home Medications Scheduled Aspirin (Aspirin EC) 81 Mg Tablet.dr, 81 MG PO DAILY, (Reported) Candesartan Cilexetil (Candesartan Cilexetil) 8 Mg Tablet, 8 MG PO BID, (Reported) 0800,1600 Carbidopa/Levodopa (Carbidopa-Levodopa 25-100 Tab) 1 Tab Tab, 1 TAB PO QID, (Reported) 0800,1200,1600,1999 Clonazepam (Clonazepam) 0.5 Mg Tab.rapdis, 0.5 MG PO QHS, (Reported) Divalproex Sodium (Divalproex Sodium) 125 Mg Tablet.dr, 250 MG PO BID, (Reported) 799,1999 Docusate Sodium (Dok) 100 Mg Capsule, 100 MG PO DAILY, (Reported) Donepezil HCl (Donepezil HCl) 10 Mg Tablet, 10 MG PO DAILY, (Reported) Erythromycin Base (Erythromycin) 3.5 Gm Oint...g., 1 APLCT OD BID, (Reported) apply 1 cm ribbon into the lower conjunctival sac Escitalopram Oxalate (Lexapro) 10 Mg Tablet, 10 MG PO DAILY, (Reported) Finasteride (Finasteride) 5 Mg Tablet, 5 MG PO DAILY, (Reported) Fluticasone/Vilanterol (Breo Ellipta 100-25 Mcg INH) 1 Each Blst.w.dev, 1 PUFF INH DAILY, (Reported) Lactose-Reduced Food (Ensure Enlive) 237 Ml Liquid, 237 ML PO TID, (Reported) 0800,1399,1999 Lactose-Reduced Food (Ensure Enlive) 237 Ml Liquid, 240 ML PO TID, (Reported) 0800,1400,1999 Latanoprost/Pf (Latanoprost 0.005% Eye Drop) 7.5 Ml Drops, 1 DROP OU QHS, (Reported) Mag Hydrox/Aluminum Hyd/Simeth (Mylanta Maximum Strength Liq) 355 Ml Oral.susp, 20 ML PO BID, (Reported) Magnesium Hydroxide (Milk of Magnesia) 400 Mg/5 Ml Oral.susp, 30 ML PO DAILY for constipation, (Reported) Pantoprazole Sodium (Protonix) 40 Mg Tablet.dr, 40 MG PO DAILY Pimavanserin Tartrate (Nuplazid) 34 Mg Capsule, 34 MG PO DAILY, (Reported) Propylene Glycol/Peg 400 (Systane Gel Eye Drops) 10 Ml Drops.gel, 1 DROP OU QID, (Reported) 0800,1200,1600,1999 Quetiapine Fumarate (Quetiapine Fumarate) 25 Mg Tablet, 25 MG PO BID, (Reported) Scheduled PRN Acetaminophen (Mapap) 325 Mg Tablet, 650 MG PO Q4H PRN for PAIN LEVEL 1-4, (Reported) Sennosides/Docusate Sodium (Senna Plus 8.6-50 mg Tablet) 1 Each Tablet, 2 TAB PO QHS PRN for CONSTIPATION, (Reported) Allergies Coded Allergies: No Known Drug Allergies (Verified Allergy, Unknown, 08/05/20) Past Medical History Past Medical History Medical History 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 Asthma. Hypertension. History of PR. High cholesterol. Arthritis. Degenerative disc disease, bulging disc. Insomnia. Cataracts. Macular degeneration. Parkinsons disease. Surgical History Deviated nasal sputum 2005 MM excised 2004 Bilateral knee surgery to remove torn cartilage 12/2012 & 01/2013 growth removed from back 03/15 Family History Father: , Alzheimer Mother: , Stroke Siblings: Brother with multiple medical problems, Sister of stroke Denies family history of MM, No known family history of any urologically related diseases/cancers. Social History * Smoker: Denies Alcohol: Denies Drugs: denies A-FIB/CHADSVASC SCREEN A-FIB/CHADSVASC A-FIB History Current/History of A-Fib/PAF?: No Current PO Anticoag Therapy: No Review of Systems Review of Systems Left hip pain is the only pain reported by the patient Physical Examination Physical Examination On physical examination, the patient is found sleeping in bed. He is comfortable. The patient was awakened. He does not appear to be entirely oriented. He does have difficulty with answering questions. He did report that he had some pain in his left hip. The left hip was found to be shortened and externally rotated. He had a palpable posterior tibial pulse. He was able to move his toes and foot and ankle. He reported sensation intact to all distributions of the left foot and ankle with light touch. There was no significant bruising noted about the left hip, laterally. LABORATORY DATA: Please see below. Relevant Imaging: Left hip mid cervical fracture with evidence of good cortices to femoral shaft and no obvious extension or bony pathology ASSESSMENT/PLAN: 1. Plan for Left Hip Hemiarthroplasty 07/11/2021 in the afternoon. Spoke with Dr. Núñez, who will assume care of the patient in my absence. The operating room was informed by Dr. Núñez that he would be doing the surgery. We both spoke with Nic, the patient's brother this morning and obtained consent over the telephone for a left hip hemiarthroplasty with blood transfusion if necessary. Vital Signs/I&O Vital Signs Date Time Temp Pulse Resp B/P (MAP) Pulse Ox O2 Delivery O2 Flow Rate FiO2 07/10/21 19:16 87 16 151/70 (97) 96 Room Air 07/10/21 12:26 97.9 Laboratory Data Labs 24H Laboratory Tests 2 07/10/21 15:48: Immature Granulocyte % (Auto) 0.6, Neutrophils (%) (Auto) 84.1H, Lymphocytes (%) (Auto) 3.1L, Monocytes (%) (Auto) 11.8H, Eosinophils (%) (Auto) 0.0, Basophils (%) (Auto) 0.4, Neutrophils # (Auto) 14.3H, Lymphocytes # (Auto) 0.5L, Monocytes # (Auto) 2.0H, Eosinophils # (Auto) 0.0, Basophils # (Auto) 0.1, Nucleated Red Blood Cells % (auto) 0.0, Prothrombin Time 13.8, Prothromb Time International Ratio 1.02, Activated Partial Thromboplast Time 29.2, Anion Gap 8, Glomerular Filtration Rate > 60.0, Calcium Level 8.8, Total Creatine Kinase 103, Creatine Kinase MB 2.3, Creatine Kinase MB Relative Index 2.23, Troponin I 0.04, Coronavirus (COVID-19)(PCR) NEGATIVE, Influenza Type A (RT-PCR) NEGATIVE, Influenza Type B (RT-PCR) NEGATIVE, Respiratory Syncytial Virus (PCR) NEGATIVE CBC/BMP Laboratory Tests 07/10/21 15:48 Allergies Coded Allergies: No Known Drug Allergies (Verified Allergy, Unknown, 08/05/20) Home Medications Scheduled Aspirin (Aspirin EC) 81 Mg Tablet.dr, 81 MG PO DAILY, (Reported) Candesartan Cilexetil (Candesartan Cilexetil) 8 Mg Tablet, 8 MG PO BID, (Reported) 0800,1600 Carbidopa/Levodopa (Carbidopa-Levodopa 25-100 Tab) 1 Tab Tab, 1 TAB PO QID, (Reported) 0800,1200,1600,1999 Clonazepam (Clonazepam) 0.5 Mg Tab.rapdis, 0.5 MG PO QHS, (Reported) Divalproex Sodium (Divalproex Sodium) 125 Mg Tablet.dr, 250 MG PO BID, (Reported) 799,1999 Docusate Sodium (Dok) 100 Mg Capsule, 100 MG PO DAILY, (Reported) Donepezil HCl (Donepezil HCl) 10 Mg Tablet, 10 MG PO DAILY, (Reported) Erythromycin Base (Erythromycin) 3.5 Gm Oint...g., 1 APLCT OD BID, (Reported) apply 1 cm ribbon into the lower conjunctival sac Escitalopram Oxalate (Lexapro) 10 Mg Tablet, 10 MG PO DAILY, (Reported) Finasteride (Finasteride) 5 Mg Tablet, 5 MG PO DAILY, (Reported) Fluticasone/Vilanterol (Breo Ellipta 100-25 Mcg INH) 1 Each Blst.w.dev, 1 PUFF INH DAILY, (Reported) Lactose-Reduced Food (Ensure Enlive) 237 Ml Liquid, 237 ML PO TID, (Reported) 0800,1399,1999 Lactose-Reduced Food (Ensure Enlive) 237 Ml Liquid, 240 ML PO TID, (Reported) 0800,1399,1999 Latanoprost/Pf (Latanoprost 0.005% Eye Drop) 7.5 Ml Drops, 1 DROP OU QHS, (Reported) Mag Hydrox/Aluminum Hyd/Simeth (Mylanta Maximum Strength Liq) 355 Ml Oral.susp, 20 ML PO BID, (Reported) Magnesium Hydroxide (Milk of Magnesia) 400 Mg/5 Ml Oral.susp, 30 ML PO DAILY for constipation, (Reported) Pantoprazole Sodium (Protonix) 40 Mg Tablet.dr, 40 MG PO DAILY for 30 Days, #30 Pimavanserin Tartrate (Nuplazid) 34 Mg Capsule, 34 MG PO DAILY, (Reported) Propylene Glycol/Peg 400 (Systane Gel Eye Drops) 10 Ml Drops.gel, 1 DROP OU QID, (Reported) 0800,1200,1600,2000 Quetiapine Fumarate (Quetiapine Fumarate) 25 Mg Tablet, 25 MG PO BID, (Reported) Scheduled PRN Acetaminophen (Mapap) 325 Mg Tablet, 650 MG PO Q4H PRN for PAIN LEVEL 1-4, (Reported) Sennosides/Docusate Sodium (Senna Plus 8.6-50 mg Tablet) 1 Each Tablet, 2 TAB PO QHS PRN for CONSTIPATION, (Reported) DONTE HI MD Jul 10, 2021 19:47
[2021-07-10] MEDS: QUEtiapine FUMARATE 25 MG TAB PO SCH (20:40)
[2021-07-10] MEDS: DIVALPROEX 250 MG TAB PO SCH (20:40)
[2021-07-10] MEDS: traMADol 50 MG TAB PO SCH (20:41)
[2021-07-10] MEDS: ERYTHROMYCIN OPHTH OINT OD SCH (20:41)
[2021-07-10] MEDS ORDERED: clonazePAM 0.5 MG TAB PO SCH (21:00)
[2021-07-10 21:03] VITALS: BP 150/85
[2021-07-10] MEDS: SINEMET 25-100 MG TAB PO SCH (21:58)
[2021-07-10] MEDS: NS 1,000 ML IV SCH (21:58)
[2021-07-10] MEDS: ACETAMINOPHEN TAB 650MG DOSE (2X325MG) PO PRN (21:58)
[2021-07-11] MEDS: traMADol 50 MG TAB PO SCH ×5 (00:29→14:11)
[2021-07-11 06:00] VITALS: BP 155/84
[2021-07-11] MEDS: NS 1,000 ML IV SCH ×2 (06:29→14:10)
--- NOTE | 2021-07-11 06:37 | ECGEPIP ---
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
[2021-07-11] MEDS: ERYTHROMYCIN OPHTH OINT OD SCH (09:00)
[2021-07-11] MEDS ORDERED: MOM 30ML SUSPENSION UDC PO SCH (09:00)
[2021-07-11] MEDS: HEPARIN SOD (PORCINE) 5000UNITS/ML 1ML VIAL/SYRINGE SC SCH (09:00)
[2021-07-11] MEDS ORDERED: ESCITALOPRAM OXALATE 10 MG TAB (LEXAPRO) PO SCH (09:00)
[2021-07-11] MEDS: ASPIRIN 81MG ENTERIC TABLET PO SCH (09:00)
[2021-07-11] MEDS ORDERED: DOCUSATE SODIUM 100MG CAPSULE PO SCH (09:00)
[2021-07-11] MEDS ORDERED: PANTOPRAZOLE 40MG TAB (PROTONIX) PO SCH (09:00)
[2021-07-11] MEDS ORDERED: FINASTERIDE 5 MG TAB PO SCH (09:00)
[2021-07-11] MEDS: CANDESARTAN 4MG TABLET PO SCH ×2 (09:08→16:00)
[2021-07-11] MEDS: DIVALPROEX 250 MG TAB PO SCH ×2 (09:08→21:00)
[2021-07-11] MEDS: SINEMET 25-100 MG TAB PO SCH ×5 (09:09→20:00)
[2021-07-11] MEDS: QUEtiapine FUMARATE 25 MG TAB PO SCH (09:10)
[2021-07-11 09:16] LABS: MEAN CORPUSCULAR HEMOGLOBIN 30.8 pg (27.0-33.0); MEAN CORPUSCULAR HGB CONC 32.4 g/dl (32.0-36.5); MEAN CORPUSCULAR VOLUME 95.2 fl (80.0-96.0); PLATELET COUNT, AUTOMATED 220 10^3/uL (150-450); RED BLOOD COUNT 3.57 10^6/uL (4.30-6.10); WHITE BLOOD COUNT 9.6 10^3/uL (4.0-10.0)
[2021-07-11 09:28] LABS: ALBUMIN 2.7 GM/DL (3.2-5.2); ALT/SGPT 17 U/L (12-78); BILIRUBIN,TOTAL 0.8 MG/DL (0.2-1.0); BLOOD UREA NITROGEN 18 MG/DL (7-18); CALCIUM LEVEL 8.3 MG/DL (8.8-10.2); CARBON DIOXIDE LEVEL 29 MEQ/L (21-32); CHLORIDE LEVEL 108 MEQ/L (98-107); CREATININE FOR GFR 0.64 MG/DL (0.70-1.30); GLOMERULAR FILTRATION RATE > 60.0 (>42); GLUCOSE, FASTING 82 MG/DL (70-100); MAGNESIUM LEVEL 2.1 MG/DL (1.8-2.4); POTASSIUM SERUM 3.9 MEQ/L (3.5-5.1); SODIUM LEVEL 142 MEQ/L (136-145); TOTAL PROTEIN 5.3 GM/DL (6.4-8.2)
--- NOTE | 2021-07-11 09:49 | IPN ---
PROGRESS NOTE DATE: 07/11/2021 SUBJECTIVE: The patient has Parkinson's dementia, only alert, awake, oriented to himself. Does not answer questions this morning. The patient is looking into space with purposeful movement. He had a low grade temperature of 100.1 over the past 24 hours with a white count of 17.1. A chest x-ray on 07/10/2021 shows no acute cardiopulmonary disease. Urinalysis was not obtained. OBJECTIVE: VITAL SIGNS: Temperature 98.3, T-max 100.1, pulse 83, respiratory rate 18, blood pressure 155/84, 98% on room air. GENERAL: Generally awake, alert and oriented to person only. Has purposeful movements just looking, has his eyes open but does not answer questions. No distress, use of respiratory accessory muscles, no JVD or thyromegaly. LUNGS: Diminished. No use of respiratory accessory muscles. No wheezing. HEART: S1, S2, sinus rhythm. ABDOMEN: Soft, nontender, nondistended. Positive bowel sounds. EXTREMITIES: No edema. Left hip limited range of motion due to recent fracture. LABORATORY DATA, IMAGING STUDIES, MICROBIOLOGY: Please see the chart. ASSESSMENT AND PLAN: This is a 75-year-old male with a history of Parkinson's dementia, asthma, malignant melanoma on the left lower back, history of basal cell carcinoma, CAD, DE, dyslipidemia, macular degeneration, cataracts, degenerative disc disease with disc bulges admitted July 10 due to a recent fall and left leg pain ,found to have leukocytosis of 17,000 with negative chest x-ray. UA is pending with low grade temperature 100.1. IMPRESSION: 1. Left femoral neck fracture. NPO. Orthopedic surgeon consulted for surgical management. 2. Medical clearance. Medically optimized to proceed to the OR. The patient has no acute ischemic changes on EKG. Chest x-ray is clear. May proceed to the OR. The patient is NPO. 3. History of CAD, DE. May resume home dose of candesartan postoperatively. Aspirin has been held. 4. History of glaucoma and cataracts. Resume eye drops postop. 5. History of Parkinson's dementia on Carbidopa-Levodopa which may be continued postoperatively. MTDD
[2021-07-11 14:00] VITALS: BP 124/62
[2021-07-11] MEDS: ACETAMINOPHEN TAB 650MG DOSE (2X325MG) PO PRN (14:11)
[2021-07-11] MEDS ORDERED: ACETAMINOPHEN 650 MG SUPP PR PRN (14:45)
--- NOTE | 2021-07-11 15:23 | REP ---
INDICATION: fever. COMPARISON: 07/10/2021 TECHNIQUE: AP portable seated FINDINGS: Lungs are well inflated. CP angles sharply defined. No pleural effusion, infiltrate, atelectasis or mass. Heart, mediastinal and hilar contours were intact and unremarkable the aorta is calcified at the arch. Airway intact degenerative changes in the spine and shoulders. No free air under the diaphragm. IMPRESSION: 1. No acute cardiopulmonary change. No infiltrate or atelectasis visible. <Electronically signed by Bossman Allen > 07/11/21 [id number]
[2021-07-11] MEDS ORDERED: propofoL 200 MG/20 ML VIAL As Ordered ONE (16:29)
[2021-07-11] MEDS ORDERED: LIDOCAINE 2% 100MG/5ML SDV (FOR ANES.) As Ordered ONE (16:29)
[2021-07-11] MEDS ORDERED: fentaNYL 100 MCG/2 ML INJECTION (J3010) As Ordered ONE ×3 (16:30→20:48)
[2021-07-11] MEDS ORDERED: MIDAZOLAM INJ 2MG/2ML VIAL (J2250 PER 1MG) As Ordered ONE (16:30)
[2021-07-11] MEDS ORDERED: ceFAZolin 1GM VIAL (J0690 PER 500MG) As Ordered ONE ×2 (16:49→18:57)
[2021-07-11] MEDS ORDERED: VANCOMYCIN 1000MG/20ML VIAL As Ordered ONE ×2 (16:49→18:56)
--- NOTE | 2021-07-11 17:34 | IPNPDOC ---
Date Seen The patient was seen on 07/11/21. Progress Note Surgery postponed due to : fever 100.9. plan: infectious workup, empiric abx. if stable, consider surgery in am. npo after midnight. dc sedatives, opioids. VS, I&O, 24H, Fishbone Vital Signs/I&O Vital Signs Date Time Temp Pulse Resp B/P (MAP) Pulse Ox O2 Delivery O2 Flow Rate FiO2 07/11/21 14:00 100.9 68 16 124/62 (82) 94 Room Air I&O- Last 24 Hours up to 6 AM 07/11/21 06:00 Intake Total 0 ml Output Total 0 ml Balance 0 ml Laboratory Data 24H LABS Laboratory Tests 2 07/11/21 08:33: Nucleated Red Blood Cells % (auto) 0.0, Erythrocyte Sedimentation Rate 12, Anion Gap 5L, Glomerular Filtration Rate > 60.0, Calcium Level 8.3L, Magnesium Level 2.1, Total Bilirubin 0.8, Aspartate Amino Transf (AST/SGOT) 21, Alanine Aminotransferase (ALT/SGPT) 17, Alkaline Phosphatase 63, C-Reactive Protein, Quantitative 6.87H, Total Protein 5.3L, Albumin 2.7L, Albumin/Globulin Ratio 1.0, Procalcitonin 0.15 CBC/BMP Laboratory Tests 07/11/21 08:33 Microbiology Microbiology 07/11/21 Blood Culture, Received Pending 07/11/21 Blood Culture, Received Pending SHANAE BAINS MD Jul 11, 2021 17:34
[2021-07-11] MEDS ORDERED: dexameTHASONE 4 MG/ML 1ML VIAL (J1100 PER 1MG) As Ordered ONE ×2 (19:21→21:40)
[2021-07-11] MEDS ORDERED: ROCURONIUM BROMIDE 50 MG/5 ML VIAL As Ordered ONE (19:22)
[2021-07-11] MEDS ORDERED: TRANEXAMIC ACID 100 MG/ML 10ML VIAL As Ordered ONE ×2 (19:30→20:44)
[2021-07-11] MEDS ORDERED: ceFAZolin 2 GM/D5W 50 ML IV BAG (J0690 PER 500MG) As Ordered ONE (19:30)
[2021-07-11] MEDS ORDERED: HYDROmorphone HCL 2 MG/ML 1ML VIAL As Ordered ONE (20:47)
[2021-07-11] MEDS ORDERED: ePHEDrine SULFATE 25 MG/5 ML(5MG/ML) SYRINGE As Ordered ONE (21:35)
[2021-07-11] MEDS ORDERED: SUGAMMADEX SODIUM 500 MG/5 ML VIAL (BRIDION) As Ordered ONE (21:40)
[2021-07-11] MEDS ORDERED: KETOROLAC 60MG 2ML VIAL As Ordered ONE (21:40)
[2021-07-11] MEDS ORDERED: ONDANSETRON 4MG/2ML VIAL As Ordered ONE (21:40)
[2021-07-11] MEDS ORDERED: ACETAMINOPHEN 1000MG 100ML IV BTL (OFIRMEV) (J0131 PER 10MG) As Ordered ONE (21:40)
[2021-07-11] MEDS ORDERED: PHENYLephrine 500MCG 5ML (100MCG/ML) SYRINGE As Ordered ONE (22:12)
[2021-07-11] MEDS ORDERED: fentaNYL 100 MCG/2 ML INJECTION (J3010) IV PRN (23:30)
[2021-07-11] MEDS ORDERED: HYDROMORPHONE HCL 0.5 MG/ 0.5 ML SYRINGE (J1170 PER 1) IV PRN (23:30)
[2021-07-11] MEDS ORDERED: KETOROLAC 30 MG/ML 1ML VIAL IV PRN (23:30)
[2021-07-11] MEDS ORDERED: oxyCODONE 5MG TAB PO PRN (23:30)
[2021-07-11] MEDS ORDERED: ONDANSETRON 4MG/2ML VIAL IV PRN (23:30)
[2021-07-11] MEDS ORDERED: LR 1,000 ML IV SCH (23:30)
[2021-07-12] VITALS (8 sets, daily range): BP systolic 119–141; BP diastolic 58–91
[2021-07-12] MEDS: ERYTHROMYCIN OPHTH OINT OD SCH ×3 (01:09→19:50)
[2021-07-12] MEDS: HEPARIN SOD (PORCINE) 5000UNITS/ML 1ML VIAL/SYRINGE SC SCH ×3 (01:09→19:50)
[2021-07-12] MEDS: NS 1,000 ML IV SCH ×2 (01:09→03:50)
--- NOTE | 2021-07-12 07:25 | REP ---
INDICATION: SURGERY. COMPARISON: 07/10/2021 at 2:06 p.m. TECHNIQUE: AP pelvis FINDINGS: Since the last examination the patient has undergone total left hip prosthetic device placement. The femoral and acetabular components of the device are well seated and well approximated. The alignment appears near anatomical. There is no acute abnormality. There is expected postoperative soft tissue swelling. There is a left lateral skin staple line in place. IMPRESSION: Status post THR as described above. <Electronically signed by Clint Oconnell > 07/12/21 0732
[2021-07-12] MEDS: SINEMET 25-100 MG TAB PO SCH ×5 (08:00→19:51)
[2021-07-12] MEDS: CANDESARTAN 4MG TABLET PO SCH ×3 (08:00→16:46)
[2021-07-12] MEDS: ASPIRIN 81MG ENTERIC TABLET PO SCH (08:29)
[2021-07-12] MEDS: DIVALPROEX 250 MG TAB PO SCH ×3 (08:34→19:51)
--- NOTE | 2021-07-12 08:53 | RO ---
OPERATIVE NOTE DATE OF OPERATION: 07/11/2021 PREOPERATIVE DIAGNOSIS: Left femoral neck fracture, Garden type IV. POSTOPERATIVE DIAGNOSIS: Left femoral neck fracture, Garden type IV. NAME OF OPERATION: Left hip hemiarthroplasty. SURGEON: Arslan Núñez MD ON SITE SERVICES SPECIALIST: None. SUPERVISING ATTENDING: Arslan Núñez MD FINDINGS: The patient had a fractured femoral neck, Garden type IV. INDICATIONS: This was a 75-year-old male with a left femoral neck fracture, Garden type IV after sustaining an unwitnessed ground-level fall. The patient has a past medical history of Parkinson's dementia, asthma, hypertension, history of [place], status post cardiac stent placement. The patient presented to the hospital on the July, with left hip pain. The patient lived in [facility] according to his records and developed left hip pain for the past few days. It was unclear at what point the patient sustained the left femoral neck fracture. Dr. Yoder was initially contacted by the ER physician. However, his care was transferred to myself for a left hip hemiarthroplasty. The patient was cleared for surgery by the internal medicine team. ANESTHESIA: GETA. TOURNIQUET TIME: None used. ESTIMATED BLOOD LOSS: 500 mL. IV FLUIDS: Please see anesthesia report. IV ANTIBIOTICS: Please see anesthesia report. IMPLANTS: Synthes DePuy CULTURES: None. SPECIMENS: None. DESCRIPTION OF PROCEDURE: The patient was met in the preoperative holding area where the patient's operative extremity was signed, the patient's consent was confirmed to be correct, and the patient's identity was confirmed to be correct. The patient was then transported to the operating theater where he was placed in the lateral decubitus position with the left hip superior. A safety strap secured the patient to the bed. All bony prominences were well-padded. The contralateral lower extremity had an SCD placed. A timeout was called to confirm the correct patient, correct operative extremity and correct consent. All staff were in agreement. We began the case by marking out a 5-inch incision overlying the greater trochanter. This longitudinal incision was incised sharply with a scalpel. I then used meticulous hemostasis to make my way to the iliotibial band. This was then sharply incised using a knife and then retracted using a Charnley retractor. This exposed the proximal aspect of the vastus lateralis as well as the gluteus medius which inserts under the greater trochanter. The anterior third of the proximal aspect of the vastus lateralis as well as the gluteus medius was elevated using electrocautery in order to expose the femoral neck and fracture. Once this was exposed, I then tagged the anterior and posterior capsule using #2 braided polyethylene suture in order to further expose the femoral head. The femoral head was removed with a corkscrew drill bit and sized to a 50 mm. This was then trialed and had appropriate suction fit. At this point in time, I made my femoral neck cut using the lesser trochanter as a template and leaving approximately 12 mm of bone proximal to the lesser trochanter. I then copiously irrigated the acetabulum and removed the ligamentum teres using electrocautery. I then placed the patient's left foot along the side of the bed so the patient had left hip flexion, adduction and external rotation. This exposed the proximal femur so that I could gain entry into the intramedullary canal and begin my broaching. I used a box hinge and lock attacher to the lateral aspect of the intramedullary canal and used a canal finder in order to gain entry into the proximal intramedullary canal. I then began broaching sequentially starting with a size 1 until I obtained good purchase and tight fit with a size 4 and then trialed a -3 femoral neck as well as a 50 mm femoral head. The hip was then reduced. I then took it through a supraphysiologic range of motion. The patient had stability through the entire range. There was no shuck and the femoral head had good suction seal. The limb lengths were restored to its anatomic contralateral side. I then dislocated the hip and then removed the trials and began preparation of the cement. I copiously irrigated the proximal aspect of the intramedullary canal and placed a cement restrictor 2 cm distal to the implant based on trialing on the back table. Once the cement restrictor was placed, we prepared the cement. This was then reduced into the proximal aspect of the femoral canal using a cement gun. I used fourth generation cement technique in order to place the cement into the correct position and in order to obtain an appropriate cement mantle. We then placed the implant into position and let the cement dry for 18 minutes. At this point in time, I then copiously irrigated the acetabulum once more, placed my -3 femoral neck spacer as well as a 50 mm femoral head into position, reduced the hip, took it through a supraphysiologic range of motion. We were satisfied with the stability and limb length judaism. I then placed one liter of Betadine solution into the surgical wound for exactly three minutes. This was then removed and I placed 1 gm of vancomycin powder directly on the implant. I then closed the capsule with #2 braided polyethylene suture. I closed the vastus lateralis as well as gluteus medius using a Stratafix suture as well as a #2 braided polyethylene suture and closed the IT band using two Stratafix sutures. The surgical wound was the copiously irrigated and I closed the dermal layer using 2-0 Vicryl and the skin using metallic eagle. I then placed a Silvadene bandage onto the surgical site. The patient was then extubated without complication and transferred to the postanesthesia care unit where an AP pelvis was obtained, demonstrating appropriate implant placement. The patient will be weightbearing as tolerated to the left lower extremity. He will follow the hemiarthroplasty rehabilitative protocol with physical therapy. I encouraged weightbearing as tolerated postop day one. The patient's care will be transferred to the hospitalist service and we recommend DVT chemoprophylaxis at least 81 mg of aspirin daily on postop day or the equivalent. The patient will follow up in our clinic on the July, for postoperative wound check.
[2021-07-12] MEDS: ACETAMINOPHEN TAB 650MG DOSE (2X325MG) PO PRN ×3 (09:26→19:51)
[2021-07-12] MEDS: oxyCODONE 5MG TAB PO PRN ×2 (09:26→16:57)
--- NOTE | 2021-07-12 14:10 | IPNPDOC ---
Date Seen The patient was seen on 07/12/21. 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 pt had tmax 100.9 but unable to get ua despite catheter. cxr neg. afebrile postop OBJECTIVE: VITAL SIGNS: see below GENERAL: sedated after ativan given HEENT: no jvd. no stridor LUNGS: Diminished. No use of respiratory accessory muscles. No wheezing. HEART: S1, S2, sinus rhythm. ABDOMEN: Soft, nontender, nondistended. Positive bowel sounds. EXTREMITIES: No edema. Left hip postop LABORATORY DATA, IMAGING STUDIES, MICROBIOLOGY: Please see the chart. ASSESSMENT AND PLAN: This is a 75-year-old male with a history of Parkinson's dementia, asthma, malignant melanoma on the left lower back, history of basal cell carcinoma, CAD, [place], dyslipidemia, macular degeneration, cataracts, degenerative disc disease with disc bulges admitted July 10 due to a recent fall and left leg pain ,found to have leukocytosis of 17,000 with negative chest x-ray. UA is pending with low grade temperature 100.1. IMPRESSION: 1. Left femoral neck fracture. s/p left robel-arthroplasty 07/11/21.on asa and heparin bid Orthopedic surgeon consulted . postop mgt and fu per ortho. ARU consulted. 2. preop fever 100.9 07/11/21. none postop. cxr neg. await procalcitonin, esr, crp, no empiric abx. 3. History of CAD, [place]. holding parameters on home meds 4. History of glaucoma and cataracts. Resume eye drops postop. 5. History of Parkinson's dementia on Carbidopa-Levodopa which may be continued postoperatively. 6. Acute delirium . minimize sedatives. check depakote level, eeg. ARU consulted. pt/ot. VS, I&O, 24H, Fishbone Vital Signs/I&O Vital Signs Date Time Temp Pulse Resp B/P (MAP) Pulse Ox O2 Delivery O2 Flow Rate FiO2 07/12/21 09:56 16 Room Air 07/12/21 09:54 136/91 07/12/21 05:05 97.7 100 96 I&O- Last 24 Hours up to 6 AM 07/12/21 05:59 Intake Total 2880 ml Output Total 500 ml Balance 2380 ml Laboratory Data Microbiology Microbiology 07/11/21 Blood Culture - Preliminary, Resulted No growth after 24 hours . All specim... 07/11/21 Blood Culture - Preliminary, Resulted No growth after 24 hours . All specim... SHANAE BAINS MD Jul 12, 2021 14:10
[2021-07-12 14:22] LABS: BASO % 0.2 % (0.0-1.0); HEMATOCRIT 30.7 % (42.0-52.0); HEMOGLOBIN 9.9 g/dl (13.5-17.5); LYMPH # 0.5 10^3/uL (1.5-5.0); LYMPH % 3.9 % (24.0-44.0); MEAN CORPUSCULAR HEMOGLOBIN 30.6 pg (27.0-33.0); MEAN CORPUSCULAR HGB CONC 32.2 g/dl (32.0-36.5); MEAN CORPUSCULAR VOLUME 94.8 fl (80.0-96.0); MONO # 2.1 10^3/uL (0.0-0.8); MONO % 17.1 % (2.0-8.0); NEUTROPHILS # 9.5 10^3/uL (1.5-8.5); NEUTROPHILS % 78.2 % (36.0-66.0); PLATELET COUNT, AUTOMATED 216 10^3/uL (150-450); RED BLOOD COUNT 3.24 10^6/uL (4.30-6.10); WHITE BLOOD COUNT 12.2 10^3/uL (4.0-10.0)
[2021-07-12 14:42] LABS: ERYTHROCYTE SEDIMENTATION RATE 34 mm/hr (0-20)
[2021-07-12 14:53] LABS: ABG O2 SATURATION 98.8 % (95.0-99.0); ABG PARTIAL PRESSURE CO2 36.5 mmHg (35.0-45.0); ABG PARTIAL PRESSURE O2 134.9 mmHg (75.0-100.0); ABG STANDARD HCO3 24.5 MEQ/L (22.0-26.0); ABG TOTAL CO2 25.1 MEQ/L (23.0-31.0); ABG pH (ARTERIAL) 7.435 UNITS (7.350-7.450)
[2021-07-12 15:01] LABS: BLOOD UREA NITROGEN 25 MG/DL (7-18); CREATININE FOR GFR 0.85 MG/DL (0.70-1.30); GLOMERULAR FILTRATION RATE > 60.0 (>42); GLUCOSE, FASTING 116 MG/DL (70-100); SODIUM LEVEL 145 MEQ/L (136-145)
[2021-07-12 15:02] LABS: CALCIUM LEVEL 8.6 MG/DL (8.8-10.2); CARBON DIOXIDE LEVEL 26 MEQ/L (21-32); CHLORIDE LEVEL 112 MEQ/L (98-107)
[2021-07-13] MEDS: ACETAMINOPHEN TAB 650MG DOSE (2X325MG) PO PRN ×3 (00:41→12:43)
[2021-07-13] MEDS: oxyCODONE 5MG TAB PO PRN ×3 (00:42→15:29)
[2021-07-13 06:00] VITALS: BP 129/70
[2021-07-13] MEDS: CANDESARTAN 4MG TABLET PO SCH ×2 (08:43→15:29)
[2021-07-13] MEDS: ASPIRIN 81MG ENTERIC TABLET PO SCH (08:44)
[2021-07-13] MEDS: DIVALPROEX 250 MG TAB PO SCH ×2 (08:44→20:51)
[2021-07-13] MEDS: SINEMET 25-100 MG TAB PO SCH ×4 (08:44→20:51)
[2021-07-13] MEDS: HEPARIN SOD (PORCINE) 5000UNITS/ML 1ML VIAL/SYRINGE SC SCH ×2 (08:44→20:51)
[2021-07-13] MEDS: ERYTHROMYCIN OPHTH OINT OD SCH ×2 (08:44→22:00)
[2021-07-13] MEDS ORDERED: ENOXAPARIN 40MG/0.4ML SYRINGE (J1650 PER 10MG) SC SCH (09:00)
[2021-07-13 09:20] LABS: BASO # 0.1 10^3/uL (0.0-0.2); BASO % 0.4 % (0.0-1.0); HEMATOCRIT 30.2 % (42.0-52.0); HEMOGLOBIN 9.7 g/dl (13.5-17.5); LYMPH # 0.6 10^3/uL (1.5-5.0); LYMPH % 3.2 % (24.0-44.0); MEAN CORPUSCULAR HEMOGLOBIN 30.6 pg (27.0-33.0); MEAN CORPUSCULAR HGB CONC 32.1 g/dl (32.0-36.5); MEAN CORPUSCULAR VOLUME 95.3 fl (80.0-96.0); MONO % 9.7 % (2.0-8.0); NEUTROPHILS # 15.1 10^3/uL (1.5-8.5); NEUTROPHILS % 86.2 % (36.0-66.0); PLATELET COUNT, AUTOMATED 221 10^3/uL (150-450); RED BLOOD COUNT 3.17 10^6/uL (4.30-6.10); WHITE BLOOD COUNT 17.4 10^3/uL (4.0-10.0)
[2021-07-13 09:52] LABS: ERYTHROCYTE SEDIMENTATION RATE 53 mm/hr (0-20)
[2021-07-13 09:59] LABS: MONO # 1.7 10^3/uL (0.0-0.8)
--- NOTE | 2021-07-13 12:58 | IPNPDOC ---
Text Note Date of Service The patient was seen on 07/13/21. NOTE POD 2 Left hip robel-arthroplasty Patient is resting in bed in no apparent distress. He is unable to follow commands or verbalize due to his advanced dementia. Left hip dressing clean and dry but loose on the edges. Dressing was taken down, new Mepilex dressing applied. Mild bruising noted throughout the operative area. Patient was not able to follow commands to assess motor to ankle or toes. Palpable PT and DP pulses. VS,Fishbone, I+O VS, Fishbone, I+O Laboratory Tests 07/12/21 14:12 07/13/21 09:01 Vital Signs Date Time Temp Pulse Resp B/P (MAP) Pulse Ox O2 Delivery O2 Flow Rate FiO2 07/13/21 09:14 17 07/13/21 08:41 113/66 07/13/21 06:00 98.7 86 98 07/13/21 00:42 Room Air I&O- Last 24 Hours up to 6 AM 07/13/21 06:00 Intake Total 0 ml Output Total 0 ml Balance 0 ml COLT BIRD Jul 13, 2021 12:50
--- NOTE | 2021-07-13 13:58 | IPNPDOC ---
Text Note Date of Service The patient was seen on 07/13/21. NOTE Subjective: Patient seen and examined at bedside. No acute overnight events reported. Patient voices no new medical complaints this morning. Objective: Vital Signs: reviewed General: NAD, lying comfortably in bed HEENT: NC/AT, EOMI Neck: supple, no masses Chest: lungs CTA B/L Heart: +S1S2, RRR Abd: soft, NT, ND, +BS Ext: no edema Skin: no rashes MSK: full ROM at large joints Neuro: no gross focal deficits Psych: AAOx3 A/P: 75M with a history of Parkinson's dementia, asthma, malignant melanoma on the left lower back, history of basal cell carcinoma, CAD, [place], dyslipidemia, macular degeneration, cataracts, degenerative disc disease with disc bulges admitted July 10 due to a recent fall and left leg pain ,found to have leukocytosis of 17,000 with negative chest x-ray. UA is pending with low grade temperature 100.1. # Left femoral neck fracture. s/p left robel-arthroplasty 07/11/21.on asa and heparin bid Orthopedic surgeon consulted . postop mgt and fu per ortho. ARU consulted. #History of CAD, [place]. holding parameters on home meds #History of glaucoma and cataracts. Resume eye drops postop. #History of Parkinson's dementia on Carbidopa-Levodopa which may be continued postoperatively. #Acute delirium . minimize sedatives. check depakote level, eeg. Disposition: pending further PT.OT, ortho f/u VS,Fishbone, I+O VS, Fishbone, I+O Laboratory Tests 07/12/21 14:12 07/13/21 09:01 Vital Signs Date Time Temp Pulse Resp B/P (MAP) Pulse Ox O2 Delivery O2 Flow Rate FiO2 07/13/21 09:14 17 07/13/21 08:41 113/66 07/13/21 06:00 98.7 86 98 07/13/21 00:42 Room Air I&O- Last 24 Hours up to 6 AM 07/13/21 06:00 Intake Total 0 ml Output Total 0 ml Balance 0 ml DONN JERNIGAN MD Jul 13, 2021 13:58
[2021-07-13 14:00] VITALS: BP 107/46
[2021-07-13 20:37] VITALS: BP 192/86
[2021-07-14 05:28] VITALS: BP 142/82
[2021-07-14] MEDS: oxyCODONE 5MG TAB PO PRN ×2 (05:40→19:33)
[2021-07-14 08:13] LABS: BASO % 0.3 % (0.0-1.0); HEMATOCRIT 30.3 % (42.0-52.0); HEMOGLOBIN 9.7 g/dl (13.5-17.5); LYMPH # 0.6 10^3/uL (1.5-5.0); LYMPH % 4.5 % (24.0-44.0); MEAN CORPUSCULAR HEMOGLOBIN 30.3 pg (27.0-33.0); MEAN CORPUSCULAR VOLUME 94.7 fl (80.0-96.0); MONO # 1.4 10^3/uL (0.0-0.8); MONO % 10.3 % (2.0-8.0); NEUTROPHILS # 11.5 10^3/uL (1.5-8.5); NEUTROPHILS % 84.5 % (36.0-66.0); PLATELET COUNT, AUTOMATED 241 10^3/uL (150-450); WHITE BLOOD COUNT 13.7 10^3/uL (4.0-10.0)
[2021-07-14] MEDS: ASPIRIN 81MG ENTERIC TABLET PO SCH (08:28)
[2021-07-14] MEDS: DIVALPROEX 250 MG TAB PO SCH ×2 (08:28→19:34)
[2021-07-14] MEDS: CANDESARTAN 4MG TABLET PO SCH ×2 (08:28→15:57)
[2021-07-14] MEDS: SINEMET 25-100 MG TAB PO SCH ×4 (08:28→19:33)
[2021-07-14 08:29] LABS: BLOOD UREA NITROGEN 26 MG/DL (7-18); CALCIUM LEVEL 9.1 MG/DL (8.8-10.2); CARBON DIOXIDE LEVEL 30 MEQ/L (21-32); CHLORIDE LEVEL 110 MEQ/L (98-107); GLOMERULAR FILTRATION RATE > 60.0 (>42); GLUCOSE, FASTING 102 MG/DL (70-100); POTASSIUM SERUM 3.5 MEQ/L (3.5-5.1); SODIUM LEVEL 147 MEQ/L (136-145)
[2021-07-14] MEDS: ERYTHROMYCIN OPHTH OINT OD SCH ×2 (08:29→19:34)
[2021-07-14] MEDS: HEPARIN SOD (PORCINE) 5000UNITS/ML 1ML VIAL/SYRINGE SC SCH ×2 (08:29→19:34)
[2021-07-14] MEDS: ACETAMINOPHEN TAB 650MG DOSE (2X325MG) PO PRN ×2 (11:22→19:33)
[2021-07-14] MEDS ORDERED: MOM 30ML SUSPENSION UDC PO PRN (13:00)
[2021-07-14 15:57] VITALS: BP 180/90
[2021-07-15 06:00] VITALS: BP 155/76
[2021-07-15 08:26] LABS: BASO % 0.3 % (0.0-1.0); HEMATOCRIT 30.3 % (42.0-52.0); HEMOGLOBIN 9.7 g/dl (13.5-17.5); LYMPH # 0.6 10^3/uL (1.5-5.0); LYMPH % 4.9 % (24.0-44.0); MEAN CORPUSCULAR VOLUME 96.8 fl (80.0-96.0); MONO % 8.4 % (2.0-8.0); NEUTROPHILS % 85.9 % (36.0-66.0); PLATELET COUNT, AUTOMATED 272 10^3/uL (150-450); RED BLOOD COUNT 3.13 10^6/uL (4.30-6.10); WHITE BLOOD COUNT 11.6 10^3/uL (4.0-10.0)
[2021-07-15 08:49] LABS: BLOOD UREA NITROGEN 26 MG/DL (7-18); CALCIUM LEVEL 8.6 MG/DL (8.8-10.2); CARBON DIOXIDE LEVEL 34 MEQ/L (21-32); CHLORIDE LEVEL 113 MEQ/L (98-107); CREATININE FOR GFR 0.73 MG/DL (0.70-1.30); GLOMERULAR FILTRATION RATE > 60.0 (>42); GLUCOSE, FASTING 98 MG/DL (70-100); POTASSIUM SERUM 3.7 MEQ/L (3.5-5.1); SODIUM LEVEL 151 MEQ/L (136-145)
[2021-07-15] MEDS: HEPARIN SOD (PORCINE) 5000UNITS/ML 1ML VIAL/SYRINGE SC SCH ×2 (09:14→20:13)
[2021-07-15] MEDS: DIVALPROEX 250 MG TAB PO SCH ×2 (09:15→20:12)
[2021-07-15] MEDS: ERYTHROMYCIN OPHTH OINT OD SCH ×2 (09:16→20:13)
[2021-07-15] MEDS: ASPIRIN 81MG ENTERIC TABLET PO SCH (09:16)
[2021-07-15] MEDS: CANDESARTAN 4MG TABLET PO SCH ×2 (09:16→17:18)
[2021-07-15] MEDS: SINEMET 25-100 MG TAB PO SCH ×4 (09:16→20:13)
[2021-07-15] MEDS: ACETAMINOPHEN TAB 650MG DOSE (2X325MG) PO PRN ×2 (12:47→17:20)
--- NOTE | 2021-07-15 15:59 | REP ---
INDICATION: Fall. COMPARISON: August 05, 2020. TECHNIQUE: Helical scanning is acquired. 5 mm axial images were reformatted. Coronal MPR images were generated. FINDINGS: Bone window settings demonstrate an intact bony calvarium. There is no evidence of skull fracture or incidental bony calvarial lesion. The visualized paranasal sinuses appear clear. No intraorbital abnormality is seen. On soft tissue window setting images; the lateral, third, and fourth ventricles are normal in size and position. Almanza-white differentiation pattern is normal above and below the tentorium. There are is no evidence of intracranial hemorrhage. No mass, edema, infarction, or midline shift is seen. No extra-axial fluid collection is appreciated. There is generalized volume loss again noted. There is vascular calcification in the distal internal carotid arteries. There is a small scalp contusion in the right frontal region. IMPRESSION: Vascular calcification and diffuse atrophy. Right frontal scalp contusion. No skull fracture or acute intracranial abnormality. <Electronically signed by Italo Sheehan > 07/15/21 [id number]
[2021-07-15] MEDS ORDERED: D5W 1,000 ML IV SCH (18:00)
[2021-07-15] MEDS: oxyCODONE 5MG TAB PO PRN (20:13)
[2021-07-16 06:00] VITALS: BP 176/87
[2021-07-16 07:06] LABS: HEMOGLOBIN 9.9 g/dl (13.5-17.5); MEAN CORPUSCULAR HEMOGLOBIN 30.4 pg (27.0-33.0); MEAN CORPUSCULAR HGB CONC 30.9 g/dl (32.0-36.5); MEAN CORPUSCULAR VOLUME 98.2 fl (80.0-96.0); PLATELET COUNT, AUTOMATED 293 10^3/uL (150-450); RED BLOOD COUNT 3.26 10^6/uL (4.30-6.10); WHITE BLOOD COUNT 10.8 10^3/uL (4.0-10.0)
[2021-07-16 07:29] LABS: BLOOD UREA NITROGEN 32 MG/DL (7-18); CALCIUM LEVEL 8.8 MG/DL (8.8-10.2); CARBON DIOXIDE LEVEL 36 MEQ/L (21-32); CHLORIDE LEVEL 113 MEQ/L (98-107); GLOMERULAR FILTRATION RATE > 60.0 (>42); GLUCOSE, FASTING 122 MG/DL (70-100); POTASSIUM SERUM 3.7 MEQ/L (3.5-5.1); SODIUM LEVEL 155 MEQ/L (136-145)
[2021-07-16] MEDS: SINEMET 25-100 MG TAB PO SCH ×4 (08:00→20:20)
[2021-07-16] MEDS: DIVALPROEX 250 MG TAB PO SCH ×2 (08:00→20:20)
[2021-07-16] MEDS: ASPIRIN 81MG ENTERIC TABLET PO SCH (08:00)
[2021-07-16] MEDS ORDERED: KCL 20MEQ IN D5W 1000ML 1,000 ML IV SCH (08:00)
[2021-07-16] MEDS: CANDESARTAN 4MG TABLET PO SCH (08:00)
[2021-07-16] MEDS: HEPARIN SOD (PORCINE) 5000UNITS/ML 1ML VIAL/SYRINGE SC SCH ×2 (08:01→20:20)
[2021-07-16] MEDS: ERYTHROMYCIN OPHTH OINT OD SCH ×2 (08:01→20:21)
[2021-07-16] MEDS: KCL 20MEQ IN D5W 1000ML 1,000 ML IV SCH ×2 (10:05→16:49)
[2021-07-16] MEDS: ACETAMINOPHEN TAB 650MG DOSE (2X325MG) PO PRN ×2 (12:03→20:20)
[2021-07-16] MEDS: oxyCODONE 5MG TAB PO PRN ×2 (13:13→16:49)
--- NOTE | 2021-07-16 13:35 | IPNPDOC ---
Text Note Date of Service The patient was seen on 07/16/21. NOTE Subjective: Patient seen and examined at bedside. No acute overnight events reported. Patient agitated during encounter. Did not answer questions and refused physical exam. Objective: Vital Signs: reviewed General: NAD, refusing exam, not answering questions Ext: no edema Psych: agitated A/P: 75M with PMHx including Parkinson's dementia, asthma, malignant melanoma on the left lower back, history of basal cell carcinoma, CAD, [place], dyslipidemia, macular degeneration, cataracts, degenerative disc disease admitted for left femoral neck fracture s/p recent fall. #hypernatremia - hyperosmolar - continue with D5W - nephrology c/s appreciated # Left femoral neck fracture s/p fall - s/p left robel-arthroplasty 07/11/21 - follow as per ortho - cleared for outpatient PT/rehab #History of CAD, [place] - continue home meds #History of glaucoma and cataracts - continue home eye drops #History of Parkinson's dementia - continue Carbidopa-Levodopa #DVT prophylaxis VS,Fishbone, I+O VS, Fishbone, I+O Laboratory Tests 07/16/21 06:43 Vital Signs Date Time Temp Pulse Resp B/P (MAP) Pulse Ox O2 Delivery O2 Flow Rate FiO2 07/16/21 13:13 18 Room Air 07/16/21 08:00 176/87 07/16/21 06:00 99.3 84 99 l I&O- Last 24 Hours up to 6 AM 07/16/21 06:00 Intake Total 720 ml Balance 720 ml DONN JERNIGAN MD Jul 16, 2021 13:35
[2021-07-16 18:16] LABS: BLOOD UREA NITROGEN 32 MG/DL (7-18); CALCIUM LEVEL 7.7 MG/DL (8.8-10.2); CARBON DIOXIDE LEVEL 33 MEQ/L (21-32); CHLORIDE LEVEL 111 MEQ/L (98-107); GLOMERULAR FILTRATION RATE > 60.0 (>42); GLUCOSE, FASTING 170 MG/DL (70-100); POTASSIUM SERUM 3.6 MEQ/L (3.5-5.1); SODIUM LEVEL 148 MEQ/L (136-145)
--- NOTE | 2021-07-16 19:18 | CR ---
CONSULTATION DATE: 07/16/2021 REQUESTING PHYSICIAN: Dr. Harrison Henry REASON FOR CONSULTATION: Hypernatremia in this patient who is recently status post left hip hemiarthroplasty. HISTORY OF PRESENT ILLNESS: History is obtained from the chart review; patient is unable to provide any clinical history secondary to Parkinson's dementia and clinical status. Patient is a 75-year-old male, resident of [place] with a past medical history of Parkinson's dementia, asthma, hypertension, history of NV and other comorbid conditions listed below. He had an unwitnessed ground level fall and presented to [facility] on July 10 with left hip pain. It is unclear at what point the patient sustained a left femoral neck fracture. He underwent a left hip hemiarthroplasty on July 11. I am called to see him because he has become increasingly hypernatremic over his hospitalization. Initially on admission, he had a creatinine of 0.7 with a sodium of 141 and a normal glucose level. Yesterday the patient's sodium climbed up to 151 and today his sodium is 155. His renal function remains well preserved with creatinine of 0.8 and I am asked for help with the fluid administration in this patient. Chart is reviewed and I see that patient has received normal saline on this admission and D5W was started today. PAST MEDICAL HISTORY: Resident of [place], Parkinson's dementia, asthma, hypertension, history of melanoma, history of NV, dyslipidemia, arthritis, degenerative disc disease, cataracts, macular degeneration, essential hypertension. PAST SURGICAL HISTORY: Deviated nasal septum, malignant melanoma excised in 2004, bilateral knee surgery in 2012. FAMILY HISTORY: Father from Alzheimer's. Mother with stroke. SOCIAL HISTORY: Resident of [place]. No reported smoking, alcohol or drugs. ALLERGIES: No known drug allergies. HOME MEDICATIONS: 1. Aspirin 81 mg p.o. daily. 2. Candesartan 8 mg p.o. b.i.d. 3. Carbidopa/Levodopa one tablet four times a day. 4. Klonopin 0.5 mg p.o. q.h.s. 5. Depakote 250 mg p.o. b.i.d. 6. Docusate 100 mg p.o. daily. 7. Donepezil 10 mg p.o. daily. 8. Citalopram 10 mg p.o. daily. 9. Finasteride 5 mg p.o. daily. 10.Ensure Enlive 237 cc p.o. three times a day. 11.Mylanta 20 cc p.o. b.i.d. 12.Protonix 40 mg p.o. daily. 13.Quetiapine 25 mg p.o. b.i.d. REVIEW OF SYSTEMS: Unable to obtain secondary to clinical condition and dementia. PHYSICAL EXAMINATION: VITAL SIGNS: Temperature 99.3, pulse 84, respiratory rate 20, blood pressure 176/87, saturating 99% on room air. INTAKE/OUTPUT: Intake yesterday was recorded as 720 cc. There were six incontinent voids recorded. Weight in the bed scale today is not recorded. GENERAL: Patient is seen sitting in bed, elderly and very cachectic, a frail male. There is a one-to-one sitter present at the bedside. He does not make eye contact. HEENT: His tongue is dry. He appears comfortable on room air. Jugular veins are not elevated. His ribs are prominent. LUNGS: Clear to auscultation b/l. . ABDOMEN: Soft. + BS EXTREMITIES: Show severe muscle wasting and cachectic appearance. There is no edema. There is no clubbing. There is no cyanosis. SKIN: warm + dry. normal turgor LABORATORY DATA: White count 10.8, hemoglobin 9.9, platelets 293,000. Sodium 155, serum osmolality 327, potassium 3.7, bicarbonate 26, BUN 32, creatinine 0.8. Blood cultures from July 11 show no growth x2 sets for five days. GFR is greater than 60. IMAGING DATA: CT of the head done yesterday shows no acute abnormalities. INPATIENT MEDICATIONS: Patient is started on D5W with 20 mEq of potassium chloride to run at 150 cc an hour. He is Tylenol p.r.n., aspirin 81 mg p.o. daily. I stopped the Candesartan 8 mg p.o. twice daily. He is on Sinemet four times a day, Depakote 250 mg p.o. b.i.d., Donepezil 10 mg p.o. daily, Heparin 5,000 units subcutaneous every 12 hours, Lisinopril 20 mg p.o. daily, Oxycodone p.r.n., Milk of Magnesia p.r.n. PROBLEMS: 1. Hyperosmolar hypernatremia: In this elderly male with dementia, recently orthopedic surgery and poor oral intake chronically. Patient has a several liter free water deficit. Orders are written for D5W at 150 cc an hour and we will get a repeat chemistry in the evening and fluids will be adjusted based upon the trend of his sodium levels. Nursing staff recorded six voids yesterday, but the amount of his urine is not being quantified. He is not on any interfering medication, certainly not on any diuretics. 2. Hypertension: Patient is presently both on TAVO and ARB. I stopped the ARB. He can continue on Lisinopril and dose can be up titrated as needed. His renal function is well preserved with creatinine less than 1. Amlodipine can also be added if needed. 3. Anemia: In the perioperative setting, hemoglobin was 13.6 on admission and down to 9.9 today despite the fact that he is hemoconcentrated and dry. We will get iron studies. 4. Metabolic alkalosis: Serum bicarbonate is 36, it is a contraction alkalosis and patient is written for hypotonic fluid administration. Thank you for involving me in the care of Mr. Tolentino. I will follow him along with you. DEANA
[2021-07-16] MEDS: RAMELTEON 8 MG TAB (ROZEREM) PO SCH (20:20)
[2021-07-16] MEDS: QUEtiapine FUMARATE 12.5 MG HALF-TAB PO SCH (20:20)
[2021-07-16] MEDS: LATANOPROST 0.005% OPHTH SOLN 2.5 ML OU SCH (21:36)
[2021-07-16 21:38] VITALS: BP 124/60
[2021-07-17] MEDS: KCL 20MEQ IN D5W 1000ML 1,000 ML IV SCH ×2 (03:36→15:17)
[2021-07-17] MEDS: ACETAMINOPHEN TAB 650MG DOSE (2X325MG) PO PRN ×4 (05:54→20:01)
[2021-07-17 06:00] VITALS: BP 138/72
[2021-07-17 07:28] LABS: BASO # 0.1 10^3/uL (0.0-0.2); BASO % 0.8 % (0.0-1.0); EOS # 0.1 10^3/uL (0.0-0.5); HEMATOCRIT 32.7 % (42.0-52.0); HEMOGLOBIN 10.2 g/dl (13.5-17.5); LYMPH # 0.8 10^3/uL (1.5-5.0); LYMPH % 11.5 % (24.0-44.0); MEAN CORPUSCULAR HEMOGLOBIN 30.4 pg (27.0-33.0); MEAN CORPUSCULAR HGB CONC 31.2 g/dl (32.0-36.5); MEAN CORPUSCULAR VOLUME 97.3 fl (80.0-96.0); MONO % 13.3 % (2.0-8.0); NEUTROPHILS # 5.2 10^3/uL (1.5-8.5); NEUTROPHILS % 72.8 % (36.0-66.0); PLATELET COUNT, AUTOMATED 287 10^3/uL (150-450); RED BLOOD COUNT 3.36 10^6/uL (4.30-6.10); WHITE BLOOD COUNT 7.1 10^3/uL (4.0-10.0)
[2021-07-17] MEDS: DONEPEZIL 5 MG TAB PO SCH (07:31)
[2021-07-17] MEDS: DIVALPROEX 250 MG TAB PO SCH ×2 (07:32→20:00)
[2021-07-17] MEDS: SINEMET 25-100 MG TAB PO SCH ×4 (07:32→20:01)
[2021-07-17] MEDS: ASPIRIN 81MG ENTERIC TABLET PO SCH (07:32)
[2021-07-17] MEDS: oxyCODONE 5MG TAB PO PRN (07:33)
[2021-07-17] MEDS: HEPARIN SOD (PORCINE) 5000UNITS/ML 1ML VIAL/SYRINGE SC SCH ×2 (07:34→20:00)
[2021-07-17] MEDS: ERYTHROMYCIN OPHTH OINT OD SCH ×2 (07:34→20:00)
[2021-07-17 07:54] LABS: ALBUMIN 2.7 GM/DL (3.2-5.2); ALT/SGPT 21 U/L (12-78); BILIRUBIN,TOTAL 0.6 MG/DL (0.2-1.0); BLOOD UREA NITROGEN 27 MG/DL (7-18); CALCIUM LEVEL 8.4 MG/DL (8.8-10.2); CARBON DIOXIDE LEVEL 32 MEQ/L (21-32); CHLORIDE LEVEL 107 MEQ/L (98-107); CREATININE FOR GFR 0.76 MG/DL (0.70-1.30); GLOMERULAR FILTRATION RATE > 60.0 (>42); GLUCOSE, FASTING 99 MG/DL (70-100); MAGNESIUM LEVEL 2.4 MG/DL (1.8-2.4); POTASSIUM SERUM 3.5 MEQ/L (3.5-5.1); SODIUM LEVEL 147 MEQ/L (136-145); TOTAL PROTEIN 5.9 GM/DL (6.4-8.2)
--- NOTE | 2021-07-17 12:11 | IPNPDOC ---
Subjective Date Seen The patient was seen on 07/17/21. Subjective Chief Complaint/HPI SUBJECTIVE: Patient has a sitter at bedside who reports that he has been increasing his PO intake. Patient still is unable to follow much verbal commands. No other acute complaints overnight. OBJECTIVE: VS: please see below Ins and outs : 1680ml and 200ml out for net positive of 1480ml. General: Frail looking man with parkinson's dementia laying at bedside, very cachectic and malnourished.There is a one-to-one sitter present at the bedside. He does not make eye contact. Parkinson's tremor HEENT: His tongue is dry. He appears comfortable on room air. Jugular veins are not elevated. His ribs are prominent. Lungs : Clear on auscultation, no wheezing, rhonci or rales Abdomen: Soft, nondistended. Extremities/Skin: Severe muscle wasting and cachectic appearance. There is no edema. There is no clubbing, cyanosis, bruising. Skin is pale and cool to touch IMPRESSION AND PLAN: 1. Hyperosmolar hypernatremia. This elderly male with dementia has had very poor PO intake and initially had several liters of free water deficit. He was started on D5W @150cc/h and his sodium has improved to 147 today. He is clinically improving and the sitter at bedside reports that he's been increasing his PO intake as well. In light of this, we will cut down his D5W to 30cc/h and enoucratge po intake. intaking more PO fluids as well. Patient has a several liter free water deficit. Orders are written for D5W at 150 cc an hour and we will get a repeat chemistry in the evening and fluids will be adjusted based upon the trend of his sodium levels. Nursing staff recorded six voids yesterday, but the amount of his urine is not being quantified. He is not on any interfering medication, certainly not on any diuretics. 2. Hypokalemia. Patient is presently both on TAVO and ARB. ARB was stopped. His bp is holding in SBP 130s. His K lvl is improving however still low normal. Will c/w with his fluids which have K for repletion. Will closely monitor his lytes and replete as needed. His renal function is well preserved with creatinine less than 1. If bp spikes, can consider amlodipine for additional anti- hypertensive. 3. Anemia. In the perioperative setting, hemoglobin was 13.6 on admission and down to 9.9 yesterday and improving to 10.2 today. We will order iron studies. VS, I&O, 24H, Fishbone Vital Signs/I&O Vital Signs Date Time Temp Pulse Resp B/P (MAP) Pulse Ox O2 Delivery O2 Flow Rate FiO2 07/17/21 08:03 18 07/17/21 07:33 138/72 07/17/21 06:00 98.0 71 99 Room Air I&O- Last 24 Hours up to 6 AM 07/17/21 06:00 Intake Total 4300 ml Balance 4300 ml Laboratory Data 24H LABS Laboratory Tests 2 07/16/21 17:39: Anion Gap 4L, Glomerular Filtration Rate > 60.0, Calcium Level 7.7L 07/17/21 07:00: Anion Gap 8, Glomerular Filtration Rate > 60.0, Calcium Level 8.4L, Immature Granulocyte % (Auto) 0.6, Neutrophils (%) (Auto) 72.8H, Lymphocytes (%) (Auto) 11.5L, Monocytes (%) (Auto) 13.3H, Eosinophils (%) (Auto) 1.0, Basophils (%) (Auto) 0.8, Neutrophils # (Auto) 5.2, Lymphocytes # (Auto) 0.8L, Monocytes # (Auto) 1.0H, Eosinophils # (Auto) 0.1, Basophils # (Auto) 0.1, Nucleated Red Blood Cells % (auto) 0.0, Magnesium Level 2.4, Total Bilirubin 0.6, Aspartate Amino Transf (AST/SGOT) 28, Alanine Aminotransferase (ALT/SGPT) 21, Alkaline Phosphatase 61, Total Protein 5.9L, Albumin 2.7L, Albumin/Globulin Ratio 0.8 CBC/BMP Laboratory Tests 07/16/21 17:39 07/17/21 07:00 Microbiology Microbiology 07/11/21 Blood Culture - Final, Complete NO GROWTH AFTER 5 DAYS 07/11/21 Blood Culture - Final, Complete NO GROWTH AFTER 5 DAYS GME ATTESTATION GME ATTESTATION My faculty preceptor for this patient encounter was physically present during the encounter and was fully available. All aspects of the patient interview, examination, medical decision making process, and medical care plan development were reviewed and approved by the faculty preceptor. The faculty preceptor is aware and concurs with the plan as stated in the body of this note and will attest to such by his/her cosignature. Ingrid Rivera DO Jul 17, 2021 12:11
[2021-07-17 14:00] VITALS: BP 122/66
[2021-07-17] MEDS: LATANOPROST 0.005% OPHTH SOLN 2.5 ML OU SCH (20:01)
[2021-07-17] MEDS: QUEtiapine FUMARATE 12.5 MG HALF-TAB PO SCH (20:01)
[2021-07-17] MEDS: RAMELTEON 8 MG TAB (ROZEREM) PO SCH (20:01)
[2021-07-17 22:00] VITALS: BP 127/66
[2021-07-18] MEDS: oxyCODONE 5MG TAB PO PRN ×3 (02:25→15:50)
[2021-07-18 06:00] VITALS: BP 117/58
[2021-07-18 06:34] LABS: FERRITIN 161 NG/ML (26-388); IRON (FE) 53 UG/DL (65-175); PERCENT SATURATION 31.2 % (19.7-50.0); TOTAL IRON BINDING CAPACITY 170 UG/DL (250-450)
[2021-07-18 08:42] LABS: HEMATOCRIT 27.1 % (42.0-52.0); HEMOGLOBIN 8.6 g/dl (13.5-17.5); MEAN CORPUSCULAR HEMOGLOBIN 30.5 pg (27.0-33.0); MEAN CORPUSCULAR HGB CONC 31.7 g/dl (32.0-36.5); MEAN CORPUSCULAR VOLUME 96.1 fl (80.0-96.0); PLATELET COUNT, AUTOMATED 285 10^3/uL (150-450); RED BLOOD COUNT 2.82 10^6/uL (4.30-6.10); WHITE BLOOD COUNT 7.3 10^3/uL (4.0-10.0)
[2021-07-18 08:51] LABS: BLOOD UREA NITROGEN 23 MG/DL (7-18); CALCIUM LEVEL 8.1 MG/DL (8.8-10.2); CARBON DIOXIDE LEVEL 33 MEQ/L (21-32); CHLORIDE LEVEL 108 MEQ/L (98-107); CREATININE FOR GFR 0.61 MG/DL (0.70-1.30); GLOMERULAR FILTRATION RATE > 60.0 (>42); GLUCOSE, FASTING 92 MG/DL (70-100); POTASSIUM SERUM 4.2 MEQ/L (3.5-5.1); SODIUM LEVEL 145 MEQ/L (136-145)
[2021-07-18] MEDS ORDERED: D5W 1,000 ML IV SCH (09:05)
[2021-07-18] MEDS: ASPIRIN 81MG ENTERIC TABLET PO SCH (09:14)
[2021-07-18] MEDS: SINEMET 25-100 MG TAB PO SCH ×4 (09:14→20:28)
[2021-07-18] MEDS: DIVALPROEX 250 MG TAB PO SCH ×2 (09:14→20:28)
[2021-07-18] MEDS: DONEPEZIL 5 MG TAB PO SCH (09:14)
[2021-07-18] MEDS: ACETAMINOPHEN TAB 650MG DOSE (2X325MG) PO PRN ×3 (09:14→20:29)
[2021-07-18] MEDS: HEPARIN SOD (PORCINE) 5000UNITS/ML 1ML VIAL/SYRINGE SC SCH ×2 (09:15→20:29)
[2021-07-18] MEDS: ERYTHROMYCIN OPHTH OINT OD SCH ×2 (09:15→20:29)
--- NOTE | 2021-07-18 11:07 | IPNPDOC ---
Subjective Date Seen The patient was seen on 07/18/21. Subjective Chief Complaint/HPI SUBJECTIVE: Patient was sitting up at bedside more alert and able to converse with me. There's a sitter at bedside who states that he ate his breakfast and continues to intake fluids. There's no overnight events. OBJECTIVE: VS: SEE BELOW Ins and outs : 650ML in and 0 ml out recorded. 650ml net positive. 1 incontinent BM recorded. General: Frail looking man with parkinson's dementia laying at bedside, very cachectic and malnourished. There is a one-to-one sitter present at the bedside. Patient is more responsive this morning and conversing. HEENT: His tongue is dry. He appears comfortable on room air. Jugular veins are not elevated. His ribs are prominent. Lungs : Clear on auscultation, no wheezing, rhonci or rales Abdomen: Soft, nondistended. Extremities/Skin: Severe muscle wasting and cachectic appearance. There is no edema. There is no clubbing, cyanosis, bruising. Skin is pale and cool to touch IMPRESSION AND PLAN: 1. Hyperosmolar hypernatremia (Resolved). This elderly male with dementia has had very poor PO intake and initially had several liters of free water deficit. He was Started on D5W @150cc/h and decreased to 30cc/h yesterday. Patient continues to tolerate PO fluid intake and this morning ate his breakfast. His hypoNa+ and hypoK+ has resolved. We will continue with his maintenance fluid D5W @40cc/h and d/c his KCl. Continue encouraging him to increase his PO fluid intake and can d/c D5W as necessary per primary. Nursing recorded 1 void but the amount of his urine is not being quantified. He is not on any interfering medication, certainly not on any diuretics. 2. Hypokalemia (Resolved). Patient can c/w lisinopril. His KCL running with his fluids will be d/c'd. His bp has normotensive with Sbps in one teens and 120s. If bp spikes, can consider amlodipine as additional antihypertensive. 3. Anemia. iron study was unimpressive. At this time, from Nephrology standpoint, he's optimally managed and will sign off. If any further questions, please don't hesitate to call. VS, I&O, 24H, Fishbone Vital Signs/I&O Vital Signs Date Time Temp Pulse Resp B/P (MAP) Pulse Ox O2 Delivery O2 Flow Rate FiO2 07/18/21 09:45 17 07/18/21 09:15 111/58 07/18/21 06:00 97.6 61 100 Room Air I&O- Last 24 Hours up to 6 AM 07/18/21 05:59 Intake Total 2680 ml Output Total 300 ml Balance 2380 ml Laboratory Data 24H LABS Laboratory Tests 2 07/18/21 05:26: Nucleated Red Blood Cells % (auto) 0.0 07/18/21 05:29: Anion Gap 4L, Glomerular Filtration Rate > 60.0, Calcium Level 8.1L, Iron Level 53L, Total Iron Binding Capacity 170L, Transferrin % Saturation 31.2, Ferritin 161 CBC/BMP Laboratory Tests 07/18/21 05:26 07/18/21 05:29 Microbiology Microbiology 07/11/21 Blood Culture - Final, Complete NO GROWTH AFTER 5 DAYS 07/11/21 Blood Culture - Final, Complete NO GROWTH AFTER 5 DAYS GME ATTESTATION GME ATTESTATION My faculty preceptor for this patient encounter was physically present during the encounter and was fully available. All aspects of the patient interview, examination, medical decision making process, and medical care plan development were reviewed and approved by the faculty preceptor. The faculty preceptor is aware and concurs with the plan as stated in the body of this note and will attest to such by his/her cosignature. Ingrid Rivera DO Jul 18, 2021 11:07
[2021-07-18 14:00] VITALS: BP 122/64
--- NOTE | 2021-07-18 16:01 | IPNPDOC ---
Date Seen The patient was seen on 07/18/21. Progress Note SUBJECTIVE: Confused to place and time, new name. Removed sitter to see how he would do without and was attempting to get out of bed and had some agitation, attempted to pull off incision dressing. No other acute overnight events reported. OBJECTIVE: PHYSICAL EXAMINATION: VS: Please see below CONSTITUTIONAL: No acute distress, resting comfortably, AAO x 1 EYES: PERRLA HENT, MOUTH: Normocephalic, atraumatic, moist mucous membranes NECK: SUPPLE, no JVD, no lymphadenopathy, no carotid bruit CV: Regular rate and rhythm, S1S2 normal, no murmurs/rubs/gallops RESPIRATORY: Clear to auscultation bilaterally, no rales/rhonchi/wheezes GI: BS positive in 4 quadrants, soft, nontender, nondistended, no rebound or guarding, no organomegaly : Deferred MUSCULOSKELETAL: ROM not tested. Large bandaged area of left upper thigh, no increased erythema, swelling or pain on palpation. No cyanosis, clubbing, swelling, joint deformity, extremity edema INTEGUMENTARY: Intact, no rashes, no lesions, no erythema NEUROLOGIC: Cranial Nerves II-XII were unable to be tested due to confusion, no focal deficits LABORATORY: Please see below IMAGING: no new imaging A/P: 75M with PMHx including Parkinson's dementia, asthma, malignant melanoma on the left lower back, history of basal cell carcinoma, CAD, [place], dyslipidemia, macular degeneration, cataracts, degenerative disc disease admitted for left femoral neck fracture s/p recent fall. #History of Parkinson's dementia -Agitated at times, attempted to stop sitter;however, needed to add back shortly after -Could be increased due to recent injury and transition to hospital. -No delerium noted -C/w home Carbidopa-Levodopa, restarted home donepezil #Acute hyperosmolar hypernatremia likely 2/2 to dehydration, poor PO intake -Sodium 145, wnl today -Continue with D5W at decreased rate, encourage PO intake of fluids Q3 hrs while awake -Nephrology has seen, f/u note. Signed off -Daily labs # Left femoral neck fracture s/p fall -POD 7 left robel-arthroplasty 07/11/21 -Cleared for outpatient PT/rehab -Orthopedics to follow, pain control -PT/OT while here #History of CAD, [place] -C/w home meds #History of glaucoma and cataracts -C/w home eye drops #DVT prophylaxis -Heparin SC DISPOSITION: Sitter for agitation. Nephrology signed off. Plan is discharge to rehab. VS, I&O, 24H, Fishbone Vital Signs/I&O Vital Signs Date Time Temp Pulse Resp B/P (MAP) Pulse Ox O2 Delivery O2 Flow Rate FiO2 07/18/21 09:45 17 07/18/21 09:15 111/58 07/18/21 06:00 97.6 61 100 Room Air I&O- Last 24 Hours up to 6 AM 07/18/21 06:00 Intake Total 2320 ml Output Total 300 ml Balance 2020 ml Laboratory Data 24H LABS Laboratory Tests 2 07/18/21 05:26: Nucleated Red Blood Cells % (auto) 0.0 07/18/21 05:29: Anion Gap 4L, Glomerular Filtration Rate > 60.0, Calcium Level 8.1L, Iron Level 53L, Total Iron Binding Capacity 170L, Transferrin % Saturation 31.2, Ferritin 161 CBC/BMP Laboratory Tests 07/18/21 05:26 07/18/21 05:29 Microbiology Microbiology 07/11/21 Blood Culture - Final, Complete NO GROWTH AFTER 5 DAYS 07/11/21 Blood Culture - Final, Complete NO GROWTH AFTER 5 DAYS Susan Gates MD Jul 18, 2021 16:01
[2021-07-18 17:42] LABS: FOLATE 21.1 NG/ML (>5.4)
[2021-07-18] MEDS: RAMELTEON 8 MG TAB (ROZEREM) PO SCH (20:28)
[2021-07-18] MEDS: LATANOPROST 0.005% OPHTH SOLN 2.5 ML OU SCH (20:28)
[2021-07-18] MEDS: QUEtiapine FUMARATE 12.5 MG HALF-TAB PO SCH (20:28)
[2021-07-18 22:00] VITALS: BP_SYST 123; BP_SYST 98; BP_DIAS 53; BP_DIAS 87
[2021-07-19 06:00] VITALS: BP 97/58
[2021-07-19] MEDS: DIVALPROEX 250 MG TAB PO SCH ×2 (09:07→20:28)
[2021-07-19] MEDS: DONEPEZIL 5 MG TAB PO SCH (09:07)
[2021-07-19] MEDS: SINEMET 25-100 MG TAB PO SCH ×4 (09:07→20:28)
[2021-07-19] MEDS: QUEtiapine FUMARATE 12.5 MG HALF-TAB PO SCH ×2 (09:08→20:28)
[2021-07-19] MEDS: ASPIRIN 81MG ENTERIC TABLET PO SCH (09:08)
[2021-07-19] MEDS: ERYTHROMYCIN OPHTH OINT OD SCH ×2 (09:08→20:28)
[2021-07-19] MEDS: HEPARIN SOD (PORCINE) 5000UNITS/ML 1ML VIAL/SYRINGE SC SCH ×2 (09:08→20:28)
[2021-07-19] MEDS: ACETAMINOPHEN TAB 650MG DOSE (2X325MG) PO PRN ×2 (09:08→16:11)
[2021-07-19 09:51] LABS: HEMOGLOBIN 8.7 g/dl (13.5-17.5); MEAN CORPUSCULAR HEMOGLOBIN 30.7 pg (27.0-33.0); MEAN CORPUSCULAR HGB CONC 32.2 g/dl (32.0-36.5); MEAN CORPUSCULAR VOLUME 95.4 fl (80.0-96.0); PLATELET COUNT, AUTOMATED 304 10^3/uL (150-450); RED BLOOD COUNT 2.83 10^6/uL (4.30-6.10); WHITE BLOOD COUNT 8.3 10^3/uL (4.0-10.0)
[2021-07-19 10:13] LABS: BLOOD UREA NITROGEN 17 MG/DL (7-18); CALCIUM LEVEL 7.9 MG/DL (8.8-10.2); CARBON DIOXIDE LEVEL 31 MEQ/L (21-32); CHLORIDE LEVEL 107 MEQ/L (98-107); CREATININE FOR GFR 0.59 MG/DL (0.70-1.30); GLOMERULAR FILTRATION RATE > 60.0 (>42); GLUCOSE, FASTING 102 MG/DL (70-100); POTASSIUM SERUM 4.4 MEQ/L (3.5-5.1); SODIUM LEVEL 142 MEQ/L (136-145)
[2021-07-19 14:00] VITALS: BP 110/48
[2021-07-19] MEDS: oxyCODONE 5MG TAB PO PRN (16:11)
--- NOTE | 2021-07-19 16:11 | IPNPDOC ---
Date Seen The patient was seen on 07/19/21. Progress Note SUBJECTIVE: Still confused to place and time, but knew name. Had mitts on today due to increased agitation, picking at IV and surgical incision bandage. Added low dose seroquel in AM in addition to night dose. Stopped IVFs today. No other acute overnight events reported. OBJECTIVE: PHYSICAL EXAMINATION: VS: Please see below CONSTITUTIONAL: Slightly agitated this AM, resting in bed AAO x 2 EYES: PERRLA HENT, MOUTH: Normocephalic, atraumatic, moist mucous membranes NECK: SUPPLE, no JVD, no lymphadenopathy, no carotid bruit CV: Regular rate and rhythm, S1S2 normal, no murmurs/rubs/gallops RESPIRATORY: Clear to auscultation bilaterally, no rales/rhonchi/wheezes GI: BS positive in 4 quadrants, soft, nontender, nondistended, no rebound or guarding, no organomegaly : Deferred MUSCULOSKELETAL: ROM not tested. Large bandaged area of left upper thigh, no increased erythema, swelling or pain on palpation. No cyanosis, clubbing, swelling, joint deformity, extremity edema INTEGUMENTARY: Intact, no rashes, no lesions, no erythema NEUROLOGIC: Cranial Nerves II-XII were unable to be tested due to confusion, no focal deficits LABORATORY: Please see below IMAGING: no new imaging A/P: 75M with PMHx including Parkinson's dementia, asthma, malignant melanoma on the left lower back, history of basal cell carcinoma, CAD, [place], dyslipidemia, macular degeneration, cataracts, degenerative disc disease admitted for left femoral neck fracture s/p recent fall. #History of Parkinson's dementia -Agitated at times, attempted to stop sitter again today -Could be increased due to recent injury and transition to hospital. -No delerium noted -C/w home Carbidopa-Levodopa, restarted home donepezil -Added seroquel BID for increased agitation #Acute hyperosmolar hypernatremia likely 2/2 to dehydration, poor PO intake- improved -Sodium wnl -stopped D5W at decreased rate, encourage PO intake of fluids Q3 hrs while awake -Nephrology has seen, f/u note. Signed off -Daily labs # Left femoral neck fracture s/p fall -POD 8 left robel-arthroplasty 07/11/21 -Cleared for outpatient PT/rehab -Orthopedics to follow o/p, pain control -PT/OT while here #HTN -BP soft lately. -Stopping ACEi for now -Monitor #History of CAD, [place] -C/w home meds #History of glaucoma and cataracts -C/w home eye drops #Chronic iron deficiency anemia -H/H stable, no s/s of bleeding -ferrous sulfate, colace BID started -Follow CBC #DVT prophylaxis -Heparin SC DISPOSITION: Sitter for agitation PRN. Nephrology signed off. Plan is discharge to [facility] 07/20/21. VS, I&O, 24H, Fishbone Vital Signs/I&O Vital Signs Date Time Temp Pulse Resp B/P (MAP) Pulse Ox O2 Delivery O2 Flow Rate FiO2 07/19/21 14:00 97.5 61 18 110/48 (68) 98 Room Air 07/18/21 22:00 I&O- Last 24 Hours up to 6 AM 07/19/21 05:59 Intake Total 1910 ml Output Total 0 ml Balance 1910 ml Laboratory Data 24H LABS Laboratory Tests 2 07/18/21 16:19: Vitamin B12 Level 435, Folate 21.1 07/19/21 09:44: Nucleated Red Blood Cells % (auto) 0.0, Anion Gap 4L, Glomerular Filtration Rate > 60.0, Calcium Level 7.9L 07/19/21 13:43: Coronavirus (COVID-19)(PCR) NEGATIVE CBC/BMP Laboratory Tests 07/19/21 09:44 Microbiology Microbiology 07/11/21 Blood Culture - Final, Complete NO GROWTH AFTER 5 DAYS 07/11/21 Blood Culture - Final, Complete NO GROWTH AFTER 5 DAYS Susan Gates MD Jul 19, 2021 16:10
[2021-07-19] MEDS: DOCUSATE SOD LIQ 100MG/10ML UDC PO SCH (20:28)
[2021-07-19] MEDS: RAMELTEON 8 MG TAB (ROZEREM) PO SCH (20:28)
[2021-07-19] MEDS: LATANOPROST 0.005% OPHTH SOLN 2.5 ML OU SCH (20:29)
[2021-07-19] MEDS ORDERED: DOCUSATE SODIUM 100MG CAPSULE PO SCH (21:00)
[2021-07-19 22:00] VITALS: BP 135/65
[2021-07-20] MEDS: oxyCODONE 5MG TAB PO PRN ×3 (01:52→17:26)
[2021-07-20] MEDS: ACETAMINOPHEN TAB 650MG DOSE (2X325MG) PO PRN ×3 (01:53→19:45)
[2021-07-20 06:00] VITALS: BP 174/84
[2021-07-20] MEDS ORDERED: DOCU10ELUD PO (07:34)
[2021-07-20] MEDS ORDERED: OXYC-517 PO (07:34)
[2021-07-20] MEDS ORDERED: RAME8TAB2 PO (07:34)
[2021-07-20] MEDS ORDERED: FERR1TAB8 PO (07:34)
[2021-07-20] MEDS ORDERED: LISI-898 PO ×2 (07:34→07:36)
[2021-07-20] MEDS ORDERED: QUET1TAB17 PO (07:34)
[2021-07-20 07:40] VITALS: BP 126/67
[2021-07-20 07:49] LABS: HEMOGLOBIN 8.7 g/dl (13.5-17.5); MEAN CORPUSCULAR HEMOGLOBIN 31.3 pg (27.0-33.0); MEAN CORPUSCULAR HGB CONC 32.2 g/dl (32.0-36.5); MEAN CORPUSCULAR VOLUME 97.1 fl (80.0-96.0); PLATELET COUNT, AUTOMATED 345 10^3/uL (150-450); RED BLOOD COUNT 2.78 10^6/uL (4.30-6.10); WHITE BLOOD COUNT 9.9 10^3/uL (4.0-10.0)
[2021-07-20 08:05] LABS: BLOOD UREA NITROGEN 18 MG/DL (7-18); CALCIUM LEVEL 8.1 MG/DL (8.8-10.2); CARBON DIOXIDE LEVEL 32 MEQ/L (21-32); CHLORIDE LEVEL 106 MEQ/L (98-107); CREATININE FOR GFR 0.67 MG/DL (0.70-1.30); GLOMERULAR FILTRATION RATE > 60.0 (>42); GLUCOSE, FASTING 89 MG/DL (70-100); POTASSIUM SERUM 4.1 MEQ/L (3.5-5.1); SODIUM LEVEL 142 MEQ/L (136-145)
[2021-07-20] MEDS: DOCUSATE SOD LIQ 100MG/10ML UDC PO SCH ×2 (10:23→19:44)
[2021-07-20] MEDS: SINEMET 25-100 MG TAB PO SCH ×4 (10:23→19:44)
[2021-07-20] MEDS: DONEPEZIL 5 MG TAB PO SCH (10:23)
[2021-07-20] MEDS: QUEtiapine FUMARATE 12.5 MG HALF-TAB PO SCH ×2 (10:24→19:45)
[2021-07-20] MEDS: FERROUS SULFATE 325MG TAB PO SCH (10:24)
[2021-07-20] MEDS: ASPIRIN 81MG ENTERIC TABLET PO SCH (10:24)
[2021-07-20] MEDS: ERYTHROMYCIN OPHTH OINT OD SCH ×2 (10:24→19:45)
[2021-07-20] MEDS: HEPARIN SOD (PORCINE) 5000UNITS/ML 1ML VIAL/SYRINGE SC SCH ×2 (10:24→19:45)
[2021-07-20] MEDS: DIVALPROEX 250 MG TAB PO SCH ×2 (10:24→19:44)
[2021-07-20 14:00] VITALS: BP 123/82
--- NOTE | 2021-07-20 14:52 | IPNPDOC ---
Date Seen The patient was seen on 07/20/21. Progress Note SUBJECTIVE: Still confused to place and time. Removing mitts today as [facility] facility will not take back with them. No other acute overnight events reported. OBJECTIVE: PHYSICAL EXAMINATION: VS: Please see below CONSTITUTIONAL: rested in bed, not agitated AAO x 2 EYES: PERRLA HENT, MOUTH: Normocephalic, atraumatic, moist mucous membranes NECK: SUPPLE, no JVD, no lymphadenopathy, no carotid bruit CV: Regular rate and rhythm, S1S2 normal, no murmurs/rubs/gallops RESPIRATORY: Clear to auscultation bilaterally, no rales/rhonchi/wheezes GI: BS positive in 4 quadrants, soft, nontender, nondistended, no rebound or guarding, no organomegaly : Deferred MUSCULOSKELETAL: ROM not tested. Large bandaged area of left upper thigh, no increased erythema, swelling or pain on palpation. No cyanosis, clubbing, swelling, joint deformity, extremity edema INTEGUMENTARY: Intact, no rashes, no lesions, no erythema NEUROLOGIC: Cranial Nerves II-XII were unable to be tested due to confusion, no focal deficits LABORATORY: Please see below IMAGING: no new imaging A/P: 75M with PMHx including Parkinson's dementia, asthma, malignant melanoma on the left lower back, history of basal cell carcinoma, CAD, [place], dyslipidemia, macular degeneration, cataracts, degenerative disc disease admitted for left femoral neck fracture s/p recent fall. #History of Parkinson's dementia -Less agitated today, has not needed sitter and removing mitts today -Could be increased due to recent injury and transition to hospital. -No delerium noted -C/w home Carbidopa-Levodopa, donepezil -On seroquel 12.5 BID for increased agitation, can increase #Acute hyperosmolar hypernatremia likely 2/2 to dehydration, poor PO intake- resolved -Sodium wnl -stopped D5W at decreased rate, encourage PO intake of fluids Q3 hrs while awake -Nephrology has seen, f/u note. Signed off -Daily labs # Left femoral neck fracture s/p fall -POD 9 left robel-arthroplasty 07/11/21 -Cleared for outpatient PT/rehab -Orthopedics to follow o/p, pain control -PT/OT while here #HTN -BP high after stopped ACEi -resume ACEi at lower dose -Monitor Severe protein calorie malnutrition -See nutritional assessment/suggestions in chart -BMI 18 #History of CAD, [place] -C/w home meds #History of glaucoma and cataracts -C/w home eye drops #Chronic iron deficiency anemia -H/H stable, no s/s of bleeding -ferrous sulfate, colace BID started -Follow CBC #DVT prophylaxis -Heparin SC DISPOSITION:Plan is discharge to [facility] likely 07/21/21 if can remain out of mitts and agitation better controlled. VS, I&O, 24H, Fishbone Vital Signs/I&O Vital Signs Date Time Temp Pulse Resp B/P (MAP) Pulse Ox O2 Delivery O2 Flow Rate FiO2 07/20/21 10:24 18 07/20/21 07:40 126/67 07/20/21 06:00 98.1 80 98 Room Air 07/18/21 22:00 I&O- Last 24 Hours up to 6 AM 07/20/21 06:00 Intake Total 250 ml Output Total 0 ml Balance 250 ml Laboratory Data 24H LABS Laboratory Tests 2 07/20/21 07:00: Nucleated Red Blood Cells % (auto) 0.0, Anion Gap 4L, Glomerular Filtration Rate > 60.0, Calcium Level 8.1L CBC/BMP Laboratory Tests 07/20/21 07:00 Microbiology Microbiology 07/11/21 Blood Culture - Final, Complete NO GROWTH AFTER 5 DAYS 07/11/21 Blood Culture - Final, Complete NO GROWTH AFTER 5 DAYS Susan Gates MD Jul 20, 2021 14:52
[2021-07-20] MEDS: RAMELTEON 8 MG TAB (ROZEREM) PO SCH (19:45)
[2021-07-20] MEDS: LATANOPROST 0.005% OPHTH SOLN 2.5 ML OU SCH (19:46)
[2021-07-21] MEDS: oxyCODONE 5MG TAB PO PRN ×2 (00:48→08:37)
[2021-07-21 06:13] LABS: HEMATOCRIT 28.9 % (42.0-52.0); HEMOGLOBIN 9.2 g/dl (13.5-17.5); MEAN CORPUSCULAR HEMOGLOBIN 30.5 pg (27.0-33.0); MEAN CORPUSCULAR HGB CONC 31.8 g/dl (32.0-36.5); MEAN CORPUSCULAR VOLUME 95.7 fl (80.0-96.0); PLATELET COUNT, AUTOMATED 401 10^3/uL (150-450); RED BLOOD COUNT 3.02 10^6/uL (4.30-6.10); WHITE BLOOD COUNT 7.5 10^3/uL (4.0-10.0)
[2021-07-21 06:40] LABS: BLOOD UREA NITROGEN 22 MG/DL (7-18); CALCIUM LEVEL 8.4 MG/DL (8.8-10.2); CARBON DIOXIDE LEVEL 29 MEQ/L (21-32); CHLORIDE LEVEL 106 MEQ/L (98-107); CREATININE FOR GFR 0.68 MG/DL (0.70-1.30); GLOMERULAR FILTRATION RATE > 60.0 (>42); GLUCOSE, FASTING 81 MG/DL (70-100); POTASSIUM SERUM 3.7 MEQ/L (3.5-5.1); SODIUM LEVEL 142 MEQ/L (136-145)
[2021-07-21] MEDS: SINEMET 25-100 MG TAB PO SCH ×2 (08:36→12:21)
[2021-07-21] MEDS: QUEtiapine FUMARATE 12.5 MG HALF-TAB PO SCH (08:36)
[2021-07-21] MEDS: DONEPEZIL 5 MG TAB PO SCH (08:36)
[2021-07-21] MEDS: DOCUSATE SOD LIQ 100MG/10ML UDC PO SCH (08:36)
[2021-07-21] MEDS: FERROUS SULFATE 325MG TAB PO SCH (08:36)
[2021-07-21] MEDS: ASPIRIN 81MG ENTERIC TABLET PO SCH (08:36)
[2021-07-21] MEDS: DIVALPROEX 250 MG TAB PO SCH (08:36)
[2021-07-21] MEDS: HEPARIN SOD (PORCINE) 5000UNITS/ML 1ML VIAL/SYRINGE SC SCH (08:36)
[2021-07-21] MEDS: ERYTHROMYCIN OPHTH OINT OD SCH (08:38)
--- NOTE | 2021-07-21 17:10 | DS.PDOC ---
Discharge Summary General Date of Admission Jul 10, 2021 at 18:17 Date of Discharge 07/21/21 Attending Physician: Susan Gates MD Discharge Summary PROCEDURES PERFORMED DURING STAY: left robel-arthroplasty 07/11/21 ADMITTING DIAGNOSES: Left femoral neck fracture s/p fall History of Parkinson's dementia Acute hyperosmolar hypernatremia likely 2/2 to dehydration, poor PO intake- r esolved HTN Severe protein calorie malnutrition History of CAD, OR History of glaucoma and cataracts Chronic iron deficiency anemia DISCHARGE DIAGNOSES: Left femoral neck fracture s/p fall History of Parkinson's dementia Acute hyperosmolar hypernatremia likely 2/2 to dehydration, poor PO intake- r esolved HTN Severe protein calorie malnutrition History of CAD, OR History of glaucoma and cataracts Chronic iron deficiency anemia COMPLICATIONS/CHIEF COMPLAINT: Closed Left Femoral Fracture. HISTORY OF PRESENT ILLNESS: Patient 75 years old male with past medical history of Parkinson dementia, a sthma, hypertension, history of OR status post cardiac stent placement presented to hospital with left hip pain. Patient lives in [facility] and according to the records he developed left hip pain for past few days. They did not know if he developed mechanical fall before. HOSPITAL COURSE: In ER patient was found to have leukocytosis of 17.1, x-ray showed left hip fracture. Dr. Yoder was contacted by ER physician and he will see him later today. EKG negative for acute ischemic changes, shows sinus rhythm. The following issues were managed this admission: Left femoral neck fracture s/p fall -POD 10 left robel-arthroplasty 07/11/21 -Cleared for outpatient PT/rehab -Orthopedics to follow o/p, pain control -PT/OT History of Parkinson's dementia -Less agitated today, has not needed sitter and removed mitts -Could be increased due to recent injury and transition to hospital. -No delerium noted -C/w home Carbidopa-Levodopa, donepezil -On seroquel 12.5 BID for increased agitation Acute hyperosmolar hypernatremia likely 2/2 to dehydration, poor PO intake- resolved -Sodium wnl -stopped D5W at decreased rate, encourage PO intake of fluids Q3 hrs while awake -Nephrology has seen, f/u note. Signed off HTN -BP high after stopped ACEi -resume ACEi at lower dose Severe protein calorie malnutrition -See nutritional assessment/suggestions in chart -BMI 18 History of CAD, OR -C/w home meds History of glaucoma and cataracts -C/w home eye drops Chronic iron deficiency anemia -H/H stable, no s/s of bleeding -ferrous sulfate, colace BID started -Follow CBC as o/p DISCHARGE MEDICATIONS: Please see below. ALLERGIES: Please see below. PHYSICAL EXAMINATION ON DISCHARGE: VS: Please see below CONSTITUTIONAL: rested in bed, not agitated AAO x 2 EYES: PERRLA HENT, MOUTH: Normocephalic, atraumatic, moist mucous membranes NECK: SUPPLE, no JVD, no lymphadenopathy, no carotid bruit CV: Regular rate and rhythm, S1S2 normal, no murmurs/rubs/gallops RESPIRATORY: Clear to auscultation bilaterally, no rales/rhonchi/wheezes GI: BS positive in 4 quadrants, soft, nontender, nondistended, no rebound or guarding, no organomegaly : Deferred MUSCULOSKELETAL: ROM not tested. Large bandaged area of left upper thigh, no increased erythema, swelling or pain on palpation. No cyanosis, clubbing, swelling, joint deformity, extremity edema INTEGUMENTARY: Intact, no rashes, no lesions, no erythema NEUROLOGIC: Cranial Nerves II-XII were unable to be tested due to confusion, no focal deficits LABORATORY: Please see below IMAGING: See chart ACTIVITY: As tolerated, see ortho notes DIET: High calorie, high protein, ensure DISPOSITION: [facility]. DISCHARGE INSTRUCTIONS / ITEMS TO FOLLOWUP ON ON OUTPATIENT: 1. Will need close follow up with facility provider and orthopedic surgery as already scheduled. 2. If any increased hip pain, swelling, redness or fevers/chills please notify medical provider at once. DISCHARGE CONDITION: Stable TIME SPENT ON DISCHARGE: 35 minutes. Vital Signs/I&Os Vital Signs Date Time Temp Pulse Resp B/P (MAP) Pulse Ox O2 Delivery O2 Flow Rate FiO2 07/21/21 09:10 16 07/20/21 17:56 Room Air 07/20/21 14:00 98.0 97 123/82 (96) 96 07/18/21 22:00 I&O- Last 24 Hours up to 6 AM 07/21/21 06:00 Intake Total 770 ml Balance 770 ml Laboratory Data Labs 24H Laboratory Tests 2 07/21/21 05:28: Nucleated Red Blood Cells % (auto) 0.0, Anion Gap 7L, Glomerular Filtration Rate > 60.0, Calcium Level 8.4L CBC/BMP Laboratory Tests 07/21/21 05:28 Microbiology Microbiology 07/11/21 Blood Culture - Final, Complete NO GROWTH AFTER 5 DAYS 07/11/21 Blood Culture - Final, Complete NO GROWTH AFTER 5 DAYS Discharge Medications Scheduled Aspirin (Aspirin EC) 81 Mg Tablet.dr, 81 MG PO DAILY, (Reported) Candesartan Cilexetil (Candesartan Cilexetil) 8 Mg Tablet, 8 MG PO BID, (Reported) 0800,1600 Carbidopa/Levodopa (Carbidopa-Levodopa 25-100 Tab) 1 Tab Tab, 1 TAB PO QID, (Reported) 0800,1200,1600,1999 Clonazepam (Clonazepam) 0.5 Mg Tab.rapdis, 0.5 MG PO QHS, (Reported) Divalproex Sodium (Divalproex Sodium) 125 Mg Tablet.dr, 250 MG PO BID, (Reported) 08,1999 Docusate Sodium (Docu Liquid) 50 Mg/5 Ml Liquid, 100 MG PO BID Donepezil HCl (Donepezil HCl) 10 Mg Tablet, 10 MG PO DAILY, (Reported) Erythromycin Base (Erythromycin) 3.5 Gm Oint...g., 1 APLCT OD BID, (Reported) apply 1 cm ribbon into the lower conjunctival sac Escitalopram Oxalate (Lexapro) 10 Mg Tablet, 10 MG PO DAILY, (Reported) Ferrous Sulfate (Ferrous Sulfate) 325 Mg Tablet, 325 MG PO DAILY Finasteride (Finasteride) 5 Mg Tablet, 5 MG PO DAILY, (Reported) Fluticasone/Vilanterol (Breo Ellipta 100-25 Mcg INH) 1 Each Blst.w.dev, 1 PUFF INH DAILY, (Reported) Lactose-Reduced Food (Ensure Enlive) 237 Ml Liquid, 237 ML PO TID, (Reported) 0800,1399,1999 Lactose-Reduced Food (Ensure Enlive) 237 Ml Liquid, 240 ML PO TID, (Reported) 0800,1400,1999 Latanoprost/Pf (Latanoprost 0.005% Eye Drop) 7.5 Ml Drops, 1 DROP OU QHS, (Reported) Lisinopril (Lisinopril) 5 Mg Tablet, 10 MG PO DAILY Mag Hydrox/Aluminum Hyd/Simeth (Mylanta Maximum Strength Liq) 355 Ml Oral.susp, 20 ML PO BID, (Reported) Magnesium Hydroxide (Milk of Magnesia) 400 Mg/5 Ml Oral.susp, 30 ML PO DAILY for constipation, (Reported) Pantoprazole Sodium (Protonix) 40 Mg Tablet.dr, 40 MG PO DAILY Pimavanserin Tartrate (Nuplazid) 34 Mg Capsule, 34 MG PO DAILY, (Reported) Propylene Glycol/Peg 400 (Systane Gel Eye Drops) 10 Ml Drops.gel, 1 DROP OU QID, (Reported) 0800,1200,1600,2000 Quetiapine Fumarate (Quetiapine Fumarate) 25 Mg Tablet, 12.5 MG PO BID Ramelteon (Ramelteon) 8 Mg Tablet, 8 MG PO QHS Scheduled PRN Acetaminophen (Mapap) 325 Mg Tablet, 650 MG PO Q4H PRN for PAIN LEVEL 1-4, (Reported) Oxycodone HCl (Oxycodone HCl) 5 Mg Tablet, 5 MG PO Q6HP PRN for MODERATE PAIN (PS 5-7) Sennosides/Docusate Sodium (Senna Plus 8.6-50 mg Tablet) 1 Each Tablet, 2 TAB PO QHS PRN for CONSTIPATION, (Reported) Allergies Coded Allergies: No Known Drug Allergies (Verified Allergy, Unknown, 08/05/20) Susan Gates MD Jul 21, 2021 17:10
== END 2021-07-21 13:40 | DRG 521 ==
LOC: M ED 11:40 → M ED INP 18:17 → M MS5PR 21:00
PROVIDERS: ADMIT Internal Medicine; ATTEND Internal Medicine
PROC: 0SRS0J9 Replacement of Left Hip Joint, Femoral Surface with Synthetic Substitute, Cemented, Open Approach (ICD-10-PCS; principal; 2021-07-11 16:00)
DX: S72.002A Fracture of unspecified part of neck of left femur, initial encounter for closed fracture (principal); E43 Unspecified severe protein-calorie malnutrition; E87.0 Hyperosmolality and hypernatremia; E87.3 Alkalosis; G20 Parkinson's disease; I10 Essential (primary) hypertension; J45.909 Unspecified asthma, uncomplicated; E87.6 Hypokalemia; D50.9 Iron deficiency anemia, unspecified; I25.2 Old myocardial infarction; I25.10 Atherosclerotic heart disease of native coronary artery without angina pectoris; F02.80 Dementia in other diseases classified elsewhere, unspecified severity, without behavioral disturbance, psychotic disturbance, mood disturbance, and anxiety; Z95.2 Presence of prosthetic heart valve; Z79.899 Other long term (current) drug therapy; Z79.82 Long term (current) use of aspirin; M19.90 Unspecified osteoarthritis, unspecified site; K21.9 Gastro-esophageal reflux disease without esophagitis; W18.30XA Fall on same level, unspecified, initial encounter; Y92.009 Unspecified place in unspecified non-institutional (private) residence as the place of occurrence of the external cause; H35.30 Unspecified macular degeneration

== ENCOUNTER → 2021-07-26 | Outpatient (CLI) | payer MEDICARE ==
[~2021-07-26] MED LIST changes: +DOCU10ELUD PO; +DONE10TA90 PO; +FERR1TAB8 PO; +LISI-898 PO; +MYLA1SUS PO; +OXYC-517 PO; +RAME8TAB2 PO
--- NOTE | 2021-07-26 09:43 | REP ---
INDICATION: SURGICAL AFTERCARE. COMPARISON: None. TECHNIQUE: Single AP view of the pelvis FINDINGS: Patient is status post satisfactory left hip replacement. Overlying postsurgical changes are noted. Remainder of the examination demonstrates age-related osteopenia and degenerative changes along with evidence for peripheral vascular disease. IMPRESSION: Satisfactory left hip replacement. <Electronically signed by Guille Moe > 07/26/21 0975
== END ==
LOC: M SOG 08:14
PROVIDERS: ATTEND Orthopaedic Surgery
DX: Z47.1 Aftercare following joint replacement surgery (principal); Z96.642 Presence of left artificial hip joint; M85.88 Other specified disorders of bone density and structure, other site

== ENCOUNTER → 2021-08-02 | Outpatient (REF) | payer MEDICARE ==
[~2021-08-02] MED LIST changes: +CAND16TA17 PO; -CAND16TA7 PO; -CAND8TAB PO; +CAND8TAB8 PO; -LISI-898 PO; +LISI5TAB11 PO; +POTA-149 PO; -POTA10TA16 PO
[2021-08-02 11:11] LABS: HEMATOCRIT 31.5 % (42.0-52.0); HEMOGLOBIN 9.9 g/dl (13.5-17.5); MEAN CORPUSCULAR HEMOGLOBIN 30.2 pg (27.0-33.0); MEAN CORPUSCULAR HGB CONC 31.4 g/dl (32.0-36.5); PLATELET COUNT, AUTOMATED 359 10^3/uL (150-450); RED BLOOD COUNT 3.28 10^6/uL (4.30-6.10); WHITE BLOOD COUNT 8.1 10^3/uL (4.0-10.0)
[2021-08-02 11:36] LABS: BLOOD UREA NITROGEN 12 MG/DL (7-18); CALCIUM LEVEL 7.8 MG/DL (8.8-10.2); CARBON DIOXIDE LEVEL 27 MEQ/L (21-32); CHLORIDE LEVEL 106 MEQ/L (98-107); CREATININE FOR GFR 0.73 MG/DL (0.70-1.30); GLOMERULAR FILTRATION RATE > 60.0 (>42); GLUCOSE, FASTING 162 MG/DL (70-100); SODIUM LEVEL 142 MEQ/L (136-145)
== END ==
PROVIDERS: ATTEND Internal Medicine
DX: S72.002D Fracture of unspecified part of neck of left femur, subsequent encounter for closed fracture with routine healing (principal); Z79.899 Other long term (current) drug therapy

== ENCOUNTER → 2021-08-07 | Outpatient (REF) | payer MEDICARE | PROVIDERS: ATTEND Internal Medicine | DX: Z53.9 Procedure and treatment not carried out, unspecified reason (principal) ==

== ENCOUNTER → 2021-09-04 | Outpatient (REF) | payer MEDICARE ==
[2021-09-04 11:37] LABS: HEMATOCRIT 39.4 % (42.0-52.0); HEMOGLOBIN 12.2 g/dl (13.5-17.5); MEAN CORPUSCULAR HEMOGLOBIN 29.4 pg (27.0-33.0); MEAN CORPUSCULAR VOLUME 94.9 fl (80.0-96.0); PLATELET COUNT, AUTOMATED 344 10^3/uL (150-450); RED BLOOD COUNT 4.15 10^6/uL (4.30-6.10); WHITE BLOOD COUNT 7.6 10^3/uL (4.0-10.0)
[2021-09-04 12:08] LABS: BLOOD UREA NITROGEN 16 MG/DL (7-18); CALCIUM LEVEL 8.5 MG/DL (8.8-10.2); CARBON DIOXIDE LEVEL 32 MEQ/L (21-32); CHLORIDE LEVEL 106 MEQ/L (98-107); CREATININE FOR GFR 0.59 MG/DL (0.70-1.30); GLOMERULAR FILTRATION RATE > 60.0 (>42); GLUCOSE, FASTING 79 MG/DL (70-100); SODIUM LEVEL 141 MEQ/L (136-145)
== END ==
PROVIDERS: ATTEND Internal Medicine
DX: S72.009A Fracture of unspecified part of neck of unspecified femur, initial encounter for closed fracture (principal)

== ENCOUNTER → 2021-09-14 | Outpatient (REF) | payer MEDICARE ==
[2021-09-14 17:51] LABS: BASO # 0.1 10^3/uL (0.0-0.2); BASO % 0.6 % (0.0-1.0); EOS % 0.3 % (0.0-3.0); HEMATOCRIT 35.5 % (42.0-52.0); HEMOGLOBIN 11.1 g/dl (13.5-17.5); LYMPH # 0.8 10^3/uL (1.5-5.0); LYMPH % 8.4 % (24.0-44.0); MEAN CORPUSCULAR HGB CONC 31.3 g/dl (32.0-36.5); MEAN CORPUSCULAR VOLUME 92.7 fl (80.0-96.0); MONO # 0.8 10^3/uL (0.0-0.8); MONO % 8.5 % (2.0-8.0); NEUTROPHILS # 7.4 10^3/uL (1.5-8.5); NEUTROPHILS % 81.8 % (36.0-66.0); PLATELET COUNT, AUTOMATED 275 10^3/uL (150-450); RED BLOOD COUNT 3.83 10^6/uL (4.30-6.10)
[2021-09-14 18:18] LABS: BLOOD UREA NITROGEN 17 MG/DL (7-18); CALCIUM LEVEL 8.6 MG/DL (8.8-10.2); CARBON DIOXIDE LEVEL 29 MEQ/L (21-32); CHLORIDE LEVEL 105 MEQ/L (98-107); CREATININE FOR GFR 0.66 MG/DL (0.70-1.30); GLOMERULAR FILTRATION RATE > 60.0 (>42); GLUCOSE, FASTING 115 MG/DL (70-100); POTASSIUM SERUM 3.6 MEQ/L (3.5-5.1); SODIUM LEVEL 145 MEQ/L (136-145)
== END ==
PROVIDERS: ATTEND Internal Medicine
DX: R50.9 Fever, unspecified (principal)

== ENCOUNTER → 2021-09-14 | Outpatient (REF) | payer MEDICARE | LOC: SKCOV 01:53 | PROVIDERS: ATTEND Internal Medicine | DX: R50.9 Fever, unspecified (principal) ==

== ENCOUNTER 2021-09-29 13:57 | Emergency (ER) | payer MEDICARE ==
[~2021-09-29] VITALS: Ht 172.7 cm; Wt 53.7 kg
[2021-09-29 14:30] LABS: VENOUS BASE EXCESS 3.2 (-2.0-2.0); VENOUS HCO3 28.8 MEQ/L (23.0-27.0); VENOUS O2 SATURATION 50.8 % (60.0-80.0); VENOUS PARTIAL PRESSURE CO2 48.2 mmHg (38.0-50.0); VENOUS PH 7.394 UNITS (7.330-7.430); VENOUS STANDARD HCO3 26.3 MEQ/L; VENOUS TOTAL CO2 30.3 MEQ/L (24.0-28.0)
[2021-09-29 14:34] LABS: BASO # 0.1 10^3/uL (0.0-0.2); BASO % 0.5 % (0.0-1.0); EOS # 0.2 10^3/uL (0.0-0.5); EOS % 1.7 % (0.0-3.0); HEMATOCRIT 35.7 % (42.0-52.0); LYMPH # 0.9 10^3/uL (1.5-5.0); LYMPH % 6.5 % (24.0-44.0); MEAN CORPUSCULAR HEMOGLOBIN 27.9 pg (27.0-33.0); MEAN CORPUSCULAR HGB CONC 30.8 g/dl (32.0-36.5); MEAN CORPUSCULAR VOLUME 90.6 fl (80.0-96.0); MONO # 1.2 10^3/uL (0.0-0.8); MONO % 8.9 % (2.0-8.0); NEUTROPHILS # 10.9 10^3/uL (1.5-8.5); PLATELET COUNT, AUTOMATED 330 10^3/uL (150-450); RED BLOOD COUNT 3.94 10^6/uL (4.30-6.10); WHITE BLOOD COUNT 13.3 10^3/uL (4.0-10.0)
[2021-09-29 15:06] LABS: ALBUMIN 2.9 GM/DL (3.2-5.2); ALT/SGPT 7 U/L (12-78); BILIRUBIN,DIRECT 0.1 MG/DL (0.0-0.2); BILIRUBIN,TOTAL 0.2 MG/DL (0.2-1.0); BLOOD UREA NITROGEN 24 MG/DL (7-18); CALCIUM LEVEL 8.8 MG/DL (8.8-10.2); CARBON DIOXIDE LEVEL 33 MEQ/L (21-32); CHLORIDE LEVEL 107 MEQ/L (98-107); CREATININE FOR GFR 0.76 MG/DL (0.70-1.30); GLOMERULAR FILTRATION RATE > 60.0 (>42); GLUCOSE, FASTING 89 MG/DL (70-100); NT-PRO BNP 612 PG/ML (<450); SODIUM LEVEL 145 MEQ/L (136-145); TOTAL PROTEIN 5.9 GM/DL (6.4-8.2)
[2021-09-29 15:09] LABS: RSV AMPLIFICATION NEGATIVE (NEGATIVE)
[2021-09-29 15:15] VITALS: BP 165/83
== END 2021-09-29 17:04 | disposition home or self-care (01) ==
LOC: EDBD 13:57 → M ED 13:57
DX: G31.83 Neurocognitive disorder with Lewy bodies (principal); I10 Essential (primary) hypertension; J45.909 Unspecified asthma, uncomplicated; I25.2 Old myocardial infarction; E78.5 Hyperlipidemia, unspecified; Z85.820 Personal history of malignant melanoma of skin; Z79.82 Long term (current) use of aspirin; Z79.899 Other long term (current) drug therapy

== ENCOUNTER → 2021-10-02 | Outpatient (REF) | payer MEDICARE ==
[2021-10-02 17:22] LABS: HEMATOCRIT 37.7 % (42.0-52.0); HEMOGLOBIN 11.5 g/dl (13.5-17.5); MEAN CORPUSCULAR HEMOGLOBIN 28.2 pg (27.0-33.0); MEAN CORPUSCULAR HGB CONC 30.5 g/dl (32.0-36.5); MEAN CORPUSCULAR VOLUME 92.4 fl (80.0-96.0); PLATELET COUNT, AUTOMATED 373 10^3/uL (150-450); RED BLOOD COUNT 4.08 10^6/uL (4.30-6.10); WHITE BLOOD COUNT 10.7 10^3/uL (4.0-10.0)
[2021-10-02 18:27] LABS: BLOOD UREA NITROGEN 27 MG/DL (7-18); CALCIUM LEVEL 8.7 MG/DL (8.8-10.2); CARBON DIOXIDE LEVEL 30 MEQ/L (21-32); CHLORIDE LEVEL 111 MEQ/L (98-107); CREATININE FOR GFR 0.62 MG/DL (0.70-1.30); GLOMERULAR FILTRATION RATE > 60.0 (>42); GLUCOSE, FASTING 74 MG/DL (70-100); POTASSIUM SERUM 4.1 MEQ/L (3.5-5.1); SODIUM LEVEL 148 MEQ/L (136-145)
== END ==
PROVIDERS: ATTEND Internal Medicine
DX: J69.0 Pneumonitis due to inhalation of food and vomit (principal)

== ENCOUNTER → 2021-10-02 | Outpatient (CLI) | payer MEDICARE | PROVIDERS: ATTEND Internal Medicine | DX: J69.0 Pneumonitis due to inhalation of food and vomit (principal) ==

== ENCOUNTER → 2021-10-04 | Outpatient (REF) | payer MEDICARE | PROVIDERS: ATTEND Internal Medicine | DX: D64.9 Anemia, unspecified (principal); Z53.9 Procedure and treatment not carried out, unspecified reason ==